=== PATIENT | female | born 1945 | race Caucasian/White ===

== ENCOUNTER 2018-06-29 14:57 | Inpatient (IN) ==
[2018-06-29] MEDS ORDERED: SODIUM CHLORIDE 0.9% 500 ML IV SCH (15:15)
[2018-06-29 15:29] LABS: Basophils # (auto) 0.02 K/uL (0-0.2); Basophils % (auto) 0.2 %; Eosinophils # (auto) 0.06 K/uL (0-0.5); Eosinophils % (auto) 0.6 %; Hematocrit (blood only) 43.1 % (37-47); Hemoglobin 14.6 g/dL (12.0-16.0); Immature Granulocytes # (auto) 0.01 K/uL (0.00-0.02); Immature Granulocytes % (auto) 0.1 %; Lymphocytes # (auto) 3.85 K/uL (1.2-3.4); Lymphocytes % (auto) 37.9 %; Mean Corpuscular Hgb Conc 33.9 g/dL (32-36); Mean Corpuscular Volume 90.2 fL (80-100); Mean Platelet Volume 10.5 fL (7.4-10.4); Monocytes # (auto) 0.87 K/uL (0.11-0.59); Monocytes % (auto) 8.6 %; Neutrophils # (auto) 5.36 K/uL (1.4-6.5); Neutrophils % (auto) 52.6 %; Platelet Count 209 K/uL (130-400); RDW Coefficient of Variation 13.5 % (11.5-14.5); RDW Standard Deviation 44.9 fL (36.4-46.3); Red Blood Count 4.78 M/uL (4.2-5.4); White Blood Count 10.17 K/uL (4.8-10.8)
[2018-06-29 15:42] LABS: Alanine Aminotransferase 18 U/L (12-78); Albumin Level 3.5 gm/dl (3.4-5.0); Aspartate Aminotransferase 9 U/L (15-37); BUN Creatinine Ratio 9.5 (10-20); Blood Urea Nitrogen 10 mg/dl (7-18); Calcium 9.3 mg/dl (8.5-10.1); Carbon Dioxide 27 mmol/L (21-32); Chloride 104 mmol/L (98-107); Est GFR (African American) 58.1; Est GFR (Non-African American) 50.1; Glucose 287 mg/dl (70-99); Magnesium 1.8 mg/dl (1.8-2.4); Potassium 3.6 mmol/L (3.5-5.1); Sodium 138 mmol/L (136-145)
[2018-06-29] MEDS ORDERED: ACETAMINOPHEN 325 MG TAB PO STA (15:49)
[2018-06-29 15:53] LABS: Albumin Globulin Ratio 0.9 (0.9-2); Alkaline Phosphatase 49 U/L (45-117); Bilirubin,Total 0.4 mg/dl (0.1-1); Globulin 3.8 gm/dl (2.5-4.0); Total Protein 7.3 gm/dl (6.4-8.2); Troponin I < 0.015 ng/ml (0-0.045)
--- NOTE | 2018-06-29 16:08 | CT Scan Report ---
HEAD CT NONCONTRAST CT DOSE: 537.48 mGy.cm HISTORY: weakness, lightheaded TECHNIQUE: Multiaxial CT images of the head were performed without the use of intravenous contrast. A utomated exposure control was utilized for this study. A dose lowering technique was utilized adheri ng to the principles of ALARA. Comparison: None. Findings: The paranasal sinuses and mastoid air cells are clear. The calvarium and skull base are int act. The ventricles and sulci are within normal limits. There is no mass, hematoma, midline shift, or acute infarct. Focal expansion of a right parietal sulcus at the high convexity which measures 2.8 c m. This is CSF density and therefore likely represents an arachnoid cyst. Impression: 1. No acute intracranial abnormality. 2. Incidental note is made of a 2.8 cm right parietal arachnoid cyst. Electronically signed by: Drake Galarza M.D. 06/29/2018 4:07 PM
[2018-06-29 16:20] LABS: Appearance Urine Cloudy (Clear); Bacteria Urine Automated 3+ (Negative); Bilirubin Urine Negative (Negative); Color Urine Yellow; Epithelial Cell Urine Auto >30 /lpf (0-5); Glucose Urine UA 3+ (Negative); Ketones Urine Trace (Negative); Leukocyte Esterase Urine Negative (Negative); Nitrite Urine Positive (Negative); Protein Urine 3+ (Negative); Specific Gravity Urine 1.034 (1.000-1.030); Urobilinogen Urine Negative (Negative)
--- NOTE | 2018-06-29 16:32 | XRay Report ---
XR chest 1V portable HISTORY: weakness COMPARISON: Chest 6 05/08/2006. FINDINGS: Left-sided dual-chamber pacemaker. The heart is normal in size. No pneumothorax. No pleural effusions. Hazy appearance to the left lung base remains unchanged. This may represent atelectasis o r scarring. The lungs are otherwise clear. IMPRESSION: No significant change compared to the prior study. No acute process. Hazy appearance to the left lung base persists and may represent atelectasis or scarring. Electronically signed by: Drake Galarza M.D. 06/29/2018 4:31 PM
[2018-06-29] MEDS ORDERED: cefTRIAXone SODIUM 1,000 MG/50 ML BAG IV STA (16:41)
--- NOTE | 2018-06-29 19:51 | History & Physical Report ---
Date of Service June 29, 2018 Assessment & Plan (1) Light-headed: 73-year-old female was admitted on 29 June 2018 for lightheadedness and bradycardia. Lightheaded and bradycardia: Some report of recent falls as well. Denies any outright chest pain or shortness of breath. EKG was normal sinus rhythm 73 with no evidence of pacing. Troponin was negative. CT head non-acute and CXR nothing immediate. Unclear moment exactly why she has a pacemaker in place, though she may have tachybradycardia syndrome. Cardiology was consulted by the emergency room (Dr. Olivas) who recommended the patient be admitted for likely pacemaker battery change out tomorrow. UTI: As seen on UA, though patient seems asymptomatic. Given ceftriaxone in ED. UCx pending. - Will keep on ceftriaxone daily due to pacemaker in place. Prior medical history - Hypothyroidism: History of the same. Here TSH 10.1. Patient may have run out of her home meds. Per medical records, is on levothyroxine 100 mcg daily. - DM: HbA1c in Mar 2018 16.3. Per medical records she was on metformin 1000 mg BID. --- Hold metformin in hospital. Insulin sliding scale. --- Will check updated A1c and lipid panel. - Hypertension: Per medical records is on losartan 25 mg daily and digoxin 250 mcg daily. --- Holding digoxin and losartan for now. --- Check digoxin level. Hyperlipidemia per medical records, is on rosuvastatin 10 mg daily. - Depression: Per medical records. Depending on her level of distress, may need psych care arranged as inpatient. - COPD: Per medical records is on Combivent 20-100 mcg one puff 4 times daily. - Hearing difficulty and intellectual disability. Right parietal arachnoid cyst: Incidental finding seen on CT of the head. Code status: Full code. Diet: DM2. DVT prophy: SCDs for tonight pending procedure. PT/OT: Deferred. Disbo: Admit to [facility] telemetry. Apparently lives with a friend named Nayla ( who may be hospitalized elsewhere herself). (2) Bradycardia: (3) Acute UTI: (4) Hypothyroidism: (5) Diabetes mellitus: (6) Hypertension: (7) Hyperlipidemia: (8) Depression: (9) COPD (chronic obstructive pulmonary disease): (10) Hearing difficulty: (11) Intellectual disability: History of Present Illness Primary Care Provider: SHIRLEY Walters 73-year-old female presents the emergency department complaining of lightheadedness prior to arrival. On my interview, the patient is very hard of hearing and does not volunteer any information. We ended up discussing the following: - Patient said that her chest feels uncomfortable but that she is not in any pain. She then said that "my battery is low" which I think is referring to her pacemaker. She says she still feels a little lightheaded but more so nervous about her pacemaker. - When asked if anything else bothered her, she said that she sprained her left ankle and that she should be wearing a brace but she does not know where it is. She says she has follow-up with someone for this in July. She also notes she has arthritis. Otherwise she denied any acute concerns. - Patient denied any dysuria or abdominal pain but did say that she "pees a lot ". She says she takes her diabetes medicine but she is not sure what it is. - Patient says she ran out of her thyroid medicine and she is unsure what it is or what dose she is on. - When asked if she lives at home, she says she used to but she does not care where she lives now. She then said that she feels very depressed and that she wants to talk to a psychiatrist to help her with anger issues. Allergies Allergy/AdvReac Type Severity Reaction Status Date / Time No Known Allergies Allergy Verified 06/29/18 19:52 Home Medications Home Medications Medication Instructions Recorded Confirmed Type cephalexin [Keflex] 500 mg PO BID 7 Days #14 cap 06/29/18 Rx diclofenac sodium 2 g TOPICAL QID 06/29/18 06/29/18 History digoxin [Digitek] 0.25 mg PO DAILY 06/29/18 06/29/18 History levothyroxine 100 mcg PO DAILY 06/29/18 06/29/18 History losartan 25 mg PO DAILY 06/29/18 06/29/18 History metformin 1,000 mg PO BID 06/29/18 06/29/18 History rosuvastatin 10 mg PO DAILY 06/29/18 06/29/18 History Past Med/Surg History Medical History Diabetes (Chronic) Family History Other No significant family history Social History Current Living Situation: Other Current Living Situation Comment: lives with a "friend" Smoking Status: Never smoker Hx Alcohol Use: No Hx Substance Use: No Beliefs That Will Affect Care: None Preferred Language: Urdu Communication Ability Comment: difficult r/t being hard of hearing and intellectual disability Immunizations: PMH: DM2, hypothyroidism, HTN, HLD, depression, COPD, hearing difficulty, intellectual disability. PSH: Pacemaker placement. Review of Systems Unable to obtain due to patient not volunteering much information. Though denies CP, SOB, CASTILLO, abd pain, urinary symptoms. Physical Exam 2 Vital Signs (Past 24 Hours): Last Vital Signs Temp 37.1 C 06/29/18 14:59 Pulse 47 L 06/29/18 19:01 Resp 18 06/29/18 19:01 BP 140/70 06/29/18 19: Pulse Ox 96 06/29/18 19:01 Physical Exam: GENERAL: Found patient resting comfortably. Awoke to light touch. Appears in no acute distress. Very hard of hearing. HENT: Normocephalic, atraumatic. Oropharynx unremarkable. EYES: Normal conjunctiva. Sclera non-icteric. NECK: Inspection normal. Non-tender. Supple and full ROM. No nuchal rigidity. CARDIAC: +S1S2 regular bradycardia, no murmurs. Pacemaker palpable in left upper chest. RESPIRATORY: Clear to auscultation. No wheezes or rales. Normal respiratory effort. GI: +BS, soft, non-distended. No tenderness to palpation. No rebound or guarding. No appreciable masses. EXTREMITIES: No pedal edema or calf tenderness. Moving all extremities naturally and easily. NEURO: No gross neuro deficits. Lines: PIV Results & Data Laboratory Results 06/29/18 06/29/18 06/29/18 Range/Units 16:05 15:05 15:05 WBC 10.17 (4.8-10.8) K/uL RBC 4.78 (4.2-5.4) M/uL Hgb 14.6 (12.0-16.0) g/dL Hct 43.1 (37-47) % MCV 90.2 (80-100) fL MCH 30.5 (25-34) pg MCHC 33.9 (32-36) g/dL RDW Std Deviation 44.9 (36.4-46.3) fL RDW Coeff of Sarah 13.5 (11.5-14.5) % Plt Count 209 (130-400) K/uL MPV 10.5 H (7.4-10.4) fL Immature Gran % (Auto) 0.1 % Neut % (Auto) 52.6 % Lymph % (Auto) 37.9 % [place] % (Auto) 8.6 % Eos % (Auto) 0.6 % Baso % (Auto) 0.2 % Immature Gran # (Auto) 0.01 (0.00-0.02) K/uL Neut # (Auto) 5.36 (1.4-6.5) K/uL Lymph # (Auto) 3.85 H (1.2-3.4) K/uL [place] # (Auto) 0.87 H (0.11-0.59) K/uL Eos # (Auto) 0.06 (0-0.5) K/uL Baso # (Auto) 0.02 (0-0.2) K/uL Sodium 138 (136-145) mmol/L Potassium 3.6 (3.5-5.1) mmol/L Chloride 104 (98-107) mmol/L Carbon Dioxide 27 (21-32) mmol/L Anion Gap 7.0 (3-11) BUN 10 (7-18) mg/dl Creatinine 1.10 (0.6-1.2) mg/dl Est Cr Clr Drug Dosing 37.0 ml/min Est GFR ( Amer) 58.1 Est GFR (Non-Af Amer) 50.1 BUN/Creatinine Ratio 9.5 L (10-20) Glucose 287 H (70-99) mg/dl POC Glucose (70-99) Calcium 9.3 (8.5-10.1) mg/dl Magnesium 1.8 (1.8-2.4) mg/dl Total Bilirubin 0.4 (0.1-1) mg/dl AST 9 L (15-37) U/L ALT 18 (12-78) U/L Alkaline Phosphatase 49 (45-117) U/L Troponin I < 0.015 (0-0.045) ng/ml Total Protein 7.3 (6.4-8.2) gm/dl Albumin 3.5 (3.4-5.0) gm/dl Globulin 3.8 (2.5-4.0) gm/dl Albumin/Globulin Ratio 0.9 (0.9-2) TSH 10.100 H (0.300-4.500) uIu/ml Urine Color Yellow Urine Appearance Cloudy H (Clear) Urine pH 5.0 (4.5-7.5) Ur Specific [place] 1.034 H (1.000-1.030) Urine Protein 3+ H (Negative) Urine Glucose (UA) 3+ H (Negative) Urine Ketones Trace H (Negative) Urine Blood Negative (Negative) Urine Nitrite Positive H (Negative) Urine Bilirubin Negative (Negative) Urine Urobilinogen Negative (Negative) Ur Leukocyte Esterase Negative (Negative) Urine WBC (Auto) 10-30 H (0-5) /hpf Urine RBC (Auto) 0-4 (0-4) /hpf U Hyaline Cast (Auto) 5-10 H (0-5) /lpf U Epithel Cells (Auto) >30 H (0-5) /lpf Urine Bacteria (Auto) 3+ H (Negative) 06/29/18 Range/Units 15:02 WBC (4.8-10.8) K/uL RBC (4.2-5.4) M/uL Hgb (12.0-16.0) g/dL Hct (37-47) % MCV (80-100) fL MCH (25-34) pg MCHC (32-36) g/dL RDW Std Deviation (36.4-46.3) fL RDW Coeff of Sarah (11.5-14.5) % Plt Count (130-400) K/uL MPV (7.4-10.4) fL Immature Gran % (Auto) % Neut % (Auto) % Lymph % (Auto) % [place] % (Auto) % Eos % (Auto) % Baso % (Auto) % Immature Gran # (Auto) (0.00-0.02) K/uL Neut # (Auto) (1.4-6.5) K/uL Lymph # (Auto) (1.2-3.4) K/uL [place] # (Auto) (0.11-0.59) K/uL Eos # (Auto) (0-0.5) K/uL Baso # (Auto) (0-0.2) K/uL Sodium (136-145) mmol/L Potassium (3.5-5.1) mmol/L Chloride (98-107) mmol/L Carbon Dioxide (21-32) mmol/L Anion Gap (3-11) BUN (7-18) mg/dl Creatinine (0.6-1.2) mg/dl Est Cr Clr Drug Dosing ml/min Est GFR ( Amer) Est GFR (Non-Af Amer) BUN/Creatinine Ratio (10-20) Glucose (70-99) mg/dl POC Glucose 279 H (70-99) Calcium (8.5-10.1) mg/dl Magnesium (1.8-2.4) mg/dl Total Bilirubin (0.1-1) mg/dl AST (15-37) U/L ALT (12-78) U/L Alkaline Phosphatase (45-117) U/L Troponin I (0-0.045) ng/ml Total Protein (6.4-8.2) gm/dl Albumin (3.4-5.0) gm/dl Globulin (2.5-4.0) gm/dl Albumin/Globulin Ratio (0.9-2) TSH (0.300-4.500) uIu/ml Urine Color Urine Appearance (Clear) Urine pH (4.5-7.5) Ur Specific [place] (1.000-1.030) Urine Protein (Negative) Urine Glucose (UA) (Negative) Urine Ketones (Negative) Urine Blood (Negative) Urine Nitrite (Negative) Urine Bilirubin (Negative) Urine Urobilinogen (Negative) Ur Leukocyte Esterase (Negative) Urine WBC (Auto) (0-5) /hpf Urine RBC (Auto) (0-4) /hpf U Hyaline Cast (Auto) (0-5) /lpf U Epithel Cells (Auto) (0-5) /lpf Urine Bacteria (Auto) (Negative) Code Status & VTE Plan Code Status Full code VTE Prophylaxis Plan VTE Prophylaxis will be ordered: Yes Supervising Physician Co-Signing Physician Notes Attending addendum: I have physically seen this patient, have supervised the medical residents activities, and agree with the H&P unless as otherwise noted. Assessment and Plan: Symptomatic bradycardia/lightheadedness/pacemaker dysfunction-- The patient will be admitted to telemetry for serial cardiac enzymes, serial EKG's, cardiac rhythm monitoring and a 2-D echocardiogram with Dopplers. Dr. Olivas from cardiology has been consulted from the ED, and will replace battery tomorrow. Hold the digoxin and check digoxin level. Hold losartan. Gentle IV fluids. Urinary tract infection-- Continue ceftriaxone 1 g IV daily begun in the ED. Follow urine culture and sensitivities. Hypothyroidism-- Continue levothyroxine 100 mcg p.o. daily. Patient reports she has not taken this in a few weeks since she ran out of her medication. Hyperglycemia and diabetes mellitus-- Suspect she has not been taking her metformin 1000 mg p.o. twice daily as directed. Hold metformin for potential procedure in the a.m. Placed on Accu-Cheks before meals and at bedtime with NovoLog coverage per scale. Would be concerning the patient is no longer in living situation which is optimal for her. Consult social welfare clerk for help in potential placement into assisted living. Remaining orders notations as noted. Resident Activity Tracking Resident Involvement: Resident Care Provided Care Provided: Adult Hospital Medicine
[2018-06-29] MEDS ORDERED: DEXTROSE 50% 50 ML SYRINGE IV PRN (19:58)
[2018-06-29] MEDS ORDERED: ONDANSETRON INJ 2 MG/ML 2 ML VIAL IV PRN ×2 (19:58→21:44)
[2018-06-29] MEDS ORDERED: GLUCAGON FOR INJ 1 MG VIAL SQ PRN (19:58)
[2018-06-29] MEDS ORDERED: ACETAMINOPHEN 325 MG TAB PO PRN (19:58)
[2018-06-29] MEDS ORDERED: GLUCOSE 40% GEL 15 GM TUBE PO PRN (19:58)
[2018-06-29] MEDS ORDERED: MAGNESIUM HYDROXIDE SUSP 30 ML UDC PO PRN ×2 (19:58→21:44)
[2018-06-29] MEDS ORDERED: GLUCOSE 10 TABS/TUBE PO PRN (19:58)
[2018-06-29] MEDS ORDERED: CARBOHYDRATES FOR HYPOGLYCEMIA PO PRN (19:58)
--- NOTE | 2018-06-29 21:04 | Emergency Department Note ---
Entered by Dee Ellington acting as a scribe for Tomas Ogden MD History of Present Illness General Chief complaint: Altered Mental Status Stated complaint: DIZZINESS, LIGHTHEADED Time Seen by Provider: 06/29/18 15:03 Source: patient History of Present Illness Onset (ago): hour(s) (just prior to arrival) Location: head Severity: similar to prior episodes Pain Consistency: + now resolved Quality: + other (lightheadedness) Associated symptoms: + other (negative abdominal pain); no chest pain and no cough Treatments prior to arrival: none The patient is a 73 white female w/ PMHx of diabetes who presents to the ED w/ CC of now resolved lightheadedness beginning just prior to arrival. The patient states that she has been falling a lot recently. She denies abdominal pain, cough, or chest pain. The patient states that she walked somewhere so that they would call the ambulance for her. The patient states that she does not know what caused her lightheadedness, and denies any treatments prior to arrival. Home Medications Home Medications Medication Instructions Recorded Confirmed Type cephalexin [Keflex] 500 mg PO BID 7 Days #14 cap 06/29/18 Rx diclofenac sodium 2 g TOPICAL QID 06/29/18 06/29/18 History digoxin [Digitek] 0.25 mg PO DAILY 06/29/18 06/29/18 History levothyroxine 100 mcg PO DAILY 06/29/18 06/29/18 History losartan 25 mg PO DAILY 06/29/18 06/29/18 History rosuvastatin 10 mg PO DAILY 06/29/18 06/29/18 History Allergies Allergy/AdvReac Type Severity Reaction Status Date / Time No Known Allergies Allergy Verified 06/29/18 19:52 Past Med/Surg History Medical History Diabetes (Chronic) Family History Other No significant family history Social History Smoking Status: Unknown if ever smoked Preferred Language: Thai Review of Systems See HPI for pertinent positives & negatives. and A total of 10 systems reviewed and were otherwise negative Physical Exam Vital Signs Vital Signs - 24 hr 06/29/18 14:59 06/29/18 15:04 06/29/18 15:11 Temperature 37.1 C Temperature Source Oral Sepsis Recent Fever Within 48 Hours No Sepsis New/Unexplained Change in Mental Status No Sepsis Action Taken by Nursing No Action Required Pulse Rate 74 74 Pulse Rate [Apical] Pulse Rhythm Regular Pulse Rhythm [Apical] Pulse Strength Normal Pulse Strength [Apical] Respiratory Rate 22 20 Respiratory Effort / Characteristics Non-Labored Spontaneous Respiratory Depth Normal Respiratory Pattern Regular Blood Pressure 110/72 Blood Pressure [Right Arm] Blood Pressure Mean 84 Blood Pressure Mean [Right Arm] Blood Pressure Position [Right Arm] Pulse Oximetry 98 98 96 Oxygen Delivery Method Room Air Room Air 06/29/18 15:30 06/29/18 15:37 06/29/18 16:45 Temperature Temperature Source Sepsis Recent Fever Within 48 Hours Sepsis New/Unexplained Change in Mental Status Sepsis Action Taken by Nursing Pulse Rate 64 65 75 Pulse Rate [Apical] Pulse Rhythm Pulse Rhythm [Apical] Pulse Strength Pulse Strength [Apical] Respiratory Rate 20 19 25 H Respiratory Effort / Characteristics Respiratory Depth Respiratory Pattern Blood Pressure 103/64 Blood Pressure [Right Arm] Blood Pressure Mean 77 Blood Pressure Mean [Right Arm] Blood Pressure Position [Right Arm] Pulse Oximetry 94 96 Oxygen Delivery Method 06/29/18 16:46 06/29/18 17:00 06/29/18 17:24 Temperature Temperature Source Sepsis Recent Fever Within 48 Hours Sepsis New/Unexplained Change in Mental Status Sepsis Action Taken by Nursing Pulse Rate 59 L 57 L Pulse Rate [Apical] Pulse Rhythm Pulse Rhythm [Apical] Pulse Strength Pulse Strength [Apical] Respiratory Rate 25 H 16 38 H Respiratory Effort / Characteristics Respiratory Depth Respiratory Pattern Blood Pressure 110/65 118/71 Blood Pressure [Right Arm] Blood Pressure Mean 80 86 Blood Pressure Mean [Right Arm] Blood Pressure Position [Right Arm] Pulse Oximetry 96 96 96 Oxygen Delivery Method 06/29/18 17:30 06/29/18 17:40 06/29/18 17:43 Temperature Temperature Source Sepsis Recent Fever Within 48 Hours Sepsis New/Unexplained Change in Mental Status Sepsis Action Taken by Nursing Pulse Rate 47 L 52 L Pulse Rate [Apical] 47 L Pulse Rhythm Pulse Rhythm [Apical] Regular Pulse Strength Pulse Strength [Apical] Normal Respiratory Rate 16 27 H 18 Respiratory Effort / Characteristics Respiratory Depth Normal Respiratory Pattern Blood Pressure Blood Pressure [Right Arm] 118/71 Blood Pressure Mean Blood Pressure Mean [Right Arm] 86 Blood Pressure Position [Right Arm] Pulse Oximetry 96 94 96 Oxygen Delivery Method Room Air 06/29/18 17:51 06/29/18 18:00 06/29/18 18:10 Temperature Temperature Source Sepsis Recent Fever Within 48 Hours Sepsis New/Unexplained Change in Mental Status Sepsis Action Taken by Nursing Pulse Rate 47 L 51 L 70 Pulse Rate [Apical] Pulse Rhythm Pulse Rhythm [Apical] Pulse Strength Pulse Strength [Apical] Respiratory Rate 17 19 21 Respiratory Effort / Characteristics Respiratory Depth Respiratory Pattern Blood Pressure Blood Pressure [Right Arm] Blood Pressure Mean Blood Pressure Mean [Right Arm] Blood Pressure Position [Right Arm] Pulse Oximetry 96 97 98 Oxygen Delivery Method 06/29/18 18:20 06/29/18 18:30 06/29/18 18:40 Temperature Temperature Source Sepsis Recent Fever Within 48 Hours Sepsis New/Unexplained Change in Mental Status Sepsis Action Taken by Nursing Pulse Rate 55 L 52 L 51 L Pulse Rate [Apical] Pulse Rhythm Pulse Rhythm [Apical] Pulse Strength Pulse Strength [Apical] Respiratory Rate 16 19 15 Respiratory Effort / Characteristics Respiratory Depth Respiratory Pattern Blood Pressure 117/61 Blood Pressure [Right Arm] Blood Pressure Mean 79 Blood Pressure Mean [Right Arm] Blood Pressure Position [Right Arm] Pulse Oximetry 95 98 96 Oxygen Delivery Method 06/29/18 18:44 06/29/18 19:01 06/29/18 20:43 Temperature Temperature Source Sepsis Recent Fever Within 48 Hours Sepsis New/Unexplained Change in Mental Status Sepsis Action Taken by Nursing Pulse Rate Pulse Rate [Apical] 53 L 47 L 47 L Pulse Rhythm Pulse Rhythm [Apical] Regular Pulse Strength Pulse Strength [Apical] Normal Respiratory Rate 18 18 Respiratory Effort / Characteristics Non-Labored Spontaneous Respiratory Depth Normal Respiratory Pattern Regular Blood Pressure Blood Pressure [Right Arm] 140/70 107/55 L Blood Pressure Mean Blood Pressure Mean [Right Arm] 93 72 Blood Pressure Position [Right Arm] Sitting Sitting Pulse Oximetry 96 93 Oxygen Delivery Method Room Air Room Air GENERAL: Well appearing, well nourished, NAD, non-toxic. Very hard of hearing. EYE EXAM: normal conjunctiva. PERRL, no anisocoria and EOM's grossly intact. Cataract in left eye. OROPHARYNX: no exudate, no erythema, lips, buccal mucosa, and tongue normal and mucous membranes are moist. Edentulous. NECK: supple, no nuchal rigidity, no adenopathy, non-tender CHEST: Device in left chest. LUNGS: Clear to auscultation. Normal chest wall mechanics HEART: no murmurs, S1 normal and S2 normal, no MRG ABDOMEN: abdomen soft, non-tender, normo-active bowel sounds, no masses, no rebound or guarding. BACK: Back is symmetrical on inspection and there is no deformity, no midline tenderness, no CVA tenderness to palpation. SKIN: no rashes and no bruising UPPER EXTREMITIES: upper extremities are grossly normal. LOWER EXTREMITIES: No pitting edema. No calf pain. NEURO EXAM: Cranial nerves II-XII grossly intact, normal speech, 5/5 b/l upper extremity and lower extremity strength, moves all 4s on ccommands. Course 1504: Past medical records reviewed. The patient was evaluated in room C4, and a complete history and physical examination were performed. 1828: I discussed the case with Dr. Donn Storm who states that the patient [facility]. He states that the patient's pacemaker battery can be replaced tomorrow. 1836: I discussed the case with Sandra Car PA-C who will further evaluate the patient. Consultations Consultation #1: I discussed the case with Dr. Donn Storm who states that the patient would benefit [facility]. He states that the patient's pacemaker battery can be replaced tomorrow. Time: 18:28 Consultation #2: I discussed the case with Sandra Car PA-C who will further evaluate the patient. Time: 18:36 Administered Medications Discontinued Medications Acetaminophen (Tylenol) 650 mg PO NOW STA Stop: 06/29/18 15:50 Last Admin: 06/29/18 16:05 Dose: 650 mg Sodium Chloride (Nss) 500 mls @ 999 mls/hr IV .Q31M YURIDIA Stop: 06/29/18 15:45 Last Infusion: 06/29/18 17:23 Dose: Infusion: 06/29/18 16:07 Dose: 0 mls/hr Admin: 06/29/18 15:36 Dose: 999 mls/hr Ceftriaxone Sodium (Rocephin) 1,000 mg in 50 mls @ 100 mls/hr IV NOW STA Stop: 06/29/18 17:10 Last Infusion: 06/29/18 17:24 Dose: Admin: 06/29/18 16:56 Dose: 100 mls/hr Medical Decision Making Medical Records Attestation: I reviewed the patient's medical records. Home Medications Current Medication List: was personally reviewed by me Laboratory Data Attestation: I reviewed the patient's lab results. Result diagrams: 06/29/18 15:05 06/29/18 15:05 Lab Results 06/29/18 06/29/18 06/29/18 Range/Units 15:02 15:05 15:05 WBC 10.17 (4.8-10.8) K/uL RBC 4.78 (4.2-5.4) M/uL Hgb 14.6 (12.0-16.0) g/dL Hct 43.1 (37-47) % MCV 90.2 (80-100) fL MCH 30.5 (25-34) pg MCHC 33.9 (32-36) g/dL RDW Std Deviation 44.9 (36.4-46.3) fL RDW Coeff of Sarah 13.5 (11.5-14.5) % Plt Count 209 (130-400) K/uL MPV 10.5 H (7.4-10.4) fL Immature Gran % (Auto) 0.1 % Neut % (Auto) 52.6 % Lymph % (Auto) 37.9 % [place] % (Auto) 8.6 % Eos % (Auto) 0.6 % Baso % (Auto) 0.2 % Immature Gran # (Auto) 0.01 (0.00-0.02) K/uL Neut # (Auto) 5.36 (1.4-6.5) K/uL Lymph # (Auto) 3.85 H (1.2-3.4) K/uL [place] # (Auto) 0.87 H (0.11-0.59) K/uL Eos # (Auto) 0.06 (0-0.5) K/uL Baso # (Auto) 0.02 (0-0.2) K/uL Sodium 138 (136-145) mmol/L Potassium 3.6 (3.5-5.1) mmol/L Chloride 104 (98-107) mmol/L Carbon Dioxide 27 (21-32) mmol/L Anion Gap 7.0 (3-11) BUN 10 (7-18) mg/dl Creatinine 1.10 (0.6-1.2) mg/dl Est Cr Clr Drug Dosing 37.0 ml/min Est GFR ( Amer) 58.1 Est GFR (Non-Af Amer) 50.1 BUN/Creatinine Ratio 9.5 L (10-20) Glucose 287 H (70-99) mg/dl POC Glucose 279 H (70-99) Calcium 9.3 (8.5-10.1) mg/dl Magnesium 1.8 (1.8-2.4) mg/dl Total Bilirubin 0.4 (0.1-1) mg/dl AST 9 L (15-37) U/L ALT 18 (12-78) U/L Alkaline Phosphatase 49 (45-117) U/L Troponin I < 0.015 (0-0.045) ng/ml Total Protein 7.3 (6.4-8.2) gm/dl Albumin 3.5 (3.4-5.0) gm/dl Globulin 3.8 (2.5-4.0) gm/dl Albumin/Globulin Ratio 0.9 (0.9-2) TSH 10.100 H (0.300-4.500) uIu/ml Urine Color Urine Appearance (Clear) Urine pH (4.5-7.5) Ur Specific [place] (1.000-1.030) Urine Protein (Negative) Urine Glucose (UA) (Negative) Urine Ketones (Negative) Urine Blood (Negative) Urine Nitrite (Negative) Urine Bilirubin (Negative) Urine Urobilinogen (Negative) Ur Leukocyte Esterase (Negative) Urine WBC (Auto) (0-5) /hpf Urine RBC (Auto) (0-4) /hpf U Hyaline Cast (Auto) (0-5) /lpf U Epithel Cells (Auto) (0-5) /lpf Urine Bacteria (Auto) (Negative) 06/29/18 Range/Units 16:05 WBC (4.8-10.8) K/uL RBC (4.2-5.4) M/uL Hgb (12.0-16.0) g/dL Hct (37-47) % MCV (80-100) fL MCH (25-34) pg MCHC (32-36) g/dL RDW Std Deviation (36.4-46.3) fL RDW Coeff of Sarah (11.5-14.5) % Plt Count (130-400) K/uL MPV (7.4-10.4) fL Immature Gran % (Auto) % Neut % (Auto) % Lymph % (Auto) % [place] % (Auto) % Eos % (Auto) % Baso % (Auto) % Immature Gran # (Auto) (0.00-0.02) K/uL Neut # (Auto) (1.4-6.5) K/uL Lymph # (Auto) (1.2-3.4) K/uL [place] # (Auto) (0.11-0.59) K/uL Eos # (Auto) (0-0.5) K/uL Baso # (Auto) (0-0.2) K/uL Sodium (136-145) mmol/L Potassium (3.5-5.1) mmol/L Chloride (98-107) mmol/L Carbon Dioxide (21-32) mmol/L Anion Gap (3-11) BUN (7-18) mg/dl Creatinine (0.6-1.2) mg/dl Est Cr Clr Drug Dosing ml/min Est GFR ( Amer) Est GFR (Non-Af Amer) BUN/Creatinine Ratio (10-20) Glucose (70-99) mg/dl POC Glucose (70-99) Calcium (8.5-10.1) mg/dl Magnesium (1.8-2.4) mg/dl Total Bilirubin (0.1-1) mg/dl AST (15-37) U/L ALT (12-78) U/L Alkaline Phosphatase (45-117) U/L Troponin I (0-0.045) ng/ml Total Protein (6.4-8.2) gm/dl Albumin (3.4-5.0) gm/dl Globulin (2.5-4.0) gm/dl Albumin/Globulin Ratio (0.9-2) TSH (0.300-4.500) uIu/ml Urine Color Yellow Urine Appearance Cloudy H (Clear) Urine pH 5.0 (4.5-7.5) Ur Specific [place] 1.034 H (1.000-1.030) Urine Protein 3+ H (Negative) Urine Glucose (UA) 3+ H (Negative) Urine Ketones Trace H (Negative) Urine Blood Negative (Negative) Urine Nitrite Positive H (Negative) Urine Bilirubin Negative (Negative) Urine Urobilinogen Negative (Negative) Ur Leukocyte Esterase Negative (Negative) Urine WBC (Auto) 10-30 H (0-5) /hpf Urine RBC (Auto) 0-4 (0-4) /hpf U Hyaline Cast (Auto) 5-10 H (0-5) /lpf U Epithel Cells (Auto) >30 H (0-5) /lpf Urine Bacteria (Auto) 3+ H (Negative) Imaging Data Radiologist's Impression: Radiology results as stated below per my review and the radiologist's interpretation: HEAD CT NONCONTRAST CT DOSE: 537.48 mGy.cm HISTORY: weakness, lightheaded TECHNIQUE: Multiaxial CT images of the head were performed without the use of intravenous contrast. Automated exposure control was utilized for this study. A dose lowering technique was utilized adhering to the principles of ALARA. Comparison: None. Findings: The paranasal sinuses and mastoid air cells are clear. The calvarium and skull base are intact. The ventricles and sulci are within normal limits. There is no mass, hematoma, midline shift, or acute infarct. Focal expansion of a right parietal sulcus at the high convexity which measures 2.8 cm. This is CSF density and therefore likely represents an arachnoid cyst. Impression: 1. No acute intracranial abnormality. 2. Incidental note is made of a 2.8 cm right parietal arachnoid cyst. Electronically signed by: Drake Galarza M.D. 06/29/2018 4:07 PM XR chest 1V portable HISTORY: weakness COMPARISON: Chest 6 05/08/2006. FINDINGS: Left-sided dual-chamber pacemaker. The heart is normal in size. No pneumothorax. No pleural effusions. Hazy appearance to the left lung base remains unchanged. This may represent atelectasis or scarring. The lungs are otherwise clear. IMPRESSION: No significant change compared to the prior study. No acute process. Hazy appearance to the left lung base persists and may represent atelectasis or scarring. Electronically signed by: rDake Galarza M.D. 06/29/2018 4:31 PM ECG Data Attestation: I personally reviewed and interpreted this ECG as follows: Indication: weakness Rate (beats per minute): 73 Rhythm: normal sinus Findings: + other (normal intervals), + T-wave inversion (aVL) and + left axis deviation Comparison ECG Date: from (08/31/2008) Change: the following changes noted (no longer atrial paced; T wave inversion in aVL new) Blood Pressure Blood Pressure Findings: Normal blood pressure MDM Narrative The patient is a 73 white female w/ PMHx of diabetes who presents to the ED w/ CC of now resolved lightheadedness beginning just prior to arrival. Differential includes acute coronary syndrome, myocardial infarction, CVA, TIA, anemia, infection, pneumonia, UTI, pyelonephritis, poor nutrition, dehydration, electrolyte disturbance,hypoglycemia. Patient was seen and evaluated the bedside. The patient is very hard of hearing but reportedly was feeling dizzy so walked to a snap is in order to call an ambulance. On exam the patient has a fairly unremarkable exam. Patient did have blood work completed along with EKG troponin chest x-ray. Patient also did have CT the brain was given fluids. Patient did have mildly elevated blood glucose but is with consistent with her prior history. Patient's urinalysis likely consistent with UTI. The patient was given a dose of Rocephin. I did try to have the patient's pacemaker interrogated. This was unsuccessful x2. After further discussion the patient did have a pacemaker placed almost 15 years ago and reportedly not had the battery change. There was a concern for pacemaker failure. The patient's heart rate was in the 40s. I did speak with the on-call palliative medicine physician who recommended admission to telemetry and would likely need to have the pacemaker battery changed. I did speak with on-call hospitalist who agreed to further evaluate and treat the patient. The patient was admitted to the medicine service. Impression & Plan Acute UTI, Light-headed Discharge Plan Visit Data Chief Complaint: Altered Mental Status Stated Complaint: DIZZINESS, LIGHTHEADED ED Provider: Tomas Ogden Discharge Problem: Acute UTI, Light-headed Patient Disposition: Home - Self-Care Condition: Good Discharge Instructions Adam/Other Patient Handouts: ED UTI Cystitis Female Activity Restrictions/Additional Instructions: Please return to the emergency department if you have worsening or recurrent symptoms not amenable to at-home treatment. Please call for a follow-up appointment with her primary care physician. Please take your medications as prescribed. If you have other concerns and/or complaints please feel free to also call your primary care physician's office or return the ED for further evaluation, management, and treatment. Take your medications as prescribed. If taking an antibiotic consider taking a probiotic and/or eating yogurt, but at the least, please take with food as it can cause upset stomach. If culture results are not available at discharge, if they are positive for concern of infection, you will be informed of the results as soon as they are available. Please utilize the outpatient resources as discussed with the medical case manager. You have been examined and treated today on an emergency basis only. This is not a substitute for, or an effort to provide, complete comprehensive medical care. It is impossible to recognize and treat all injuries or illnesses in a single emergency department visit. It is therefore important that you follow up closely with [facility], your PCP, and/or your specialist(s). Call as soon as possible for an appointment. Thank you for your time and consideration. I look forward to speaking with you again soon. Please don't hesitate to call us if you have any questions. Forms Stand Alone Forms: My [facility], Important Visit Information Prescriptions Prescriptions: New cephalexin [Keflex] 500 mg capsule 500 mg PO BID 7 Days Qty: 14 RF: 0 No Action digoxin [Digitek] 250 mcg Tablet 0.25 mg PO DAILY RF: 0 levothyroxine 100 mcg Tablet 100 mcg PO DAILY RF: 0 losartan 25 mg Tablet 25 mg PO DAILY RF: 0 rosuvastatin 10 mg Tablet 10 mg PO DAILY RF: 0 diclofenac sodium 1 % Gel 2 g TOPICAL QID RF: 0 Referrals Referrals: Candy Hartmann I, SHIRLEY [Primary Care Provider] - The scribe's documentation has been prepared under my direction and personally reviewed by me in its entirety. I confirm that the note above accurately reflects all work, treatment, procedures, and medical decision making performed by me.
[2018-06-29] MEDS: IPRATROPIUM BROMIDE/ALBUTEROL respimat INH INH SCH (22:26)
[2018-06-29] MEDS: INSULIN ASPART 100 UNITS/ML 3 ML PEN SC SCH (22:28)
[2018-06-29] MEDS: ACETAMINOPHEN 325 MG TAB PO PRN (23:37)
[2018-06-30 04:51] LABS: Hematocrit (blood only) 39.4 % (37-47); Hemoglobin 12.9 g/dL (12.0-16.0); Mean Corpuscular Hgb Conc 32.7 g/dL (32-36); Mean Corpuscular Volume 90.6 fL (80-100); Mean Platelet Volume 10.4 fL (7.4-10.4); Platelet Count 199 K/uL (130-400); RDW Coefficient of Variation 13.5 % (11.5-14.5); RDW Standard Deviation 45.1 fL (36.4-46.3); Red Blood Count 4.35 M/uL (4.2-5.4); White Blood Count 8.15 K/uL (4.8-10.8)
[2018-06-30 05:08] LABS: BUN Creatinine Ratio 13.2 (10-20); Calcium 8.4 mg/dl (8.5-10.1); Creatinine Clr Calc Pharmacy 48.9 ml/min; Est GFR (African American) 78.2; Est GFR (Non-African American) 67.5; Potassium 3.9 mmol/L (3.5-5.1)
[2018-06-30 05:13] LABS: ALC (manual) 3.23 K/uL (1.2-3.4); Basophils # (manual) 0.14 K/uL (0-0.2); Basophils % (manual) 1.7 %; Lymphocytes # (manual) 1.26 K/uL (1.2-3.4); Lymphocytes % (manual) 15.5 %; Monocytes % (manual) 8.6 %; Neutrophils % (manual) 50.1 %; RBC Morphology Unremarkable; Reactive Lymphocytes # (manual) 1.96 K/uL
[2018-06-30] MEDS: LEVOTHYROXINE SODIUM 100 MCG TABLET PO SCH (06:16)
[2018-06-30] MEDS: ROSUVASTATIN CALCIUM 10 MG TAB PO SCH (07:42)
[2018-06-30] MEDS: IPRATROPIUM BROMIDE/ALBUTEROL respimat INH INH SCH ×4 (07:42→20:33)
[2018-06-30] MEDS: INSULIN ASPART 100 UNITS/ML 3 ML PEN SC SCH ×4 (07:43→20:33)
[2018-06-30] MEDS ORDERED: ROSUVASTATIN CALCIUM 10 MG TAB PO SCH (09:00)
--- NOTE | 2018-06-30 09:11 | Psychiatric Consultation ---
Date of Consultation June 30, 2018 Impression / Recommendations Impression 73-year-old female requesting input regarding low mood. Has a history of outpatient mental health treatment, but information about her diagnoses and medication trials is very limited. Pt may benefit from a trial of an SSRI to target her depression and periods of hopelessness. Pt denies intent to harm herself, but is hopeful medications will assist with mood. Reviewed possibility of a trial of sertraline following completion of her pacemaker battery replacement. Pt is agreeable to starting medications after her surgery. Would recommend starting sertraline at 25mg qAM, with titration as needed/tolerated. Risks and benefits were explained and patient is willing for initiation of the medication. Despite occasions of thoughts to harm herself, patient denies intent to act on thoughts and belief that medications will help her mood. She does not appear to be at acute risk of harm to self at this time , but would recommend ongoing monitoring. At this time, does not meet criteria for inpatient mental health hospitalization. Dr. Deonna Camp was directly involved in review and discussion of the patient' s case and participated in medical decision making regarding treatment recommendations. (1) Depression: 06/30 - Would suggest holding off on medication initiation until after replacement of her pacemaker battery. - Reviewed option to begin sertraline at 25mg daily, which could occur after recovery from her procedure if no contraindications - Will attempt to acquire records and collateral information, as little is known about the history of the patient's previous mental health history. - Does not meet criteria for inpatient mental health treatment at this time, continue to monitor during her stay Risk Factors Assessment Male: No : Yes Do You Have Access To A Gun?: No Health Problems: Yes Mental Health Diagnoses: Yes (unknown diagnoses) Substance Use Disorders: No Previous Attempt: No Previous Psychiatric Hospitalization: Yes (unknown at what time and for what reason) Protective Factors Assessment : No Responsible for Young Children: No Employed: No Stable Relationships: Yes CPT Code 38042 Psych History Identifying Data 73-year-old female admitted medically for bradycardia and dizziness. Recommending replacement of her pacemaker battery. Psychiatric consultation requested to address reports of depression. Pt is extremely hard of hearing and information is acquired from patient alone via handwritten messages, history is limited for this reason. Chief Complaint "Eh, my mood's been so-so. Not very good". History of Present Illness Joanne Lewis is a 73-year-old female with PMH of pacemaker placement, COPD, HTN, HLD, DM, and hypothyroidism. Reports state patient has an intellectual disability, she is very hard of hearing and is only able to communicate by reading written word. Pt admitted due to bradycardia and dizziness, replacement of her pacemaker battery scheduled for tomorrow. Pt is seen on psychiatric consult service for reports of depression. Pt is pleasant and patient as well cooperate by her responding verbally to written questions. History is limited because of patient's difficulty hearing. When seen by our psychiatric nurse liaison, patient denied depression, desire for medications, and any need for our services. She reported her only concerns were anxiety about her upcoming surgery, and feeling upset as her close friend was diagnosed with lung CA and is hospitalized currently. Upon speaking with this provider, patient admits that her mood has been lower than usual "off and on." She reiterates her primary concerns are her pending procedure and concern for the health of her good friend. When asked about thoughts to harm herself, patient initially denies, then states she has had infrequent thoughts to "take a few more pills". Pt denies to this provider any intent to act on the thoughts. She denies previous history of these thoughts. Pt reports lower than usual mood, difficulty with sleep, decreased energy, anhedonia, occasional hopelessness, and passive SI without intent. Pt expresses interest in medications to assist with low mood. We reviewed upcoming surgery and recommendation that she not begin a new medication until after her procedure. Pt agrees, as she is not interested in starting something new before tomorrow. She admits to a history of outpatient psychiatric treatment, but cannot recall diagnoses or previous medication trials. Would suggest acquiring more information and possible trial of an SSRI to address mood concerns. PHQ-9 completed with patient scoring a 15, suggestive of moderate depression. Past Psychiatric History Previous Psych History: Admits to previous outpatient treatment with Dr. Duncan and Dr. Singh Current Psychiatric Diagnosis: history of diagnosis is unclear; likely MDD based on current reports Outpatient Services: None presently Previous Psych Admissions: Admits to a hospitalization at the [facility] - unknown cause for admission Do You Have Access To A Gun?: No History of Previous Suicide Attempt: No Past Medication Trials: Admits to previous medication trials, does not recall specific medications Allergies Allergy/AdvReac Type Severity Reaction Status Date / Time No Known Allergies Allergy Verified 06/29/18 19:52 Home Medications Home Medications Medication Instructions Recorded Confirmed Type cephalexin [Keflex] 500 mg PO BID 7 Days #14 cap 06/29/18 Rx diclofenac sodium 2 g TOPICAL QID 06/29/18 06/29/18 History digoxin [Digitek] 0.25 mg PO DAILY 06/29/18 06/29/18 History levothyroxine 100 mcg PO DAILY 06/29/18 06/29/18 History losartan 25 mg PO DAILY 06/29/18 06/29/18 History metformin 1,000 mg PO BID 06/29/18 06/29/18 History rosuvastatin 10 mg PO DAILY 06/29/18 06/29/18 History Personal History Living Arrangements: Lives with a friend and her two children, has county transportation Beliefs That Will Affect Care: None Patient History Medical History Diabetes (Chronic) Family History Other No significant family history Social History Current Living Situation: Other Current Living Situation Comment: lives with a "friend" Smoking Status: Never smoker Hx Alcohol Use: No Hx Substance Use: No Beliefs That Will Affect Care: None Preferred Language: Ukrainian Communication Ability Comment: difficult r/t being hard of hearing and intellectual disability Physical Exam Psychiatric Orientation: alert, oriented x 3 and cooperative Apperance: appropriately dressed (in hospital gown) and appropriately groomed Eye Contact: good eye contact Motor Behavior: no abnormal motor movements (observed while laying in bed) Speech: normal rate/rhythm/volume of speech (extremely hard of hearing, however able to verbally respond appropriately to written messages) Affect: + depressed affect (mildly so) Mood: + depressed mood ("so-so, not very good") and + anxious mood ("nervous about my surgery tomorrow" and "nervous about my girlfriend") Thought Process: goal directed thought process, clear/coherent thought process and + concrete thought process Thought Content: reality based without delusions Suicidal Thoughts: denies suicidal intent; + reports suicidal thoughts (admits to occasional infrequent thoughts) and + reports suicidal plan (vaguely reports thoughts to "take more medication") Homicidal Thoughts: denies homicidal thoughts Hallucinations: no auditory hallucinations and no visual hallucinations Cognition: + recent memory not intact and + remote memory not intact Difficulty recalling history of treatment. Difficult to assess cognition given communication barrier. Able to process written word and respond appropriately. Estimated Intelligence: + below average estimated intelligence (reported diagnosis of ID; likely mild) Insight: + fair insight Judgement: + fair judgement Vital Signs (Past 24 Hours) Last Vital Signs Temp 36.7 C 06/30/18 07:13 Pulse 53 L 06/30/18 07:13 Resp 16 06/30/18 07:13 BP 116/65 06/30/18 07:13 Pulse Ox 97 06/30/18 07:13 Review of Systems Constitutional: reports fatigue Cardiovascular: reports mild chest pain and discomfort Respiratory: denied Gastrointestinal: denied Neurological: denied Psychiatric: denies symptoms other than stated above Difficulty thoroughly assessing all systems given communication difficulty, pertinent positives as above and in HPI. Results & Data Medications Administered Acetaminophen (Tylenol) 650 mg PO Q4H PRN PRN Reason: Pain or Fever Stop: 07/29/18 21:43 Last Admin: 06/29/18 23:37 Dose: 650 mg Albuterol (Combivent Respimat) 1 puffs INH QID [facility] Stop: 07/29/18 20:59 Last Admin: 06/30/18 07:42 Dose: 1 puffs Admin: 06/29/18 22:26 Dose: 1 puffs Insulin Aspart (Novolog Flexpen) 0 units SC ACHS [facility] Stop: 07/29/18 20:59 Last Admin: 06/30/18 07:43 Dose: 3 units Admin: 06/29/18 22:28 Dose: 2 units Levothyroxine Sodium (Synthroid) 100 mcg PO DAILYBB [facility] Stop: 07/30/18 06:29 Last Admin: 06/30/18 06:16 Dose: 100 mcg Rosuvastatin Calcium (Crestor) 10 mg PO DAILY [facility] Stop: 07/30/18 08:59 Last Admin: 06/30/18 07:42 Dose: 10 mg
--- NOTE | 2018-06-30 10:07 | Hospitalist Progress Note ---
Date of Service June 30, 2018 Assessment & Plan (1) Light-headed: Lightheaded and bradycardia: - Some report of recent falls as well. - EKG was normal sinus rhythm 73 with no evidence of pacing. - Troponin was negative, no events on monitor. - CT head non-acute and CXR nothing immediate. - Cardiology was consulted - likely pacemaker battery change today (2) Bradycardia: as above (3) Acute UTI: UTI: As seen on UA, though patient seems asymptomatic. Given ceftriaxone in ED. UCx pending. - Will keep on ceftriaxone daily due to pacemaker in place. (4) Hypothyroidism: TSH 10.1. Patient may have run out of her home meds. Per medical records , is on levothyroxine 100 mcg daily. (5) Diabetes mellitus: HbA1c in Mar 2018 16.3. Per medical records she was on metformin 1000 mg BID. Hold metformin, ss, bsgs ac & hs A1c, lipids pending (6) Hypertension: -Holding home digoxin and losartan for now. - dig level 0.2 (7) Hyperlipidemia: continue home rosuvastatin 10 mg daily (8) Depression: Psych consulted (9) COPD (chronic obstructive pulmonary disease): Continue home Combivent 20-100 mcg (10) Hearing difficulty: (11) Intellectual disability: Right parietal arachnoid cyst: Incidental finding seen on CT of the head. (12) DVT prophylaxis: Full code. SCDs pending procedure. PT/OT Dispo: Apparently lives with a friend named Nayla (who may be hospitalized elsewhere herself). Subjective Ms. Sensor is very [place] but appears comfortable and denies any pain. Review of Systems All systems reviewed & are unremarkable except as noted in HPI & below Physical Exam 2 Vital Signs (Past 24 Hours): Last Vital Signs Temp 36.7 C 06/30/18 07:13 Pulse 53 L 06/30/18 07:13 Resp 16 06/30/18 07:13 BP 116/65 06/30/18 07:13 Pulse Ox 97 06/30/18 07:13 Physical Exam: General: no distress Eyes: normal inspection, PERLL Respiratory: chest non tender, clear to auscultation, normal breath sounds, no respiratory distress, no accessory muscle use Cardiac: regular rate and rhythm, no rub or gallop, no murmur, no edema, no jvd GI/: active bowel sounds, no abd pain or tenderness, soft, non distended Extremities: normal range of motion, normal strength, non tender Neuro: difficult to assess orientation due to hearing, moves all extremities Psych: alert, normal mood and affect Skin: normal color, dry Results & Data Laboratory Results Abnormal lab results 06/29/18 06/29/18 06/29/18 Range/Units 15:02 15:05 15:05 MPV 10.5 H (7.4-10.4) fL Lymph # (Auto) 3.85 H (1.2-3.4) K/uL [place] # (Auto) 0.87 H (0.11-0.59) K/uL Monocytes # (Manual) (0.11-0.59) K/uL Chloride (98-107) mmol/L BUN/Creatinine Ratio 9.5 L (10-20) Glucose 287 H (70-99) mg/dl POC Glucose 279 H (70-99) Calcium (8.5-10.1) mg/dl AST 9 L (15-37) U/L TSH 10.100 H (0.300-4.500) uIu/ml Free T4 (0.8-1.6) ng/dl Urine Appearance (Clear) Ur Specific [place] (1.000-1.030) Urine Protein (Negative) Urine Glucose (UA) (Negative) Urine Ketones (Negative) Urine Nitrite (Negative) Urine WBC (Auto) (0-5) /hpf U Hyaline Cast (Auto) (0-5) /lpf U Epithel Cells (Auto) (0-5) /lpf Urine Bacteria (Auto) (Negative) Digoxin (0.8-2.0) ng/ml 06/29/18 06/29/18 06/30/18 Range/Units 16:05 21:47 04:33 MPV (7.4-10.4) fL Lymph # (Auto) (1.2-3.4) K/uL [place] # (Auto) (0.11-0.59) K/uL Monocytes # (Manual) 0.70 H (0.11-0.59) K/uL Chloride (98-107) mmol/L BUN/Creatinine Ratio (10-20) Glucose (70-99) mg/dl POC Glucose 216 H (70-99) Calcium (8.5-10.1) mg/dl AST (15-37) U/L TSH (0.300-4.500) uIu/ml Free T4 (0.8-1.6) ng/dl Urine Appearance Cloudy H (Clear) Ur Specific [place] 1.034 H (1.000-1.030) Urine Protein 3+ H (Negative) Urine Glucose (UA) 3+ H (Negative) Urine Ketones Trace H (Negative) Urine Nitrite Positive H (Negative) Urine WBC (Auto) 10-30 H (0-5) /hpf U Hyaline Cast (Auto) 5-10 H (0-5) /lpf U Epithel Cells (Auto) >30 H (0-5) /lpf Urine Bacteria (Auto) 3+ H (Negative) Digoxin (0.8-2.0) ng/ml 06/30/18 06/30/18 06/30/18 Range/Units 04:33 04:33 04:33 MPV (7.4-10.4) fL Lymph # (Auto) (1.2-3.4) K/uL [place] # (Auto) (0.11-0.59) K/uL Monocytes # (Manual) (0.11-0.59) K/uL Chloride 108 H (98-107) mmol/L BUN/Creatinine Ratio (10-20) Glucose 247 H (70-99) mg/dl POC Glucose (70-99) Calcium 8.4 L (8.5-10.1) mg/dl AST (15-37) U/L TSH (0.300-4.500) uIu/ml Free T4 0.72 L (0.8-1.6) ng/dl Urine Appearance (Clear) Ur Specific [place] (1.000-1.030) Urine Protein (Negative) Urine Glucose (UA) (Negative) Urine Ketones (Negative) Urine Nitrite (Negative) Urine WBC (Auto) (0-5) /hpf U Hyaline Cast (Auto) (0-5) /lpf U Epithel Cells (Auto) (0-5) /lpf Urine Bacteria (Auto) (Negative) Digoxin 0.2 L (0.8-2.0) ng/ml 06/30/18 Range/Units 07:22 MPV (7.4-10.4) fL Lymph # (Auto) (1.2-3.4) K/uL [place] # (Auto) (0.11-0.59) K/uL Monocytes # (Manual) (0.11-0.59) K/uL Chloride (98-107) mmol/L BUN/Creatinine Ratio (10-20) Glucose (70-99) mg/dl POC Glucose 222 H (70-99) Calcium (8.5-10.1) mg/dl AST (15-37) U/L TSH (0.300-4.500) uIu/ml Free T4 (0.8-1.6) ng/dl Urine Appearance (Clear) Ur Specific [place] (1.000-1.030) Urine Protein (Negative) Urine Glucose (UA) (Negative) Urine Ketones (Negative) Urine Nitrite (Negative) Urine WBC (Auto) (0-5) /hpf U Hyaline Cast (Auto) (0-5) /lpf U Epithel Cells (Auto) (0-5) /lpf Urine Bacteria (Auto) (Negative) Digoxin (0.8-2.0) ng/ml
--- NOTE | 2018-06-30 10:10 | Cardiology Consultation ---
Date of Consultation June 30, 2018 Assessment & Plan (1) Bradycardia: She has a long history of sinus node dysfunction and had a pacemaker implanted here in 2004. She now has intermittent bradycardia, although not always. She also has symptoms of dizziness and presyncope which are consistent with lack of pacing. Based on her symptoms she should have the device replaced. (2) Pacemaker battery depletion: Her pacemaker is most likely lately depleted, there is no ability to communicate with it and the device needs to be replaced. I cannot evaluate the leads since we cannot communicate with the device. She could need a lead revision as well but I cannot confirm that. I discussed the indications, procedure, risks and alternatives of pacemaker replacement and possible lead revision with her and she seems to understand and agrees to proceed. Consent obtained. I also discussed sedation with her and she is agreeable. Consent obtained. We will plan on the procedure tomorrow morning. History of Present Illness Reason for Consultation: Dizziness, probable pacemaker malfunction Attending Physician: Carlos Orozco MD History of Present Illness This is a very pleasant but very hard of hearing, somewhat noncompliant and possibly intellectually challenged 73-year-old woman. She has a history of diabetes mellitus, hypothyroidism, hyperlipidemia, hypertension, COPD (former smoker) and sick sinus syndrome for which she has a pacemaker in place. She has had extremely infrequent follow-up, the device was put in here in 2004 by Gail and she was followed up for perhaps one year as an outpatient by Gail but has been noncompliant with follow-up. She has been having difficulty with dizziness and nearly falling as well as presyncope, he came into the emergency room yesterday and was noted to be in sinus bradycardia and interrogation of her pacemaker was attempted but there was no ability to communicate indicating that the device is most likely completely depleted. She is a little bit difficult to communicate with due to the difficulty with hearing but she is cooperative, she does seem to understand for the most part where telling her and she has felt that her pacemaker probably was not working properly based on how she feels. She has not been having chest discomfort, she does have some leg pain with exertion. She does not have orthopnea or PND. Allergies Allergy/AdvReac Type Severity Reaction Status Date / Time No Known Allergies Allergy Verified 06/29/18 19:52 Home Medications Home Medications Medication Instructions Recorded Confirmed Type cephalexin [Keflex] 500 mg PO BID 7 Days #14 cap 06/29/18 Rx diclofenac sodium 2 g TOPICAL QID 06/29/18 06/29/18 History digoxin [Digitek] 0.25 mg PO DAILY 06/29/18 06/29/18 History levothyroxine 100 mcg PO DAILY 06/29/18 06/29/18 History losartan 25 mg PO DAILY 06/29/18 06/29/18 History metformin 1,000 mg PO BID 06/29/18 06/29/18 History rosuvastatin 10 mg PO DAILY 06/29/18 06/29/18 History Patient History Medical History Diabetes (Chronic) Family History Other No significant family history Social History Current Living Situation: Other Current Living Situation Comment: lives with a "friend" Smoking Status: Never smoker Hx Alcohol Use: No Hx Substance Use: No Beliefs That Will Affect Care: None Preferred Language: Welsh Communication Ability Comment: difficult r/t being hard of hearing and intellectual disability Review of Systems Notable for lightheadedness and dizziness, negative for palpitations or syncope. No exertional symptoms, no dyspnea on exertion or exertional chest pain. No orthopnea or PND or peripheral edema. No GI complaints, no bleeding. No neurologic complaints such as TIA or stroke symptoms. Other systems negative. Physical Exam 2 Vital Signs (Past 24 Hours): Last Vital Signs Temp 36.7 C 06/30/18 07:13 Pulse 53 L 06/30/18 07:13 Resp 16 06/30/18 07:13 BP 116/65 06/30/18 07:13 Pulse Ox 97 06/30/18 07:13 Physical Exam: Constitutional: Alert, cooperative and in no distress. HEENT: Unremarkable Neck: No jugular venous distention, carotid pulses are normal and equal bilaterally without bruits. Pulmonary: Clear to auscultation bilaterally. Cardiac: Regular slow rhythm with no murmur, gallop or rub. Abdomen: Soft, nontender with normal bowel sounds. Extremities: No edema. Distal pulses intact. Neurologic: No focal findings. Gait is steady. Skin: No rash, ecchymoses or petechiae. Results & Data Diagnostic Findings Telemetry: Sinus rhythm, heart rate often in the 40s. An electrocardiogram done on arrival demonstrates sinus rhythm at 73 bpm, somewhat leftward axis, no other abnormality. An electrocardiogram in August 2008 showed atrial pacing.
[2018-06-30] MEDS: ACETAMINOPHEN 325 MG TAB PO PRN (10:15)
[2018-06-30] MEDS: cefTRIAXone SODIUM 1,000 MG in DEXTROSE 5% 50 ML IV SCH (16:57)
[2018-07-01] MEDS: LEVOTHYROXINE SODIUM 100 MCG TABLET PO SCH (05:52)
[2018-07-01] MEDS ORDERED: CEFAZOLIN 1000MG 1,000 MG/7.5 ML SYR IV SCH (06:00)
[2018-07-01] MEDS ORDERED: LACTATED RINGER'S 1,000 ML IV SCH (06:00)
[2018-07-01 06:46] LABS: Chol HDL Ratio 2; Cholesterol 114 mg/dl (0-200); HDL Cholesterol 47 mg/dl; LDL Cholesterol Calculated 44 mg/dl; Triglycerides 115 mg/dl (0-150); VLDL Cholesterol 23 mg/dl
[2018-07-01 06:58] LABS: Estimated Average Glucose 321 mg/dl
[2018-07-01] MEDS: ROSUVASTATIN CALCIUM 10 MG TAB PO SCH (07:22)
[2018-07-01] MEDS: IPRATROPIUM BROMIDE/ALBUTEROL respimat INH INH SCH ×4 (07:22→20:30)
[2018-07-01] MEDS: INSULIN ASPART 100 UNITS/ML 3 ML PEN SC SCH ×4 (07:24→20:28)
[2018-07-01] MEDS ORDERED: BACITRACIN OINT 0.9 GM PKT ONE (07:36)
[2018-07-01] MEDS ORDERED: BACITRACIN INJ 50,000 UNIT VIAL ONE (07:37)
[2018-07-01] MEDS ORDERED: LIDOCAINE HCL 1% 20 ML VIAL ONE (07:37)
--- NOTE | 2018-07-01 07:41 | Cardiology Progress Note ---
Date of Service July 01, 2018 Assessment & Plan (1) Bradycardia: She has a long history of sinus node dysfunction and had a pacemaker implanted here in 2004. She now has intermittent bradycardia with symptoms, although not always. She has intermittent symptoms of dizziness and presyncope which are consistent with lack of pacing. Based on her symptoms she should have the device replaced. (2) Pacemaker battery depletion: Her pacemaker battery is most likely lately depleted, there is no ability to communicate with it and the device needs to be replaced. I cannot evaluate the leads since we cannot communicate with the device. She could need a lead revision as well but I cannot confirm that, hopefully not. Yesterday I discussed the indications, procedure, risks and alternatives of pacemaker replacement and possible lead revision with her and she seemed to understand and agreed to proceed. Consent obtained. I also discussed sedation with her and she was agreeable. Consent obtained. She had no questions about the procedure or sedation this morning and agrees to proceed. Subjective Patient feels well today, she is prepared to go for surgery. No cardiovascular complaints. Physical Exam 2 Vital Signs (Past 24 Hours): Last Vital Signs Temp 36.7 C 07/01/18 04:01 Pulse 56 L 07/01/18 04:01 Resp 18 07/01/18 04:01 BP 116/59 L 07/01/18 04:01 Pulse Ox 95 07/01/18 04:01 Physical Exam: Constitutional: Alert, cooperative and in no distress. Pulmonary: Clear to auscultation bilaterally. Cardiac: Regular slow rhythm with no murmur, gallop or rub. Abdomen: Soft, nontender with normal bowel sounds. Extremities: No edema. Skin: No rash, ecchymoses or petechiae. Results & Data Diagnostic Findings Telemetry: Sinus rhythm, predominantly sinus bradycardia. No long pauses.
--- NOTE | 2018-07-01 07:42 | Pre Anesthesia Assessment ---
Date of Service July 01, 2018 Pre Sedation Assessment Vital Signs Temp Pulse Resp BP Pulse Ox 07/01/18 04:01 36.7 C 56 L 18 116/59 L 95 06/30/18 23:42 36.8 C 58 L 18 133/70 96 06/30/18 19:07 37.1 C 53 L 16 116/59 L 95 06/30/18 15:08 37.0 C 53 L 16 126/68 95 06/30/18 11:30 36.9 C 50 L 18 110/62 96 Cardiovascular + regular rate and + bradycardic Respiratory normal respiratory effort, lungs clear to auscultation Pre-Sedation Airway Assessment Smoking Status: Never smoker Hx Sleep Apnea: No Hx Difficult Intubation: No Short, Thick Neck: No Thyromental Distance: < 3.5 Finger Breadths Mallampati Class: III ASA II NPO Status Date of Last Intake of Fluids: 06/30/18 Date of Last Intake of Solid Food: 06/30/18 Procedure Planning Contraindications for Sedation: none Current Medications Reviewed: Yes Notes The planned sedation has been discussed with the patient. Informed Consent was obtained. I have identified the patient, determined the appropriateness of sedation and have assessed the patient immediately prior to the procedure. All medicine(s) and interventions are by my order.
[2018-07-01] MEDS ORDERED: MIDAZOLAM HCL 5 MG/ML 1 ML VIAL ONE (07:59)
[2018-07-01] MEDS ORDERED: fentaNYL citrate 100 MCG/2 ML VIAL ONE (08:00)
[2018-07-01] MEDS ORDERED: ACETAMINOPHEN 325 MG TAB PO PRN (08:58)
--- NOTE | 2018-07-01 08:58 | Operative Report ---
Post Operative Report Date of Surgery July 01, 2018 Pre & Post Diagnosis Operation Date: 07/01/18 08:00 Preoperative diagnosis: Pacemaker end of service Postoperative diagnosis: Same Procedure Operation Date: 07/01/18 08:00 Actual Procedures p Pacer Gen Change Dual - Mark Olivas MD Surgeon Mark Olivas MD Optical Engineering Manager None Estimated Blood Loss 10 Findings Consistent with Post-Op Diagnosis Excellent pacing and sensing characteristics in both atrial and ventricular leads Specimens Old pacemaker, return to [employer] Complications none Disposition Accompanied Patient To Recovery: No Disposition: PCU Description of Procedure After obtaining informed consent for the procedure, the patient was brought to the laboratory being NPO after midnight. After identification in the laboratory the patient was prepped and draped in the standard sterile manner for a left- sided device replacement. The left prepectoral region was anesthetized with 1% lidocaine local anesthetic and once adequate anesthesia was obtained a 5 cm incision was made through the old implant scar and carried down to the pacemaker generator. The generator was dissected free of tissue and explanted. A bacitracin-soaked sponge(50,000 units in 50 cc normal saline solution) was placed in the pocket. The pacemaker was removed from the leads and connected to an external pacing system. Pacing and sensing characteristics were evaluated in both the atrial and ventricular leads as noted on the implant data sheet. A new pacemaker was attached to the leads and found to be functioning normally. A non-MRI compatible pacemaker was used as her leads are not MRI compatible and there is very little likelihood they will ever be approved for MRI use. The bacitracin- soaked sponge was removed from the pocket, the pacemaker was placed in the pocket with the leads coiled beneath it. The incision was closed with a running double subcutaneous closure of 3-0 Vicryl absorbable suture followed by a running subcuticular skin closure of 4-0 Vicryl absorbable suture. I attest to the content of the Intraoperative Record and any orders documented therein. Any exceptions are noted below.
[2018-07-01] MEDS ORDERED: INSULIN GLARGINE 100 UNIT/ML VIAL SC SCH (09:00)
--- NOTE | 2018-07-01 09:02 | Post Anesthesia Assessment ---
Date of Service July 01, 2018 Post Sedation Assessment Vital Signs Temp Pulse Resp BP Pulse Ox 07/01/18 04:01 36.7 C 56 L 18 116/59 L 95 06/30/18 23:42 36.8 C 58 L 18 133/70 96 06/30/18 19:07 37.1 C 53 L 16 116/59 L 95 06/30/18 15:08 37.0 C 53 L 16 126/68 95 06/30/18 11:30 36.9 C 50 L 18 110/62 96 Recovery Score Activity: Moves 4 extremities Consciousness: Fully Awake Oxygen Saturation: > 92% On Room Air Discharge Sedation Level of Care: Fast Track Phase II Post Sedation Plan On clinical assessment, the patient appears to have tolerated the sedation without complications. Patient is recovering as anticipated. Patient will continue to be monitored by nursing and may be discharged when sedation discharge criteria are met per below protocol. Upon Completions of procedure and additional 15 minutes continue every 5 minute vital signs and the P.A.R. score; then discharge to a Phase I or Fast Track to Phase II per the following guidelines: * Discharge Patient to appropriate Phase II area if PAR is 8 or greater or return to pre- procedure baseline. The post - procedure orders will be as directed. * If PAR score is less than 8 or not return to pre-procedure baseline then patient will follow Phase I monitoring till PAR is reached for Phase II. The Phase I may be done in procedure room or may call to secure a Phase I area. * If naloxone or flumazenil are used for reversal, hold in Phase I for continued monitoring from when last reversal dose was given for a minimum of 60 minutes or longer pending the nurse and/or physician discretion of patient condition before discharge to Phase II. Please call the Sedation Physician to re-evaluate and complete post-note for discharge to Phase II area. Do NOT discharge from procedure sedation or Phase 1 until post- sedation evaluation note is complete by procedure /sedation MD Sedation Discharge Instructions to be given to the patient at discharge to home.
[2018-07-01] MEDS: KETOROLAC TROMETHAMINE 10 MG TABLET PO PRN ×2 (10:13→19:15)
--- NOTE | 2018-07-01 11:19 | Hospitalist Progress Note ---
Date of Service July 01, 2018 Assessment & Plan (1) Light-headed: Lightheaded and bradycardia: - Some report of recent falls as well. - EKG was normal sinus rhythm 73 with no evidence of pacing on admission - Troponin was negative, no events on monitor. - CT head non-acute and CXR nothing immediate. - Cardiology was consulted - pacer replaced 07/01 (2) Bradycardia: as above (3) Acute UTI: UTI: As seen on UA, UC grew pansensitive E.Coli, continue ceftriaxone (4) Hypothyroidism: TSH 10.1. Patient may have run out of her home meds. Per medical records , is on levothyroxine 100 mcg daily. (5) Diabetes mellitus: HbA1c in Mar 2018 16.3. Per medical records she was on metformin 1000 mg BID. Hold metformin, ss, bsgs ac & hs - added lantus as patient has been running 200s , glycemic consult A1c this admission 12.8, (6) Hypertension: -Holding home digoxin and losartan for now. - dig level 0.2 (7) Hyperlipidemia: continue home rosuvastatin 10 mg daily (8) Depression: Psych consulted - recommend start 25 mg sertraline (9) COPD (chronic obstructive pulmonary disease): Continue home Combivent 20-100 mcg (10) Hearing difficulty: (11) Intellectual disability: Right parietal arachnoid cyst: Incidental finding seen on CT of the head. (12) DVT prophylaxis: Full code. SCDs, no chemoprophylaxis for procedure PT/OT Dispo: CM consulted for discharge planning as patient's home situation is unclear . Subjective Post pacer placement, feels good, no complaints other than some soreness at the incision site Review of Systems All systems reviewed & are unremarkable except as noted in HPI & below Physical Exam 2 Vital Signs (Past 24 Hours): Last Vital Signs Temp 36.7 C 07/01/18 04:01 Pulse 56 L 07/01/18 04:01 Resp 18 07/01/18 04:01 BP 116/59 L 07/01/18 04:01 Pulse Ox 95 07/01/18 04:01 Physical Exam: General: no distress Eyes: normal inspection, PERLL Respiratory: chest non tender, clear to auscultation, normal breath sounds, no respiratory distress, no accessory muscle use Cardiac: regular rate and rhythm, no rub or gallop, no murmur, no edema, no jvd GI/: active bowel sounds, no abd pain or tenderness, soft, non distended Extremities: normal range of motion, normal strength, non tender Neuro/Psych: alert and oriented x 3, normal mood and affect Skin: normal color, dry Results & Data Laboratory Results Abnormal lab results 06/30/18 06/30/18 06/30/18 Range/Units 04:33 11:29 16:22 POC Glucose 241 H 195 H (70-99) Hemoglobin A1c 12.8 H (4.5-5.6) % 06/30/18 07/01/18 Range/Units 20:19 07:24 POC Glucose 180 H 200 H (70-99) Hemoglobin A1c (4.5-5.6) %
[2018-07-01] MEDS ORDERED: PHARMACY GLYCEMIC MGMT CONSULT PRN (11:44)
--- NOTE | 2018-07-01 12:39 | Pharmacy Report ---
Glycemic Control Consultation - Date of Service July 01, 2018 - Scope Scope: Glycemic Pharmacist consulted by SHIRLEY Marquis on 07/01 for glycemic control and to write orders per [facility] inpatient glycemic control protocol - Objective Weight: 51.3 kg Accuchecks BSG (last 24hrs): 06/30/18 06/30/18 07/01/18 16:22 20:19 07:24 POC Glucose 195 H 180 H 200 H 07/01/18 11:02 POC Glucose 322 H HbA1c: Hemoglobin A1c 12.8 % (4.5-5.6) H 06/30/18 04:33 - Recent Pertinent Medications Outpatient Anti-diabetic Regimen: * Metformin 1 gm BID * A1c = 12.8 % 06/30/18 (down from 16.3% in 03/2018) The patient is currently receiving: * Basal insulin: Lantus 5 units every 12 hours - just initiated late this AM * Correctional Insulin: Novolog Correction per scale ACHS Goal Range: Low 100 mg/dL - High 140 mg/dL Correction Factor: 40 mg/dL/unit * Prandial insulin: Per carb ratio of 1 unit per 20 grams CHO consumed * Oral Agents: None at this time Risk Factors for Insulin Resistance: * Infection: on Rocephin for UTI * Recent Surgery: POD 0 s/p pacemaker replacement * Diet: type 2 diabetes - Assessment & Plan Assessment & Plan: ASSESSMENT: * Ms. Lewis is a 73 y/o female admitted for bradycardia and lightheadedness. She has a history of type 2 diabetes, managed with the maximum dose of metformin. Her A1c has improved significantly in the past few months; however, it is still significantly elevated. Of note, H&P indicates hearing and intellectual disabilities. * Since admission, she has only been receiving Novolog coverage with a CF/CR between a stress of 1 and 2 using insulin calc estimates. Fasting BSG in the 200s so basal insulin was just initiated. Will plan to continue this but provide a scale in case BSGs remain elevated. Will also plan to tighten CR to weight-based/stress of 2 insulin calculator recommendations. PLAN FOR INPATIENT GLYCEMIC CONTROL: * Continue to hold outpatient oral diabetes medications * Basal insulin - increase dose if BSGs remain elevated * Lantus SQ BID as per the following scale: * 5 units for BSG 180 or less * 9 units for BSG > 180 * Bolus insulin - tighten CR * NovoLog per scale ACHS or Q6hrs while NPO * Goal Range: Low 100 mg/dL - High 140 mg/dL * Correction Factor: 40 mg/dL/unit * Nutritional / Prandial insulin per carb ratio of 1 unit per 15 grams CHO consumed Discharge Recommendations: * Ms. Lewis's current A1c would dictate initiating insulin therapy. If insulin to be initiated, would recommend a once daily basal insulin at 10 units qHS. If patient not agreeable to insulin or not able to initiate due to intellectual disability, would recommend a DPP-4 inhibitor such as Januvia or a sulfonylurea (but would have a higher risk of hypoglycemia with this). Thank you.
[2018-07-01] MEDS: cefTRIAXone SODIUM 1,000 MG in DEXTROSE 5% 50 ML IV SCH (16:32)
[2018-07-01] MEDS: ACETAMINOPHEN 325 MG TAB PO PRN (16:33)
[2018-07-01] MEDS: INSULIN GLARGINE 100 UNIT/ML VIAL SC SCH (20:31)
[2018-07-02] MEDS: ACETAMINOPHEN 325 MG TAB PO PRN ×3 (03:20→17:47)
[2018-07-02] MEDS: LEVOTHYROXINE SODIUM 100 MCG TABLET PO SCH (05:54)
[2018-07-02 08:07] LABS: Hematocrit (blood only) 40.6 % (37-47); Hemoglobin 13.4 g/dL (12.0-16.0); Mean Corpuscular Volume 90.4 fL (80-100); Mean Platelet Volume 10.1 fL (7.4-10.4); Platelet Count 192 K/uL (130-400); RDW Coefficient of Variation 13.7 % (11.5-14.5); RDW Standard Deviation 45.8 fL (36.4-46.3); Red Blood Count 4.49 M/uL (4.2-5.4); White Blood Count 8.64 K/uL (4.8-10.8)
[2018-07-02 08:58] LABS: Calcium 8.6 mg/dl (8.5-10.1); Creatinine Clr Calc Pharmacy 46.7 ml/min; Est GFR (Non-African American) 63.9; Magnesium 2.1 mg/dl (1.8-2.4)
[2018-07-02] MEDS: IPRATROPIUM BROMIDE/ALBUTEROL respimat INH INH SCH ×4 (09:03→20:16)
[2018-07-02] MEDS: SERTRALINE HCL 50 MG TABLET PO SCH (09:04)
[2018-07-02] MEDS: ROSUVASTATIN CALCIUM 10 MG TAB PO SCH (09:04)
[2018-07-02] MEDS: INSULIN ASPART 100 UNITS/ML 3 ML PEN SC SCH ×4 (09:13→20:20)
[2018-07-02] MEDS: INSULIN GLARGINE 100 UNIT/ML VIAL SC SCH ×2 (09:15→20:22)
--- NOTE | 2018-07-02 10:33 | Cardiology Progress Note ---
Date of Service July 02, 2018 Assessment & Plan (1) Bradycardia: S/P generator change. Wound healing well. She should keep the wound dry until f/u in our clinic next week. No arm restrictions. A short course of keflex 500mg BID for 5 days is advisable. It is not clear form her records why she is on digoxin. Presumably for an atrial arrhythmia. I think this can be stopped currently and we can follow her as an outpatient for development of any arrhythmia. Present on Admission?: Yes (2) Pacemaker battery depletion: S/P successful pacemaker generator change Present on Admission?: Yes Subjective She did not offer any complaints. Minimal pain at the implant site. Physical Exam 2 Vital Signs (Past 24 Hours): Last Vital Signs Temp 36.7 C 07/02/18 07:16 Pulse 61 07/02/18 07:16 Resp 15 07/02/18 07:16 BP 112/72 07/02/18 07:16 Pulse Ox 95 07/02/18 07:16 Physical Exam: Implant site is well-approximated. No active bleeding. No hematoma. No erythema. Results & Data ECG Additional Comments: Atrial pacing.
--- NOTE | 2018-07-02 11:32 | Hospitalist Progress Note ---
Date of Service July 02, 2018 Assessment & Plan (1) Light-headed: - Likely related to pacemaker battery depletion; status post pacemaker exchange on 07/01/18. - EKG showed normal sinus rhythm at admission. Troponin was negative. - CT head with no acute changes. - No recent TTE; last echo in 2004 showed no evidence of systolic function or valvular disease. - Cardiology consulted, appreciate input. (2) Bradycardia: - HR now stable following pacemaker exchange. - Will downgrade to med/surg. (3) Pacemaker battery depletion: - Cardiology consulted, s/p pacemaker exchange on 07/01/18. - Will need to follow up with cardiology next week in the clinic for wound evaluation. - Start Keflex 500 mg BID for prevention of infection (end date: 07/06/2018) (4) Acute UTI: - UC pos for E. coli. - Received Ceftriaxone IV x 2 days; will convert to PO Keflex. (5) Hypothyroidism: - TSH is 10.1; pt. may be non-compliant with medications at home. - Continue Synthroid 100 mcg daily. (6) Diabetes mellitus: - Hgb A1C was 16.3 in Mar 2018; has been taking Metformin 1 gm BID at home. - Repeat hgb A1C during this admission was 12.8. - Holding home Metformin; on SSI coverage, added Lantus due to severe uncontrolled levels. - Pharmacy consulted for glycemic managment. - Pt. is likely not a good candidate for insulin therapy at home; will restart Metformin and add Januvia. (7) Hypertension: - Dig level was 0.2; after discussion with cardiology, there is no indication for medication. - Holding home Losartan 25 mg daily; BP has been well controlled. (8) Hyperlipidemia: - Continue statin as prescribed. (9) Depression: - Psych consulted on 06/30 due to reports of depression; has history of mental health treatment but no records available. Pt. was initially requesting to be discharged to inpt psych unit at beginning of admission. - Started Zoloft 25 mg daily; will increase dose as tolerated. - Does not meet criteria for inpt mental health treatment. (10) COPD (chronic obstructive pulmonary disease): - No evidence of acute exacerbation. - Continue Combivent QID as prescribed. (11) Hearing difficulty: - Communicate with patient via notepad. (12) Intellectual disability: - Right parietal arachnoid cyst: Incidental finding seen on CT of the head. (13) DVT prophylaxis: - Heparin 5,000 units q8hr. Dispo: Discharge to home likely tomorrow pending arrangement of home health services. 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 She works with the [employer], will contact them on 07/03/18. Supervising Physician Co-Signing Physician Notes PA Supervision Note: I did not personally see or examine the patient today, but I verified all justin points of CHRISTA Cordero's assessment and plan with the following exceptions/ additions: None Subjective Ms. Sensor is very hard of hearing, therefore limited R.O.S. was obtained. She is feeling well overall today with the exception of soreness at site of pacemaker exchange. Dressing is in place, cardiology evaluated site this morning. She will need to follow up with cardiology next week. We discussed glucose control this morning as her hemoglobin A1C has been >10 for the last 5 months. She has not used insulin in the past and does not take blood glucose readings at home due to a glucometer battery. Pt. has been noncompliant with medications in the past and would likely not be a good candidate for insulin therapy. Review of Systems Other (Limited review of systems due to difficulty hearing. ) Cardiovascular: + chest pain (At site of pacemaker. ) Physical Exam 2 Vital Signs (Past 24 Hours): Last Vital Signs Temp 36.7 C 07/02/18 07:16 Pulse 61 07/02/18 07:16 Resp 15 07/02/18 07:16 BP 112/72 07/02/18 07:16 Pulse Ox 95 07/02/18 07:16 Physical Exam: General: Resting comfortably in no apparent distress HEENT: NC/AT; PERRLA with EOMI; [place] conjunctiva, MMM. Neck: Supple and nontender Cardiac: Dressing intact over pacemaker; RRR Lungs: CTA bilaterally; No rhonchi, wheezing, or rales Abdomen: Bowel normoactive X 4; Nontender to palpation Extremities: Warm. No edema present Neuro: No focal weakness Skin: No rash Results & Data Laboratory Results 07/02/18 07/02/18 07/01/18 Range/Units 07:57 07:57 20:27 WBC 8.64 (4.8-10.8) K/uL RBC 4.49 (4.2-5.4) M/uL Hgb 13.4 (12.0-16.0) g/dL Hct 40.6 (37-47) % MCV 90.4 (80-100) fL MCH 29.8 (25-34) pg MCHC 33.0 (32-36) g/dL RDW Std Deviation 45.8 (36.4-46.3) fL RDW Coeff of Sarah 13.7 (11.5-14.5) % Plt Count 192 (130-400) K/uL MPV 10.1 (7.4-10.4) fL Sodium 139 (136-145) mmol/L Potassium 4.0 (3.5-5.1) mmol/L Chloride 105 (98-107) mmol/L Carbon Dioxide 29 (21-32) mmol/L Anion Gap 5.0 (3-11) BUN 25 H (7-18) mg/dl Creatinine 0.90 (0.6-1.2) mg/dl Est Cr Clr Drug Dosing 46.7 ml/min Est GFR ( Amer) 74.0 Est GFR (Non-Af Amer) 63.9 BUN/Creatinine Ratio 28.0 H (10-20) Glucose 223 H (70-99) mg/dl POC Glucose 116 H (70-99) Calcium 8.6 (8.5-10.1) mg/dl Magnesium 2.1 (1.8-2.4) mg/dl 07/01/18 Range/Units 16:25 WBC (4.8-10.8) K/uL RBC (4.2-5.4) M/uL Hgb (12.0-16.0) g/dL Hct (37-47) % MCV (80-100) fL MCH (25-34) pg MCHC (32-36) g/dL RDW Std Deviation (36.4-46.3) fL RDW Coeff of Sarah (11.5-14.5) % Plt Count (130-400) K/uL MPV (7.4-10.4) fL Sodium (136-145) mmol/L Potassium (3.5-5.1) mmol/L Chloride (98-107) mmol/L Carbon Dioxide (21-32) mmol/L Anion Gap (3-11) BUN (7-18) mg/dl Creatinine (0.6-1.2) mg/dl Est Cr Clr Drug Dosing ml/min Est GFR ( Amer) Est GFR (Non-Af Amer) BUN/Creatinine Ratio (10-20) Glucose (70-99) mg/dl POC Glucose 267 H (70-99) Calcium (8.5-10.1) mg/dl Magnesium (1.8-2.4) mg/dl
[2018-07-02] MEDS: cephALEXin 500 MG CAP PO SCH ×2 (12:50→20:17)
[2018-07-02] MEDS: HEPARIN SOD 5,000 UNIT/0.5 ML VIAL SQ SCH ×2 (14:24→21:21)
[2018-07-02] MEDS: SITAGLIPTIN PHOSPHATE 100 MG TAB PO SCH (17:49)
[2018-07-02] MEDS: METFORMIN HCL ER 500 MG TABCR PO SCH (17:50)
[2018-07-03] MEDS: KETOROLAC TROMETHAMINE 10 MG TABLET PO PRN ×2 (00:25→08:38)
[2018-07-03] MEDS: HEPARIN SOD 5,000 UNIT/0.5 ML VIAL SQ SCH ×3 (06:18→21:48)
[2018-07-03] MEDS: LEVOTHYROXINE SODIUM 100 MCG TABLET PO SCH (06:20)
[2018-07-03 06:40] LABS: Hemoglobin 13.1 g/dL (12.0-16.0); Mean Corpuscular Hgb Conc 33.6 g/dL (32-36); Mean Corpuscular Volume 89.9 fL (80-100); Mean Platelet Volume 10.3 fL (7.4-10.4); Platelet Count 197 K/uL (130-400); RDW Coefficient of Variation 13.8 % (11.5-14.5); RDW Standard Deviation 45.9 fL (36.4-46.3); Red Blood Count 4.34 M/uL (4.2-5.4); White Blood Count 9.05 K/uL (4.8-10.8)
[2018-07-03 07:12] LABS: BUN Creatinine Ratio 26.9 (10-20); Calcium 8.9 mg/dl (8.5-10.1); Creatinine Clr Calc Pharmacy 53.9 ml/min; Potassium 4.1 mmol/L (3.5-5.1)
[2018-07-03] MEDS: cephALEXin 500 MG CAP PO SCH ×2 (08:30→21:44)
[2018-07-03] MEDS: ROSUVASTATIN CALCIUM 10 MG TAB PO SCH (08:30)
[2018-07-03] MEDS: SERTRALINE HCL 50 MG TABLET PO SCH (08:30)
[2018-07-03] MEDS: SITAGLIPTIN PHOSPHATE 100 MG TAB PO SCH (08:30)
[2018-07-03] MEDS: IPRATROPIUM BROMIDE/ALBUTEROL respimat INH INH SCH ×4 (08:31→21:44)
[2018-07-03] MEDS: METFORMIN HCL ER 500 MG TABCR PO SCH ×2 (08:31→17:35)
[2018-07-03] MEDS: INSULIN ASPART 100 UNITS/ML 3 ML PEN SC SCH ×4 (08:35→21:45)
[2018-07-03] MEDS: INSULIN GLARGINE 100 UNIT/ML VIAL SC SCH ×2 (08:38→21:46)
--- NOTE | 2018-07-03 09:41 | Psychiatric Progress Note ---
Date of Service July 03, 2018 Impression / Recommendations Impression Joanne is a 73 year old female that was seen upon hospitalization for low mood. Patient was seen by the psychiatry team on 06/30/18 and was started on 25mg of zoloft. Patient notes her mood is "good" today and she denies any thoughts of hurting herself. She understands that it can take a few weeks for an adequate trial of the zoloft. She will need to be followed closely by her PCP to monitor for efficacy and SE's. 1) Continue zoloft at 25mg daily, prescription to be written by primary team 2) Follow up with PCP upon discharge to monitor for SE's and efficacy with an increase in dose if needed Risk Factors Assessment Male: No : Yes Do You Have Access To A Gun?: No Health Problems: Yes Mental Health Diagnoses: Yes (unknown diagnoses) Substance Use Disorders: No Previous Attempt: No Previous Psychiatric Hospitalization: Yes (unknown at what time and for what reason) Protective Factors Assessment : No Responsible for Young Children: No Employed: No Stable Relationships: Yes Interval History Chief Complaint "[]". Review of Systems Sleep Information Sleep Comments: Patient notes she has not been sleeping well Subjective Subjective Patient was seen at the bedside this morning by myself to discuss the addition of zoloft to her medications and to discuss follow up management of her new medication. Joanne states that her pacemaker still hurts but otherwise she feels fine. She has had some trouble sleeping and is wondering if she can get sleeping medication. With regards to the zoloft she says she started the medication yesterday and she has not felt any different since starting it. She states that her mood is "good" today and she denies any thoughts of hurting herself. When asked if she would like to follow up with a psychiatrist she says she doesn't think she needs to and that her PCP should be ok for managing her depression medication. Joanne is planning on going to live with her friends greg Jeronimo. Joanne denies any racing thoughts, low mood, decreased appetite, hallucinations , anxiety or confusion. Procedures Performed Operation Date: 07/01/18 08:00 Actual Procedures p Pacer Gen Change Dual - Mark Olivas MD Physical Exam Psychiatric Orientation: alert, oriented x 3 and cooperative Apperance: appropriately dressed (in hospital gown) and appropriately groomed Eye Contact: good eye contact Speech: normal rate/rhythm/volume of speech (extremely hard of hearing, however able to verbally respond appropriately to written messages) Affect: euthymic affect Thought Process: goal directed thought process, clear/coherent thought process and + concrete thought process Thought Content: reality based without delusions Suicidal Thoughts: denies suicidal intent; + reports suicidal thoughts (admits to occasional infrequent thoughts) and + reports suicidal plan (vaguely reports thoughts to "take more medication") Homicidal Thoughts: denies homicidal thoughts Hallucinations: no auditory hallucinations and no visual hallucinations Cognition: + recent memory not intact and + remote memory not intact Estimated Intelligence: + below average estimated intelligence (reported diagnosis of ID; likely mild) Insight: + fair insight Judgement: + fair judgement Vital Signs (Past 24 Hours) Last Vital Signs Temp 36.6 C 07/03/18 07:07 Pulse 60 07/03/18 07:07 Resp 18 07/03/18 07:07 BP 115/69 07/03/18 07:07 Pulse Ox 96 07/03/18 07:07 ENMT Mallampati Class: IV Cardiovascular Rate/Rhythm: regular rate and + bradycardic Results & Data Laboratory Results Laboratory Results - last 24 hr 07/02/18 07/02/18 07/02/18 11:34 12:17 16:57 WBC RBC Hgb Hct MCV MCH MCHC RDW Std Deviation RDW Coeff of Sarah Plt Count MPV PT 10.0 INR 1.0 Sodium Potassium Chloride Carbon Dioxide Anion Gap BUN Creatinine Est Cr Clr Drug Dosing Est GFR ( Amer) Est GFR (Non-Af Amer) BUN/Creatinine Ratio Glucose POC Glucose 136 H 174 H Calcium Specimen Hemolysis 07/02/18 07/03/18 07/03/18 20:17 06:27 06:27 WBC 9.05 RBC 4.34 Hgb 13.1 Hct 39.0 MCV 89.9 MCH 30.2 MCHC 33.6 RDW Std Deviation 45.9 RDW Coeff of Sarah 13.8 Plt Count 197 MPV 10.3 PT INR Sodium 140 Potassium 4.1 Chloride 108 H Carbon Dioxide 27 Anion Gap 5.0 BUN 21 H Creatinine 0.78 Est Cr Clr Drug Dosing 53.9 Est GFR ( Amer) 88.0 Est GFR (Non-Af Amer) 76.0 BUN/Creatinine Ratio 26.9 H Glucose 144 H POC Glucose 219 H Calcium 8.9 Specimen Hemolysis 07/03/18 07:26 WBC RBC Hgb Hct MCV MCH MCHC RDW Std Deviation RDW Coeff of Sarah Plt Count MPV PT INR Sodium Potassium Chloride Carbon Dioxide Anion Gap BUN Creatinine Est Cr Clr Drug Dosing Est GFR ( Amer) Est GFR (Non-Af Amer) BUN/Creatinine Ratio Glucose POC Glucose 143 H Calcium Specimen Hemolysis Current Inpatient Medications Current Inpatient Medications: Current Inpatient Medications Acetaminophen (Tylenol) 650 mg PO Q4H PRN PRN Reason: Pain or Fever Stop: 07/29/18 21:43 Last Admin: 07/02/18 17:47 Dose: 650 mg Albuterol (Combivent Respimat) 1 puffs INH QID [facility] Stop: 07/29/18 20:59 Last Admin: 07/03/18 08:31 Dose: 1 puffs Cephalexin HCl (Keflex) 500 mg PO BID [facility] Stop: 07/07/18 11:59 Last Admin: 07/03/18 08:30 Dose: 500 mg Dextrose (Dextrose 50%) 25 - 50 ml IV UD PRN; Protocol PRN Reason: Hypoglycemia Protocol Stop: 07/29/18 19:57 Glucagon (Glucagen) 1 mg SQ UD PRN; Protocol PRN Reason: Hypoglycemia Protocol Stop: 07/29/18 19:57 Glucose (Dex4 Glucose) 4 - 8 tabs PO UD PRN; Protocol PRN Reason: Hypoglycemia Protocol Stop: 07/29/18 19:57 Glucose (Glucose 40%) 15 - 30 gm PO UD PRN; Protocol PRN Reason: Hypoglycemia Protocol Stop: 07/29/18 19:57 Heparin Sodium (Porcine) (Heparin Sodium (Porcine)) 5,000 units SQ Q8 [facility] Stop: 08/01/18 13:59 Last Admin: 07/03/18 06:18 Dose: 5,000 units Insulin Aspart (Novolog Flexpen) 0 units SC ACHS [facility] Stop: 07/29/18 20:59 Last Admin: 07/03/18 08:35 Dose: 5 units Insulin Glargine (Lantus) 0 units SC BID [facility]; Protocol Stop: 07/31/18 20:59 Last Admin: 07/03/18 08:38 Dose: 5 units Ketorolac Tromethamine (Toradol) 10 mg PO Q6H PRN PRN Reason: Pain (rating 4,5,6,7,8,9,10) Stop: 07/06/18 08:57 Last Admin: 07/03/18 08:38 Dose: 10 mg Levothyroxine Sodium (Synthroid) 100 mcg PO DAILYBB [facility] Stop: 07/30/18 06:29 Last Admin: 07/03/18 06:20 Dose: 100 mcg Magnesium Hydroxide (Milk Of Magnesia) 30 ml PO Q12H PRN PRN Reason: Constipation Stop: 07/29/18 21:43 Metformin HCl (Glucophage Er) 1,000 mg PO BIDM [facility] Stop: 08/01/18 16:59 Last Admin: 07/03/18 08:31 Dose: 1,000 mg Miscellaneous (Carbohydrates For Hypoglycemia) 15 - 30 gm PO UD PRN PRN Reason: Hypoglycemia Treatment Stop: 07/29/18 19:57 Miscellaneous Information (Consult Glycemic Management Pharmacy) 1 ea N/A UD PRN PRN Reason: Consult Stop: 07/31/18 11:43 Ondansetron HCl (Zofran) 4 mg IV Q6H PRN PRN Reason: Nausea Stop: 07/29/18 21:43 Last Admin: 07/03/18 06:22 Dose: 4 mg Rosuvastatin Calcium (Crestor) 10 mg PO DAILY [facility] Stop: 07/30/18 08:59 Last Admin: 07/03/18 08:30 Dose: 10 mg Sertraline HCl (Zoloft) 25 mg PO QAM [facility] Stop: 08/01/18 08:59 Last Admin: 07/03/18 08:30 Dose: 25 mg Sitagliptin Phosphate (Januvia) 100 mg PO DAILY [facility] Stop: 08/01/18 16:59 Last Admin: 07/03/18 08:30 Dose: 100 mg CPT Code CPT Code 01955 [id number]
[2018-07-03] MEDS: ACETAMINOPHEN 325 MG TAB PO PRN (12:01)
--- NOTE | 2018-07-03 13:20 | Pharmacy Report ---
Pharmacy Glycemic Short Note 2 - Date of Service July 03, 2018 - Glycemic Short BSG Results (Last 24 hours): 07/02/18 07/02/18 07/03/18 16:57 20:17 06:27 Glucose 144 H POC Glucose 174 H 219 H 07/03/18 07/03/18 07:26 11:19 Glucose POC Glucose 143 H 171 H ASSESSMENT: * Ms. Lewis's BSGs within the past 24hrs have mostly been within goal range, other than a spike at HS 07/02/18. [phone]/dL She required 34 units yesterday. 50/50 plsit bt basal and correctional insulin * Will continue with standing insulin orders PLAN FOR INPATIENT GLYCEMIC CONTROL: * Re-start metformin and start Januvia * Basal insulin * Lantus scale SQ BID * give 5 units OR * give 9 units * Bolus insulin * NovoLog per scale ACHS or Q6hrs while NPO * Goal Range: Low 140 mg/dL - High 180 mg/dL * Correction Factor: 40 mg/dL/unit * Nutritional / Prandial insulin per carb ratio of 1 unit per 15 grams CHO consumed PLAN FOR DISCHARGE: * See note from 07/01/18
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
[2018-07-04] MEDS: ACETAMINOPHEN 325 MG TAB PO PRN ×2 (04:15→08:13)
[2018-07-04] MEDS: HEPARIN SOD 5,000 UNIT/0.5 ML VIAL SQ SCH ×2 (05:42→12:42)
[2018-07-04] MEDS: LEVOTHYROXINE SODIUM 100 MCG TABLET PO SCH (05:43)
[2018-07-04] MEDS: SERTRALINE HCL 50 MG TABLET PO SCH (08:00)
[2018-07-04] MEDS: SITAGLIPTIN PHOSPHATE 100 MG TAB PO SCH (08:00)
[2018-07-04] MEDS: IPRATROPIUM BROMIDE/ALBUTEROL respimat INH INH SCH ×2 (08:00→12:41)
[2018-07-04] MEDS: METFORMIN HCL ER 500 MG TABCR PO SCH (08:00)
[2018-07-04] MEDS: ROSUVASTATIN CALCIUM 10 MG TAB PO SCH (08:00)
[2018-07-04] MEDS: cephALEXin 500 MG CAP PO SCH (08:00)
[2018-07-04] MEDS: INSULIN GLARGINE 100 UNIT/ML VIAL SC SCH (08:02)
[2018-07-04] MEDS: INSULIN ASPART 100 UNITS/ML 3 ML PEN SC SCH ×2 (08:07→12:41)
--- NOTE | 2018-07-04 10:40 | Discharge Summary ---
Date of Service July 04, 2018 Admission HPI Per Admitting Provider 73-year-old female presents the emergency department complaining of lightheadedness prior to arrival. On my interview, the patient is very hard of hearing and does not volunteer any information. We ended up discussing the following: - Patient said that her chest feels uncomfortable but that she is not in any pain. She then said that "my battery is low" which I think is referring to her pacemaker. She says she still feels a little lightheaded but more so nervous about her pacemaker. - When asked if anything else bothered her, she said that she sprained her left ankle and that she should be wearing a brace but she does not know where it is. She says she has follow-up with someone for this in July. She also notes she has arthritis. Otherwise she denied any acute concerns. - Patient denied any dysuria or abdominal pain but did say that she "pees a lot ". She says she takes her diabetes medicine but she is not sure what it is. - Patient says she ran out of her thyroid medicine and she is unsure what it is or what dose she is on. - When asked if she lives at home, she says she used to but she does not care where she lives now. She then said that she feels very depressed and that she wants to talk to a psychiatrist to help her with anger issues. Admission Exam Per Admitting Provider GENERAL: Found patient resting comfortably. Awoke to light touch. Appears in no acute distress. Very hard of hearing. HENT: Normocephalic, atraumatic. Oropharynx unremarkable. EYES: Normal conjunctiva. Sclera non-icteric. NECK: Inspection normal. Non-tender. Supple and full ROM. No nuchal rigidity. CARDIAC: +S1S2 regular bradycardia, no murmurs. Pacemaker palpable in left upper chest. RESPIRATORY: Clear to auscultation. No wheezes or rales. Normal respiratory effort. GI: +BS, soft, non-distended. No tenderness to palpation. No rebound or guarding. No appreciable masses. EXTREMITIES: No pedal edema or calf tenderness. Moving all extremities naturally and easily. NEURO: No gross neuro deficits. Lines: PIV Principal Diagnosis Lightheaded related to pacemaker battery depletion Discharge Exam General: Resting comfortably in no apparent distress HEENT: NC/AT; PERRLA with EOMI; [place] conjunctiva, MMM. Neck: Supple and nontender Cardiac: Dressing intact over pacemaker, no erythema or rash noted; regular rate and rhythm. Lungs: CTA bilaterally Abdomen: Bowel normoactive X 4; Nontender to palpation Extremities: Warm. No edema present Neuro: No focal weakness Skin: No rash Discharge Data Allergies Allergy/AdvReac Type Severity Reaction Status Date / Time No Known Allergies Allergy Verified 06/29/18 19:52 Consultations cardiology psychiatry PT, OT Procedures Performed Operation Date: 07/01/18 Pacer Generator Change - Mark Olivas MD Ordered Studies CT head - Impression: 1. No acute intracranial abnormality. 2. Incidental note is made of a 2.8 cm right parietal arachnoid cyst. Hospital Course (1) Light-headed: She presented to the ER with dizziness and pre-syncope likely related to pacemaker battery depletion. EKG showed NSR and troponin was negative. CT of head was negative. Cardiology was consulted and completed a pacemaker exchange on 07/01/2018. She tolerated procedure well without complications. Pt. remained on rn cardiac rehab 24 hours after procedure; pacemaker was functioning properly. She will need to follow up with cardiology next week for pacemaker site evaluation. Pt. will also complete a 5 day course of Keflex PO per cardiology recs. She was advised to keep area dry until outpatient follow up. (2) Bradycardia: She presented with bradycardia in the setting of a pacemaker battery depletion. HR improved following pacemaker exchange and she was downgraded to med/surg. (3) Pacemaker battery depletion: Cardiology consulted, s/p pacemaker exchange on 07/01/18 as noted above. (4) Acute UTI: Urine culture was positive for E. coli. She received 2 days of Ceftriaxone IV and was converted to Keflex PO. Pt. will complete a 5 day course of Keflex PO. (5) Hypothyroidism: TSH was 10.1; pt. is likely non-compliant with medication at home and reported that she was out of her Synthroid prescription. Synthroid 100 mcg daily was ordered as inpt. Prescription was sent to her home pharmacy. She will need lab work in 6 weeks to re-evaluate thyroid levels. (6) Diabetes mellitus: Previous hemoglobin A1C was 16.3 in Mar 2018. Pt. was on Metformin 1 gm BID at home. Repeat A1C during this admission was 12.8. Home metformin was held and she was placed on SSI with Lantus. Pharmacy consulted for glycemic management. Pt. reported that she did not record home blood glucose levels as her battery was . She also has a history of non-compliance with meds. She was determined to be a very poor candidate for insulin therapy. Metformin 1 gm BID was restarted as prescribed. Januvia 100 mg daily was also started for additional coverage. She was advised to follow up with her PCP closely and record blood glucose readings ac/hs. (7) Hypertension: Dig level was 0.2, likely related to med non-compliance. Home Digoxin was discontinued due to lack of indication for med. Home Losartan was also held; BP remained stable & she was slightly hypotensive at times during this admission. ARB was not restarted at discharge. She will need to discuss BP control with her PCP. (8) Hyperlipidemia: Home statin was continued as prescribed. (9) Depression: At presentation, the patient reported being depressed and requested to go to an inpatient mental health unit. Psych was consulted and recommended starting Zoloft 25 mg daily. Pt. did not meet criteria for an inpatient mental health unit. She will need to follow up with her PCP to discuss increasing dose of Zoloft. (10) COPD (chronic obstructive pulmonary disease): Combivent QID was continued as prescribed. (11) Hearing difficulty: We communicated with patient via notepad during this admission. (12) Intellectual disability: Right parietal arachnoid cyst: Incidental finding seen on CT of the head. (13) DVT prophylaxis: Heparin was ordered. Pt. was stable for discharge to home on 07/04/2018. Home health services were arranged along with PCP appt. Prescriptions for new meds were sent to her home pharmacy. Total Time Total Time Spent Total Time Spent (In Minutes): >30 minutes Total Time Includes: Examination of the Patient, Discharge Planning, Medication Reconciliation, Communication With Other Providers and Other Discharge Plan Discharge Items Patient Disposition: Home - Home Health Services Reason For Visit: LIGHTHEADED, BRADYCARDIA Discharge Diagnosis: Lightheaded in setting of pacemaker battery depletion Condition: Good Discharge Goals: Diagnostic testing, Improve function, Increase independence and Prevent disease Activity: Resume your previous activity Lifting: Gradually increase as tolerated Exercise/Sports: Gradually increase as tolerated Non-emergency contact: Primary Care Provider Call non-emergency contact if: you have any medication questions, your symptoms worsen, your pain is unusual for you and you have a fever Follow-up/Referrals: Candy Hartmann CRNP [Primary Care Provider] - 07/08/18 11:00 am (Please, follow up with Candy WATSON on SundayJuly 08 at 11:00 am. *If you need to change this appointment, call the office at [phone].) Diet: Carb Consistent or DM2 Addtl Provider Instructions: 1. Lightheaded/Dizziness * Your symptoms at admission were likely related to pacemaker battery depletion. Your pacemaker should function appropriately following exchange on . * Please continue Keflex 500 mg twice daily for prevention of infection following pacemaker exchange; you will complete a course of antibiotics on 2018. * An appointment will be scheduled with cardiology next week to evaluate pacemaker site. Please keep area dry at all times. 2. Acute urinary tract infection * Urine culture was positive for E. coli during this admission. * Please continue Keflex as noted above for treatment of infection. 3. Hypothyroidism * Please continue Levothyroxine 100 mcg daily for treatment of low thyroid levels. * You will need follow up for lab work in 6 weeks with your family doctor to determine if your dose is correct. * Prescription for Synthroid 100 mcg daily was sent to your pharmacy. 4. Diabetes Mellitus * Your blood sugars have been elevated over the last 3 months, indicating your current medications are not working. * Please continue to monitor blood glucose levels twice daily. It is very important that you record all readings and bring a copy of these records to your family doctor. * Continue Metformin 1,000 mg twice daily as prescribed. * A new medication, Januvia, has been started. Please take Januvia 100 mg daily at home. * Continue a carbohydrate consistent diet to maintain stable blood sugar levels. 5. Depression * Zoloft 25 mg daily has been started. * Please follow up with your family doctor to discuss increasing the dose of this medication. * Please go to the ER or call your family doctor if you develop thoughts of harming yourself or others. 6. Prescriptions for new medications (Januvia, Zoloft and Keflex) were sent to your pharmacy. 7. Please follow up with your primary care provider, Candy Hartmann, as scheduled on 07/08/2018. IT IS VERY IMPORTANT THAT YOU DO NOT MISS THIS APPOINTMENT. Prescriptions: New cephalexin 500 mg Capsule 500 mg PO BID Qty: 7 RF: 0 sertraline 25 mg tablet 25 mg PO QAM 30 Days Qty: 30 RF: 0 sitagliptin [Januvia] 100 mg Tablet 100 mg PO DAILY 30 Days Qty: 30 RF: 0 levothyroxine 100 mcg capsule 100 mcg PO DAILY Qty: 30 RF: 0 Continue rosuvastatin 10 mg Tablet 10 mg PO DAILY RF: 0 diclofenac sodium 1 % Gel 2 g TOPICAL QID RF: 0 metformin 1,000 mg Tablet 1,000 mg PO BID RF: 0 Discontinued digoxin [Digitek] 250 mcg Tablet 0.25 mg PO DAILY RF: 0 levothyroxine 100 mcg Tablet 100 mcg PO DAILY RF: 0 losartan 25 mg Tablet 25 mg PO DAILY RF: 0 Stand-Alone Forms: [facility] Discharge Orders: Discharge Order (Routine); Ordered 07/04/18 Ordered By: Marbella Richards Admission Data Admit Date/Time: 06/29/18 19:59 Attending Provider: Vicki Mar Admit Provider: Oswald Burkett Primary Care Provider: Candy Hartmann I Other Providers: Joe Briggs ; Josey Ramirez ; Mark Olivas ; Carlos Orozco Service: Telemetry Other Interventions: Discharge Summary Assessment (RN) Last Done: 07/04/18 13:08 Pending Studies at Discharge: No DC Date/Time DO NOT enter until pt leaves facility: 07/04/18 14:22 Supervising Physician Co-Signing Physician Notes Attending Discharge Note & Attestation - Pt seen/examined, chart reviewed, discharge care plan d/w CHRISTA Richards. I agree w/ the justin components of her documentation. 73yo female who presented with dizziness, weakness, and several other complaints. Found to have UTI and the battery on her pacemaker was depleted. She was treated for her UTI and underwent battery exchange by electrophysiology during this admission. Additionally, hemoglobin a1c was found to be quite high (12.8%) and her TSH was also high (10). We suspected noncompliance with her medications at home. The patient will have close follow-up with her PCP as well as cardiology after discharge. She was counseled on the importance of compliance with her medications & after- care. Home health will be set up for her following discharge. Discharge exam: gen - NAD HEENT - severe hearing impairment mouth - MMM neck - no JVD chest - left upper chest incision clean/dry/intact, no drainage, no hematoma heart - RRR, s1, s2 lungs - CTA b/l abd - soft, NT, ND, BS+ ext - no edema Richard Rosenbaum MD
[2018-07-04] MEDS: KETOROLAC TROMETHAMINE 10 MG TABLET PO PRN (10:53)
== END 2018-07-04 14:22 | disposition home health service (06) | DRG 259 ==
LOC: ED 14:57 → SUATTDRO 19:59 → 2E 19:59 → 4E 07-02 13:29

== ENCOUNTER 2020-04-23 16:54 | Inpatient (IN) ==
[~2020-04-23 16:54] MED LIST: ETOMIDATE 2 MG/ML 20 ML VIAL IV ONE; RAPID SEQUENCE INDUCTION BAG ONE; SUCCINYLCHOLINE CHLORIDE 20 MG/ML 10 ML VIAL IV ONE
[2020-04-23] MEDS ORDERED: ETOMIDATE 2 MG/ML 20 ML VIAL IV ONE (17:01)
[2020-04-23] MEDS ORDERED: SUCCINYLCHOLINE CHLORIDE 20 MG/ML 10 ML VIAL IV ONE (17:02)
[2020-04-23] MEDS ORDERED: MIDAZOLAM BOLUS FROM BAG IV PRN (17:05)
[2020-04-23] MEDS ORDERED: STAT IV Infusion **Titration per Protocol STA ×2 (17:05→23:07)
[2020-04-23] MEDS ORDERED: PIPERACILLIN/TAZOBACTAM 4.5 GM/120ML D5W ONE (17:09)
[2020-04-23] MEDS ORDERED: MIDAZOLAM HCL 125 MG/250 ML BAG IV SCH (17:15)
[2020-04-23] MEDS: NOREPINEPHRINE (Adult) 8 MG in DEXTROSE 5% 500 ML IV SCH (17:26)
[2020-04-23] MEDS ORDERED: NOREPINEPHRINE (Adult STAT Only) 4 MG in D5W 250 ML IV SCH (17:30)
[2020-04-23] MEDS ORDERED: ED DKA INSULIN DRIP ONE (17:32)
[2020-04-23] MEDS ORDERED: CARBOHYDRATES FOR HYPOGLYCEMIA PO PRN (17:32)
[2020-04-23] MEDS ORDERED: GLUCOSE 10 TABS/TUBE PO PRN (17:32)
[2020-04-23] MEDS ORDERED: GLUCAGON FOR INJ 1 MG VIAL SQ PRN (17:32)
[2020-04-23] MEDS ORDERED: GLUCOSE 40% GEL 15 GM TUBE PO PRN (17:32)
[2020-04-23] MEDS ORDERED: PIPERACILLIN/TAZOBACTAM 4.5 GM/120 ML BAG IV ONE (17:33)
[2020-04-23 17:39] LABS: Nucleated RBC # (auto) 0.03 K/uL (0-0); Nucleated RBC % (auto) 0.2 %
--- NOTE | 2020-04-23 17:42 | Emergency Department Note ---
History of Present Illness General Chief complaint: Cardiac Arrest/CPR Stated complaint: POST ARREST Source: EMS Mode of arrival: EMS Limitations: altered mental status and clinical acuity History of Present Illness Provider complaint: Unresponsiveness This is a 74-year-old female who presents to the ED via EMS. History was obtained from EMS as the patient was unresponsive. Per EMS, unknown last well time. The patient was found unresponsive by family. EMS arrived on scene and she had agonal respirations. Because of this, they did some CPR and respirations on the patient for a minute or 2. The patient was then hooked up to the monitor and found to be in a narrow complex rapid rhythm. Her initial blood pressure was 66/30. Blood sugar read high. Heart rate was 105. They were concerned about redness in her left hand when the were examining her. The patient received a right anterior tibial IO. She was given about 500 cc of normal saline through this prior to arrival. She also received 0.3 mg of epinephrine for her low blood pressure. No additional information available at this time. Home Medications Home Medications Medication Instructions Recorded Confirmed Type sertraline 25 mg tablet 25 mg PO DAILY #90 tab 01/14/19 01/19/20 History albuterol sulfate 90 mcg/actuation 2 puffs INH Q6H PRN gm 03/14/19 01/19/20 H istory aerosol inhaler aspirin 81 mg tablet,delayed 81 mg PO DAILY 03/14/19 01/19/20 History release acetaminophen 500 - 1,000 mg PO TID PRN 11/23/19 01/19/20 History atorvastatin 40 mg PO DAILY 11/23/19 01/19/20 History ergocalciferol (vitamin D2) 50,000 unit PO .Q2WK.MO 11/23/19 01/19/20 History insulin glargine [Lantus Solostar 10 unit SUBCUT DAILY 11/23/19 01/19/20 History U-100 Insulin] ipratropium-albuterol [Combivent 1 puff INHALATION QID 11/23/19 01/19/20 History Respimat] levothyroxine 200 mcg PO DAILY 11/23/19 01/19/20 History metformin 850 mg PO BIDM 11/23/19 01/19/20 History midodrine 5 mg PO BID 11/23/19 01/19/20 History ondansetron 4 mg PO Q8H PRN #30 tab 11/23/19 01/19/20 Rx insulin glargine [Basaglar KwikPen 15 unit SUBCUT QAM 01/19/20 01/19/20 History U-100 Insulin] Allergies Allergy/AdvReac Type Severity Reaction Status Date / Time No Known Allergies Allergy Verified 01/19/20 21:44 Past Med/Surg History Medical History Acute UTI Arthritis Asthma Bradycardia Bulimia nervosa Chronic kidney disease COPD (chronic obstructive pulmonary disease) Depression Diabetes Diabetes mellitus Diabetic peripheral neuropathy Hearing difficulty Hyperlipidemia Hypertension Hypothyroidism Intellectual disability Migraine headache Pacemaker Pacemaker battery depletion Tobacco use Uncontrolled type 2 diabetes mellitus Family History Other No significant family history Social History Smoking Status: Unknown if ever smoked Hx Alcohol Use: No Hx Substance Use: No Preferred Language: Tamaz[place] Communication Ability: Impaired Beliefs That Will Affect Care: None Current Living Situation: Other Current Living Situation Comment: lives with a "friend" Feels Safe at Home: Yes Assistive Devices: None Review of Systems Unobtainable due to cognitive status Physical Exam Vital Signs Vital Signs - 24 hr 04/23/20 17:00 04/23/20 17:08 04/23/20 17:10 Temperature 33.4 C L Temperature Source Rectal Pulse Rate 80 80 78 Pulse Rate from SpO2 Sensor 81 Respiratory Rate 20 Blood Pressure 58/37 L 64/40 L Blood Pressure Mean 39 47 Pulse Oximetry 100 100 100 Oxygen Delivery Method Ambu-Bag Ambu-Bag Mechanical Vent Oxygen Flow Rate 15 15 Fraction of Inspired Oxygen 60 Sepsis Recent Fever Within 48 Hours No Sepsis New/Unexplained Change in Mental Status N/A Sepsis Action Taken by Nursing No Action Required End-Tidal CO2 18 19 04/23/20 17:13 04/23/20 17:15 04/23/20 17:17 Temperature Temperature Source Pulse Rate 71 69 64 Pulse Rate from SpO2 Sensor 71 68 64 Respiratory Rate Blood Pressure 67/41 L 63/44 L 68/42 L Blood Pressure Mean 49 47 48 Pulse Oximetry 100 100 100 Oxygen Delivery Method Mechanical Vent Mechanical Vent Mechanical Vent Oxygen Flow Rate Fraction of Inspired Oxygen 40 40 40 Sepsis Recent Fever Within 48 Hours Sepsis New/Unexplained Change in Mental Status Sepsis Action Taken by Nursing End-Tidal CO2 19 18 18 04/23/20 17:20 04/23/20 17:22 04/23/20 17:25 Temperature Temperature Source Pulse Rate 61 60 60 Pulse Rate from SpO2 Sensor 61 61 60 Respiratory Rate Blood Pressure 69/42 L 69/45 L 70/41 L Blood Pressure Mean 48 49 48 Pulse Oximetry 99 99 99 Oxygen Delivery Method Mechanical Vent Mechanical Vent Mechanical Vent Oxygen Flow Rate Fraction of Inspired Oxygen 40 40 40 Sepsis Recent Fever Within 48 Hours Sepsis New/Unexplained Change in Mental Status Sepsis Action Taken by Nursing End-Tidal CO2 18 17 18 04/23/20 17:27 04/23/20 17:30 04/23/20 17:32 Temperature Temperature Source Pulse Rate 62 68 68 Pulse Rate from SpO2 Sensor 62 60 68 Respiratory Rate Blood Pressure 79/46 L 79/48 L 83/47 L Blood Pressure Mean 56 63 55 Pulse Oximetry 100 100 100 Oxygen Delivery Method Mechanical Vent Mechanical Vent Mechanical Vent Oxygen Flow Rate Fraction of Inspired Oxygen 40 40 40 Sepsis Recent Fever Within 48 Hours Sepsis New/Unexplained Change in Mental Status Sepsis Action Taken by Nursing End-Tidal CO2 17 17 17 04/23/20 17:35 04/23/20 17:37 04/23/20 17:40 Temperature Temperature Source Pulse Rate 63 64 66 Pulse Rate from SpO2 Sensor 63 64 64 Respiratory Rate Blood Pressure 84/49 L 84/45 L 97/49 L Blood Pressure Mean 58 54 59 Pulse Oximetry 100 100 100 Oxygen Delivery Method Mechanical Vent Mechanical Vent Mechanical Vent Oxygen Flow Rate Fraction of Inspired Oxygen 40 40 40 Sepsis Recent Fever Within 48 Hours Sepsis New/Unexplained Change in Mental Status Sepsis Action Taken by Nursing End-Tidal CO2 17 17 17 04/23/20 17:43 04/23/20 17:45 04/23/20 17:48 Temperature Temperature Source Pulse Rate 63 61 62 Pulse Rate from SpO2 Sensor 63 61 61 Respiratory Rate Blood Pressure 89/47 L 91/48 L 91/50 L Blood Pressure Mean 63 57 58 Pulse Oximetry 100 100 100 Oxygen Delivery Method Mechanical Vent Mechanical Vent Mechanical Vent Oxygen Flow Rate Fraction of Inspired Oxygen 40 40 40 Sepsis Recent Fever Within 48 Hours Sepsis New/Unexplained Change in Mental Status Sepsis Action Taken by Nursing End-Tidal CO2 15 14 14 04/23/20 17:50 04/23/20 18:00 04/23/20 18:10 Temperature Temperature Source Pulse Rate 63 60 74 Pulse Rate from SpO2 Sensor 63 60 65 Respiratory Rate Blood Pressure 84/46 L 95/52 L 93/42 L Blood Pressure Mean 58 65 66 Pulse Oximetry 100 100 99 Oxygen Delivery Method Mechanical Vent Mechanical Vent Mechanical Vent Oxygen Flow Rate Fraction of Inspired Oxygen 40 40 40 Sepsis Recent Fever Within 48 Hours Sepsis New/Unexplained Change in Mental Status Sepsis Action Taken by Nursing End-Tidal CO2 14 13 13 04/23/20 18:11 04/23/20 18:30 04/23/20 18:31 Temperature Temperature Source Pulse Rate 62 74 70 Pulse Rate from SpO2 Sensor 62 70 70 Respiratory Rate Blood Pressure 69/42 L 79/48 L Blood Pressure Mean 50 59 Pulse Oximetry 100 100 100 Oxygen Delivery Method Mechanical Vent Mechanical Vent Mechanical Vent Oxygen Flow Rate Fraction of Inspired Oxygen 40 40 40 Sepsis Recent Fever Within 48 Hours Sepsis New/Unexplained Change in Mental Status Sepsis Action Taken by Nursing End-Tidal CO2 14 13 14 04/23/20 18:39 04/23/20 18:40 04/23/20 18:41 Temperature Temperature Source Pulse Rate 61 62 62 Pulse Rate from SpO2 Sensor 62 62 62 Respiratory Rate Blood Pressure 83/46 L 76/44 L Blood Pressure Mean 51 54 Pulse Oximetry 100 100 100 Oxygen Delivery Method Mechanical Vent Mechanical Vent Oxygen Flow Rate Fraction of Inspired Oxygen 40 40 Sepsis Recent Fever Within 48 Hours Sepsis New/Unexplained Change in Mental Status Sepsis Action Taken by Nursing End-Tidal CO2 13 13 12 04/23/20 18:45 04/23/20 18:50 04/23/20 18:55 Temperature Temperature Source Pulse Rate 62 62 63 Pulse Rate from SpO2 Sensor 62 62 63 Respiratory Rate Blood Pressure 78/45 L 77/47 L 81/47 L Blood Pressure Mean 57 58 58 Pulse Oximetry 100 100 100 Oxygen Delivery Method Oxygen Flow Rate Fraction of Inspired Oxygen Sepsis Recent Fever Within 48 Hours Sepsis New/Unexplained Change in Mental Status Sepsis Action Taken by Nursing End-Tidal CO2 12 13 12 04/23/20 19:00 04/23/20 19:01 04/23/20 19:06 Temperature Temperature Source Pulse Rate 66 66 69 Pulse Rate from SpO2 Sensor 65 65 72 Respiratory Rate Blood Pressure 107/56 L 80/48 L Blood Pressure Mean 77 53 Pulse Oximetry 100 100 100 Oxygen Delivery Method Oxygen Flow Rate Fraction of Inspired Oxygen Sepsis Recent Fever Within 48 Hours Sepsis New/Unexplained Change in Mental Status Sepsis Action Taken by Nursing End-Tidal CO2 14 13 13 04/23/20 19:08 04/23/20 19:10 04/23/20 19:15 Temperature Temperature Source Pulse Rate 69 66 64 Pulse Rate from SpO2 Sensor 69 67 64 Respiratory Rate Blood Pressure 106/56 L 87/53 L 86/49 L Blood Pressure Mean 75 59 52 Pulse Oximetry 100 100 100 Oxygen Delivery Method Oxygen Flow Rate Fraction of Inspired Oxygen Sepsis Recent Fever Within 48 Hours Sepsis New/Unexplained Change in Mental Status Sepsis Action Taken by Nursing End-Tidal CO2 13 12 12 04/23/20 19:19 04/23/20 19:20 04/23/20 19:25 Temperature Temperature Source Pulse Rate 64 64 65 Pulse Rate from SpO2 Sensor 64 64 65 Respiratory Rate Blood Pressure 81/52 L 82/50 L 86/46 L Blood Pressure Mean 65 61 61 Pulse Oximetry 100 100 100 Oxygen Delivery Method Oxygen Flow Rate Fraction of Inspired Oxygen Sepsis Recent Fever Within 48 Hours Sepsis New/Unexplained Change in Mental Status Sepsis Action Taken by Nursing End-Tidal CO2 12 12 12 CONSTITUTIONAL/VITAL SIGNS: Reviewed / noted above. GENERAL: Patient appears very ill. INTEGUMENTARY: Warm, dry. HEAD: Normocephalic. BVM by EMS. Right nasal airway. EYES: without scleral icterus or trauma. ENT/OROPHARYNX: clear anddry. RESPIRATORY: Lungs clear and equal with agonal breaths. CARDIOVASCULAR: Regular rate and rhythm. GI/ABDOMEN: Soft and nontender. No organomegaly or pulsatile mass. No rebound or guarding. Normal bowel sounds. EXTREMITIES: Warm and well perfused. Right anterior tibial IO line. NEUROLOGICAL: Agonal breaths. Unresponsive. MUSCULOSKELETAL: Normally developed for age. TRIAGE NURSING DOCUMENTATION REVIEWED. Procedures ABG Interpretation ABG Interpretation 1: ABG Results: Interpretation: metabolic acidosis Central Line Placement Right IJ: Time Out Performed: Yes Patient Placed on Monitor/Pulse Ox: Yes MD Prep: mask, gown and gloves Central Line Prep: Povidone-Iodine 1% Ultrasound Used for Placement: Yes Central Line Lumen Inserted: triple Post Procedure: sutured in place, good blood return, all ports aspirated, flushed, capped and sterile dressing applied Patient Tolerated Procedure: well Complications: none Intubation Time out performed: Yes sedative: Etomidate Mg Given: 15 paralytic: Succinylcholine Mg Given: 80 Laryngoscope: fiber optic video scope ET Tube Size: 7 ET Tube Uncuffed: Yes Tube Secured Depth (cm): 20 Tube Secured Location: lips Tube Placement Confirmation: visualized tube passing through cords, equal breath sounds bilaterally, no breath sounds over epigastrium and confirmation by capnometry Patient Tolerated Procedure: well and no complications Intubation Complications: none Course Administered Medications Midazolam HCl (Versed) 125 mg in 250 mls @ 4 mls/hr IV .[id number] [facility]; Protocol Stop: 05/23/20 17:14 Last Titration: 04/23/20 17:55 Dose: 3 mg/hr, 6 mls/hr Documented by: [id number] Cosigned by: [id number] Titration: 04/23/20 17:33 Dose: 2 mg/hr, 4 mls/hr Documented by: [id number] Cosigned by: [id number] Admin: 04/23/20 17:22 Dose: 1 mg/hr, 2 mls/hr Documented by: [id number] Cosigned by: [id number] Norepinephrine Bitartrate 8 mg (/ Dextrose) 508 mls @ 46.436 mls/hr IV .[id number] [facility]; Protocol Stop: 05/23/20 19:14 Last Titration: 04/23/20 19:23 Dose: 0.22 mcg/kg/min, 46.4 mls/hr Documented by: [id number] Titration: 04/23/20 18:56 Dose: 0.2 mcg/kg/min, 42.2 mls/hr Documented by: [id number] Titration: 04/23/20 18:51 Dose: 0.16 mcg/kg/min, 33.8 mls/hr Documented by: [id number] Titration: 04/23/20 18:41 Dose: 0.14 mcg/kg/min, 29.6 mls/hr Documented by: [id number] Titration: 04/23/20 18:36 Dose: 0.12 mcg/kg/min, 25.3 mls/hr Documented by: [id number] Admin: 04/23/20 17:26 Dose: 0.1 mcg/kg/min, 21.1 mls/hr Documented by: [id number] Cosigned by: [id number] Insulin Human Regular 250 (units/ Sodium Chloride) 250 mls @ 5.5 mls/hr IV .Q24H [facility]; Protocol Stop: 05/23/20 17:44 Last Admin: 04/23/20 18:04 Dose: 5.5 units/hr, 5.5 mls/hr Documented by: [id number] Cosigned by: [id number] Sodium Chloride (Nss 1000ml) 1,000 mls @ 999 mls/hr IV .Q1H1M [facility] Stop: 04/23/20 20:36 Last Infusion: 04/23/20 18:05 Dose: 0 mls/hr Documented by: [id number] Admin: 04/23/20 17:00 Dose: 999 mls/hr Documented by: [id number] Sodium Chloride (Nss 1000ml) 1,000 mls @ 999 mls/hr IV .Q1H1M [facility] Stop: 04/23/20 19:36 Last Infusion: 04/23/20 18:05 Dose: 0 mls/hr Documented by: [id number] Admin: 04/23/20 17:00 Dose: 999 mls/hr Documented by: [id number] Discontinued Medications Etomidate (Etomidate 2 Mg/Ml 20 Ml Vial) 15 mg IV NOW ONE Stop: 04/23/20 17:02 Last Admin: 04/23/20 17:28 Dose: 15 mg Documented by: [id number] Norepinephrine Bitartrate 4 mg (/ Dextrose) 254 mls @ 21.107 mls/hr IV .Q12H3M [facility]; Protocol Stop: 04/23/20 19:15 Last Admin: 04/23/20 17:36 Dose: Not Given Documented by: [id number] Daptomycin 325 mg/ Syringe 6.5 mls @ 3.25 mls/min IV NOW ONE; Protocol Stop: 04/23/20 17:46 Last Admin: 04/23/20 17:59 Dose: 3.25 mls/min Documented by: [id number] Sodium Chloride (Nss 1000ml) 1,000 mls @ 999 mls/hr IV .Q1H1M [facility]URIDIA Stop: 04/23/20 18:45 Last Infusion: 04/23/20 18:05 Dose: 0 mls/hr Documented by: [id number] Admin: 04/23/20 17:00 Dose: 999 mls/hr Documented by: [id number] Piperacillin Sod/Tazobactam Sod (Zosyn) 4.5 gm in 120 mls @ 240 mls/hr IV NOW ONE Stop: 04/23/20 18:02 Last Admin: 04/23/20 18:53 Dose: Not Given Documented by: [id number] Insulin Human Regular (Novolin-R Bolus From Bag) 5 units IV ONE ONE Stop: 04/23/20 17:46 Last Admin: 04/23/20 18:03 Dose: 5 units Documented by: [id number] Cosigned by: [id number] Miscellaneous (Rapid Sequence Induction Bag) Confirm Administered Dose 1 ea .ROUTE .STK-MED ONE Stop: 04/23/20 16:55 Last Admin: 04/23/20 17:00 Dose: 1 ea Documented by: [id number] Piperacillin Sod/Tazobactam Sod (Piperacillin/Tazobactam 4.5 Gm/120ml D5w) Confirm Administered Dose 4.5 gm .ROUTE .STK-MED ONE Stop: 04/23/20 17:10 Last Admin: 04/23/20 17:33 Dose: 4.5 gm Documented by: [id number] Succinylcholine Chloride (Succinylcholine Chloride 20 Mg/Ml 10 Ml Vial) 80 mg IV NOW ONE Stop: 04/23/20 17:03 Last Admin: 04/23/20 17:02 Dose: 80 mg Documented by: [id number] Critical Care Time Critical Care Time: Yes Total Critical Care Time: 45 I have personally spent 45 minutes of critical care time in the direct management of this patient. This includes bedside care, interpretation of diagnostic studies, and testing, discussion with consultants, patient, and family members, and other required patient management activities. This 45 minutes is in excess of all separately billable procedures. Medical Decision Making Differential Diagnosis Differential includes acute cardiac dysrhythmia, microinfarction, CVA, TIA, dehydration, anemia, electrolyte disturbance, seizure, trauma, intracranial bleeding, acute vascular catastrophe, thoracic aortic dissection, PE, abdominal aortic aneurysm rupture, infection, hypoglycemia, overdose, trauma. Medical Records Attestation: I reviewed the patient's medical records. Home Medications Current Medication List: was personally reviewed by me Laboratory Data Attestation: I reviewed the patient's lab results. Result diagrams: 04/23/20 17:11 04/23/20 17:11 Lab Results 04/23/20 04/23/20 04/23/20 Range/Units 17:07 17:11 17:11 WBC 19.00 H (4.8-10.8) K/uL RBC 5.10 (4.2-5.4) M/uL Hgb 14.5 (12.0-16.0) g/dL Hct 46.5 (37-47) % MCV 91.2 (80-100) fL MCH 28.4 (25-34) pg MCHC 31.2 L (32-36) g/dL Plt Count 135 (130-400) K/uL Absolute Nucleated RBC 0.03 H (0-0) K/uL Nucleated RBC % (auto) 0.2 % Neutrophils % (Manual) 77.4 % Lymphocytes % (Manual) 17.4 % Monocytes % (Manual) 5.2 % Neutrophils # (Manual) 14.71 H (1.4-6.5) K/uL Total Absolute Neuts 14.71 H (1.4-6.5) K/uL Lymphocytes # (Manual) 3.31 (1.2-3.4) K/uL Total Abs Lymphocytes 3.31 (1.2-3.4) K/uL Monocytes # (Manual) 0.99 H (0.11-0.59) K/uL Echinocytes 2+ PT (9.0-12.0) Seconds INR (0.9-1.1) APTT (21.0-31.0) Seconds PTT Ratio Sodium 141 (136-145) mmol/L Potassium 5.5 H (3.5-5.1) mmol/L Chloride 98 (98-107) mmol/L Carbon Dioxide 12 L (21-32) mmol/L Anion Gap 31.0 H (3-11) BUN 87 H (7-18) mg/dl Creatinine 3.43 H (0.6-1.2) mg/dl Est Cr Clr Drug Dosing Not Reportable Est GFR ( Amer) 14.6 Est GFR (Non-Af Amer) 12.6 BUN/Creatinine Ratio 25.4 H (10-20) Glucose 991 H* (70-99) mg/dl POC Glucose (70-99) mg/dl Lactate (0.4-2.0) mmol/L Calcium 9.9 (8.5-10.1) mg/dl Phosphorus 8.9 H (2.5-4.9) mg/dl Magnesium 3.8 H (1.8-2.4) mg/dl Total Bilirubin 0.6 (0.2-1) mg/dl AST 27 (15-37) U/L ALT 17 (12-78) U/L Alkaline Phosphatase 93 (45-117) U/L Troponin I (0-0.045) ng/ml Total Protein 6.9 (6.4-8.2) gm/dl Albumin 2.3 L (3.4-5.0) gm/dl Globulin 4.6 H (2.5-4.0) gm/dl Albumin/Globulin Ratio 0.5 L (0.9-2) Beta-Hydroxybutyric Acd (0.2-2.81) mg/dl Urine Color Yellow Urine Appearance Clear (Clear) Urine pH 5.0 (4.5-7.5) Ur Specific [place] 1.029 (1.000-1.030) Urine Protein 2+ H (Negative) Urine Glucose (UA) 3+ H (Negative) Urine Ketones 2+ H (Negative) Urine Blood 2+ H (Negative) Urine Nitrite Negative (Negative) Urine Bilirubin Negative (Negative) Urine Urobilinogen Negative (Negative) Ur Leukocyte Esterase Negative (Negative) Urine WBC (Auto) 1-5 (0-5) /hpf Urine RBC (Auto) 0-4 (0-4) /hpf U Hyaline Cast (Auto) 1-5 (0-5) /lpf U Epithel Cells (Auto) 5-10 H (0-5) /lpf Urine Bacteria (Auto) Negative (Negative) Gastric Fluid pH Gastric Occult Blood Miscellaneous Test 04/23/20 04/23/20 04/23/20 Range/Units 17:31 17:45 17:45 WBC (4.8-10.8) K/uL RBC (4.2-5.4) M/uL Hgb (12.0-16.0) g/dL Hct (37-47) % MCV (80-100) fL MCH (25-34) pg MCHC (32-36) g/dL Plt Count (130-400) K/uL Absolute Nucleated RBC (0-0) K/uL Nucleated RBC % (auto) % Neutrophils % (Manual) % Lymphocytes % (Manual) % Monocytes % (Manual) % Neutrophils # (Manual) (1.4-6.5) K/uL Total Absolute Neuts (1.4-6.5) K/uL Lymphocytes # (Manual) (1.2-3.4) K/uL Total Abs Lymphocytes (1.2-3.4) K/uL Monocytes # (Manual) (0.11-0.59) K/uL Echinocytes PT (9.0-12.0) Seconds INR (0.9-1.1) APTT (21.0-31.0) Seconds PTT Ratio Sodium (136-145) mmol/L Potassium (3.5-5.1) mmol/L Chloride (98-107) mmol/L Carbon Dioxide (21-32) mmol/L Anion Gap (3-11) BUN (7-18) mg/dl Creatinine (0.6-1.2) mg/dl Est Cr Clr Drug Dosing Est GFR ( Amer) Est GFR (Non-Af Amer) BUN/Creatinine Ratio (10-20) Glucose (70-99) mg/dl POC Glucose > 600 H* (70-99) mg/dl Lactate (0.4-2.0) mmol/L Calcium (8.5-10.1) mg/dl Phosphorus (2.5-4.9) mg/dl Magnesium (1.8-2.4) mg/dl Total Bilirubin (0.2-1) mg/dl AST (15-37) U/L ALT (12-78) U/L Alkaline Phosphatase (45-117) U/L Troponin I (0-0.045) ng/ml Total Protein (6.4-8.2) gm/dl Albumin (3.4-5.0) gm/dl Globulin (2.5-4.0) gm/dl Albumin/Globulin Ratio (0.9-2) Beta-Hydroxybutyric Acd (0.2-2.81) mg/dl Urine Color Urine Appearance (Clear) Urine pH (4.5-7.5) Ur Specific [place] (1.000-1.030) Urine Protein (Negative) Urine Glucose (UA) (Negative) Urine Ketones (Negative) Urine Blood (Negative) Urine Nitrite (Negative) Urine Bilirubin (Negative) Urine Urobilinogen (Negative) Ur Leukocyte Esterase (Negative) Urine WBC (Auto) (0-5) /hpf Urine RBC (Auto) (0-4) /hpf U Hyaline Cast (Auto) (0-5) /lpf U Epithel Cells (Auto) (0-5) /lpf Urine Bacteria (Auto) (Negative) Gastric Fluid pH Cancelled Gastric Occult Blood Cancelled Miscellaneous Test Cancelled 04/23/20 04/23/20 04/23/20 Range/Units 18:28 18:28 18:28 WBC (4.8-10.8) K/uL RBC (4.2-5.4) M/uL Hgb (12.0-16.0) g/dL Hct (37-47) % MCV (80-100) fL MCH (25-34) pg MCHC (32-36) g/dL Plt Count (130-400) K/uL Absolute Nucleated RBC (0-0) K/uL Nucleated RBC % (auto) % Neutrophils % (Manual) % Lymphocytes % (Manual) % Monocytes % (Manual) % Neutrophils # (Manual) (1.4-6.5) K/uL Total Absolute Neuts (1.4-6.5) K/uL Lymphocytes # (Manual) (1.2-3.4) K/uL Total Abs Lymphocytes (1.2-3.4) K/uL Monocytes # (Manual) (0.11-0.59) K/uL Echinocytes PT 12.4 H (9.0-12.0) Seconds INR 1.2 H (0.9-1.1) APTT 39.2 H (21.0-31.0) Seconds PTT Ratio 1.4 Sodium (136-145) mmol/L Potassium (3.5-5.1) mmol/L Chloride (98-107) mmol/L Carbon Dioxide (21-32) mmol/L Anion Gap (3-11) BUN (7-18) mg/dl Creatinine (0.6-1.2) mg/dl Est Cr Clr Drug Dosing Est GFR ( Amer) Est GFR (Non-Af Amer) BUN/Creatinine Ratio (10-20) Glucose (70-99) mg/dl POC Glucose (70-99) mg/dl Lactate 2.0 (0.4-2.0) mmol/L Calcium (8.5-10.1) mg/dl Phosphorus (2.5-4.9) mg/dl Magnesium (1.8-2.4) mg/dl Total Bilirubin (0.2-1) mg/dl AST (15-37) U/L ALT (12-78) U/L Alkaline Phosphatase (45-117) U/L Troponin I < 0.015 (0-0.045) ng/ml Total Protein (6.4-8.2) gm/dl Albumin (3.4-5.0) gm/dl Globulin (2.5-4.0) gm/dl Albumin/Globulin Ratio (0.9-2) Beta-Hydroxybutyric Acd (0.2-2.81) mg/dl Urine Color Urine Appearance (Clear) Urine pH (4.5-7.5) Ur Specific [place] (1.000-1.030) Urine Protein (Negative) Urine Glucose (UA) (Negative) Urine Ketones (Negative) Urine Blood (Negative) Urine Nitrite (Negative) Urine Bilirubin (Negative) Urine Urobilinogen (Negative) Ur Leukocyte Esterase (Negative) Urine WBC (Auto) (0-5) /hpf Urine RBC (Auto) (0-4) /hpf U Hyaline Cast (Auto) (0-5) /lpf U Epithel Cells (Auto) (0-5) /lpf Urine Bacteria (Auto) (Negative) Gastric Fluid pH Gastric Occult Blood Miscellaneous Test Imaging Data Radiologist's Impression: XR chest 1V portable HISTORY: SEPSIS COMPARISON: Chest 11/23/2019. FINDINGS: The endotracheal tube terminates 6 cm from the kaila. This could be advanced by approximately 2 to 3 cm. No pneumothorax. Right jugular central venous catheter terminates at the expected location of the brachiocephalic/SVC junction. Nasogastric tube terminates below the diaphragm. The tip is not included on this study. Left basilar linear densities favor subsegmental atelectasis. Otherwise, lungs are clear. No pleural effusion is. No pneumothorax. Prior cholecystectomy. Left-sided dual-chamber pacemaker. IMPRESSION: 1. The endotracheal tube terminates 6 cm from the kaila. This could be advanced by approximately 2 to 3 cm. 2. The remaining lines/tubes appear good position. ECG Data Attestation: I personally reviewed and interpreted this ECG as follows: Indication: + other (Unresponsive) Rate (beats per minute): 62 Rhythm: + normal sinus ECG Intervals/blocks: + Normal QT-c ECG ST segments: no ST elevation ECG Findings: no PVCs MDM Narrative Patient presents unresponsive, hyperglycemic and hypotensive by EMS. She does have a history of diabetes type 2. She is unresponsive with agonal breaths on my initial exam. The patient was intubated using IV etomidate and succinylcholine. This is primarily because she had a gag reflex. The patient was not responsive. Because of her persistent hypotension, a right IJ central line was placed. She received 3 L of normal saline in the first hour she was here. She was placed on norepinephrine. She was administered IV antibiotics, V ersed drip and IV insulin. The patient's chest x-ray did not show any evidence of pneumonia. Endotracheal tube was a little high and this was advanced 2 cm by respiratory therapy. The patient CBC reveals a white blood cell count of 19. Potassium is 5.5. Bicarb is 12. Anion gap is 31. Sodium is 141 corrected to 162 per the hyperglycemia of 991. BUN is 87 and creatinine is 3.43. Troponin was negative. EKG showed normal sinus rhythm at a rate of 62. This is acute for the patient. Phosphorus is elevated 8.9. Magnesium is elevated at 3.8. Urine did not show obvious infection. Nursing staff placed an NG tube as well as a Jimenes catheter. The bladder was drained and the stomach was emptied. The patient was hypothermic and a bear hugger was placed on the patient as well. Impression & Plan Unresponsive state, Metabolic acidosis, Acute hyperglycemia, Respiratory failure, Septic shock, Acute renal failure, Hypermagnesemia, Hyperphosphatemia, Acute hypernatremia Discharge Plan Visit Data Chief Complaint: Cardiac Arrest/CPR Stated Complaint: POST ARREST ED Provider: Ernie Werner Discharge Problem: Unresponsive state, Metabolic acidosis, Acute hyperglycemia, Respiratory failure, Septic shock, Acute renal failure, Hypermagnesemia, Hyperphosphatemia, Acute hypernatremia Forms Stand Alone Forms: My [facility] [place] Prescriptions Prescriptions: No Action sertraline 25 mg tablet 25 mg PO DAILY Qty: 90 RF: 0 albuterol sulfate 90 mcg/actuation HFA aerosol inhaler 2 puffs INH Q6H PRN (Reason: wheezing) RF: 0 aspirin [Adult Low Dose Aspirin] 81 mg tablet,delayed release (DR/EC) 81 mg PO DAILY RF: 0 atorvastatin 40 mg tablet 40 mg PO DAILY RF: 0 midodrine 5 mg tablet 5 mg PO BID RF: 0 metformin 850 mg tablet 850 mg PO BIDM RF: 0 acetaminophen 500 mg tablet 500 - 1,000 mg PO TID PRN (Reason: Pain) RF: 0 levothyroxine 200 mcg tablet 200 mcg PO DAILY RF: 0 ergocalciferol (vitamin D2) 1,250 mcg (50,000 unit) capsule 50,000 unit PO .Q2WK.MO RF: 0 Lantus Solostar U-100 Insulin 100 unit/mL (3 mL) insulin pen 10 unit SUBCUT DAILY RF: 0 Combivent Respimat 20-100 mcg/actuation mist 1 puff INHALATION QID RF: 0 ondansetron 4 mg tablet,disintegrating 4 mg PO Q8H PRN (Reason: nausea and vomiting) Qty: 30 RF: 0 Basaglar KwikPen U-100 Insulin 100 unit/mL (3 mL) Insulin Pen 15 unit SUBCUT QAM RF: 0 Discharge Problem: Respiratory failure Qualifiers: Chronicity: acute Respiratory failure complication: hypoxia Qualified Code(s): J96.01 - Acute respiratory failure with hypoxia Acute renal failure Qualifiers: Acute renal failure type: unspecified Qualified Code(s): N17.9 - Acute kidney failure, unspecified
[2020-04-23] MEDS ORDERED: SODIUM CHLORIDE 0.9% 1000ML 1,000 ML IV SCH ×3 (17:45→19:37)
[2020-04-23] MEDS ORDERED: DAPTOmycin 325 MG in SYRINGE 0 ML IV ONE (17:45)
[2020-04-23] MEDS ORDERED: NovoLIN-R BOLUS FROM BAG IV ONE (17:45)
[2020-04-23] MEDS: INSULIN REGULAR 250 UNITS in SODIUM CHLORIDE 0.9% 247.5 ML IV SCH (18:04)
[2020-04-23 18:08] LABS: Alanine Aminotransferase 17 U/L (12-78); Albumin Globulin Ratio 0.5 (0.9-2); Albumin Level 2.3 gm/dl (3.4-5.0); Alkaline Phosphatase 93 U/L (45-117); Aspartate Aminotransferase 27 U/L (15-37); BUN Creatinine Ratio 25.4 (10-20); Bilirubin,Total 0.6 mg/dl (0.2-1); Blood Urea Nitrogen 87 mg/dl (7-18); Calcium 9.9 mg/dl (8.5-10.1); Carbon Dioxide 12 mmol/L (21-32); Chloride 98 mmol/L (98-107); Est GFR (African American) 14.6; Est GFR (Non-African American) 12.6; Globulin 4.6 gm/dl (2.5-4.0); Glucose 991 mg/dl (70-99); Magnesium 3.8 mg/dl (1.8-2.4); Potassium 5.5 mmol/L (3.5-5.1); Sodium 141 mmol/L (136-145); Total Protein 6.9 gm/dl (6.4-8.2)
[2020-04-23 18:17] LABS: Hematocrit (blood only) 46.5 % (37-47); Hemoglobin 14.5 g/dL (12.0-16.0); Mean Corpuscular Hemoglobin 28.4 pg (25-34); Mean Corpuscular Hgb Conc 31.2 g/dL (32-36); Mean Corpuscular Volume 91.2 fL (80-100); Platelet Count 135 K/uL (130-400)
[2020-04-23 18:18] LABS: ALC (manual) 3.31 K/uL (1.2-3.4); ANC (manual) 14.71 K/uL (1.4-6.5); Echinocytes 2+; Lymphocytes # (manual) 3.31 K/uL (1.2-3.4); Lymphocytes % (manual) 17.4 %; Monocytes # (manual) 0.99 K/uL (0.11-0.59); Monocytes % (manual) 5.2 %; Neutrophils # (manual) 14.71 K/uL (1.4-6.5); Neutrophils % (manual) 77.4 %
--- NOTE | 2020-04-23 18:20 | XRay Report ---
XR chest 1V portable HISTORY: SEPSIS COMPARISON: Chest 11/23/2019. FINDINGS: The endotracheal tube terminates 6 cm from the kaila. This could be advanced by approximat benita 2 to 3 cm. No pneumothorax. Right jugular central venous catheter terminates at the expected loca tion of the brachiocephalic/SVC junction. Nasogastric tube terminates below the diaphragm. The tip is not included on this study. Left basilar linear densities favor subsegmental atelectasis. Otherwise, lungs are clear. No pleural effusion is. No pneumothorax. Prior cholecystectomy. Left-sided dual-chris mber pacemaker. IMPRESSION: 1. The endotracheal tube terminates 6 cm from the kaila. This could be advanced by approximately 2 t o 3 cm. 2. The remaining lines/tubes appear good position. ACT 112: Negative or not required by law. Electronically signed by: Drake Galarza M.D. 04/23/2020 6:19 PM
[2020-04-23 18:26] LABS: Appearance Urine Clear (Clear); Bacteria Urine Automated Negative (Negative); Bilirubin Urine Negative (Negative); Blood Urine 2+ (Negative); Color Urine Yellow; Glucose Urine UA 3+ (Negative); Ketones Urine 2+ (Negative); Leukocyte Esterase Urine Negative (Negative); Nitrite Urine Negative (Negative); Protein Urine 2+ (Negative); RBC Urine Automated 0-4 /hpf (0-4); Specific Gravity Urine 1.029 (1.000-1.030); Urobilinogen Urine Negative (Negative)
[2020-04-23 18:34] LABS: Phosphorus 8.9 mg/dl (2.5-4.9)
[2020-04-23 18:49] LABS: INR 1.2 (0.9-1.1); Partial Thromboplastin Ratio 1.4; Partial Thromboplastin Time 39.2 Seconds (21.0-31.0); Prothrombin Time 12.4 Seconds (9.0-12.0)
[2020-04-23] MEDS: CLINDAMYCIN 600 MG in DEXTROSE 5% 50 ML IV SCH (19:58)
--- NOTE | 2020-04-23 20:04 | History & Physical Report ---
Date of Service April 23, 2020 Assessment & Plan (1) Metabolic acidosis: Pt is here with profound acidosis and associated hypotension and respiratory failure. LIkely is HHS or DKA. was given volume resuscitation. and started on insulin gtt. she was given bicarb and has a pending abg plus covid test, initial CXR is clear will continue ventilatory support, pressor support, treating glucose elevation and acidosis since she is with hypothermia on presentation, and has unknown down time with return of rosc, will elect to keep pt with normothermic temperatures 33-36 C next of kin listed as friend did call and no answer nor ability to leave message was found (2) Acute renal failure: Pt has acute kidney injury, is making urine at this point, continue to follow (3) Cellulitis of hand: Pt was emperically given doptomycin and zosyn adding clindamycin for necrotizing fascitis coverage (4) COPD (chronic obstructive pulmonary disease): has a history of copd, will offer albuterol and atrovent (5) Intellectual disability: this has been cited through her records, no defined cause or quantifing statements History of Present Illness Primary Care Provider: SHIRLEY Pierre 74 F who arrives after resuscitation in the field. reportedly was found with agonal respiration and low blood pressure, was bagged in field, cpr and given epi for pressor, was given ivf via interosseus fluid in the right tibia. Intubated in the ER, right IJ placed and og tube. Pt was found to be profoundly acidemic, metabolic, with marked elevated glucose (991). She did have an amp of bicarb, and was sedated with midazolam and given pressors with norepi. she remains on pressors, had 3 liters of Nss and is making urine at this time. She has heme positive black ngt drainage. She was found to have a markedly swollen right hand with bullae on it with some minor erythema to the wrist. She does not have pneumonia on CXR and was given daptomycin and zosyn, added clinda for nec fasc coverage and has a pending covid. Allergies Allergy/AdvReac Type Severity Reaction Status Date / Time No Known Allergies Allergy Verified 04/23/20 19:56 Home Medications Home Medications Medication Instructions Recorded Confirmed Type sertraline 25 mg tablet 25 mg PO DAILY #90 tab 01/14/19 01/19/20 History albuterol sulfate 90 mcg/actuation 2 puffs INH Q6H PRN gm 03/14/19 01/19/20 History aerosol inhaler aspirin 81 mg tablet,delayed 81 mg PO DAILY 03/14/19 01/19/20 History release acetaminophen 500 - 1,000 mg PO TID PRN 11/23/19 01/19/20 History atorvastatin 40 mg PO DAILY 11/23/19 01/19/20 History ergocalciferol (vitamin D2) 50,000 unit PO .Q2WK.MO 11/23/19 01/19/20 History insulin glargine [Lantus Solostar 10 unit SUBCUT DAILY 11/23/19 01/19/20 History U-100 Insulin] ipratropium-albuterol [Combivent 1 puff INHALATION QID 11/23/19 01/19/20 History Respimat] levothyroxine 200 mcg PO DAILY 11/23/19 01/19/20 History metformin 850 mg PO BIDM 11/23/19 01/19/20 History midodrine 5 mg PO BID 11/23/19 01/19/20 History ondansetron 4 mg PO Q8H PRN #30 tab 11/23/19 01/19/20 Rx insulin glargine [Basaglar KwikPen 15 unit SUBCUT QAM 01/19/20 01/19/20 History U-100 Insulin] Past Med/Surg History Medical History Acute UTI Arthritis Asthma Bradycardia Bulimia nervosa Chronic kidney disease COPD (chronic obstructive pulmonary disease) Depression Diabetes Diabetes mellitus Diabetic peripheral neuropathy Hearing difficulty Hyperlipidemia Hypertension Hypothyroidism Intellectual disability Migraine headache Pacemaker Pacemaker battery depletion Tobacco use Uncontrolled type 2 diabetes mellitus Family History Other No significant family history Social History Smoking Status: Unknown if ever smoked Hx Alcohol Use: No Hx Substance Use: No Preferred Language: Belarusian Communication Ability: Impaired Beliefs That Will Affect Care: None Current Living Situation: Other Current Living Situation Comment: lives with a "friend" Feels Safe at Home: Yes Assistive Devices: None Review of Systems Review of Systems: Unobtainable due to endotracheal tube Physical Exam Physical Exam: The patient appeared mortally ill Vital signs as documented, blood pressure is low Head exam is normocephalic atraumatic no scleral icterus pupils are small and reactive Neck is trachea midline. Lungs are with bilateral ventilation Cardiac exam, Rhythm is regular.. No murmurs, rubs or gallops. Abdominal exam reveals soft, hypoactive bowel soungs left hand is markedly swollen, erythmematous, small bullae is seen Neurologic exam sedated and ventilated, was given paralytics for intubation Skin is with cellulitis to left hand Results & Data Results & [facility] ([facility]) Vital Signs (Past 12 Hours) Vital Signs Temp Pulse Resp BP Pulse Ox 04/23/20 19:25 65 86/46 L 100 04/23/20 19:20 64 82/50 L 100 04/23/20 19:19 64 81/52 L 100 04/23/20 19:15 64 86/49 L 100 04/23/20 19:10 66 87/53 L 100 04/23/20 19:08 69 106/56 L 100 04/23/20 19:06 69 80/48 L 100 04/23/20 19:01 66 100 04/23/20 19:00 66 107/56 L 100 04/23/20 18:55 63 81/47 L 100 04/23/20 18:50 62 77/47 L 100 04/23/20 18:45 62 78/45 L 100 04/23/20 18:41 62 100 04/23/20 18:40 62 76/44 L 100 04/23/20 18:39 61 83/46 L 100 04/23/20 18:31 70 79/48 L 100 04/23/20 18:30 74 69/42 L 100 04/23/20 18:11 62 100 04/23/20 18:10 74 93/42 L 99 04/23/20 18:00 60 95/52 L 100 04/23/20 17:50 63 84/46 L 100 04/23/20 17:48 62 91/50 L 100 04/23/20 17:45 61 91/48 L 100 04/23/20 17:43 63 89/47 L 100 04/23/20 17:40 66 97/49 L 100 04/23/20 17:37 64 84/45 L 100 04/23/20 17:35 63 84/49 L 100 04/23/20 17:32 68 83/47 L 100 04/23/20 17:30 68 79/48 L 100 04/23/20 17:27 62 79/46 L 100 04/23/20 17:25 60 70/41 L 99 04/23/20 17:22 60 69/45 L 99 04/23/20 17:20 61 69/42 L 99 04/23/20 17:17 64 68/42 L 100 04/23/20 17:15 69 63/44 L 100 04/23/20 17:13 71 67/41 L 100 04/23/20 17:10 78 20 64/40 L 100 04/23/20 17:08 80 58/37 L 100 04/23/20 17:00 92.1 F L 80 100 Code Status & VTE Plan VTE Prophylaxis Plan VTE Prophylaxis will be ordered: Yes PG Care Time/CCT Total # of Minutes Spent Total Time Spent with Patient: Total time spent is greater than 50% in coordination of care (as documented) at patient's floor/unit and/or counseling patient: Coding Level of Care Code 66579 Initial Inpt Care Lvl 3 Diagnoses Metabolic acidosis E87.2 Acute renal failure N17.9 Acute renal failure type: unspecified Cellulitis of hand L03.119 COPD (chronic obstructive pulmonary disease) J44.9 Intellectual disability F79 (1) Acute renal failure Acute renal failure type: unspecified Qualified Code(s): N17.9 - Acute kidney failure, unspecified
[2020-04-23] MEDS ORDERED: INSULIN ASPART 100 UNITS/ML 3 ML PEN SC SCH (21:00)
[2020-04-23 21:07] LABS: Beta-Hydroxybutyrate 128.1 mg/dl (0.2-2.81)
--- NOTE | 2020-04-23 22:11 | CT Scan Report ---
HEAD CT NONCONTRAST CT DOSE: 537.48 mGy.cm HISTORY: unresponsive TECHNIQUE: Multiaxial CT images of the head were performed without the use of intravenous contrast. A utomated exposure control was utilized for this study. A dose lowering technique was utilized adheri ng to the principles of ALARA. Comparison: Head CT 11/23/2019. Findings: The paranasal sinuses and mastoid air cells are clear. The calvarium and skull base are int act. The ventricles and sulci are within normal limits. There is no mass, hematoma, midline shift, or acute infarct. Stable 3 cm CSF density focus within the right high convexity. This favors an arachno id cyst. Impression: No significant change compared to the prior study. No acute intracranial abnormality. ACT 112: Negative or not required by law. Electronically signed by: Drake Galarza M.D. 04/23/2020 10:10 PM
[2020-04-23] MEDS ORDERED: INSULIN PROTOCOL GOAL RANGE ONE (23:05)
[2020-04-23] MEDS ORDERED: ALBUT/IPRATROP 3MG/0.5MG NEB 3 ML VIAL INH PRN (23:05)
[2020-04-23] MEDS ORDERED: ICU PROTOCOL FOR HYPERGLYCEMIA PRN (23:05)
[2020-04-23] MEDS ORDERED: NORMOSOL-R 1,000 ML IV SCH (23:05)
[2020-04-23] MEDS ORDERED: INSULIN REGULAR 250 UNITS in SODIUM CHLORIDE 0.9% 247.5 ML IV SCH ×2 (23:05→23:45)
[2020-04-23] MEDS ORDERED: SEVERE STRESS LEVEL ONE (23:05)
[2020-04-23] MEDS ORDERED: MEPERIDINE HCL 25 MG/ML CARP/VIAL IV PRN (23:05)
[2020-04-23 23:22] LABS: Beta-Hydroxybutyrate 117.9 mg/dl (0.2-2.81)
[2020-04-23] MEDS: VASOPRESSIN 20 UNITS in 0.9 % SODIUM CHLORIDE 100 ML IV SCH (23:32)
[2020-04-23] MEDS ORDERED: SODIUM CHLORIDE 0.45 % 1,000 ML IV SCH (23:45)
--- NOTE | 2020-04-23 23:49 | Critical Care Consultation ---
Date of Consultation April 23, 2020 Assessment & Plan (1) Septic shock: Reason Critically Ill: 74-year-old female presents to the ICU following infield cardiac arrest with ROSC achieved with CPR and epinephrine. Now undergoing therapeutic hypothermia, mechanically ventilated, on multiple vasopressors, and being treated for septic shock and DKA. Neuro - Anoxic injury?Patient unresponsive following cardiac arrest -CT head negative -Therapeutic hypothermia protocol initiated and right IJ triple-lumen CVC exchanged for cooling cath to undergo intravascular hypothermic therapy -Cannot rule out potential contributing factors of metabolic encephalopathy secondary to sepsis and DKA -We will reevaluate neurological status once patient has been rewarmed and obtain EEG if unable to follow commands Cardiac - Cardiac arrest/shockpatient was found to be without pulse per EMS, unsure of exact downtime but ROSC achieved with 1 round of CPR and epinephrine -Patient now requiring multiple vasopressors, will continue to titrate for maps greater than 65 -Primary differential of septic shock as patient's pro Kobi significantly elevated and potential source of infection in left hand, being evaluated by surgery and ultrasound left hand pending -See management sepsis below -Unable to rule out cardiogenic source, however troponin and EKG unremarkable, echo pending -Consider dysrhythmia, however AED did advise no shock -We will need interrogation of pacer in the a.m. as cause of cardiac arrest is unclear at this time Respiratory - Mechanically ventilatedintubated following cardiac arrest -Sedation: Fentanyl and Versed drips -Chest x-ray clear, confirmed ET tube placement -History of COPD, continue nebs as needed -Continuous monitoring with pulse ox -Patient to remain intubated during therapeutic hypothermia, will assess for vent weaning once patient is rewarmed and more hemodynamically stable GI - Abdominal exam benign LFTs within normal limits N.p.o. RENAL/LYTES - Acute renal failurepatient with history of CKD, now presents with creatinine 3.9 on admission and severe electrolyte derangements -May be partially due to dehydration and electrolyte derangements from DKA, however patient significantly hypotensive and likely component of ATN -Creatinine did downtrend following fluid resuscitation, will continue IV fluids -Continue to monitor urine output with strict I's and O's -Avoid nephrotoxins and renally adjust medications -Every 4 hours BMPs to trend electrolytes and creatinine, will replete electrolytes as indicated - Foleystrict I's and O's ENDO - DKAcontinue insulin drip with DKA protocol -Anion gap, BHA, bicarb improving -Hemoglobin A1c pending TSH pending HEME - H&H stable, monitor routine CBCs ID - Sepsispatient with hypotension, and elevated procalcitonin -Chest x-ray appears clear of pulmonary infiltrates -no obvious evidence of UTI on UA -Blood cultures pending -Patient's left hand most obvious source of infection as there is significant erythema and swelling, and recent MRSA infection with previous culture from March 2020 -Surgery was consulted and did evaluate patient at the bedside, awaiting soft tissue ultrasound of the hand -Continue broad-spectrum antibiotics daptomycin, clindamycin, Zosyn for now LINES/IV ACCESS - CVC right IJ, A-line right radial, ETT, OGT, I/O right tibial, Jimenes DVT PROPHYLAXIS - SCDs I have personally spent 80 minutes of critical care time in the direct management of this patient. This is a life/limb threatening event. This includes time spent evaluating patient, direct bedside care, chart review, placing orders, interpretation of diagnostic studies, discussion with consultants, patient, and family members, as well as other required patient management activities. This time is exclusive of all separately billable procedures, and teaching time and separate from and in addition to any other critical care service time. Thank you for allowing us to participate in the care of this patient. Please refer to my attending physician's documentation for any further recommendations. (2) Anoxic brain injury: (3) Acute renal failure: (4) Respiratory failure: (5) DKA (diabetic ketoacidoses): (6) Metabolic acidosis: (7) Unresponsive state: (8) Cardiac arrest: History of Present Illness Attending Physician: Carlos Orozco MD History of Present Illness History obtained from primary service as patient is now sedated, and unable to contact friends/family. Patient is 74-year-old female with past medical history of DM type II (uncontrolled), SA node dysfunction (status post pacemaker), intellectual dysfunction, COPD. She was reportedly found down by her roommate this afternoon and was found to be agonal breathing. Per report, the patient's roommate did not feel a pulse and called 911 and started CPR. EMS arrived to the scene and continue to do CPR, no shock advised on the AED. She was found to have weak pulse and blood pressure with systolics in the 60s after 1 round CPR by EMS. Patient was intubated and IO was obtained for vascular access, and epinephrine and bicarb was administered. She arrived to the emergency department unresponsive. She was found to be hypothermic, hyperglycemic, and hypotensive. She was bolused 3 L crystalloid, and central line was inserted and she was started on Levophed drip. Insulin drip was initiated as patient was found to be in DKA. Covid [address] the head negative. Patient was transferred to the ICU to undergo therapeutic hypothermia, and management of DKA and severe septic shock. Patient was also noted to have swelling and erythema to the left hand and was evaluated by surgery. Ultrasound of the left hand pending. We will continue further management to telemetry unit at this time. Allergies Allergy/AdvReac Type Severity Reaction Status Date / Time No Known Allergies Allergy Verified 04/23/20 19:56 Home Medications Home Medications Medication Instructions Recorded Confirmed Type sertraline 25 mg tablet 25 mg PO DAILY #90 tab 01/14/19 04/23/20 History albuterol sulfate 90 mcg/actuation 2 puffs INH Q6H PRN gm 03/14/19 04/23/20 History aerosol inhaler aspirin 81 mg tablet,delayed 81 mg PO DAILY 03/14/19 04/23/20 History release acetaminophen 500 - 1,000 mg PO TID PRN 11/23/19 04/23/20 History atorvastatin 40 mg PO DAILY 11/23/19 04/23/20 History ergocalciferol (vitamin D2) 50,000 unit PO .Q2WK.MO 11/23/19 04/23/20 History insulin glargine [Lantus Solostar 10 unit SUBCUT DAILY 11/23/19 04/23/20 History U-100 Insulin] ipratropium-albuterol [Combivent 1 puff INHALATION QID 11/23/19 04/23/20 History Respimat] levothyroxine 200 mcg PO DAILY 11/23/19 04/23/20 History metformin 850 mg PO BIDM 11/23/19 04/23/20 History midodrine 5 mg PO BID 11/23/19 04/23/20 History ondansetron 4 mg PO Q8H PRN #30 tab 11/23/19 04/23/20 Rx insulin glargine [Michelle Enriquez 15 unit SUBCUT QAM 01/19/20 04/23/20 History U-100 Insulin] Patient History Medical History Acute UTI Arthritis Asthma Bradycardia Bulimia nervosa Chronic kidney disease COPD (chronic obstructive pulmonary disease) Depression Diabetes Diabetes mellitus Diabetic peripheral neuropathy Hearing difficulty Hyperlipidemia Hypertension Hypothyroidism Intellectual disability Migraine headache Pacemaker Pacemaker battery depletion Tobacco use Uncontrolled type 2 diabetes mellitus Family History Other No significant family history Social History Smoking Status: Current every day smoker Hx Alcohol Use: No Hx Substance Use: No Preferred Language: Czech Communication Ability: Intubated. 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 Beliefs That Will Affect Care: None Current Living Situation: Alone Current Living Situation Comment: lives with a "friend" Other Information That Helps Us Care for You: No Feels Safe at Home: Declines to Answer Assistive Devices: None Review of Systems Review of Systems: Unobtainable due to cognitive status and Unobtainable due to endotracheal tube Physical Exam Constitutional: + mechanically ventilated Eyes: PERRL, conjunctivae normal, anicteric sclerae ENMT: external ear and nose normal, oropharynx normal Neck: trachea midline, no thyromegaly Respiratory: normal respiratory effort, lungs clear to auscultation Auscultation: no crackles and no wheezes ` Mechanically ventilated, Cardiovascular: Paced rhythm on monitor, S1-S2, no murmur, no JVD, no peripheral edema, capillary refill sluggish Gastrointestinal (Abdomen): normal bowel sounds, soft, nontender, no hepatosplenomegaly Skin: There is bullae and erythema to the left hand with moderate swelling, Neurologic: Neurological exam limited due to sedation, cough gag corneal intact, PERRLA Psychiatric: Unable to assess due to sedation/reduced consciousness Genitourinary: Indwelling Jimenes catheter present Results & Data Results & Data ([facility]) Vital Signs (Past 12 Hours) Vital Signs Temp Pulse Resp BP Pulse Ox 04/23/20 21:35 68 93/56 L 100 04/23/20 21:30 34.1 C L 68 94/57 L 100 04/23/20 21:25 68 91/55 L 100 04/23/20 21:20 68 94/53 L 100 04/23/20 21:15 67 92/54 L 100 04/23/20 21:10 68 92/55 L 100 04/23/20 21:05 67 95/54 L 100 04/23/20 21:00 34.2 C L 67 93/54 L 100 04/23/20 20:55 67 91/56 L 100 04/23/20 20:50 67 92/55 L 100 04/23/20 20:45 33.9 C L 73 98/51 L 100 04/23/20 20:40 66 90/54 L 100 04/23/20 20:35 66 85/51 L 100 04/23/20 20:30 33.9 C L 66 86/52 L 100 04/23/20 20:25 66 86/50 L 100 04/23/20 20:20 65 87/48 L 100 04/23/20 20:15 66 84/49 L 100 04/23/20 20:10 33.6 C L 65 81/48 L 100 04/23/20 20:05 33.5 C L 66 80/49 L 100 04/23/20 20:00 66 87/50 L 100 04/23/20 19:55 66 83/51 L 100 04/23/20 19:50 65 88/49 L 100 04/23/20 19:45 66 82/51 L 100 04/23/20 19:40 66 88/52 L 100 04/23/20 19:38 65 20 100 04/23/20 19:35 70 84/54 L 100 04/23/20 19:30 33.5 C L 65 83/49 L 100 04/23/20 19:25 65 86/46 L 100 04/23/20 19:20 64 82/50 L 100 04/23/20 19:19 64 81/52 L 100 04/23/20 19:15 64 86/49 L 100 04/23/20 19:10 66 87/53 L 100 04/23/20 19:08 69 106/56 L 100 04/23/20 19:06 69 80/48 L 100 04/23/20 19:01 66 100 04/23/20 19:00 66 107/56 L 100 04/23/20 18:55 63 81/47 L 100 04/23/20 18:50 62 77/47 L 100 04/23/20 18:45 62 78/45 L 100 04/23/20 18:41 62 100 04/23/20 18:40 62 76/44 L 100 04/23/20 18:39 61 83/46 L 100 04/23/20 18:31 70 79/48 L 100 04/23/20 18:30 74 69/42 L 100 04/23/20 18:11 62 100 04/23/20 18:10 74 93/42 L 99 04/23/20 18:00 60 95/52 L 100 04/23/20 17:50 63 84/46 L 100 04/23/20 17:48 62 91/50 L 100 04/23/20 17:45 61 91/48 L 100 04/23/20 17:43 63 89/47 L 100 04/23/20 17:40 66 97/49 L 100 04/23/20 17:37 64 84/45 L 100 04/23/20 17:35 63 84/49 L 100 04/23/20 17:32 68 83/47 L 100 04/23/20 17:30 68 79/48 L 100 04/23/20 17:27 62 79/46 L 100 04/23/20 17:25 60 70/41 L 99 04/23/20 17:22 60 69/45 L 99 04/23/20 17:20 61 69/42 L 99 04/23/20 17:17 64 68/42 L 100 04/23/20 17:15 69 63/44 L 100 04/23/20 17:13 71 67/41 L 100 04/23/20 17:10 78 20 64/40 L 100 04/23/20 17:08 80 58/37 L 100 04/23/20 17:00 33.4 C L 80 100 Coding Level of Care Code Critical Care ea addt'l 30 min Diagnoses Septic shock A41.9; R65.21 Anoxic brain injury G93.1 Acute renal failure N17.9 Acute renal failure type: unspecified Respiratory failure J96.01 Chronicity: acute Respiratory failure complication: hypoxia DKA (diabetic ketoacidoses) E11.10 Metabolic acidosis E87.2 Unresponsive state R41.89 Cardiac arrest I46.9 (1) Acute renal failure Acute renal failure type: unspecified Qualified Code(s): N17.9 - Acute kidney failure, unspecified (2) Respiratory failure Chronicity: acute Respiratory failure complication: hypoxia Qualified Code(s): J96.01 - Acute respiratory failure with hypoxia
--- NOTE | 2020-04-23 23:50 | Procedure Note ---
Procedure Note Date of Service April 23, 2020 Note ARTERIAL LINE PROCEDURE NOTE: Procedure: Arterial Line Placement Attending: Dr. Albert Iqbal Provider: SHIRLEY Kuo Indication: Monitoring on Pressors Anesthesia: None Line placed emergently following cardiac arrest patient requiring multiple vasopressors A time-out was completed verifying correct patient, procedure, site, positioning, and implant(s) or special equipment if applicable. Allens test was performed to ensure adequate perfusion. Patients right wrist was prepped and draped in the usual sterile fashion. Ultrasound guidance was used to aid needle placement. A 20g Arrow arterial line was introduced into the right radial artery. Catheter was threaded, and the needle was removed with appropriate blood return. Good waveform was observed. The patient tolerated the procedure well. Confirmation of placement with ultrasound. Blood Loss: Minimal Complications: None Procedural Ultrasound Guidance: Procedure Date: 04/23/2020 Indication: Arterial line insertion Attending: Dr. Iqbal Provider: SHIRLEY Kuo Artery Identified: YES Line confirmed in Artery with ultrasound: Yes Complications: NONE Patient tolerated procedure: WELL Coding CPT Codes Tubes, Drains, and Vasc Access - Tubes, Drains, and Vasc Access: [id number] Insertion Catheter, Artery ([id number]) Tubes, Drains, and Vasc Access - Tubes, Drains, and Vasc Access: [id number] Ultras ound Guidance For Vascular ([id number]) [facility] [place] Procedure Codes (Charges) Tubes, Drains, and Vasc Access Procedure 1: Tubes, Drains, and Vasc Access: [id number] Insertion Catheter, Artery Procedure 2: Tubes, Drains, and Vasc Access: [id number] Ultrasound Guidance For Vascular
--- NOTE | 2020-04-23 23:50 | Procedure Note ---
Procedure Note Date of Service April 23, 2020 Note INTERNAL JUGULAR CENTRAL LINE PROCEDURE NOTE: Procedure: Internal Jugular Central Line exchanged for intravascular cooling catheter Attending: Dr. Iqbal Provider: SHIRLEY Kuo Indication: Therapeutic hypothermia, Central Drug Administration, Poor Venous Access Anesthesia: None Line placed emergently following cardiac arrest and with patient neurologically unresponsive, undergoing therapeutic hypothermia, requiring multiple vasopressors. A time-out was completed verifying correct patient, procedure, site, positioning, and implants(s) or special equipment if applicable. Patients right neck was cleansed and draped in the typical sterile fashion using Chloraprep. The Internal Jugular Vein and Carotid Artery were identified using ultrasound. A guidewire was inserted with ease into the distal port of the right IJ CVC and CVC was removed. Guidewire was visualized in the right IJ with ultrasound. Using Seldinger Technique, dilator was advanced to the vessel without resistance. The dilator was exchanged for the intravascular cooling catheter which was advanced into the vessel without resistance. The guide wire was removed intact from the catheter without issue. Claves were placed on each catheter tip with confirmation of good blood flow from each lumen. Each port was easily flushed with sterile saline. The catheter was placed at 16 cm and sutured in place. BioPatch was applied to the catheter and a sterile Tegaderm dressing was applied over the catheter with careful attention to sterility. Patient tolerated procedure well. No immediate complications were met. Post procedure x-ray was completed, placement was appropriate and no pneumothorax was noted. Coding CPT Codes Tubes, Drains, and Vasc Access - Tubes, Drains, and Vasc Access: [id number] Place catheter in vein superior or inferior vena cava ([id number]) [facility] [place] Procedure Codes (Charges) Tubes, Drains, and Vasc Access Procedure 1: Tubes, Drains, and Vasc Access: [id number] Place catheter in vein superior or inferior vena cava
[2020-04-24] MEDS ORDERED: PIPERACILL/TAZOBAC CONSULT ACTIVE PRN
[2020-04-24 00:27] LABS: Hematocrit (blood only) 43.9 % (37-47); Hemoglobin 14.6 g/dL (12.0-16.0); Mean Corpuscular Hemoglobin 29.6 pg (25-34); Mean Corpuscular Hgb Conc 33.3 g/dL (32-36); Mean Platelet Volume 10.3 fL (7.4-10.4); Nucleated RBC # (auto) 0.02 K/uL (0-0); Nucleated RBC % (auto) 0.2 %; Platelet Count 107 K/uL (130-400); RDW Coefficient of Variation 15.3 % (11.5-14.5); RDW Standard Deviation 50.2 fL (36.4-46.3); Red Blood Count 4.93 M/uL (4.2-5.4); White Blood Count 9.91 K/uL (4.8-10.8)
--- NOTE | 2020-04-24 00:30 | XRay Report ---
XR chest 1V portable HISTORY: 74 years-old Female cvc exchange RIJ right IJ central venous catheter COMPARISON: Chest radiograph 04/23/2020 TECHNIQUE: Portable AP view of the chest FINDINGS: Left subclavian pacer. Endotracheal tube terminates 3.2 cm superior to the kaila. There is an enteri c tube which courses below the diaphragm, distal tip outside the [id number]. There is a sheath in the right IJ with a central catheter which projects over the pacer leads in expected location of the proximal SVC. No pneumothorax, pleural effusion, airspace consolidation or overt pulmonary edema. Deg enerative changes of the shoulders and spine. IMPRESSION: 1. Sheath within the right IJ with catheter tip in the expected location of the proximal SVC. No pneu mothorax. 2. Endotracheal and enteric tubes as above. ACT 112: Negative or not required by law. The above report was generated using voice recognition software. It may contain grammatical, syntax o r spelling errors. Electronically signed by: Oswald Elaine M.D. 04/24/2020 12:29 AM
[2020-04-24 00:39] LABS: iSTAT Art Bld Gas pCO2 Correct 17 mmHg (35-46); iSTAT Art Bld Gas pH Corrected 7.381 (7.35-7.45); iSTAT Arterial Blood Gas HCO3 10 meg/L (19-24); iSTAT Arterial Blood Gas pCO2 18 mmHg (35-46); iSTAT Arterial Blood Gas pH 7.35 (7.35-7.45); iSTAT Arterial Blood Gas pO2 118 mmHg (80-95); iSTAT Arterial Blood Gas pO2 C 107; iSTAT Carbon Dioxide 11 mmol/L (24-31); iSTAT FiO2 30 %; iSTAT Hematocrit 41 % (37-47); iSTAT Hemoglobin 13.9 g/dl (12.0-16.0); iSTAT Site Art Line; iSTAT Sodium 142 mmol/L (135-144)
--- NOTE | 2020-04-24 00:44 | Ultrasound Report ---
US extremity non-vascular ltd HISTORY: 74 years-old Female right hand eval for abscess acute right hand pain. Clinical concern for possible abscess. COMPARISON: None TECHNIQUE: Multiple real-time sonographic images of the posterior left hand were obtained assessing g rayscale appearance and color flow FINDINGS/IMPRESSION: Within the dorsal hand first webspace distribution there is moderate subcutaneous edema and heterogen eity. Within this distribution is a complex lesion/collection with peripheral flow measuring 3.0 x 1. 6 x 2.7 cm. This contains central mobile echogenic debris. Findings are suggestive of a hematoma vers us phlegmon/developing abscess. Correlate with clinical exam findings. Follow-up recommended. ACT 112: Negative or not required by law. The above report was generated using voice recognition software. It may contain grammatical, syntax o r spelling errors. Electronically signed by: Oswald Elaine M.D. 04/24/2020 12:43 AM
[2020-04-24] MEDS ORDERED: STAT IV Infusion **Titration per Protocol STA ×2 (00:53→08:04)
[2020-04-24] MEDS: FAMOTIDINE 20 MG in SYRINGE 3 ML IV SCH ×3 (00:54→20:59)
[2020-04-24 00:58] LABS: BUN Creatinine Ratio 28.1 (10-20); Calcium 8.5 mg/dl (8.5-10.1); Creatinine Clr Calc Pharmacy 12.9 ml/min; Est GFR (African American) 17.6; Est GFR (Non-African American) 15.2; Magnesium 2.6 mg/dl (1.8-2.4); Potassium 3.2 mmol/L (3.5-5.1)
[2020-04-24] MEDS ORDERED: POTASSIUM CHLORIDE / WTR 20 MEQ/100 ML PLCT IV ONE (01:15)
[2020-04-24] MEDS: fentaNYL DRIP 1,250 MCG/250 ML BAG IV SCH (01:16)
[2020-04-24 01:30] LABS: Beta-Hydroxybutyrate 66.21 mg/dl (0.2-2.81)
[2020-04-24] MEDS: POTASSIUM CHLORIDE 40 MEQ in SODIUM CHLORIDE 0.45 % 1,000 ML IV SCH ×4 (01:45→11:26)
[2020-04-24] MEDS ORDERED: PIPERACILLIN/TAZOBACTAM 3.375 GM in DEXTROSE 5% 100 ML IV SCH (02:00)
[2020-04-24 03:15] LABS: Hematocrit (blood only) 41.5 % (37-47); Mean Corpuscular Hemoglobin 29.3 pg (25-34); Mean Corpuscular Hgb Conc 33.7 g/dL (32-36); Mean Corpuscular Volume 86.8 fL (80-100); Nucleated RBC # (auto) 0.02 K/uL (0-0); Nucleated RBC % (auto) 0.2 %; RDW Coefficient of Variation 14.9 % (11.5-14.5); RDW Standard Deviation 47.5 fL (36.4-46.3); Red Blood Count 4.78 M/uL (4.2-5.4); White Blood Count 10.26 K/uL (4.8-10.8)
[2020-04-24 03:31] LABS: INR 1.1 (0.9-1.1); Prothrombin Time 11.9 Seconds (9.0-12.0)
[2020-04-24 03:56] LABS: Mean Platelet Volume 10.1 fL (7.4-10.4); Platelet Count 86 K/uL (130-400); Platelet Estimate Decreased (Normal)
[2020-04-24 03:57] LABS: BUN Creatinine Ratio 27.8 (10-20); Calcium 7.9 mg/dl (8.5-10.1); Creatinine Clr Calc Pharmacy 13.3 ml/min; Est GFR (African American) 18.2; Est GFR (Non-African American) 15.7; Magnesium 2.4 mg/dl (1.8-2.4); Phosphorus 1.3 mg/dl (2.5-4.9); Potassium 4.5 mmol/L (3.5-5.1)
[2020-04-24 04:04] LABS: iSTAT Art Bld Gas pCO2 Correct 24 mmHg (35-46); iSTAT Art Bld Gas pH Corrected 7.352 (7.35-7.45); iSTAT Arterial Blood Gas HCO3 14 meg/L (19-24); iSTAT Arterial Blood Gas pCO2 29 mmHg (35-46); iSTAT Arterial Blood Gas pH 7.29 (7.35-7.45); iSTAT Arterial Blood Gas pO2 122 mmHg (80-95); iSTAT Arterial Blood Gas pO2 C 99; iSTAT Carbon Dioxide 15 mmol/L (24-31); iSTAT FiO2 30 %; iSTAT Hematocrit 40 % (37-47); iSTAT Hemoglobin 13.6 g/dl (12.0-16.0); iSTAT Potassium 4.5 mmol/L (3.3-5.0); iSTAT Site Art Line; iSTAT Sodium 143 mmol/L (135-144)
[2020-04-24] MEDS: NOREPINEPHRINE (Adult) 8 MG in DEXTROSE 5% 500 ML IV SCH ×2 (04:05→10:05)
[2020-04-24 04:11] LABS: Beta-Hydroxybutyrate 32.28 mg/dl (0.2-2.81)
[2020-04-24 04:34] LABS: Thyroid Stimulating Hormone 66.8 uIu/ml (0.300-4.500)
[2020-04-24] MEDS: CLINDAMYCIN 600 MG in DEXTROSE 5% 50 ML IV SCH ×3 (04:38→20:58)
[2020-04-24] MEDS ORDERED: NORMOSOL-R 1,000 ML IV ONE (05:11)
[2020-04-24] MEDS ORDERED: ICU ELECTROLYTE REPLACEMENT PROTOCOL SCH (06:00)
--- NOTE | 2020-04-24 07:02 | XRay Report ---
XR chest 1V portable CLINICAL HISTORY: intubation COMPARISON STUDY: Chest radiograph April 24, 2020 at 12:02 AM. FINDINGS: Tip of nasogastric tube is below lower aspect of image but at least within the proximal sto mach. Tip of endotracheal tube is 2.8 cm above the kaila. Tip of right internal jugular sheath proje cts over the SVC. A dual-lead left-sided pacemaker is in place. There is no pneumothorax. No pleural effusion is noted. Mild left basilar opacity favors atelectasis. Cardiac size is normal. Mediastinal contours are normal. IMPRESSION: 1. Satisfactory positioning of lines and tubes. 2. No pneumothorax. 3. Minimal left basilar opacity suggestive of atelectasis. ACT 112: Negative or not required by law. Electronically signed by: David Grimm M.D. 04/24/2020 7:01 AM
[2020-04-24] MEDS: INSULIN ASPART 100 UNITS/ML 3 ML PEN SC SCH ×4 (07:10→20:59)
[2020-04-24 07:43] LABS: Hemoglobin 12.4 g/dL (12.0-16.0); Mean Corpuscular Hemoglobin 29.2 pg (25-34); Mean Corpuscular Hgb Conc 34.4 g/dL (32-36); Mean Corpuscular Volume 84.9 fL (80-100); RDW Coefficient of Variation 14.7 % (11.5-14.5); RDW Standard Deviation 45.9 fL (36.4-46.3); Red Blood Count 4.24 M/uL (4.2-5.4); White Blood Count 9.22 K/uL (4.8-10.8)
[2020-04-24 07:56] LABS: INR 1.2 (0.9-1.1); Prothrombin Time 12.3 Seconds (9.0-12.0)
[2020-04-24] MEDS ORDERED: PNEUMOCOCCAL POLYSACCHARIDES 25 MCG/0.5 ML VIAL/SYR IM ONE (08:00)
[2020-04-24] MEDS ORDERED: PNEUMOCOCCAL ADMINISTRATION CHARGE ONE (08:00)
[2020-04-24] MEDS ORDERED: INFLUENZA VIRUS QUAD VACCINE 0.5 ML SYR IM ONE (08:00)
[2020-04-24] MEDS ORDERED: INFLUENZA ADMINISTRATION CHARGE ONE (08:00)
[2020-04-24] MEDS ORDERED: PROPOFOL BOLUS FROM BAG IV PRN (08:04)
[2020-04-24 08:10] LABS: BUN Creatinine Ratio 27.9 (10-20); Calcium 7.2 mg/dl (8.5-10.1); Creatinine Clr Calc Pharmacy 14.9 ml/min; Est GFR (African American) 21.1; Est GFR (Non-African American) 18.2; Magnesium 2.2 mg/dl (1.8-2.4); Phosphorus 0.7 mg/dl (2.5-4.9); Potassium 4.4 mmol/L (3.5-5.1)
--- NOTE | 2020-04-24 08:11 | Critical Care Progress Note ---
Date of Service April 24, 2020 Assessment & Plan (1) Septic shock: Reason Critically Ill: 74-year-old female presents to the ICU following infield cardiac arrest with ROSC achieved with CPR and epinephrine. Now undergoing therapeutic hypothermia, mechanically ventilated, on multiple vasop ressors, and being treated for septic shock and DKA. Neuro - Anoxic injury?Patient unresponsive following cardiac arrest -CT head negative -Therapeutic hypothermia protocol initiated and right IJ triple-lumen CVC exchanged for cooling cath to undergo intravascular hypothermic therapy -Cannot rule out potential contributing factors of metabolic encephalopathy secondary to sepsis and DKA -We will reevaluate neurological status once patient has been rewarmed and obtain EEG if unable to follow commands -She has evidence of posturing. Cardiac - Cardiac arrest/shockpatient was found to be without pulse per EMS, unsure of exact downtime but ROSC achieved with 1 round of CPR and epinephrine -Patient now requiring multiple vasopressors, will continue to titrate for maps greater than 65 -Primary differential of septic shock as patient's pro Kobi significantly elevated and potential source of infection in left hand, being evaluated by surgery and ultrasound left hand demonstrating likely abscess collection -See management sepsis below -Unable to rule out cardiogenic source, however troponin and EKG unremarkable, echo pending -Consider dysrhythmia, however AED did advise no shock -We will need interrogation of pacer in the a.m. as cause of cardiac arrest is unclear at this time. Cardiology consulted. Respiratory - Mechanically ventilatedintubated following cardiac arrest -Sedation: Fentanyl and Versed drips. We will switch her from a Versed drip to a propofol drip after orthopedic surgery does the I&D. -Chest x-ray clear, confirmed ET tube placement -History of COPD, continue nebs as needed -Continuous monitoring with pulse ox -Patient to remain intubated during therapeutic hypothermia, will assess for vent weaning once patient is rewarmed and more hemodynamically stable GI - Abdominal exam benign Repeat LFTs as her lactate is trending upwards. She may need abdominal imaging. N.p.o. RENAL/LYTES - Acute renal failurepatient with history of CKD, now presents with creatinine 3.9 on admission and severe electrolyte derangements -May be partially due to dehydration and electrolyte derangements from DKA, however patient significantly hypotensive and likely component of ATN -Creatinine did downtrend following fluid resuscitation, will continue IV fluids -Continue to monitor urine output with strict I's and O's -Avoid nephrotoxins and renally adjust medications -Every 4 hours BMPs to trend electrolytes and creatinine, will replete electrolytes as indicated -Lactate trending upwards. Evaluate LFTs. ? Ischemic bowel. CK pending. - Foleystrict I's and O's ENDO - DKAcontinue insulin drip with DKA protocol -Anion gap, BHA, bicarb improving -Hemoglobin A1c pending TSH is very elevated. Obtain T3, T4. She may need IV levothyroxine and hydrocortisone. I am hesitant to give hydrocortisone at this time given her DKA. HEME - H&H stable, monitor routine CBCs ID - Sepsispatient with hypotension, and elevated procalcitonin -Chest x-ray appears clear of pulmonary infiltrates -no obvious evidence of UTI on UA -Blood cultures pending -Patient's left hand most obvious source of infection as there is significant erythema and swelling, and recent MRSA infection with previous culture from March 2020 -Surgery was consulted and did evaluate patient at the bedside, imaging consistent with abscess. -Continue broad-spectrum antibiotics daptomycin, clindamycin, Zosyn for now LINES/IV ACCESS - CVC right IJ, A-line right radial, ETT, OGT, I/O right tibial, Jimenes DVT PROPHYLAXIS - SCDs I have personally spent 45 minutes of critical care time in the direct management of this patient. This is a life/limb threatening event. This includes time spent evaluating patient, direct bedside care, chart review, placing orders, interpretation of diagnostic studies, discussion with consultants, patient, and family members, as well as other required patient management activities. This time is exclusive of all separately billable procedures, and teaching time and separate from and in addition to any other critical care service time. Thank you for allowing us to participate in the care of this patient. Please refer to my attending physician's documentation for any further recommendations. (2) Anoxic brain injury: (3) Acute renal failure: (4) Respiratory failure: (5) DKA (diabetic ketoacidoses): (6) Metabolic acidosis: (7) Unresponsive state: (8) Cardiac arrest: Admission and Anticipated Discharge Date Admission Date: April 23, 2020 Subjective Patient is intubated and sedated. She is on the hypothermia protocol. She is at goal temperature. Orthopedic surgery is at bedside and will drain the left hand abscess. No significant events since the emergency department. Labs pending this morning. Review of Systems Review of Systems: Unobtainable due to endotracheal tube and Unobtainable due to reduced consciousness Physical Exam Constitutional: + mechanically ventilated Eyes: PERRL, conjunctivae normal, anicteric sclerae ENMT: Intubated and sedated Neck: trachea midline, no thyromegaly Respiratory: normal respiratory effort, lungs clear to auscultation Auscultation: no crackles and no wheezes ` Mechanically ventilated, Cardiovascular: Paced rhythm on monitor, S1-S2, no murmur, no JVD, no peripheral edema, capillary refill sluggish Gastrointestinal (Abdomen): normal bowel sounds, soft, nontender, no hepatosplenomegaly Skin: There is bullae and erythema to the left hand with moderate swelling, Neurologic: Limited exam, however, there appears to be some posturing. Psychiatric: Unable to assess due to sedation/reduced consciousness Genitourinary: Indwelling Jimenes catheter present Results & Data Results & Data ([facility]) Vital Signs (Past 12 Hours) Vital Signs Temp Temp Temp Pulse Pulse Resp BP 04/24/20 07:25 60 20 04/24/20 05:05 60 20 04/24/20 05:00 91.6 F L 91.6 F L 60 20 04/24/20 04:34 91.8 F L 60 04/24/20 04:19 91.6 F L 60 77/65 L 04/24/20 04:00 91.2 F L 91.8 F L 91.8 F L 60 20 04/24/20 03:00 91.9 F L 91.9 F L 60 13 04/24/20 02:48 94.5 F L 60 04/24/20 02:32 94.3 F L 60 110/60 04/24/20 02:18 93.9 F L 62 94/52 L 04/24/20 02:08 64 21 04/24/20 02:03 93.9 F L 64 101/65 04/24/20 02:00 93.4 F L 93.4 F L 66 29 H 04/24/20 01:48 93.4 F L 64 106/73 04/24/20 01:32 93.4 F L 66 97/66 L 04/24/20 01:18 93.0 F L 66 125/88 04/24/20 01:04 93.4 F L 63 131/104 H 04/24/20 00:52 93.9 F L 60 101/69 04/24/20 00:48 94.3 F L 62 111/78 04/24/20 00:37 94.8 F L 61 109/71 04/24/20 00:32 95.0 F L 63 122/70 04/24/20 00:30 93.0 F L 93.0 F L 63 23 04/24/20 00:26 95.4 F L 62 101/66 04/24/20 00:25 62 25 H 04/24/20 00:21 95.4 F L 68 98/67 L 04/24/20 00:16 95.4 F L 70 114/69 04/24/20 00:11 95.4 F L 70 101/64 04/24/20 00:06 95.5 F L 69 100/68 04/24/20 00:01 95.4 F L 68 110/68 04/23/20 23:56 95.5 F L 68 106/67 04/23/20 23:51 95.5 F L 67 88/66 L 04/23/20 23:46 95.7 F L 72 85/65 L 04/23/20 23:41 95.5 F L 69 89/60 L 04/23/20 23:36 95.5 F L 69 86/61 L 04/23/20 23:31 95.5 F L 70 68 20 85/57 L 04/23/20 23:26 95.5 F L 70 83/55 L 04/23/20 23:21 95.5 F L 70 88/53 L 04/23/20 23:16 95.5 F L 70 88/63 L 04/23/20 23:11 95.5 F L 71 100/57 L 04/23/20 23:06 95.5 F L 72 88/56 L 04/23/20 23:03 95.4 F L 74 72/52 L 04/23/20 22:25 79 27 H 04/23/20 21:35 68 93/56 L 04/23/20 21:30 93.4 F L 68 94/57 L 04/23/20 21:25 68 91/55 L 04/23/20 21:20 68 94/53 L 04/23/20 21:15 67 92/54 L 04/23/20 21:10 68 92/55 L 04/23/20 21:05 67 95/54 L 04/23/20 21:00 93.6 F L 67 93/54 L 04/23/20 20:55 67 91/56 L 04/23/20 20:50 67 92/55 L 04/23/20 20:45 93.0 F L 73 98/51 L 04/23/20 20:40 66 90/54 L 04/23/20 20:35 66 85/51 L 04/23/20 20:30 93.0 F L 66 86/52 L 04/23/20 20:25 66 86/50 L 04/23/20 20:20 65 87/48 L 04/23/20 20:15 66 84/49 L BP BP BP Pulse Ox 04/24/20 07:25 100 04/24/20 05:05 100 04/24/20 05:00 101/54 L 100 04/24/20 04:34 97 04/24/20 04:19 100 04/24/20 04:00 118/60 100 04/24/20 03:00 136/62 95 04/24/20 02:48 100 04/24/20 02:32 100 04/24/20 02:18 100 04/24/20 02:08 100 04/24/20 02:03 100 04/24/20 02:00 97/66 L 129/61 100 04/24/20 01:48 100 04/24/20 01:32 100 04/24/20 01:18 99 04/24/20 01:04 100 04/24/20 00:52 100 04/24/20 00:48 100 04/24/20 00:37 100 04/24/20 00:32 100 04/24/20 00:30 109/71 153/65 H 100 04/24/20 00:26 100 04/24/20 00:25 100 04/24/20 00:21 100 04/24/20 00:16 100 04/24/20 00:11 100 04/24/20 00:06 100 04/24/20 00:01 100 04/23/20 23:56 100 04/23/20 23:51 100 04/23/20 23:46 100 04/23/20 23:41 100 04/23/20 23:36 100 04/23/20 23:31 96/59 L 100 04/23/20 23:26 100 04/23/20 23:21 100 04/23/20 23:16 04/23/20 23:11 100 04/23/20 23:06 100 04/23/20 23:03 100 04/23/20 22:25 100 04/23/20 21:35 100 04/23/20 21:30 100 04/23/20 21:25 100 04/23/20 21:20 100 04/23/20 21:15 100 04/23/20 21:10 100 04/23/20 21:05 100 04/23/20 21:00 100 04/23/20 20:55 100 04/23/20 20:50 100 04/23/20 20:45 100 04/23/20 20:40 100 04/23/20 20:35 100 04/23/20 20:30 100 04/23/20 20:25 100 04/23/20 20:20 100 04/23/20 20:15 100 I reviewed the vital signs, labs and imaging Coding Level of Care Code Critical Care 1st 30-74 mins Diagnoses Septic shock A41.9; R65.21 Anoxic brain injury G93.1 Acute renal failure N17.9 Acute renal failure type: unspecified Respiratory failure J96.01 Chronicity: acute Respiratory failure complication: hypoxia DKA (diabetic ketoacidoses) E11.10 Metabolic acidosis E87.2 Unresponsive state R41.89 Cardiac arrest I46.9 Time Spent (min) 45 (1) Acute renal failure Acute renal failure type: unspecified Qualified Code(s): N17.9 - Acute kidney failure, unspecified (2) Respiratory failure Chronicity: acute Respiratory failure complication: hypoxia Qualified Code(s): J96.01 - Acute respiratory failure with hypoxia
[2020-04-24 08:17] LABS: iSTAT Art Bld Gas pCO2 Correct 24 mmHg (35-46); iSTAT Art Bld Gas pH Corrected 7.383 (7.35-7.45); iSTAT Arterial Blood Gas HCO3 15 meg/L (19-24); iSTAT Arterial Blood Gas pCO2 29 mmHg (35-46); iSTAT Arterial Blood Gas pH 7.33 (7.35-7.45); iSTAT Arterial Blood Gas pO2 119 mmHg (80-95); iSTAT Arterial Blood Gas pO2 C 97; iSTAT Carbon Dioxide 16 mmol/L (24-31); iSTAT FiO2 30 %; iSTAT Hematocrit 36 % (37-47); iSTAT Hemoglobin 12.2 g/dl (12.0-16.0); iSTAT Potassium 4.4 mmol/L (3.3-5.0); iSTAT Site Art Line; iSTAT Sodium 141 mmol/L (135-144)
[2020-04-24 08:23] LABS: Beta-Hydroxybutyrate 6.59 mg/dl (0.2-2.81); Mean Platelet Volume 9.6 fL (7.4-10.4); Platelet Count 56 K/uL (130-400); Platelet Estimate Decreased (Normal)
[2020-04-24] MEDS: VASOPRESSIN 20 UNITS in 0.9 % SODIUM CHLORIDE 100 ML IV SCH ×2 (08:28→15:46)
[2020-04-24] MEDS ORDERED: SODIUM PHOSPHATE 3 MMOL/1 ML INFUSION IV STA (08:29)
[2020-04-24] MEDS ORDERED: Nursing to Pharmacy Communication SCH (08:30)
[2020-04-24] MEDS ORDERED: SODIUM PHOSPHATE 30 MMOL in SODIUM CHLORIDE 0.9% 500 ML IV ONE (09:00)
[2020-04-24 09:26] LABS: Estimated Average Glucose > 438 mg/dl; Hemoglobin A1C > 16.9 % (4.5-5.6)
--- NOTE | 2020-04-24 09:32 | Orthopedic Consultation ---
Date of Consultation April 24, 2020 Assessment & Plan (1) Abscess of left hand: She is an extremely poorly controlled diabetic, and was found down yesterday at home. Exact cause is unknown, but presumably related to diabetic ketoacidosis. She is currently intubated in the ICU, and on a cooling protocol. She is showing signs of sepsis, and has a very swollen left hand. Ultrasound ultrasound shows a large abscess. She is too unstable to go to the OR for formal irrigation and debridement surgery. She has worsening signs of sepsis, and therefore emergent decompression and irrigation of this abscess is warranted. We will have to do this at bedside. No family is available for con sultation or consent. Left hand is prepped and draped in sterile fashion with chlorhexidine prep. I then made a small longitudinal incision over the dorsal aspect of the first webspace. Immediately upon incising skin, a copious amount of purulent fluid was expressed from the first webspace. A sample of this fluid was collected on culture swab for Gram stain and aerobic and anaerobic cultures. The abscess cavity appeared to be tracking along the volar aspect of the thumb, but not obviously within the flexor tendon sheath. This is a fairly large abscess cavity extending on the volar and dorsal aspects of the first webspace. The abscess fluid was expressed from the hand as much as possible. Hemostat was used to break up any loculations for full expression. After it was thoroughly decompressed, I then copiously irrigated the abscess cavity with sterile saline. The abscess cavity was then packed with iodoform packing strip, then dressed with sterile gauze and Coban. Plan to keep the left hand elevated. Dressing change as needed if it becomes saturated. We will check her wound tomorrow. History of Present Illness Reason for Consultation: Left hand infection Requesting Physician: Dr. Orozco Attending Physician: Jose Carreon MD History of Present Illness Ms. Lewis is a 74-year-old female who was reportedly found down at home yesterday. It is unknown how long she was unconscious. Reportedly she had agonal respirations and initial blood glucose was 991. She was brought to the hospital and intubated. She also showed signs of sepsis, and had a swollen left hand noted on exam. In reviewing her records, it looks like she has very poorly controlled diabetes. Multiple previous blood glucose levels were extremely high. She also appears to have had an infection on the right ring finger just last month. Allergies Allergy/AdvReac Type Severity Reaction Status Date / Time No Known Allergies Allergy Verified 04/23/20 19:56 Home Medications Home Medications Medication Instructions Recorded Confirmed Type sertraline 25 mg tablet 25 mg PO DAILY #90 tab 01/14/19 04/23/20 History albuterol sulfate 90 mcg/actuation 2 puffs INH Q6H PRN gm 03/14/19 04/23/20 History aerosol inhaler aspirin 81 mg tablet,delayed 81 mg PO DAILY 03/14/19 04/23/20 History release acetaminophen 500 - 1,000 mg PO TID PRN 11/23/19 04/23/20 History atorvastatin 40 mg PO DAILY 11/23/19 04/23/20 History ergocalciferol (vitamin D2) 50,000 unit PO .Q2WK.MO 11/23/19 04/23/20 History insulin glargine [Lantus Solostar 10 unit SUBCUT DAILY 11/23/19 04/23/20 History U-100 Insulin] ipratropium-albuterol [Combivent 1 puff INHALATION QID 11/23/19 04/23/20 History Respimat] levothyroxine 200 mcg PO DAILY 11/23/19 04/23/20 History metformin 850 mg PO BIDM 11/23/19 04/23/20 History midodrine 5 mg PO BID 11/23/19 04/23/20 History ondansetron 4 mg PO Q8H PRN #30 tab 11/23/19 04/23/20 Rx insulin glargine [Basaglar KwikPen 15 unit SUBCUT QAM 01/19/20 04/23/20 History U-100 Insulin] Patient History Medical History Acute UTI Arthritis Asthma Bradycardia Bulimia nervosa Chronic kidney disease COPD (chronic obstructive pulmonary disease) Depression Diabetes Diabetes mellitus Diabetic peripheral neuropathy Hearing difficulty Hyperlipidemia Hypertension Hypothyroidism Intellectual disability Migraine headache Pacemaker Pacemaker battery depletion Tobacco use Uncontrolled type 2 diabetes mellitus Family History Other No significant family history Social History Smoking Status: Current every day smoker Hx Alcohol Use: No Hx Substance Use: No Preferred Language: Somali Communication Ability: Intubated. Helicopter Officer Required: No Beliefs That Will Affect Care: None Current Living Situation: Alone Current Living Situation Comment: lives with a "friend" Other Information That Helps Us Care for You: No Feels Safe at Home: Declines to Answer Assistive Devices: None Physical Exam Physical Exam: Examination of the left hand shows significant swelling mostly on the radial aspect of the hand and into the thumb. It is fairly diffuse and extends across the dorsal hand. There is a small blister on the distaldorsal aspect of the first webspace. It is quite swollen, but no obvious focal fluctuance. The thumb is discolored, but overall the hand looks well perfused. Minimal erythema in the area. No significant swelling, erythema, or induration streaking up the forearm. No evidence of infection extending proximal to the wrist. I am unable to assess for tenderness to palpation, motor function, or sensation as she is intubated and unconscious. Results & Data ([facility]) Vital Signs (Past 12 Hours) Vital Signs Temp Temp Temp Pulse Pulse Resp BP 04/24/20 08:00 33 C L 33 C L 60 20 04/24/20 07:25 60 20 04/24/20 07:00 33 C L 33 C L 60 20 04/24/20 06:00 33.0 C L 33.0 C L 60 20 04/24/20 05:05 60 20 04/24/20 05:00 33.1 C L 33.1 C L 60 20 04/24/20 04:34 33.2 C L 60 04/24/20 04:19 33.1 C L 60 77/65 L 04/24/20 04:00 32.9 C L 33.2 C L 33.2 C L 60 20 04/24/20 03:00 33.3 C L 33.3 C L 60 13 04/24/20 02:48 34.7 C L 60 04/24/20 02:32 34.6 C L 60 110/60 04/24/20 02:18 34.4 C L 62 94/52 L 04/24/20 02:08 64 21 04/24/20 02:03 34.4 C L 64 101/65 04/24/20 02:00 34.1 C L 34.1 C L 66 29 H 04/24/20 01:48 34.1 C L 64 106/73 04/24/20 01:32 34.1 C L 66 97/66 L 04/24/20 01:18 33.9 C L 66 125/88 04/24/20 01:04 34.1 C L 63 131/104 H 04/24/20 00:52 34.4 C L 60 101/69 04/24/20 00:48 34.6 C L 62 111/78 04/24/20 00:37 34.9 C L 61 109/71 04/24/20 00:32 35.0 C L 63 122/70 04/24/20 00:30 33.9 C L 33.9 C L 63 23 04/24/20 00:26 35.2 C L 62 101/66 04/24/20 00:25 62 25 H 04/24/20 00:21 35.2 C L 68 98/67 L 04/24/20 00:16 35.2 C L 70 114/69 04/24/20 00:11 35.2 C L 70 101/64 04/24/20 00:06 35.3 C L 69 100/68 04/24/20 00:01 35.2 C L 68 110/68 04/23/20 23:56 35.3 C L 68 106/67 04/23/20 23:51 35.3 C L 67 88/66 L 04/23/20 23:46 35.4 C L 72 85/65 L 04/23/20 23:41 35.3 C L 69 89/60 L 04/23/20 23:36 35.3 C L 69 86/61 L 04/23/20 23:31 35.3 C L 70 68 20 85/57 L 04/23/20 23:26 35.3 C L 70 83/55 L 04/23/20 23:21 35.3 C L 70 88/53 L 04/23/20 23:16 35.3 C L 70 88/63 L 04/23/20 23:11 35.3 C L 71 100/57 L 04/23/20 23:06 35.3 C L 72 88/56 L 04/23/20 23:03 35.2 C L 74 72/52 L 04/23/20 22:25 79 27 H 04/23/20 21:35 68 93/56 L BP BP BP Pulse Ox 04/24/20 08:00 129/92 126/66 100 04/24/20 07:25 100 04/24/20 07:00 149/99 H 122/60 100 04/24/20 06:00 118/60 101/54 L 100 04/24/20 05:05 100 04/24/20 05:00 101/54 L 100 04/24/20 04:34 97 04/24/20 04:19 100 04/24/20 04:00 118/60 100 04/24/20 03:00 136/62 95 04/24/20 02:48 100 04/24/20 02:32 100 04/24/20 02:18 100 04/24/20 02:08 100 04/24/20 02:03 100 04/24/20 02:00 97/66 L 129/61 100 04/24/20 01:48 100 04/24/20 01:32 100 04/24/20 01:18 99 04/24/20 01:04 100 04/24/20 00:52 100 04/24/20 00:48 100 04/24/20 00:37 100 04/24/20 00:32 100 04/24/20 00:30 109/71 153/65 H 100 04/24/20 00:26 100 04/24/20 00:25 100 04/24/20 00:21 100 04/24/20 00:16 100 04/24/20 00:11 100 04/24/20 00:06 100 04/24/20 00:01 100 04/23/20 23:56 100 04/23/20 23:51 100 04/23/20 23:46 100 04/23/20 23:41 100 04/23/20 23:36 100 04/23/20 23:31 96/59 L 100 04/23/20 23:26 100 04/23/20 23:21 100 04/23/20 23:16 04/23/20 23:11 100 04/23/20 23:06 100 04/23/20 23:03 100 04/23/20 22:25 100 04/23/20 21:35 100 Laboratory Results WBC 19, glucose 761, Hgb A1c >16.9 Diagnostic Findings Ultrasound the left hand shows a fairly large multiloculated abscess in the radial hand and first webspace.
[2020-04-24] MEDS: propofoL 1,000 MG/100 ML VIAL IV SCH ×2 (09:35→22:49)
--- NOTE | 2020-04-24 10:30 | XCELERA ---
[id number]
[2020-04-24] MEDS: INSULIN REGULAR 250 UNITS in SODIUM CHLORIDE 0.9% 247.5 ML IV SCH ×2 (11:21→17:59)
[2020-04-24 11:33] LABS: Hematocrit (blood only) 36.3 % (37-47); Hemoglobin 12.5 g/dL (12.0-16.0); Mean Corpuscular Hgb Conc 34.4 g/dL (32-36); Mean Corpuscular Volume 84.2 fL (80-100); RDW Coefficient of Variation 14.6 % (11.5-14.5); RDW Standard Deviation 45.6 fL (36.4-46.3); Red Blood Count 4.31 M/uL (4.2-5.4); White Blood Count 9.99 K/uL (4.8-10.8)
[2020-04-24 12:00] LABS: Mean Platelet Volume 10.2 fL (7.4-10.4); Platelet Count 58 K/uL (130-400)
[2020-04-24 12:03] LABS: Albumin Level 1.6 gm/dl (3.4-5.0); Bilirubin Direct 0.2 mg/dl (0-0.2); Bilirubin,Total 0.4 mg/dl (0.2-1); T4 Free Thyroxine 0.3 ng/dl (0.8-1.6)
[2020-04-24 12:07] LABS: BUN Creatinine Ratio 29.6 (10-20); Calcium 7.1 mg/dl (8.5-10.1); Creatinine Clr Calc Pharmacy 16.7 ml/min; Est GFR (Non-African American) 20.7; Potassium 4.3 mmol/L (3.5-5.1)
[2020-04-24 12:12] LABS: Phosphorus 1.9 mg/dl (2.5-4.9)
[2020-04-24] MEDS: D5W AND 1/2NSS + 20MEQ KCL 20 MEQ/1,000 ML BAG IV SCH ×2 (13:26→20:10)
[2020-04-24] MEDS: PIPERACILLIN/TAZOBACTAM 4.5 GM in DEXTROSE 5% 100 ML IV SCH (13:28)
--- NOTE | 2020-04-24 14:55 | Hospitalist Progress Note ---
Date of Service April 24, 2020 Assessment & Plan (1) Metabolic acidosis: Pt is here with profound acidosis and associated hypotension and respiratory failure. Likely is HHS or DKA. - On IV fluids, insulin gtt per pulmonary/CC team (2) Cellulitis of hand: Pt was emperically given doptomycin and zosyn adding clindamycin for necrotizing fascitis coverage. - S/p I&D bedside with Dr. Singh. - Follow cultures -> Adjust abx at that point. (3) Acute renal failure: Pt has acute kidney injury, is making urine at this point, continue to follow. - Baseline Cr ~1.0; up to 3.4 on presentation. - IV fluids as per pulmonary/CC team - Improving (4) COPD (chronic obstructive pulmonary disease): Has a history of copd, will offer albuterol and atrovent. - Presently ventilated. (5) Intellectual disability: This has been cited through her records, no defined cause or quantifying statements. - Presently intubated, so no ability to ask patient at this time. (6) [facility] Admission and Anticipated Discharge Date Admission Date: April 23, 2020 Subjective Intubated and sedated with propofol. Review of Systems Review of Systems: Unobtainable due to endotracheal tube and Unobtainable due to reduced consciousness Physical Exam Constitutional: WD/WN, vitals as above + acute distress and + disheveled Eyes: EOM intact bilaterally; no conjunctival abnormality ENMT: external ear and nose normal, oropharynx normal Mouth / Teeth: 1. Intubated Neck: trachea midline, no thyromegaly normal visual inspection Respiratory: normal respiratory effort, lungs clear to auscultation no respiratory distress Cardiovascular: RRR, no murmur, no edema Gastrointestinal (Abdomen): Inspection/Auscultation: abdomen normal to inspection; abdomen not distended Musculoskeletal: no cyanosis or clubbing, extremities motor strength 5/5 Skin: no rashes, warm and dry Neurologic: + does not move all extremities and + not awake Psychiatric: Orientation: + not alert and + not oriented to person Results & Data Results & Data ([facility]) Vital Signs (Past 12 Hours) Vital Signs Temp Temp Temp Pulse Resp BP BP 04/24/20 13:41 61 20 04/24/20 11:00 32.9 C L 32.9 C L 60 20 150/89 H 04/24/20 10:55 60 20 04/24/20 10:00 33 C L 33 C L 60 20 124/69 04/24/20 09:00 33 C L 33 C L 60 20 129/92 04/24/20 08:00 33 C L 33 C L 60 20 129/92 04/24/20 07:25 60 20 04/24/20 07:00 33 C L 33 C L 60 20 149/99 H 04/24/20 06:00 33.0 C L 33.0 C L 60 20 118/60 04/24/20 05:05 60 20 04/24/20 05:00 33.1 C L 33.1 C L 60 20 04/24/20 04:34 33.2 C L 60 04/24/20 04:19 33.1 C L 60 77/65 L 04/24/20 04:00 32.9 C L 33.2 C L 33.2 C L 60 20 118/60 04/24/20 03:00 33.3 C L 33.3 C L 60 13 04/24/20 02:48 34.7 C L 60 BP Pulse Ox 04/24/20 13:41 100 04/24/20 11:00 148/81 H 100 04/24/20 10:55 100 04/24/20 10:00 126/70 100 04/24/20 09:00 126/66 100 04/24/20 08:00 126/66 100 04/24/20 07:25 100 04/24/20 07:00 122/60 100 04/24/20 06:00 101/54 L 100 04/24/20 05:05 100 04/24/20 05:00 101/54 L 100 04/24/20 04:34 97 04/24/20 04:19 100 04/24/20 04:00 100 04/24/20 03:00 136/62 95 04/24/20 02:48 100 PG Care Time/CCT Total # of Minutes Spent Total Time Spent with Patient: Total time spent is greater than 50% in coordination of care (as documented) at patient's floor/unit and/or counseling patient: Coding Level of Care Code 13248 Subseq Hosp Care Lvl 3 Diagnoses Metabolic acidosis E87.2 Cellulitis of hand L03.119 Acute renal failure N17.9 Acute renal failure type: unspecified COPD (chronic obstructive pulmonary disease) J44.9 Intellectual disability F79 DVT prophylaxis Z29.9 (1) Acute renal failure Acute renal failure type: unspecified Qualified Code(s): N17.9 - Acute kidney failure, unspecified
[2020-04-24 15:08] LABS: Hemoglobin 11.8 g/dL (12.0-16.0); Mean Corpuscular Hemoglobin 29.1 pg (25-34); Mean Corpuscular Hgb Conc 34.7 g/dL (32-36); Mean Corpuscular Volume 83.7 fL (80-100); RDW Coefficient of Variation 14.6 % (11.5-14.5); RDW Standard Deviation 45.4 fL (36.4-46.3); Red Blood Count 4.06 M/uL (4.2-5.4); White Blood Count 9.95 K/uL (4.8-10.8)
[2020-04-24 15:28] LABS: BUN Creatinine Ratio 31.6 (10-20); Calcium 6.7 mg/dl (8.5-10.1); Creatinine Clr Calc Pharmacy 18.8 ml/min; Est GFR (African American) 27.8; Magnesium 1.9 mg/dl (1.8-2.4); Potassium 3.9 mmol/L (3.5-5.1)
[2020-04-24 15:30] LABS: Phosphorus 3.5 mg/dl (2.5-4.9)
[2020-04-24 15:35] LABS: Mean Platelet Volume 9.6 fL (7.4-10.4); Platelet Count 45 K/uL (130-400)
[2020-04-24 15:36] LABS: Platelet Estimate Decreased (Normal)
[2020-04-24 19:23] LABS: Calcium 6.5 mg/dl (8.5-10.1); Creatinine Clr Calc Pharmacy 19.4 ml/min; Est GFR (African American) 28.9; Est GFR (Non-African American) 24.9; Magnesium 1.7 mg/dl (1.8-2.4); Phosphorus 1.7 mg/dl (2.5-4.9); Potassium 3.6 mmol/L (3.5-5.1)
[2020-04-24 20:13] LABS: Hematocrit (blood only) 32.9 % (37-47); Hemoglobin 11.5 g/dL (12.0-16.0); Mean Corpuscular Hemoglobin 29.4 pg (25-34); Mean Corpuscular Volume 84.1 fL (80-100); Nucleated RBC # (auto) 0.03 K/uL (0-0); Nucleated RBC % (auto) 0.3 %; RDW Coefficient of Variation 14.8 % (11.5-14.5); RDW Standard Deviation 45.6 fL (36.4-46.3); Red Blood Count 3.91 M/uL (4.2-5.4); White Blood Count 8.66 K/uL (4.8-10.8)
[2020-04-24 20:14] LABS: Platelet Count 44 K/uL (130-400)
[2020-04-24] MEDS: MAGNESIUM SULFATE / D5W 1 GM/100 ML BAG IV SCH ×2 (20:59→22:17)
[2020-04-24] MEDS ORDERED: INSULIN REGULAR IV SCH (23:00)
[2020-04-24] MEDS ORDERED: SODIUM CHLORIDE 0.9% IV SCH (23:00)
[2020-04-24 23:24] LABS: BUN Creatinine Ratio 32.4 (10-20); Calcium 6.3 mg/dl (8.5-10.1); Creatinine Clr Calc Pharmacy 21.1 ml/min; Est GFR (Non-African American) 27.6; Magnesium 2.9 mg/dl (1.8-2.4); Potassium 3.6 mmol/L (3.5-5.1)
[2020-04-24 23:34] LABS: Phosphorus 1.4 mg/dl (2.5-4.9)
[2020-04-25] MEDS: VASOPRESSIN 20 UNITS in 0.9 % SODIUM CHLORIDE 100 ML IV SCH ×3 (00:30→17:59)
[2020-04-25] MEDS: INSULIN REGULAR 250 UNITS in SODIUM CHLORIDE 0.9% 247.5 ML IV SCH (00:36)
[2020-04-25] MEDS: PIPERACILLIN/TAZOBACTAM 4.5 GM in DEXTROSE 5% 100 ML IV SCH ×3 (02:05→20:01)
[2020-04-25] MEDS: D5W AND 1/2NSS + 20MEQ KCL 20 MEQ/1,000 ML BAG IV SCH ×3 (03:00→16:23)
[2020-04-25] MEDS: CLINDAMYCIN 600 MG in DEXTROSE 5% 50 ML IV SCH ×3 (04:38→20:01)
[2020-04-25] MEDS: DEXTROSE 50% 50 ML SYRINGE IV PRN ×3 (04:39→08:17)
[2020-04-25 04:44] LABS: Hematocrit (blood only) 30.6 % (37-47); Hemoglobin 10.7 g/dL (12.0-16.0); Mean Corpuscular Hemoglobin 29.2 pg (25-34); Mean Corpuscular Volume 83.4 fL (80-100); Nucleated RBC # (auto) 0.04 K/uL (0-0); Nucleated RBC % (auto) 0.4 %; RDW Standard Deviation 45.8 fL (36.4-46.3); Red Blood Count 3.67 M/uL (4.2-5.4)
[2020-04-25 04:56] LABS: INR 1.1 (0.9-1.1); Prothrombin Time 11.8 Seconds (9.0-12.0)
[2020-04-25 05:01] LABS: BUN Creatinine Ratio 33.5 (10-20); Calcium 6.1 mg/dl (8.5-10.1); Creatinine Clr Calc Pharmacy 22.6 ml/min; Est GFR (African American) 34.8; Magnesium 2.2 mg/dl (1.8-2.4); Potassium 3.7 mmol/L (3.5-5.1)
[2020-04-25 05:02] LABS: Mean Platelet Volume 9.6 fL (7.4-10.4); Platelet Count 34 K/uL (130-400)
[2020-04-25 05:29] LABS: iSTAT Art Bld Gas pCO2 Correct 21 mmHg (35-46); iSTAT Arterial Blood Gas HCO3 13 meg/L (19-24); iSTAT Arterial Blood Gas pCO2 25 mmHg (35-46); iSTAT Arterial Blood Gas pH 7.32 (7.35-7.45); iSTAT Arterial Blood Gas pO2 96 mmHg (80-95); iSTAT Arterial Blood Gas pO2 C 75; iSTAT Carbon Dioxide 13 mmol/L (24-31); iSTAT FiO2 30 %; iSTAT Hematocrit 29 % (37-47); iSTAT Hemoglobin 9.9 g/dl (12.0-16.0); iSTAT Potassium 3.6 mmol/L (3.3-5.0); iSTAT Site Art Line; iSTAT Sodium 138 mmol/L (135-144)
[2020-04-25 05:39] LABS: Echinocytes 3+; Eosinophils # (auto) 0.03 K/uL (0-0.5); Eosinophils % (auto) 0.3 %; Immature Granulocytes # (auto) 0.76 K/uL (0.00-0.02); Immature Granulocytes % (auto) 7.6 %; Lymphocytes # (auto) 1.03 K/uL (1.2-3.4); Lymphocytes % (auto) 10.3 %; Monocytes # (auto) 0.54 K/uL (0.11-0.59); Monocytes % (auto) 5.4 %; Neutrophils # (auto) 7.64 K/uL (1.4-6.5); Neutrophils % (auto) 76.4 %; Toxic Vacuolation 1+
[2020-04-25] MEDS: NOREPINEPHRINE (Adult) 8 MG in DEXTROSE 5% 500 ML IV SCH ×2 (06:12→22:12)
--- NOTE | 2020-04-25 07:55 | XRay Report ---
XR chest 1V portable CLINICAL HISTORY: intubation COMPARISON STUDY: Chest radiograph April 24, 2020 at 6:40 AM. FINDINGS: Tip of nasogastric tube is below the lower aspect of this image but at least within the mid body of the stomach. Tip of endotracheal tube is 3.4 cm above the kaila. Right internal jugular int roducer remains in place. No pneumothorax is present. There is a suspected trace left pleural effusio n. Right infrahilar opacity has developed. There is mild left basilar opacity. No evidence for pulmon duran edema. Cardiomediastinal silhouette is stable. Dual lead left subclavian pacemaker is in place. IMPRESSION: 1. Satisfactory positioning of lines and tubes. 2. Interval development of bibasilar opacities and a suspected trace left pleural effusion. No pneumo thorax. ACT 112: Negative or not required by law. Electronically signed by: David Grimm M.D. 04/25/2020 7:53 AM
--- NOTE | 2020-04-25 08:22 | Orthopedic Progress Note ---
Date of Service April 25, 2020 Assessment & Plan (1) Abscess of left hand: Infection much better controlled. No further purulence in abscess cavity. Concern for necrosis of thumb--will have to observe. No further surgical intervention warranted at this point. Dressing changes daily. Admission and Anticipated Discharge Date Admission Date: April 23, 2020 Subjective Patient still intubated and unresponsive on minimal sedation. No withdrawal to pain, no voluntary movements. Per nursing, all protective reflexes diminished; no corneal reflex, no gag reflex. Now on rewarming protocol after previous cooling; currently at 34 degrees. Physical Exam Physical Exam: Left hand dressing and packing changed. No more purulent fluid in abscess cavity; minimal bloody fluid. Entire thumb and thenar eminence cool and mottled, but entire hand is cool. New small blood blister noted on pad of ring finger--no purulence noted there. Results & Data ([facility] Vital Signs (Past 12 Hours) Vital Signs Temp Temp Temp Pulse Resp BP BP 04/25/20 07:32 60 20 04/25/20 07:30 33.8 C L 60 04/25/20 07:13 33.7 C L 60 94/55 L 04/25/20 07:00 33.6 C L 60 04/25/20 06:43 33.6 C L 60 87/57 L 04/25/20 06:36 33.5 C L 60 86/57 L 04/25/20 06:30 33.5 C L 60 04/25/20 06:14 33.3 C L 60 04/25/20 06:00 33.1 C L 33.3 C L 33.3 C L 60 20 70/0 L 04/25/20 05:43 33.1 C L 60 84/61 L 04/25/20 05:30 33.0 C L 60 04/25/20 05:13 32.9 C L 60 89/60 L 04/25/20 05:10 60 20 04/25/20 05:00 33.0 C L 32.9 C L 32.9 C L 60 20 78/54 L 04/25/20 04:43 33.0 C L 60 78/54 L 04/25/20 04:13 33.0 C L 60 92/61 L 04/25/20 04:00 33 C L 33 C L 60 20 97/53 L 04/25/20 03:44 32.9 C L 60 131/78 04/25/20 03:13 33.0 C L 60 111/73 04/25/20 03:00 32.9 C L 32.9 C L 60 20 131/78 04/25/20 02:51 33.0 C L 62 98/67 L 04/25/20 02:13 33.0 C L 60 104/72 04/25/20 02:06 60 20 04/25/20 02:00 33 C L 33 C L 60 20 112/62 04/25/20 01:43 33.0 C L 60 114/74 04/25/20 01:13 33.0 C L 60 101/69 04/25/20 01:00 33 C L 33 C L 60 20 101/69 04/25/20 00:43 33.0 C L 60 90/60 L 04/25/20 00:13 33.0 C L 60 90/62 L 04/25/20 00:00 33.0 C L 33 C L 33 C L 60 20 108/65 90/62 L 04/24/20 23:43 33.0 C L 60 108/65 04/24/20 23:36 60 20 04/24/20 23:13 33.0 C L 60 109/74 04/24/20 23:00 33 C L 33 C L 60 20 106/67 04/24/20 22:43 33.0 C L 60 106/67 04/24/20 22:13 32.9 C L 60 110/68 04/24/20 22:00 33 C L 33 C L 60 20 110/68 04/24/20 21:43 33.0 C L 60 104/71 04/24/20 21:13 33.0 C L 60 108/71 04/24/20 21:11 33.0 C L 60 114/71 04/24/20 21:00 32.9 C L 32.9 C L 60 20 114/71 04/24/20 20:43 33.0 C L 60 95/67 L BP Pulse Ox 04/25/20 07:32 100 04/25/20 07:30 100 04/25/20 07:13 100 04/25/20 07:00 100 04/25/20 06:43 100 04/25/20 06:36 99 04/25/20 06:30 100 04/25/20 06:14 100 04/25/20 06:00 94/51 L 100 04/25/20 05:43 100 04/25/20 05:30 100 04/25/20 05:13 99 04/25/20 05:10 100 04/25/20 05:00 100/57 L 99 04/25/20 04:43 100 04/25/20 04:13 100 04/25/20 04:00 92/61 L 100 04/25/20 03:44 100 04/25/20 03:13 100 04/25/20 03:00 122/67 100 04/25/20 02:51 100 04/25/20 02:13 100 04/25/20 02:06 100 04/25/20 02:00 104/72 100 04/25/20 01:43 100 04/25/20 01:13 100 04/25/20 01:00 111/62 100 04/25/20 00:43 99 04/25/20 00:13 100 04/25/20 00:00 109/59 L 100 04/24/20 23:43 100 04/24/20 23:36 100 04/24/20 23:13 100 04/24/20 23:00 123/66 100 04/24/20 22:43 100 04/24/20 22:13 100 04/24/20 22:00 122/68 100 04/24/20 21:43 100 04/24/20 21:13 100 04/24/20 21:11 100 04/24/20 21:00 123/65 100 04/24/20 20:43 100 Laboratory Results Cultures growing Gm + cocci
[2020-04-25] MEDS: INSULIN ASPART 100 UNITS/ML 3 ML PEN SC SCH ×4 (08:57→20:31)
[2020-04-25] MEDS ORDERED: POTASSIUM PHOS 3 MMOL/1 ML INFUSION IV STA (09:12)
[2020-04-25] MEDS ORDERED: POTASSIUM PHOSPHATE 30 MMOL in SODIUM CHLORIDE 0.9% 500 ML IV ONE (09:30)
--- NOTE | 2020-04-25 09:30 | Critical Care Progress Note ---
Date of Service April 25, 2020 Assessment & Plan (1) Septic shock: Reason Critically Ill: 74-year-old female presents to the ICU following infield cardiac arrest with ROSC achieved with CPR and epinephrine. Now undergoing therapeutic hypothermia, mechanically ventilated, on multiple vasop ressors, and being treated for septic shock and DKA. Neuro - Anoxic injury?Patient unresponsive following cardiac arrest -CT head negative -Therapeutic hypothermia protocol initiated and right IJ triple-lumen -Cannot rule out potential contributing factors of metabolic encephalopathy secondary to sepsis and DKA -We will reevaluate neurological status once patient has been rewarmed and obtain EEG if unable to follow commands -No further posturing noted on propofol. Cardiac - Cardiac arrest/shockpatient was found to be without pulse per EMS, unsure of exact downtime but ROSC achieved with 1 round of CPR and epinephrine -Patient now requiring multiple vasopressors, will continue to titrate for maps greater than 65 -Primary differential of septic shock as patient's from patient's left hand abscess. -Echo no significant findings. -Pacemaker interrogation with no signs of significant ventricular arrhythmias. Cardiology consultation was canceled. Respiratory - Mechanically ventilatedintubated following cardiac arrest -Sedation: Fentanyl and propofol drips. -Chest x-ray clear, confirmed ET tube placement -History of COPD, continue nebs as needed -Continuous monitoring with pulse ox -Patient to remain intubated during therapeutic hypothermia, will assess for vent weaning once patient is rewarmed and more hemodynamically stable GI - Abdominal exam benign We will repeat LFTs today. Lipase was severely elevated to over 1800 yesterday. Repeat lipase tomorrow morning. Will check triglyceride level. N.p.o. RENAL/LYTES - Acute renal failurepatient with history of CKD, now presents with creatinine 3.9 on admission and severe electrolyte derangements -Creatinine improving substantially -CK was mildly elevated to 3000. Rechecking CK today. Continue fluids. -Continue to monitor urine output with strict I's and O's -Avoid nephrotoxins and renally adjust medications -Placing electrolytes. -Recheck lactate this morning - Foleystrict I's and O's ENDO - DKAcontinue insulin drip with DKA protocol -Anion gap, BHA, bicarb improving -Hemoglobin A1c was higher than 16.9 -Evidence of hypothyroidism. I am going to start her on p.o. levothyroxine. HEME - H&H stable, monitor routine CBCs ID - Sepsispatient with hypotension, and elevated procalcitonin -Chest x-ray appears clear of pulmonary infiltrates -no obvious evidence of UTI on UA -Blood cultures negative thus far -Patient's left hand most obvious source of infection as there is significant erythema and swelling, and recent MRSA infection with previous culture from March 2020 -Hand surgery drained abscess on the left hand. There is concern for possible new abscess. It appears that her thumb may be developing necrosis. -Continue broad-spectrum antibiotics daptomycin, clindamycin, Zosyn for now LINES/IV ACCESS - CVC right IJ, A-line right radial, ETT, OGT,, Jimenes DVT PROPHYLAXIS - SCDs, heparin TID I have personally spent 44 minutes of critical care time in the direct management of this patient. This is a life/limb threatening event. This includes time spent evaluating patient, direct bedside care, chart review, placing orders, interpretation of diagnostic studies, discussion with consultants, patient, and family members, as well as other required patient management activities. This time is exclusive of all separately billable procedures, and teaching time and separate from and in addition to any other critical care service time. Thank you for allowing us to participate in the care of this patient. Please refer to my attending physician's documentation for any further recommendations. (2) Anoxic brain injury: (3) Acute renal failure: (4) Respiratory failure: (5) DKA (diabetic ketoacidoses): (6) Metabolic acidosis: (7) Unresponsive state: (8) Cardiac arrest: Admission and Anticipated Discharge Date Admission Date: April 23, 2020 Subjective Patient continues to be intubated and mechanically ventilated. We have weaned down substantially on her insulin drip. She is still requiring 0.12 of Levophed and vasopressin. She has restarted the rewarming process early this morning. No significant events overnight. She did receive 2 half amps of D50 per the insulin protocol. Review of Systems Review of Systems: Unobtainable due to endotracheal tube and Unobtainable due to reduced consciousness Physical Exam Constitutional: + mechanically ventilated Eyes: PERRL, conjunctivae normal, anicteric sclerae ENMT: Intubated and sedated Neck: trachea midline, no thyromegaly Respiratory: normal respiratory effort, lungs clear to auscultation Auscultation: no crackles and no wheezes ` Mechanically ventilated, Cardiovascular: Paced rhythm on monitor, S1-S2, no murmur, no JVD, no peripheral edema, capillary refill sluggish Gastrointestinal (Abdomen): normal bowel sounds, soft, nontender, no hepatosplenomegaly Skin: There is bullae and erythema to the left hand with moderate swelling, Neurologic: Limited exam, however, there appears to be some posturing. Psychiatric: Unable to assess due to sedation/reduced consciousness Genitourinary: Indwelling Jimenes catheter present Results & Data Results & Data ([facility]) Vital Signs (Past 12 Hours) Vital Signs Temp Temp Temp Pulse Resp BP BP 04/25/20 07:32 60 20 04/25/20 07:30 92.8 F L 60 04/25/20 07:13 92.7 F L 60 94/55 L 04/25/20 07:00 92.5 F L 60 04/25/20 06:43 92.5 F L 60 87/57 L 04/25/20 06:36 92.3 F L 60 86/57 L 04/25/20 06:30 92.3 F L 60 04/25/20 06:14 91.9 F L 60 04/25/20 06:00 91.6 F L 91.9 F L 91.9 F L 60 20 70/0 L 04/25/20 05:43 91.6 F L 60 84/61 L 04/25/20 05:30 91.4 F L 60 04/25/20 05:13 91.2 F L 60 89/60 L 04/25/20 05:10 60 20 04/25/20 05:00 91.4 F L 91.2 F L 91.2 F L 60 20 78/54 L 04/25/20 04:43 91.4 F L 60 78/54 L 04/25/20 04:13 91.4 F L 60 92/61 L 04/25/20 04:00 91.4 F L 91.4 F L 60 20 97/53 L 04/25/20 03:44 91.2 F L 60 131/78 04/25/20 03:13 91.4 F L 60 111/73 04/25/20 03:00 91.2 F L 91.2 F L 60 20 131/78 04/25/20 02:51 91.4 F L 62 98/67 L 04/25/20 02:13 91.4 F L 60 104/72 04/25/20 02:06 60 20 04/25/20 02:00 91.4 F L 91.4 F L 60 20 112/62 04/25/20 01:43 91.4 F L 60 114/74 04/25/20 01:13 91.4 F L 60 101/69 04/25/20 01:00 91.4 F L 91.4 F L 60 20 101/69 04/25/20 00:43 91.4 F L 60 90/60 L 04/25/20 00:13 91.4 F L 60 90/62 L 04/25/20 00:00 91.4 F L 91.4 F L 91.4 F L 60 20 108/65 90/62 L 04/24/20 23:43 91.4 F L 60 108/65 04/24/20 23:36 60 20 04/24/20 23:13 91.4 F L 60 109/74 04/24/20 23:00 91.4 F L 91.4 F L 60 20 106/67 04/24/20 22:43 91.4 F L 60 106/67 04/24/20 22:13 91.2 F L 60 110/68 04/24/20 22:00 91.4 F L 91.4 F L 60 20 110/68 04/24/20 21:43 91.4 F L 60 104/71 BP Pulse Ox 04/25/20 07:32 100 04/25/20 07:30 100 04/25/20 07:13 100 04/25/20 07:00 100 04/25/20 06:43 100 04/25/20 06:36 99 04/25/20 06:30 100 04/25/20 06:14 100 04/25/20 06:00 94/51 L 100 04/25/20 05:43 100 04/25/20 05:30 100 04/25/20 05:13 99 04/25/20 05:10 100 04/25/20 05:00 100/57 L 99 04/25/20 04:43 100 04/25/20 04:13 100 04/25/20 04:00 92/61 L 100 04/25/20 03:44 100 04/25/20 03:13 100 04/25/20 03:00 122/67 100 04/25/20 02:51 100 04/25/20 02:13 100 04/25/20 02:06 100 04/25/20 02:00 104/72 100 04/25/20 01:43 100 04/25/20 01:13 100 04/25/20 01:00 111/62 100 04/25/20 00:43 99 04/25/20 00:13 100 04/25/20 00:00 109/59 L 100 04/24/20 23:43 100 04/24/20 23:36 100 04/24/20 23:13 100 04/24/20 23:00 123/66 100 04/24/20 22:43 100 04/24/20 22:13 100 04/24/20 22:00 122/68 100 04/24/20 21:43 100 Coding Level of Care Code Critical Care 1st 30-74 mins Diagnoses Septic shock A41.9; R65.21 Anoxic brain injury G93.1 Acute renal failure N17.9 Acute renal failure type: unspecified Respiratory failure J96.01 Chronicity: acute Respiratory failure complication: hypoxia DKA (diabetic ketoacidoses) E11.10 Metabolic acidosis E87.2 Unresponsive state R41.89 Cardiac arrest I46.9 Time Spent (min) 44 (1) Acute renal failure Acute renal failure type: unspecified Qualified Code(s): N17.9 - Acute kidney failure, unspecified (2) Respiratory failure Chronicity: acute Respiratory failure complication: hypoxia Qualified Code(s): J96.01 - Acute respiratory failure with hypoxia
[2020-04-25 10:22] LABS: Albumin Level 1.3 gm/dl (3.4-5.0); Bilirubin Direct 0.2 mg/dl (0-0.2); Bilirubin,Total 0.5 mg/dl (0.2-1); Total Protein 4.6 gm/dl (6.4-8.2)
[2020-04-25] MEDS: FAMOTIDINE 20 MG in SYRINGE 3 ML IV SCH ×2 (11:07→20:01)
[2020-04-25 11:36] LABS: Calcium 6.1 mg/dl (8.5-10.1); Creatinine Clr Calc Pharmacy 22.9 ml/min; Est GFR (African American) 35.3; Est GFR (Non-African American) 30.5; Potassium 4.7 mmol/L (3.5-5.1)
[2020-04-25] MEDS: propofoL 1,000 MG/100 ML VIAL IV SCH (13:07)
[2020-04-25] MEDS ORDERED: HEPARIN SOD 5,000 UNIT/0.5 ML VIAL SQ SCH (14:00)
--- NOTE | 2020-04-25 16:41 | Hospitalist Progress Note ---
Date of Service April 25, 2020 Assessment & Plan (1) Metabolic acidosis: Pt is here with profound acidosis and associated hypotension and respiratory failure. Likely is HHS or DKA. - On IV fluids, insulin gtt per pulmonary/CC team - Improving today. (2) Cellulitis of hand: Pt was emperically given doptomycin and zosyn adding clindamycin for necrotizing fascitis coverage. - S/p I&D bedside with Dr. Singh. - Follow cultures -> Growing Staph aureus. (3) Acute renal failure: Pt has acute kidney injury, is making urine at this point, continue to follow. - Baseline Cr ~1.0; up to 3.4 on presentation. - IV fluids as per pulmonary/CC team - Improving -> Now Cr down to 1.65. (4) COPD (chronic obstructive pulmonary disease): Has a history of copd, will offer albuterol and atrovent. - Presently ventilated. (5) Intellectual disability: This has been cited through her records, no defined cause or quantifying s tatements. - Presently intubated, so no ability to ask patient at this time. (6) DVT prophylaxis: SCDs Admission and Anticipated Discharge Date Admission Date: April 23, 2020 Subjective Intubated. Review of Systems Review of Systems: Unobtainable due to endotracheal tube Physical Exam Constitutional: WD/WN, vitals as above + acute distress and + disheveled Eyes: EOM intact bilaterally; no conjunctival abnormality ENMT: external ear and nose normal, oropharynx normal Neck: trachea midline, no thyromegaly normal visual inspection Respiratory: normal respiratory effort, lungs clear to auscultation no respiratory distress Cardiovascular: RRR, no murmur, no edema Gastrointestinal (Abdomen): Inspection/Auscultation: abdomen normal to inspection; abdomen not distended Musculoskeletal: no cyanosis or clubbing, extremities motor strength 5/5 Skin: no rashes, warm and dry Neurologic: + does not move all extremities and + not awake Psychiatric: Orientation: + not alert and + not oriented to person Results & Data Results & Data ([facility]) Vital Signs (Past 12 Hours) Vital Signs Temp Temp Temp Pulse Resp BP BP 04/25/20 16:15 36.2 C L 60 04/25/20 16:13 36.1 C L 60 95/58 L 04/25/20 16:00 36.1 C L 60 04/25/20 15:59 36.1 C L 60 96/60 L 04/25/20 15:45 36.0 C L 60 04/25/20 15:44 36.0 C L 60 04/25/20 15:30 36.0 C L 60 04/25/20 15:28 36.1 C L 60 77/48 L 04/25/20 15:15 36.1 C L 60 04/25/20 15:13 36.1 C L 60 82/53 L 04/25/20 15:00 35.9 C L 60 27 H 04/25/20 14:59 35.9 C L 60 87/51 L 04/25/20 14:45 35.9 C L 60 04/25/20 14:43 35.9 C L 60 89/56 L 04/25/20 14:30 35.8 C L 60 04/25/20 14:28 35.8 C L 60 95/58 L 04/25/20 14:15 35.8 C L 60 04/25/20 14:13 35.8 C L 60 89/61 L 04/25/20 14:00 35.8 C L 60 04/25/20 13:58 35.8 C L 60 93/59 L 04/25/20 13:45 35.8 C L 60 04/25/20 13:44 60 20 04/25/20 13:43 35.8 C L 60 91/49 L 04/25/20 13:30 35.7 C L 60 04/25/20 13:28 35.7 C L 60 86/55 L 04/25/20 13:15 35.7 C L 60 04/25/20 13:13 35.7 C L 60 81/52 L 04/25/20 13:00 35.5 C L 60 04/25/20 12:59 35.5 C L 60 80/56 L 04/25/20 12:45 35.5 C L 67 04/25/20 12:43 35.5 C L 72 94/60 L 04/25/20 12:30 35.5 C L 60 04/25/20 12:15 35.3 C L 60 04/25/20 12:14 35.3 C L 60 85/56 L 04/25/20 12:00 35.3 C L 60 04/25/20 11:45 35.3 C L 60 04/25/20 11:43 35.2 C L 60 111/67 04/25/20 11:30 35.1 C L 60 04/25/20 11:15 35.1 C L 60 04/25/20 11:14 35.1 C L 60 83/55 L 04/25/20 11:13 60 20 04/25/20 11:10 35.0 C L 60 04/25/20 11:00 35.0 C L 60 04/25/20 10:50 34.9 C L 60 04/25/20 10:44 34.9 C L 60 101/55 L 04/25/20 10:40 34.9 C L 60 04/25/20 10:30 34.9 C L 60 04/25/20 10:20 34.9 C L 60 04/25/20 10:14 34.9 C L 60 88/55 L 04/25/20 10:10 34.7 C L 60 04/25/20 10:00 34.7 C L 60 04/25/20 09:50 34.7 C L 60 04/25/20 09:43 34.7 C L 60 105/68 04/25/20 09:40 34.6 C L 60 04/25/20 09:30 34.6 C L 60 04/25/20 09:20 34.4 C L 60 04/25/20 09:14 34.4 C L 60 93/61 L 04/25/20 09:10 34.4 C L 61 04/25/20 09:00 34.4 C L 60 04/25/20 08:50 34.4 C L 60 04/25/20 08:43 34.4 C L 60 111/70 04/25/20 08:40 34.4 C L 60 04/25/20 08:30 34.3 C L 60 04/25/20 08:20 34.1 C L 60 04/25/20 08:13 34.1 C L 60 90/58 L 04/25/20 08:10 34.1 C L 60 04/25/20 08:00 34.1 C L 60 04/25/20 07:50 34.0 C L 60 04/25/20 07:44 33.9 C L 60 94/57 L 04/25/20 07:40 33.9 C L 60 04/25/20 07:32 60 20 04/25/20 07:30 33.8 C L 60 04/25/20 07:13 33.7 C L 60 94/55 L 04/25/20 07:00 33.6 C L 60 04/25/20 06:43 33.6 C L 60 87/57 L 04/25/20 06:36 33.5 C L 60 86/57 L 04/25/20 06:30 33.5 C L 60 04/25/20 06:14 33.3 C L 60 04/25/20 06:00 33.1 C L 33.3 C L 33.3 C L 60 20 70/0 L 04/25/20 05:43 33.1 C L 60 84/61 L 04/25/20 05:30 33.0 C L 60 04/25/20 05:13 32.9 C L 60 89/60 L 04/25/20 05:10 60 20 04/25/20 05:00 33.0 C L 32.9 C L 32.9 C L 60 20 78/54 L 04/25/20 04:43 33.0 C L 60 78/54 L BP Pulse Ox 04/25/20 16:15 99 04/25/20 16:13 99 04/25/20 16:00 100 04/25/20 15:59 100 04/25/20 15:45 99 04/25/20 15:44 100 04/25/20 15:30 99 04/25/20 15:28 98 04/25/20 15:15 99 04/25/20 15:13 99 04/25/20 15:00 99 04/25/20 14:59 99 04/25/20 14:45 99 04/25/20 14:43 99 04/25/20 14:30 99 04/25/20 14:28 99 04/25/20 14:15 99 04/25/20 14:13 99 04/25/20 14:00 99 04/25/20 13:58 99 04/25/20 13:45 98 04/25/20 13:44 99 04/25/20 13:43 98 04/25/20 13:30 99 04/25/20 13:28 99 04/25/20 13:15 99 04/25/20 13:13 99 04/25/20 13:00 98 04/25/20 12:59 98 04/25/20 12:45 99 04/25/20 12:43 99 04/25/20 12:30 99 04/25/20 12:15 100 04/25/20 12:14 99 04/25/20 12:00 100 04/25/20 11:45 99 04/25/20 11:43 99 04/25/20 11:30 99 04/25/20 11:15 100 04/25/20 11:14 100 04/25/20 11:13 99 04/25/20 11:10 99 04/25/20 11:00 99 04/25/20 10:50 100 04/25/20 10:44 99 04/25/20 10:40 99 04/25/20 10:30 99 04/25/20 10:20 99 04/25/20 10:14 99 04/25/20 10:10 99 04/25/20 10:00 99 04/25/20 09:50 100 04/25/20 09:43 100 04/25/20 09:40 100 04/25/20 09:30 100 04/25/20 09:20 99 04/25/20 09:14 99 04/25/20 09:10 100 04/25/20 09:00 99 04/25/20 08:50 100 04/25/20 08:43 100 04/25/20 08:40 100 04/25/20 08:30 100 04/25/20 08:20 99 04/25/20 08:13 100 04/25/20 08:10 100 04/25/20 08:00 100 04/25/20 07:50 100 04/25/20 07:44 100 04/25/20 07:40 100 04/25/20 07:32 100 04/25/20 07:30 100 04/25/20 07:13 100 04/25/20 07:00 100 04/25/20 06:43 100 04/25/20 06:36 99 04/25/20 06:30 100 04/25/20 06:14 100 04/25/20 06:00 94/51 L 100 04/25/20 05:43 100 04/25/20 05:30 100 04/25/20 05:13 99 04/25/20 05:10 100 04/25/20 05:00 100/57 L 99 04/25/20 04:43 100 PG Care Time/CCT Total # of Minutes Spent Total Time Spent with Patient: Total time spent is greater than 50% in coordination of care (as documented) at patient's floor/unit and/or counseling patient: Coding Level of Care Code 84313 Subseq Hosp Care Lvl 3 Diagnoses Metabolic acidosis E87.2 Cellulitis of hand L03.119 Acute renal failure N17.9 Acute renal failure type: unspecified COPD (chronic obstructive pulmonary disease) J44.9 Intellectual disability F79 DVT prophylaxis Z29.9 (1) Acute renal failure Acute renal failure type: unspecified Qualified Code(s): N17.9 - Acute kidney failure, unspecified
[2020-04-25 17:35] LABS: BUN Creatinine Ratio 28.5 (10-20); Calcium 5.9 mg/dl (8.5-10.1); Creatinine Clr Calc Pharmacy 22.5 ml/min; Est GFR (African American) 34.6; Est GFR (Non-African American) 29.8; Potassium 5.5 mmol/L (3.5-5.1)
[2020-04-25] MEDS ORDERED: DAPTOmycin 325 MG in SYRINGE 0 ML IV SCH (18:00)
[2020-04-25] MEDS ORDERED: Nursing to Pharmacy Communication STA (18:16)
[2020-04-25] MEDS ORDERED: CALCIUM GLUCONATE 10% 1,000 MG in SODIUM CHLORIDE 0.9% 50 ML IV ONE (18:30)
[2020-04-25] MEDS: D5W AND 1/2NSS 1,000 ML IV SCH (18:48)
[2020-04-25] MEDS: PANTOprazole 40 MG in SYRINGE 0 ML IV SCH (20:04)
--- NOTE | 2020-04-25 21:25 | Electrocardiogram Report ---
Test Reason : Blood Pressure : / mmHG Vent. Rate : 062 BPM Atrial Rate : 062 BPM P-R Int : 170 ms QRS Dur : 092 ms QT Int : 496 ms P-R-T Axes : 070 040 093 degrees QTc Int : 503 ms Normal sinus rhythm Prolonged QT Abnormal ECG When compared with ECG of 19-JAN-2020 21:43, Nonspecific T wave abnormality no longer evident in Anterior leads Confirmed by Alfa Llamas ([id number]) on 04/25/2020 9:25:17 PM Referred By: REFERRED SELF Confirmed By:Alfa Llamas
--- NOTE | 2020-04-25 21:40 | Electrocardiogram Report ---
Test Reason : Blood Pressure : / mmHG Vent. Rate : 063 BPM Atrial Rate : 063 BPM P-R Int : 158 ms QRS Dur : 084 ms QT Int : 502 ms P-R-T Axes : 077 013 060 degrees QTc Int : 513 ms Normal sinus rhythm Possible Left atrial enlargement Prolonged QT Abnormal ECG When compared with ECG of 23-APR-2020 17:54, No significant change was found Confirmed by Alfa Llamas ([id number]) on 04/25/2020 9:39:52 PM Referred By: REFERRED SELF Confirmed By:Alfa Llamas
--- NOTE | 2020-04-25 21:43 | Electrocardiogram Report ---
Test Reason : Blood Pressure : / mmHG Vent. Rate : 060 BPM Atrial Rate : 060 BPM P-R Int : 192 ms QRS Dur : 078 ms QT Int : 476 ms P-R-T Axes : 000 029 088 degrees QTc Int : 476 ms Atrial-paced rhythm T wave abnormality, consider anterior ischemia Abnormal ECG When compared with ECG of 24-APR-2020 00:43, Electronic atrial pacemaker has replaced Sinus rhythm Nonspecific T wave abnormality now evident in Inferior leads T wave inversion now evident in Anterior leads Confirmed by Alfa Llamas ([id number]) on 04/25/2020 9:43:27 PM Referred By: REFERRED SELF Confirmed By:Alfa Llamas
--- NOTE | 2020-04-25 21:45 | Electrocardiogram Report ---
Test Reason : Blood Pressure : / mmHG Vent. Rate : 060 BPM Atrial Rate : 241 BPM P-R Int : 202 ms QRS Dur : 080 ms QT Int : 496 ms P-R-T Axes : -41 025 079 degrees QTc Int : 496 ms Atrial-paced rhythm T wave abnormality, consider anterior ischemia Prolonged QT Abnormal ECG When compared with ECG of 24-APR-2020 04:51, No significant change was found Confirmed by Alfa Llamas ([id number]) on 04/25/2020 9:45:17 PM Referred By: REFERRED SELF Confirmed By:Alfa Llamas
[2020-04-25] MEDS ORDERED: NORMOSOL-R 1,000 ML IV ONE (22:53)
[2020-04-26] MEDS: VASOPRESSIN 20 UNITS in 0.9 % SODIUM CHLORIDE 100 ML IV SCH ×3 (03:11→22:38)
[2020-04-26] MEDS: INSULIN REGULAR 250 UNITS in SODIUM CHLORIDE 0.9% 247.5 ML IV SCH ×4 (03:41→11:32)
[2020-04-26] MEDS: fentaNYL DRIP 1,250 MCG/250 ML BAG IV SCH (03:48)
[2020-04-26] MEDS: PIPERACILLIN/TAZOBACTAM 4.5 GM in DEXTROSE 5% 100 ML IV SCH ×3 (04:15→19:26)
[2020-04-26] MEDS: CLINDAMYCIN 600 MG in DEXTROSE 5% 50 ML IV SCH ×3 (04:16→19:26)
[2020-04-26 05:25] LABS: Albumin Globulin Ratio 0.4 (0.9-2); Albumin Level 1.3 gm/dl (3.4-5.0); BUN Creatinine Ratio 26.8 (10-20); Bilirubin,Total 0.3 mg/dl (0.2-1); Creatinine Clr Calc Pharmacy 25.9 ml/min; Est GFR (Non-African American) 35.3; Globulin 3.3 gm/dl (2.5-4.0); Magnesium 1.8 mg/dl (1.8-2.4); Phosphorus 1.6 mg/dl (2.5-4.9); Potassium 4.3 mmol/L (3.5-5.1); Total Protein 4.6 gm/dl (6.4-8.2)
[2020-04-26] MEDS: propofoL 1,000 MG/100 ML VIAL IV SCH (05:27)
[2020-04-26 05:44] LABS: Platelet Count 26 K/uL (130-400)
--- NOTE | 2020-04-26 05:45 | Electrocardiogram Report ---
Test Reason : Blood Pressure : / mmHG Vent. Rate : 060 BPM Atrial Rate : 060 BPM P-R Int : 208 ms QRS Dur : 084 ms QT Int : 504 ms P-R-T Axes : -25 -03 071 degrees QTc Int : 504 ms Atrial-paced rhythm T wave abnormality, consider anterior ischemia Prolonged QT Abnormal ECG When compared with ECG of 24-APR-2020 07:08, No significant change was found Confirmed by Alfa Llamas ([id number]) on 04/26/2020 5:45:45 AM Referred By: REFERRED SELF Confirmed By:Alfa Llamas
[2020-04-26 05:49] LABS: Mean Corpuscular Hgb Conc 34.8 g/dL (32-36); Mean Platelet Volume 9.5 fL (7.4-10.4); Nucleated RBC # (auto) 0.29 K/uL (0-0); Nucleated RBC % (auto) 1.4 %
[2020-04-26 05:50] LABS: Hematocrit (blood only) 31.6 % (37-47); Mean Corpuscular Hemoglobin 29.3 pg (25-34); RDW Coefficient of Variation 15.6 % (11.5-14.5); Red Blood Count 3.76 M/uL (4.2-5.4); White Blood Count 20.72 K/uL (4.8-10.8)
--- NOTE | 2020-04-26 05:50 | Electrocardiogram Report ---
Test Reason : Blood Pressure : / mmHG Vent. Rate : 060 BPM Atrial Rate : 060 BPM P-R Int : 216 ms QRS Dur : 084 ms QT Int : 518 ms P-R-T Axes : 000 -07 050 degrees QTc Int : 518 ms Atrial-paced rhythm with prolonged AV conduction T wave abnormality, consider anterior ischemia Prolonged QT Abnormal ECG When compared with ECG of 24-APR-2020 12:10, No significant change was found Confirmed by Alfa Llamas ([id number]) on 04/26/2020 5:50:00 AM Referred By: REFERRED SELF Confirmed By:Alfa Llamas
[2020-04-26 05:51] LABS: Basophils # (auto) 0.01 K/uL (0-0.2); Eosinophils # (auto) 0.06 K/uL (0-0.5); Eosinophils % (auto) 0.3 %; Immature Granulocytes # (auto) 0.69 K/uL (0.00-0.02); Immature Granulocytes % (auto) 3.3 %; Lymphocytes # (auto) 2.22 K/uL (1.2-3.4); Lymphocytes % (auto) 10.7 %; Monocytes # (auto) 0.56 K/uL (0.11-0.59); Monocytes % (auto) 2.7 %; Neutrophils # (auto) 17.18 K/uL (1.4-6.5); Platelet Estimate SIGNIFIC DECREASED (Normal)
--- NOTE | 2020-04-26 06:10 | Electrocardiogram Report ---
Test Reason : Blood Pressure : / mmHG Vent. Rate : 060 BPM Atrial Rate : 060 BPM P-R Int : 222 ms QRS Dur : 084 ms QT Int : 536 ms P-R-T Axes : -01 -22 037 degrees QTc Int : 536 ms Atrial-paced rhythm with prolonged AV conduction T wave abnormality, consider anterior ischemia Prolonged QT Abnormal ECG When compared with ECG of 24-APR-2020 16:18, No significant change was found Confirmed by Alfa Llamas ([id number]) on 04/26/2020 6:09:49 AM Referred By: REFERRED SELF Confirmed By:Alaf Llamas
[2020-04-26 06:20] LABS: iSTAT Art Bld Gas pCO2 Correct 16 mmHg (35-46); iSTAT Art Bld Gas pH Corrected 7.423 (7.35-7.45); iSTAT Arterial Blood Gas HCO3 11 meg/L (19-24); iSTAT Arterial Blood Gas pCO2 17 mmHg (35-46); iSTAT Arterial Blood Gas pH 7.41 (7.35-7.45); iSTAT Arterial Blood Gas pO2 64 mmHg (80-95); iSTAT Arterial Blood Gas pO2 C 60; iSTAT Carbon Dioxide 11 mmol/L (24-31); iSTAT FiO2 30 %; iSTAT Hematocrit 29 % (37-47); iSTAT Hemoglobin 9.9 g/dl (12.0-16.0); iSTAT Potassium 4.2 mmol/L (3.3-5.0); iSTAT Site Art Line; iSTAT Sodium 132 mmol/L (135-144)
--- NOTE | 2020-04-26 06:21 | Critical Care Progress Note ---
Date of Service April 26, 2020 Assessment & Plan (1) Septic shock: Reason Critically Ill: 74-year-old female presents to the ICU following infield cardiac arrest with ROSC achieved with 1 round of CPR and epinephrine. Patient underwent therapeutic hypothermia protocol and has subsequently been re- warmed. She presented in septic shock, requiring multiple vasopressors for hemodynamic support. She also presented in diabetic ketoacidosis and was placed on an insulin drip on admission; drip has since been turned off as anion gap has closed. Currently intubated and mechanically ventilated, sedation has been totally weaned. There is much concern regarding neurologic function at this time, as patient is unable to thermoregulate herself and brainstem reflexes are absent. Overall prognosis appears to be poor, consider moving to palliative approach. 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), metabolic encephalopathy secondary to sepsis and DKA - CT head negative - Obtain EEG - would like to obtain MRI of head, however contraindicated due to pacemaker - neurology consult placed - palliative care consult placed Cardiac - * Cardiac arrest patient was found to be without pulse per EMS, unsure of exact downtime but ROSC achieved with 1 round of CPR and epinephrine - etiology of arrest unknown: dysrhythmia a possibility, although per EMS report, no shock was advised - pacer interrogation today - Cardiology consulted, appreciate recs - troponin undetectable, EKG without signs of ischemia - ECHO 04/24 showing LV EF 55-60%; no wall motion abnormalities * Edema - diffusely present on exam; patient up 13 kg since admission - likely secondary to aggressive IV hydration on admission and low oncotic pressure (low albumin) - IVF discontinued - will order 1 dose of IV lasix 40mg Respiratory - * Intubated and placed on mechanically ventilated following cardiac arrest * History of COPD, - continue nebs as needed - Continuous monitoring with pulse ox GI - * Elevated AST - level at 81 - likely secondary to hypoperfusion in setting of sepsis - continue to trend - lipase level normalized - continue PPI - NPO while on vent RENAL/LYTES - * Acute renal failure - history of underlying CKD - Cr 3.9 on admission, down to 1.49 today - BUN trending down - patient was hypotensive with septic shock on admission, likely secondary to ATN - Avoid nephrotoxins and renally adjust medications - oliguric, 90mls thus far today * Hypophosphatemia - phos at 1.6 - replace with sodium phosphate - electrolyte derangements likely secondary to DKA * Hypocalcemia - calcium corrects to 8.2 with low albumin - replacement ordered - Foleystrict I's and O's ENDO - * DKA - A1c > 16.9 on admission, hx of poorly controlled disease - patient has been volume resuscitated - metabolic acidosis improving with correction of blood sugar - Anion gap now closed - insulin drip on hold; will restart dextrose containing fluids - continue to monitor BG - CK trending down * Hypothyroidism - TSH elevated to 66 on admission - T4 and T3 low - continue levothyroxine 88 mcg daily - will hold off on hydrocortisone in the setting of vasopressors HEME - * Thrombocytopenia - platelets at 26, down from 34 - HIT panel pending - concern for consumptive process in the setting of sepsis - trend CBC * Normocytic Anemia - Hgb 11.0 - MCV at 84 ID - * Septic Shock - requiring vasopressor support - wound culture growing MRSA, sensitive to daptomycin, vancomycin and clindamycin - WBC elevated to 20 with neutrophil predominance - lactate trending down since admission, currently at 2.5; continue to trend - infectious source thought to be L hand abscess - status post I & D by orthopedics - Chest x-ray appears clear of pulmonary infiltrates - UA benign - Blood cultures showing no growth through 48 hours - Continue broad-spectrum antibiotics daptomycin, clindamycin, Zosyn LINES/IV ACCESS -CVC right IJ, A-line right radial, ETT, OGT, I/O right tibial, Jimenes DVT PROPHYLAXIS -SCDs Code: Full; considering two physician DNR order Admission and Anticipated Discharge Date Admission Date: April 23, 2020 Supervising Physician Co-Signing Physician Notes Dr. Nevarez was the resident-physician during care of patient. I separately evaluated patient for justin portions of the history and the exam. I was present during the critical portion of medical decision making, and I discussed the case with the resident. I generally agree with the findings and plan except for any additions/exceptions noted. We have stopped all sedation and the patient is demonstrating occasional myoclonic jerking activity. An EEG is ordered. Her pacemaker is unfortunately not MRI compatible. Neurology consultation is ordered as well. She has an ongoing acidemia. She is still requiring low doses of Levophed. She is fully rewarmed at this time. We are continuing broad-spectrum antibiotics for the left hand infection and abscess. Osteomyelitis is difficult to rule out with any imaging. Orthopedic surgery is following. She is off the insulin drip at this period of time. Her DKA has improved substantially and was likely triggered by her left hand abscess. Her prognosis remains extremely poor. Notably, her hemoglobin A1c was greater than 16.9. I did have a discussion with palliative care. Unfortunately we did not have a POA at this time. We have elected to do a two-physician DO NOT RESUSCITATE at this point given her declining overall condition and the unlikelihood of her surviving and ACLS p rotocol if in the event she had a cardiac arrest. I do not think that it would be appropriate to resuscitate the patient given the severity of her illness and what likely appears to be a severe chronic illness as well. I have personally spent 41 minutes of critical care time in the direct management of this patient. This is a life/limb threatening event. This includes time spent evaluating patient, direct bedside care, chart review, placing orders, interpretation of diagnostic studies, discussion with consultants, patient, and/or family members regarding treatment decisions, as well as other required patient management activities. This time is exclusive of all separately billable procedures, and teaching time and separate from and in addition to any other critical care service time. Subjective Patient without obvious family contact -known thought to be living with niece? Has an adult daughter who she has been estranged from for several years Review of Systems Review of Systems: Unobtainable due to endotracheal tube Physical Exam Constitutional: + mechanically ventilated and + edematous Neck: normal visual inspection and trachea midline Respiratory: normal respiratory effort Auscultation: no crackles and no vesicular breath sounds (coarse) Cardiovascular: Rate/Rhythm: regular rhythm and + bradycardic Heart Sounds: normal S1 and normal S2; no murmur Extremities: + pedal edema (+1 bilaterally) +anasarca of face Chest (Breasts): Chest: + pacemaker Gastrointestinal (Abdomen): Inspection/Auscultation: normal bowel sounds Percussion/Palpation: abdomen soft; no hepatosplenomegaly Skin: bandage over left upper extremity; tips of fingers pale on L hand, thumb appears to be necrotic Neurologic: Comatose Patient: + corneal reflex absent No posturing present; Gag relfex absent Genitourinary: Jimenes catheter in place, draining yellow urine without visible blood clots Results & Data [facility] ([facility]) Vital Signs (Past 12 Hours) Vital Signs Temp Pulse Resp BP Pulse Ox 04/26/20 05:59 36.0 C L 60 83/52 L 96 04/26/20 05:44 36.1 C L 60 83/57 L 95 04/26/20 05:29 36.1 C L 60 76/51 L 95 04/26/20 05:20 60 25 H 92 04/26/20 05:14 36.2 C L 60 81/53 L 91 04/26/20 05:00 36.2 C L 64 85/57 L 94 04/26/20 04:14 60 105/58 L 96 04/26/20 03:59 36.2 C L 60 97/61 L 97 04/26/20 03:44 36.3 C L 60 104/62 97 04/26/20 03:29 36.3 C L 60 100/58 L 97 04/26/20 03:14 36.3 C L 58 L 99/62 L 96 04/26/20 02:59 36.3 C L 60 110/62 98 04/26/20 02:44 36.3 C L 60 109/65 98 04/26/20 02:29 36.3 C L 62 106/67 99 04/26/20 02:14 36.3 C L 60 107/59 L 98 04/26/20 02:00 60 21 98 04/26/20 01:59 36.3 C L 60 106/62 97 04/26/20 01:44 36.3 C L 60 103/67 98 04/26/20 01:29 36.3 C L 60 103/65 98 04/26/20 01:14 36.3 C L 64 100/57 L 98 04/26/20 00:59 36.3 C L 60 103/59 L 99 04/26/20 00:44 36.3 C L 60 88/54 L 99 04/26/20 00:29 36.3 C L 60 107/60 100 04/26/20 00:14 36.4 C L 60 104/64 100 04/26/20 00:00 60 04/25/20 23:59 36.5 C 60 116/58 L 100 04/25/20 23:44 36.6 C 63 127/72 100 04/25/20 23:29 36.7 C 60 115/68 99 04/25/20 23:14 36.7 C 60 102/61 99 04/25/20 23:08 60 21 99 04/25/20 22:59 36.7 C 60 101/62 100 04/25/20 22:44 36.8 C 60 107/65 99 04/25/20 22:29 36.8 C 60 105/66 99 04/25/20 22:14 36.8 C 60 119/70 99 04/25/20 21:59 36.9 C 60 116/71 100 04/25/20 21:44 37.0 C 60 106/63 99 04/25/20 21:29 37.0 C 60 106/72 99 04/25/20 21:14 37.0 C 60 99/62 L 99 04/25/20 20:59 37.0 C 60 104/64 99 04/25/20 20:44 37.0 C 60 99/59 L 99 04/25/20 20:29 37.0 C 60 104/56 L 99 04/25/20 20:25 60 24 98 04/25/20 20:14 37.0 C 60 114/62 99 04/25/20 20:00 60 04/25/20 19:59 37.0 C 60 103/64 98 04/25/20 19:44 36.9 C 60 106/63 99 04/25/20 19:29 36.9 C 60 113/68 99 04/25/20 19:14 36.8 C 60 127/72 99 04/25/20 19:00 36.8 C 60 100 04/25/20 18:59 36.8 C 60 112/59 L 99 04/25/20 18:44 36.8 C 60 96/63 L 98 04/25/20 18:30 36.7 C 60 98 04/25/20 18:29 36.7 C 60 99/54 L 98 Resident Activity Tracking Resident Involvement: Resident Care Provided Care Provided: Adult [facility] Medicine
--- NOTE | 2020-04-26 07:02 | Hospitalist Progress Note ---
Date of Service April 26, 2020 Assessment & Plan (1) Metabolic acidosis: Pt presented with profound acidosis and associated hypotension and respiratory failure. Likely is HHS or DKA. - On IV fluids, insulin gtt per pulmonary/CC team - At this point, abg indicates metabolic acidosis with respiratory alkalosis. (2) Cellulitis of hand: Pt was emperically given doptomycin and zosyn adding clindamycin for necrotizing fascitis coverage. - S/p I&D bedside with Dr. Singh. - Follow cultures -> Growing Staph aureus. (3) Acute renal failure: Pt has acute kidney injury, is making urine at this point, continue to follow. - Baseline Cr ~1.0; up to 3.4 on presentation. - IV fluids as per pulmonary/CC team - Improving -> Now Cr down to 1.45. (4) COPD (chronic obstructive pulmonary disease): Has a history of COPD, will offer albuterol and Atrovent. - Presently ventilated. (5) Intellectual disability: This has been cited through her records, no defined cause or quantifying statements. - Presently intubated, so no ability to ask patient at this time. (6) DVT prophylaxis: SCDs Admission and Anticipated Discharge Date Admission Date: April 23, 2020 Subjective Intubated. Review of Systems Review of Systems: Unobtainable due to cognitive status and Unobtainable due to endotracheal tube Physical Exam Constitutional: WD/WN, vitals as above + acute distress and + disheveled Eyes: EOM intact bilaterally; no conjunctival abnormality ENMT: external ear and nose normal, oropharynx normal Neck: trachea midline, no thyromegaly normal visual inspection Respiratory: normal respiratory effort, lungs clear to auscultation no respiratory distress Cardiovascular: RRR, no murmur, no edema Gastrointestinal (Abdomen): Inspection/Auscultation: abdomen normal to inspection; abdomen not distended Musculoskeletal: no cyanosis or clubbing, extremities motor strength 5/5 Skin: no rashes, warm and dry Neurologic: + does not move all extremities and + not awake Psychiatric: Orientation: + not alert and + not oriented to person Results & Data Results & Data ([facility]) Vital Signs (Past 12 Hours) Vital Signs Temp Pulse Resp BP Pulse Ox 04/26/20 06:29 35.9 C L 60 103/63 96 04/26/20 06:14 36.0 C L 60 91/64 L 94 04/26/20 05:59 36.0 C L 60 83/52 L 96 04/26/20 05:44 36.1 C L 60 83/57 L 95 04/26/20 05:29 36.1 C L 60 76/51 L 95 04/26/20 05:20 60 25 H 92 04/26/20 05:14 36.2 C L 60 81/53 L 91 04/26/20 05:00 36.2 C L 64 85/57 L 94 04/26/20 04:14 60 105/58 L 96 04/26/20 03:59 36.2 C L 60 97/61 L 97 04/26/20 03:44 36.3 C L 60 104/62 97 04/26/20 03:29 36.3 C L 60 100/58 L 97 04/26/20 03:14 36.3 C L 58 L 99/62 L 96 04/26/20 02:59 36.3 C L 60 110/62 98 04/26/20 02:44 36.3 C L 60 109/65 98 04/26/20 02:29 36.3 C L 62 106/67 99 04/26/20 02:14 36.3 C L 60 107/59 L 98 04/26/20 02:00 60 21 98 04/26/20 01:59 36.3 C L 60 106/62 97 04/26/20 01:44 36.3 C L 60 103/67 98 04/26/20 01:29 36.3 C L 60 103/65 98 04/26/20 01:14 36.3 C L 64 100/57 L 98 04/26/20 00:59 36.3 C L 60 103/59 L 99 04/26/20 00:44 36.3 C L 60 88/54 L 99 04/26/20 00:29 36.3 C L 60 107/60 100 04/26/20 00:14 36.4 C L 60 104/64 100 04/26/20 00:00 60 04/25/20 23:59 36.5 C 60 116/58 L 100 04/25/20 23:44 36.6 C 63 127/72 100 04/25/20 23:29 36.7 C 60 115/68 99 04/25/20 23:14 36.7 C 60 102/61 99 04/25/20 23:08 60 21 99 04/25/20 22:59 36.7 C 60 101/62 100 04/25/20 22:44 36.8 C 60 107/65 99 04/25/20 22:29 36.8 C 60 105/66 99 04/25/20 22:14 36.8 C 60 119/70 99 04/25/20 21:59 36.9 C 60 116/71 100 04/25/20 21:44 37.0 C 60 106/63 99 04/25/20 21:29 37.0 C 60 106/72 99 04/25/20 21:14 37.0 C 60 99/62 L 99 04/25/20 20:59 37.0 C 60 104/64 99 04/25/20 20:44 37.0 C 60 99/59 L 99 04/25/20 20:29 37.0 C 60 104/56 L 99 04/25/20 20:25 60 24 98 04/25/20 20:14 37.0 C 60 114/62 99 04/25/20 20:00 60 04/25/20 19:59 37.0 C 60 103/64 98 04/25/20 19:44 36.9 C 60 106/63 99 04/25/20 19:29 36.9 C 60 113/68 99 04/25/20 19:14 36.8 C 60 127/72 99 PG Care Time/CCT Total # of Minutes Spent Total Time Spent with Patient: Total time spent is greater than 50% in coordination of care (as documented) at patient's floor/unit and/or counseling patient: Coding Level of Care Code 44178 Subseq Hosp Care Lvl 3 Diagnoses Metabolic acidosis E87.2 Cellulitis of hand L03.119 Acute renal failure N17.9 Acute renal failure type: unspecified COPD (chronic obstructive pulmonary disease) J44.9 Intellectual disability F79 DVT prophylaxis Z29.9 (1) Acute renal failure Acute renal failure type: unspecified Qualified Code(s): N17.9 - Acute kidney failure, unspecified
[2020-04-26] MEDS: NOREPINEPHRINE (Adult) 8 MG in DEXTROSE 5% 500 ML IV SCH ×2 (07:23→21:42)
[2020-04-26] MEDS: INSULIN ASPART 100 UNITS/ML 3 ML PEN SC SCH ×4 (07:56→20:45)
[2020-04-26] MEDS: LEVOTHYROXINE SODIUM 88 MCG TABLET PO SCH (07:56)
[2020-04-26] MEDS: D5W AND 1/2NSS 1,000 ML IV SCH (07:56)
--- NOTE | 2020-04-26 09:38 | Cardiology Consultation ---
Date of Consultation April 26, 2020 Assessment & Plan (1) Unresponsive state: The cause of her unresponsiveness is not likely to be cardiac. Device interrogation does not show any significant arrhythmia and it has been working well. (2) Pacemaker: The pacemaker is functioning well with excellent battery life, it is pacing most of the time in the atrium appropriately with intact AV conduction. Rare brief atrial and ventricular arrhythmias not related to this event. The device was reprogrammed to lower detection rates but missing an arrhythmia does not seem to be likely as a cause of this event. (3) Sinoatrial node dysfunction: She has sinus node dysfunction and paces most of the time in the atrium appropriately. History of Present Illness Reason for Consultation: Unresponsiveness, pacemaker in place Attending Physician: Jose Carreon MD History of Present Illness This is a 74-year-old woman with a history of sinus node dysfunction who had a pacemaker implanted on July 25, 2004. She has been noncompliant and is intellectually challenged, she additionally has a history of diabetes, hypothyroidism, hyperlipidemia, hypertension and COPD. She presented here June 30, 2018 with her pacemaker not working and not being able to be interrogated, presumably due to battery depletion due to poor follow-up. At the time she was having intermittent dizziness and presyncope felt to be due to pacemaker failure. We therefore replaced the pacemaker on July 01, 2018. A non-MRI compatible pacemaker was used as she had non-MRI compatible leads. I do not know that she has had outpatient follow-up since. She now presents some type of out of hospital event resulting in unresponsiveness and she was brought in by EMS. She is reported to have agonal respirations, she was reported to have a narrow complex rhythm shortly thereafter with a blood pressure of 66/30 and a heart rate reported as 105. She was treated with code Arctic, she is now rewarmed, she has done poorly mentally although her blood pressure has recovered somewhat although does remain low at times. Oxygenation has been normal, her rhythm has been atrially paced with intact AV conduction and a narrow QRS complex. No history can be obtained from the patient. Allergies Allergy/AdvReac Type Severity Reaction Status Date / Time No Known Allergies Allergy Verified 04/23/20 19:56 Home Medications Home Medications Medication Instructions Recorded Confirmed Type sertraline 25 mg tablet 25 mg PO DAILY #90 tab 01/14/19 04/23/20 History albuterol sulfate 90 mcg/actuation 2 puffs INH Q6H PRN gm 03/14/19 04/23/20 History aerosol inhaler aspirin 81 mg tablet,delayed 81 mg PO DAILY 03/14/19 04/23/20 History release acetaminophen 500 - 1,000 mg PO TID PRN 11/23/19 04/23/20 History atorvastatin 40 mg PO DAILY 11/23/19 04/23/20 History ergocalciferol (vitamin D2) 50,000 unit PO .Q2WK.MO 11/23/19 04/23/20 History insulin glargine [Lantus Solostar 10 unit SUBCUT DAILY 11/23/19 04/23/20 History U-100 Insulin] ipratropium-albuterol [Combivent 1 puff INHALATION QID 11/23/19 04/23/20 History Respimat] levothyroxine 200 mcg PO DAILY 11/23/19 04/23/20 History metformin 850 mg PO BIDM 11/23/19 04/23/20 History midodrine 5 mg PO BID 11/23/19 04/23/20 History ondansetron 4 mg PO Q8H PRN #30 tab 11/23/19 04/23/20 Rx insulin glargine [Basaglar KwikPen 15 unit SUBCUT QAM 01/19/20 04/23/20 History U-100 Insulin] Patient History Medical History Acute UTI Arthritis Asthma Bradycardia Bulimia nervosa Chronic kidney disease COPD (chronic obstructive pulmonary disease) Depression Diabetes Diabetes mellitus Diabetic peripheral neuropathy Hearing difficulty Hyperlipidemia Hypertension Hypothyroidism Intellectual disability Migraine headache Pacemaker Pacemaker battery depletion Tobacco use Uncontrolled type 2 diabetes mellitus Family History Other No significant family history Social History Smoking Status: Current every day smoker Hx Alcohol Use: No Hx Substance Use: No Preferred Language: Indonesian Communication Ability: Unable [employer] Required: No Beliefs That Will Affect Care: None Current Living Situation: Alone Current Living Situation Comment: lives with a "friend" Other Information That Helps Us Care for You: No Feels Safe at Home: Declines to Answer Assistive Devices: Oxygen - Continuous Review of Systems Review of Systems: Unobtainable due to cognitive status Physical Exam Physical Exam: Constitutional: She is intubated and unresponsive. HEENT: Unremarkable Neck: No jugular venous distention, carotid pulses are normal and equal bilaterally without bruits. Pulmonary: Clear to auscultation bilaterally. Cardiac: Regular rhythm with no murmur, gallop or rub. Abdomen: Soft, nontender with normal bowel sounds. Extremities: No edema. Distal pulses intact. Neurologic: Unresponsive, cannot be evaluated. Skin: Arm bandaged. Results & Data ([facility]) Vital Signs (Past 12 Hours) Vital Signs Temp Pulse Resp BP Pulse Ox 04/26/20 09:00 35.8 C L 63 116/66 98 04/26/20 08:45 35.8 C L 60 120/74 98 04/26/20 08:29 35.8 C L 61 109/71 98 04/26/20 08:15 35.8 C L 61 108/64 98 04/26/20 08:00 35.8 C L 60 113/73 97 04/26/20 07:45 35.8 C L 60 123/68 97 04/26/20 07:43 60 25 H 98 04/26/20 07:30 35.8 C L 60 125/72 97 04/26/20 07:15 35.8 C L 61 110/71 97 04/26/20 07:00 35.8 C L 60 110/71 97 04/26/20 06:44 35.9 C L 60 100/64 94 04/26/20 06:29 35.9 C L 60 103/63 96 04/26/20 06:14 36.0 C L 60 91/64 L 94 04/26/20 05:59 36.0 C L 60 83/52 L 96 04/26/20 05:44 36.1 C L 60 83/57 L 95 04/26/20 05:29 36.1 C L 60 76/51 L 95 04/26/20 05:20 60 25 H 92 04/26/20 05:14 36.2 C L 60 81/53 L 91 04/26/20 05:00 36.2 C L 64 85/57 L 94 04/26/20 04:14 60 105/58 L 96 04/26/20 03:59 36.2 C L 60 97/61 L 97 04/26/20 03:44 36.3 C L 60 104/62 97 04/26/20 03:29 36.3 C L 60 100/58 L 97 04/26/20 03:14 36.3 C L 58 L 99/62 L 96 04/26/20 02:59 36.3 C L 60 110/62 98 04/26/20 02:44 36.3 C L 60 109/65 98 04/26/20 02:29 36.3 C L 62 106/67 99 04/26/20 02:14 36.3 C L 60 107/59 L 98 04/26/20 02:00 60 21 98 04/26/20 01:59 36.3 C L 60 106/62 97 04/26/20 01:44 36.3 C L 60 103/67 98 04/26/20 01:29 36.3 C L 60 103/65 98 04/26/20 01:14 36.3 C L 64 100/57 L 98 04/26/20 00:59 36.3 C L 60 103/59 L 99 04/26/20 00:44 36.3 C L 60 88/54 L 99 04/26/20 00:29 36.3 C L 60 107/60 100 04/26/20 00:14 36.4 C L 60 104/64 100 04/26/20 00:00 60 04/25/20 23:59 36.5 C 60 116/58 L 100 04/25/20 23:44 36.6 C 63 127/72 100 04/25/20 23:29 36.7 C 60 115/68 99 04/25/20 23:14 36.7 C 60 102/61 99 04/25/20 23:08 60 21 99 04/25/20 22:59 36.7 C 60 101/62 100 04/25/20 22:44 36.8 C 60 107/65 99 04/25/20 22:29 36.8 C 60 105/66 99 04/25/20 22:14 36.8 C 60 119/70 99 04/25/20 21:59 36.9 C 60 116/71 100 04/25/20 21:44 37.0 C 60 106/63 99 Laboratory Results Cardiac Enzymes 04/25/20 04/26/20 Range/Units 09:31 04:03 AST 101 H 81 H (15-37) U/L Coagulation 04/25/20 Range/Units 04:24 PT 11.8 (9.0-12.0) Seconds Lipids 04/25/20 Range/Units 09:31 Triglycerides 147 (0-150) mg/dl CBC 04/25/20 04/26/20 Range/Units 04:24 04:03 WBC 10.00 20.72 H D (4.8-10.8) K/uL RBC 3.67 L 3.76 L (4.2-5.4) M/uL Hgb 10.7 L 11.0 L (12.0-16.0) g/dL Hct 30.6 L 31.6 L (37-47) % Plt Count 34 L 26 L* (130-400) K/uL Neut # (Auto) 7.64 H 17.18 H (1.4-6.5) K/uL Lymph # (Auto) 1.03 L 2.22 (1.2-3.4) K/uL [place] # (Auto) 0.54 0.56 (0.11-0.59) K/uL Eos # (Auto) 0.03 0.06 (0-0.5) K/uL Baso # (Auto) 0.00 0.01 (0-0.2) K/uL Comprehensive Metabolic Panel 04/25/20 04/25/20 04/25/20 Range/Units 09:31 10:51 17:01 Sodium 137 135 L (136-145) mmol/L Potassium 4.7 D 5.5 H D (3.5-5.1) mmol/L Chloride 113 H 110 H (98-107) mmol/L Carbon Dioxide 14 L 12 L (21-32) mmol/L BUN 51 H 48 H (7-18) mg/dl Creatinine 1.65 H 1.68 H (0.6-1.2) mg/dl Glucose 120 H 200 H (70-99) mg/dl Calcium 6.1 L 5.9 L* (8.5-10.1) mg/dl Direct Bilirubin 0.2 (0-0.2) mg/dl AST 101 H (15-37) U/L ALT 37 (12-78) U/L Alkaline Phosphatase 60 (45-117) U/L Total Protein 4.6 L (6.4-8.2) gm/dl Albumin 1.3 L (3.4-5.0) gm/dl 04/26/20 Range/Units 04:03 Sodium 133 L (136-145) mmol/L Potassium 4.3 D (3.5-5.1) mmol/L Chloride 109 H (98-107) mmol/L Carbon Dioxide 14 L (21-32) mmol/L BUN 39 H (7-18) mg/dl Creatinine 1.46 H (0.6-1.2) mg/dl Glucose 159 H (70-99) mg/dl Calcium 6.0 L (8.5-10.1) mg/dl Direct Bilirubin (0-0.2) mg/dl AST 81 H (15-37) U/L ALT 37 (12-78) U/L Alkaline Phosphatase 63 (45-117) U/L Total Protein 4.6 L (6.4-8.2) gm/dl Albumin 1.3 L (3.4-5.0) gm/dl Intake and Output 04/25/20 04/26/20 04/26/20 22:59 06:59 14:59 Intake Total 2624.609 / 5550.764 1631.796 / 5550.764 1230.862 / 1230.862 Output Total 55 / 570 90 / 570 0 / 0 Balance 2569.609 / 4980.764 1541.796 / 4980.764 1230.862 / 1230.862 Intake: IV 2624.609 / 5550.764 1631.796 / 5550.764 1230.862 / 1230.862 Calcium Gluconate 10% 1,000 mg 60 / 60 In Nss 50 ml @ 240 mls/hr IV 1830 [facility] Rx#:[id number] Cleocin 600 mg In D5w 50 ml @ 54 / 162 54 / 162 100 mls/hr IV Q8H [facility] Rx#: [id number] D5W AND 1/2NSS + 20MEQ KCL 20 1344.5 / 2344.5 meq In 1,000 ml @ 150 mls/hr IV .Q6H40M [facility] Rx#:[id number] D5w and 1/2Nss 1,000 ml @ 80 24 / 24 1046.667 / 1046.667 mls/hr IV .[id number] [facility] Rx#: [id number] NovoLIN R 250 UNITS In Nss 247. 22.658 / 78.372 37.73 / 78.372 5 ml @ 3.5 UNITS/HR 3.5 mls/hr IV .Q24H [facility] Rx#:[id number] Levophed Inj 8 mg In D5w 500 ml 341.262 / 715.015 215.968 / 715.015 32.002 / 32.002 @ 0.1 MCG/KG/MIN 21.107 mls/hr IV .Q24H [facility] Rx#:[id number] Normosol-R 1,000 ml @ 999 mls/ 1000 / 1000 hr IV .Q1H1M [facility] Rx#:[id number] Zosyn 4.5 gm In D5 100 ml @ 30 120 / 240 120 / 240 120 / 120 mls/hr IV Q8H [facility] Rx#:[id number] Potassium Phosphate 30 Mmol In 510 / 510 Nss 500 ml @ 102 mls/hr IV TODAY@0930 [facility] Rx#:[id number] Pitressin Synthetic 20 Units In 108.699 / 265.727 133.468 / 265.727 22.183 / 22.183 Sodium Chloride 100 ml @ 0.04 UNIT/MIN 12.12 mls/hr IV . Q8H20M [facility] Rx#:[id number] DIPRIVAN 1,000 mg In 100 ml @ 39.49 / 151.15 70.63 / 151.15 10.01 / 10.01 20 MCG/KG/MIN 6.612 mls/hr IV . Q15H8M [facility] Rx#:[id number] Output: Urine Amount (Catheter) 55 / 570 90 / 570 0 / 0 Jimenes/Indwelling 55 / 570 90 / 570 0 / 0 Other: Weight 67.9 kg Weight Measurement Method Built in [facility] Diagnostic Findings Telemetry: Atrial paced, intact AV conduction Electrocardiograms: Atrial paced, intact AV conduction, diffuse ST-T abnormalities Echocardiogram:Low normal left ventricular size with normal systolic function and no regional wall motion abnormalities. Pacemaker: Her pacemaker was interrogated, it is working well, battery voltage is good, she is pacing almost all of the time in the atrium. She had a few brief atrial and ventricular arrhythmias but these did not correlate with this presentation in timing and also or not significant enough to explain this or to require further treatment. PG Care Time/CCT Total # of Minutes Spent Total Time Spent with Patient: Total time spent is greater than 50% in coordination of care (as documented) at patient's floor/unit and/or counseling patient: Coding Level of Care Code 44103 Initial Inpt Care Lvl 2 Diagnoses Unresponsive state R41.89 Pacemaker Z95.0 Sinoatrial node dysfunction I49.5
[2020-04-26] MEDS ORDERED: FUROSEMIDE 40 MG in SYRINGE 0 ML IV STA (10:03)
[2020-04-26] MEDS: PANTOprazole 40 MG in SYRINGE 0 ML IV SCH ×2 (10:26→19:26)
--- NOTE | 2020-04-26 10:38 | Palliative Care Consultation ---
Date of Consultation April 26, 2020 Assessment & Plan (1) Palliative care encounter: This is a 74-year-old female who presented to the [facility] after being found down at home by her niece and a possibility of up to 5 hours downtime and unresponsiveness. On admission, she was treated as a code arctic; now fully rewarmed but having difficulty with thermoregulation. Her current temps are around 35.8. She is intellectually challenged and has a PMH that includes diabetes, hypothyroidism, hyperlipidemia, hypertension, CAD and COPD. She has a pacemaker that was replaced on 07/01/2018. The patient is unfortunately, gravely ill. Unfortunately, this patient has a complicated next of kin to consider for decision making. She apparently has an estranged daughter who has not been involved in her life for many years. She does live with her niece as her caregiver, but nothing is officially documented regarding POA. Palliative Care was consulted to discuss goals of care, including code status. This patient was discussed in depth at ICU rounds. Unfortunately, despite being rewarmed there is anticipated anoxic brain injury and overall grave prognosis. The patient is intubated and current ventilator settings are: CMV, FiO2 0.30, tV 420, PEEP 5, RR 20, breathing above vent at 27. Currently, she does not meet brain criteria, as she is breathing above the ventilator. She does not have a cough reflex, corneal and gag reflex are absent, her peripheral pulses are more faint and now requiring a doppler. She is requiring vasoactive intervention and is on a Levophed gtt. Yesterday, nursing noted coffee-ground emesis. Her Hgb has remained relatively stable. Today, an EEG is planned. As stated above, we currently have a contact # for Rama, who reportedly is the patients niece. I reached out to her at [phone]. The phone rang and rang, with a busy signal and no option for VM. At this time, ethically, we have a gravely ill patient who, even at baseline, unlikely can make decisions for herself. At some time, care for this individual would become more futile than beneficial. For now, we can continue current treatment plan until we have discussion with family, but find it appropriate to establish a two-physician DNR for this patient. Update: At 3505, Rama has called in on her husbands cell phone which is the best number to reach her. ([phone]) I called her directly and updated her about her condition and the medical scenario. She mentioned that she has lived with Joanne since she was 12 years old, now she is 30 years old. She knows she has a daughter, but in her entire time of knowing Joanne she has never heard of her or met her. She was understandably upset to hear of her grave prognosis. She technically is considered her niece. She said that her mother last year from metastatic br east cancer and she was best friends with her sister, Joanne. She was very emotional on the phone and stated she was going to try and ride the bus over from [place] after she found a properties supervisor for her three children. Notified nursing to page me when she arrives. At 1600, she was not at the bedside yet. In having discussion with nursing, patient was becoming more hypotensive with SPB in the 80's. Levophed increased per protocol. Continue current care for now, ideally would like to discuss overall care with Rama in person with an anticipated comfort transition based on what she feels her wishes would be, along with close collaboration with the IDT in regards to futile vs beneficial treatment in a patient with extensive comorbidities and a poor baseline, at best. We will continue to follow closely. (2) Cardiac arrest: (3) Anoxic brain injury: (4) COPD (chronic obstructive pulmonary disease): (5) Septic shock: (6) Acute renal failure: Acute renal failure type: unspecified Qualified Code(s): N17.9 - Acute kidney failure, unspecified History of Present Illness Reason for Consultation: Goals of Care Requesting Physician: Dr. Carreon Attending Physician: Jose Carreon MD History of Present Illness This is a 74-year-old female who presented to the [facility] after being found down at home by her niece and a possibility of up to 5 hours downtime and unresponsiveness. On admission, she was treated as a code arctic; now fully rewarmed but having difficulty with thermoregulation. Her current temps are around 35.8. She is intellectually challenged and has a PMH that includes diabetes, hypothyroidism, hyperlipidemia, hypertension, CAD and COPD. She has a pacemaker that was replaced on 07/01/2018. The patient is unfortunately, gravely ill. She does not have a cough reflex, corneal and gag reflex are absent, her peripheral pulses are more faint and now requiring a doppler. She is requiring vasoactive intervention and is on a Levophed gtt. Yesterday, nursing noted coffee-ground emesis. Her Hgb has remained relatively stable. Today, an EEG is planned. Unfortunately, this patient has a complicated next of kin to consider for decision making. She apparently has an estranged daughter who has not been involved in her life for many years. She does live with her niece as her caregiver, but nothing is officially documented regarding POA. Palliative Care was consulted to discuss goals of care, including code status. Please see A/P for further details. Thank you for involving the Palliative Care consultation service to assist with this patient. Allergies Allergy/AdvReac Type Severity Reaction Status Date / Time No Known Allergies Allergy Verified 04/23/20 19:56 Home Medications Home Medications Medication Instructions Recorded Confirmed Type sertraline 25 mg tablet 25 mg PO DAILY #90 tab 01/14/19 04/23/20 History albuterol sulfate 90 mcg/actuation 2 puffs INH Q6H PRN gm 03/14/19 04/23/20 History aerosol inhaler aspirin 81 mg tablet,delayed 81 mg PO DAILY 03/14/19 04/23/20 History release acetaminophen 500 - 1,000 mg PO TID PRN 11/23/19 04/23/20 History atorvastatin 40 mg PO DAILY 11/23/19 04/23/20 History ergocalciferol (vitamin D2) 50,000 unit PO .Q2WK.MO 11/23/19 04/23/20 History insulin glargine [Lantus Solostar 10 unit SUBCUT DAILY 11/23/19 04/23/20 History U-100 Insulin] ipratropium-albuterol [Combivent 1 puff INHALATION QID 11/23/19 04/23/20 History Respimat] levothyroxine 200 mcg PO DAILY 11/23/19 04/23/20 History metformin 850 mg PO BIDM 11/23/19 04/23/20 History midodrine 5 mg PO BID 11/23/19 04/23/20 History ondansetron 4 mg PO Q8H PRN #30 tab 05/24/20 10/23/20 Rx insulin glargine [Basaglar KwikPen 15 unit SUBCUT QAM 01/19/20 04/23/20 History U-100 Insulin] Patient History Medical History Acute UTI Arthritis Asthma Bradycardia Bulimia nervosa Chronic kidney disease COPD (chronic obstructive pulmonary disease) Depression Diabetes Diabetes mellitus Diabetic peripheral neuropathy Hearing difficulty Hyperlipidemia Hypertension Hypothyroidism Intellectual disability Migraine headache Pacemaker Pacemaker battery depletion Palliative care encounter Tobacco use Uncontrolled type 2 diabetes mellitus Family History Other No significant family history Social History Smoking Status: Current every day smoker Hx Alcohol Use: No Hx Substance Use: No Preferred Language: Central African Communication Ability: Unable Extracorporeal Technician Required: No Beliefs That Will Affect Care: None Current Living Situation: Alone Current Living Situation Comment: lives with a "friend" Other Information That Helps Us Care for You: No Feels Safe at Home: Declines to Answer Assistive Devices: Oxygen - Continuous Review of Systems Review of Systems: Unobtainable due to endotracheal tube Physical Exam Constitutional: + ill appearing, + frail appearing and + lethargic Respiratory: Auscultation: + diminished lung sounds and + rhonchi Cardiovascular: Heart Sounds: normal S1 and normal S2 Vessels: dorsalis pedis pulses present (by doppler only) and radial pulses present (faint +1); + abnormal peripheral pulses Extremities: + abnormal capillary refill Gastrointestinal (Abdomen): Inspection/Auscultation: abdomen normal to inspection Percussion/Palpation: abdomen soft Skin: no rashes, warm and dry + pallor Genitourinary: indwelling platt catheter Results & Data ([facility]) Vital Signs (Past 12 Hours) Vital Signs Temp Pulse Resp BP Pulse Ox 04/26/20 10:03 35.8 C L 68 103/59 L 98 04/26/20 09:00 35.8 C L 63 116/66 98 04/26/20 08:45 35.8 C L 60 120/74 98 04/26/20 08:29 35.8 C L 61 109/71 98 04/26/20 08:15 35.8 C L 61 108/64 98 04/26/20 08:00 35.8 C L 60 113/73 97 04/26/20 07:45 35.8 C L 60 123/68 97 04/26/20 07:43 60 25 H 98 04/26/20 07:30 35.8 C L 60 125/72 97 04/26/20 07:15 35.8 C L 61 110/71 97 04/26/20 07:00 35.8 C L 60 110/71 97 04/26/20 06:44 35.9 C L 60 100/64 94 04/26/20 06:29 35.9 C L 60 103/63 96 04/26/20 06:14 36.0 C L 60 91/64 L 94 04/26/20 05:59 36.0 C L 60 83/52 L 96 04/26/20 05:44 36.1 C L 60 83/57 L 95 04/26/20 05:29 36.1 C L 60 76/51 L 95 04/26/20 05:20 60 25 H 92 04/26/20 05:14 36.2 C L 60 81/53 L 91 04/26/20 05:00 36.2 C L 64 85/57 L 94 04/26/20 04:14 60 105/58 L 96 04/26/20 03:59 36.2 C L 60 97/61 L 97 04/26/20 03:44 36.3 C L 60 104/62 97 04/26/20 03:29 36.3 C L 60 100/58 L 97 04/26/20 03:14 36.3 C L 58 L 99/62 L 96 04/26/20 02:59 36.3 C L 60 110/62 98 04/26/20 02:44 36.3 C L 60 109/65 98 04/26/20 02:29 36.3 C L 62 106/67 99 04/26/20 02:14 36.3 C L 60 107/59 L 98 04/26/20 02:00 60 21 98 04/26/20 01:59 36.3 C L 60 106/62 97 04/26/20 01:44 36.3 C L 60 103/67 98 04/26/20 01:29 36.3 C L 60 103/65 98 04/26/20 01:14 36.3 C L 64 100/57 L 98 04/26/20 00:59 36.3 C L 60 103/59 L 99 04/26/20 00:44 36.3 C L 60 88/54 L 99 04/26/20 00:29 36.3 C L 60 107/60 100 04/26/20 00:14 36.4 C L 60 104/64 100 04/26/20 00:00 60 04/25/20 23:59 36.5 C 60 116/58 L 100 04/25/20 23:44 36.6 C 63 127/72 100 04/25/20 23:29 36.7 C 60 115/68 99 04/25/20 23:14 36.7 C 60 102/61 99 04/25/20 23:08 60 21 99 04/25/20 22:59 36.7 C 60 101/62 100 04/25/20 22:44 36.8 C 60 107/65 99 PG Care Time/CCT Total # of Minutes Spent Total Time Spent with Patient: Total time spent is greater than 50% in coordination of care (as documented) at patient's floor/unit and/or counseling patient: 125 Coding Level of Care Code 34414 Inpt Consult Level 5 Diagnoses Palliative care encounter Z51.5 Cardiac arrest I46.9 Anoxic brain injury G93.1 COPD (chronic obstructive pulmonary disease) J44.9 Septic shock A41.9; R65.21 Acute renal failure N17.9 Acute renal failure type: unspecified Time Spent (min) 125 Time Spent Midlevel Total time spent 125 minutes with > 50% of that time spent assessing the patient, discussing goals of care with the patients niece and collaborating closely with the IDT.
[2020-04-26 11:05] LABS: iSTAT Potassium 4.8 mmol/L (3.3-5.0); iSTAT Sodium 140 mmol/L (135-144)
[2020-04-26 11:06] LABS: iSTAT Arterial Blood Gas pCO2 26 mmHg (35-46); iSTAT Arterial Blood Gas pH 7.08 (7.35-7.45); iSTAT Arterial Blood Gas pO2 318 mmHg (80-95); iSTAT Hematocrit 38 % (37-47); iSTAT Hemoglobin 12.9 g/dl (12.0-16.0)
[2020-04-26 11:07] LABS: iSTAT Arterial Blood Gas HCO3 7 meg/L (19-24); iSTAT Carbon Dioxide 9 mmol/L (24-31); iSTAT Sample Type Arterial
[2020-04-26] MEDS ORDERED: SODIUM PHOSPHATE 30 MMOL in SODIUM CHLORIDE 0.9% 500 ML IV ONE (11:30)
--- NOTE | 2020-04-26 12:58 | Billing Data ---
Date of Service April 26, 2020 Coding Level of Care Code Critical Care 1st 30-74 mins Time Spent (min) 41
--- NOTE | 2020-04-26 13:17 | Orthopedic Progress Note ---
Date of Service April 26, 2020 Assessment & Plan (1) Abscess of left hand: Continues with no further purulence in abscess cavity. Concern for necrosis of thumb--will have to observe. No further surgical intervention warranted at this point. Dressing changes daily. Admission and Anticipated Discharge Date Admission Date: April 23, 2020 [facility]. Unresponsive. Nursing states all sedation stopped this AM. Continues to be unresponsive and no cough reflex, corneal and gag reflex are absent. Bedside I/D done to the left hand by Dr. Singh several days ago. Physical Exam Physical Exam: Dressing removed. Mild drainage noted on dressing. No purulence noted at the wound site. Iodiform packng removed. Attempted to express drainage from wound but only a scant amount of serous drainage noted. Replaced iodiform gauze and seemed to use less. Area of ecchymosis over the dorsum of the hand at the [facility] area vs blistering. I could not appreciate any fluctuance. L thumb is dusky in appearance. Small blister on the pad of the 4th finger has been opened. No purulence noted. Nursing states this was opened by staff the other night and noted a small amount purulence. Not a lot of erythema surrounding the wounds. Small amount of skin excised over the thumb. Wound redressed with 4x4's and kerlix wrap. Results & Data ([facility]) Vital Signs (Past 12 Hours) Vital Signs Temp Pulse Resp BP Pulse Ox 04/26/20 12:32 65 23 95 04/26/20 12:03 35.8 C L 65 154/82 H 95 04/26/20 12:00 35.8 C L 71 94 04/26/20 11:03 35.8 C L 70 104/58 L 96 04/26/20 11:00 35.8 C L 68 97 04/26/20 10:36 60 23 97 04/26/20 10:04 35.8 C L 68 98 04/26/20 10:03 35.8 C L 68 103/59 L 98 04/26/20 09:00 35.8 C L 63 116/66 98 04/26/20 08:45 35.8 C L 60 120/74 98 04/26/20 08:29 35.8 C L 61 109/71 98 04/26/20 08:15 35.8 C L 61 108/64 98 04/26/20 08:00 35.8 C L 60 113/73 97 04/26/20 07:45 35.8 C L 60 123/68 97 04/26/20 07:43 60 25 H 98 04/26/20 07:30 35.8 C L 60 125/72 97 04/26/20 07:15 35.8 C L 61 110/71 97 04/26/20 07:00 35.8 C L 60 110/71 97 04/26/20 06:44 35.9 C L 60 100/64 94 04/26/20 06:29 35.9 C L 60 103/63 96 04/26/20 06:14 36.0 C L 60 91/64 L 94 04/26/20 05:59 36.0 C L 60 83/52 L 96 04/26/20 05:44 36.1 C L 60 83/57 L 95 04/26/20 05:29 36.1 C L 60 76/51 L 95 04/26/20 05:20 60 25 H 92 04/26/20 05:14 36.2 C L 60 81/53 L 91 04/26/20 05:00 36.2 C L 64 85/57 L 94 04/26/20 04:14 60 105/58 L 96 04/26/20 03:59 36.2 C L 60 97/61 L 97 04/26/20 03:44 36.3 C L 60 104/62 97 04/26/20 03:29 36.3 C L 60 100/58 L 97 04/26/20 03:14 36.3 C L 58 L 99/62 L 96 04/26/20 02:59 36.3 C L 60 110/62 98 04/26/20 02:44 36.3 C L 60 109/65 98 04/26/20 02:29 36.3 C L 62 106/67 99 04/26/20 02:14 36.3 C L 60 107/59 L 98 04/26/20 02:00 60 21 98 04/26/20 01:59 36.3 C L 60 106/62 97 04/26/20 01:44 36.3 C L 60 103/67 98 04/26/20 01:29 36.3 C L 60 103/65 98 Laboratory Results Laboratory Results WBC 20.72 K/uL (4.8-10.8) H D 04/26/20 04:03 RBC 3.76 M/uL (4.2-5.4) L 04/26/20 04:03 Hgb 11.0 g/dL (12.0-16.0) L 04/26/20 04:03 POC Hgb 9.9 g/dl (12.0-16.0) L 04/26/20 06:07 Hct 31.6 % (37-47) L 04/26/20 04:03 POC Hct 29 % (37-47) L 04/26/20 06:07 MCV 84.0 fL (80-100) 04/26/20 04:03 MCH 29.3 pg (25-34) 04/26/20 04:03 MCHC 34.8 g/dL (32-36) 04/26/20 04:03 RDW Std Deviation 48.0 fL (36.4-46.3) H 04/26/20 04:03 RDW Coeff of Sarah 15.6 % (11.5-14.5) H 04/26/20 04:03 Plt Count 26 K/uL (130-400) L* 04/26/20 04:03 MPV 9.5 fL (7.4-10.4) 04/26/20 04:03 Immature Gran % (Auto) 3.3 % 04/26/20 04:03 Neut % (Auto) 83.0 % 04/26/20 04:03 Lymph % (Auto) 10.7 % 04/26/20 04:03 [place] % (Auto) 2.7 % 04/26/20 04:03 Eos % (Auto) 0.3 % 04/26/20 04:03 Baso % (Auto) 0.0 % 04/26/20 04:03 Neut # (Auto) 17.18 K/uL (1.4-6.5) H 04/26/20 04:03 Lymph # (Auto) 2.22 K/uL (1.2-3.4) 04/26/20 04:03 [place] # (Auto) 0.56 K/uL (0.11-0.59) 04/26/20 04:03 Eos # (Auto) 0.06 K/uL (0-0.5) 04/26/20 04:03 Baso # (Auto) 0.01 K/uL (0-0.2) 04/26/20 04:03 Immature Gran # (Auto) 0.69 K/uL (0.00-0.02) H 04/26/20 04:03 Absolute Nucleated RBC 0.29 K/uL (0-0) H 04/26/20 04:03 Nucleated RBC % (auto) 1.4 % 04/26/20 04:03 Neutrophils % (Manual) 77.4 % 04/23/20 17:11 Lymphocytes % (Manual) 17.4 % 04/23/20 17:11 Monocytes % (Manual) 5.2 % 04/23/20 17:11 Neutrophils # (Manual) 14.71 K/uL (1.4-6.5) H 04/23/20 17:11 Total Absolute Neuts 14.71 K/uL (1.4-6.5) H 04/23/20 17:11 Lymphocytes # (Manual) 3.31 K/uL (1.2-3.4) 04/23/20 17:11 Total Abs Lymphocytes 3.31 K/uL (1.2-3.4) 04/23/20 17:11 Monocytes # (Manual) 0.99 K/uL (0.11-0.59) H 04/23/20 17:11 Toxic Vacuolation 1+ 04/25/20 04:24 Platelet Estimate SIGNIFIC DECREASED (Normal) 04/26/20 04:03 Echinocytes 3+ 04/25/20 04:24 Peripher Smr Path Cons 04/25/20 04:24 PT 11.8 Seconds (9.0-12.0) 04/25/20 04:24 INR 1.1 (0.9-1.1) 04/25/20 04:24 APTT 39.2 Seconds (21.0-31.0) H 04/23/20 18:28 PTT Ratio 1.4 04/23/20 18:28 Specimen Type Arterial 04/23/20 17:24 Sample Site Art Line 04/26/20 06:07 POC pH 7.41 (7.35-7.45) 04/26/20 06:07 POC pCO2 17 mmHg (35-46) L 04/26/20 06:07 POC pO2 64 mmHg (80-95) L 04/26/20 06:07 POC HCO3 11 lester/L (19-24) L 04/26/20 06:07 POC Total CO2 11 mmol/L (24-31) L 04/26/20 06:07 POC Base Excess -14.0 lester/L (-9-1.8) L 04/26/20 06:07 ABG pH (Temp Correct) 7.423 (7.35-7.45) 04/26/20 06:07 ABG pCO2 (Temp Corrct 16 mmHg (35-46) L 04/26/20 06:07 POC ABG pO2 at Pt Temp 60 04/26/20 06:07 POC ABG O2 Sat 93.0 % (90-95) 04/26/20 06:07 Lorenzo Test NA 04/26/20 06:07 O2 Delivery Device Ventilator 04/26/20 06:07 POC O2 Rate 20 04/26/20 06:07 Minute Ventilation 9.5 04/24/20 03:51 POC FiO2 30 % 04/26/20 06:07 Tidal Volume 420 04/26/20 06:07 PEEP 5 04/26/20 06:07 POC Sodium 132 mmol/L (135-144) L 04/26/20 06:07 Sodium 133 mmol/L (136-145) L 04/26/20 04:03 POC Potassium 4.2 mmol/L (3.3-5.0) 04/26/20 06:07 Potassium 4.3 mmol/L (3.5-5.1) D 04/26/20 04:03 Chloride 109 mmol/L (98-107) H 04/26/20 04:03 Carbon Dioxide 14 mmol/L (21-32) L 04/26/20 04:03 Anion Gap 10.0 (3-11) 04/26/20 04:03 BUN 39 mg/dl (7-18) H 04/26/20 04:03 Creatinine 1.46 mg/dl (0.6-1.2) H 04/26/20 04:03 Est Cr Clr Drug Dosing 25.9 ml/min 04/26/20 04:03 Est GFR ( Amer) 41.0 04/26/20 04:03 Est GFR (Non-Af Amer) 35.3 04/26/20 04:03 BUN/Creatinine Ratio 26.8 (10-20) H 04/26/20 04:03 Glucose 159 mg/dl (70-99) H 04/26/20 04:03 POC Glucose > 600 mg/dl (70-99) H* 04/23/20 17:31 POC Glucose (other) 148 mg/dl (70-99) H 04/26/20 12:00 Estimat Average Glucose > 438 mg/dl 04/24/20 02:56 Hemoglobin A1c > 16.9 % (4.5-5.6) H 04/24/20 02:56 Lactate 2.5 mmol/L (0.4-2.0) H* 04/26/20 10:39 Calcium 6.0 mg/dl (8.5-10.1) L 04/26/20 04:03 Phosphorus 1.6 mg/dl (2.5-4.9) L 04/26/20 04:03 Magnesium 1.8 mg/dl (1.8-2.4) 04/26/20 04:03 Total Bilirubin 0.3 mg/dl (0.2-1) 04/26/20 04:03 Direct Bilirubin 0.2 mg/dl (0-0.2) 04/25/20 09:31 AST 81 U/L (15-37) H 04/26/20 04:03 ALT 37 U/L (12-78) 04/26/20 04:03 Alkaline Phosphatase 63 U/L (45-117) 04/26/20 04:03 Total Creatine Kinase 2970 U/L (26-192) H 04/25/20 09:31 Troponin I < 0.015 ng/ml (0-0.045) 04/23/20 18:28 Total Protein 4.6 gm/dl (6.4-8.2) L 04/26/20 04:03 Albumin 1.3 gm/dl (3.4-5.0) L 04/26/20 04:03 Globulin 3.3 gm/dl (2.5-4.0) 04/26/20 04:03 Albumin/Globulin Ratio 0.4 (0.9-2) L 04/26/20 04:03 Triglycerides 147 mg/dl (0-150) 04/25/20 09:31 Lipase 162 U/L (73-393) 04/26/20 04:03 Beta-Hydroxybutyric Acd 6.59 mg/dl (0.2-2.81) H 04/24/20 07:32 Procalcitonin 5.29 ng/ml (0-0.5) H 04/24/20 02:56 TSH 66.800 uIu/ml (0.300-4.500) H 04/24/20 02:56 Free T4 0.30 ng/dl (0.8-1.6) L 04/24/20 11:19 Free T3 0.47 pg/ml (2.3-4.2) L 04/24/20 11:19 Random Cortisol 89.31 mcg/dl 04/24/20 02:56 Urine Color Yellow 04/23/20 17:07 Urine Appearance Clear (Clear) 04/23/20 17:07 Urine pH 5.0 (4.5-7.5) 04/23/20 17:07 Ur Specific [place] 1.029 (1.000-1.030) 04/23/20 17:07 Urine Protein 2+ (Negative) H 04/23/20 17:07 Urine Glucose (UA) 3+ (Negative) H 04/23/20 17:07 Urine Ketones 2+ (Negative) H 04/23/20 17:07 Urine Blood 2+ (Negative) H 04/23/20 17:07 Urine Nitrite Negative (Negative) 04/23/20 17:07 Urine Bilirubin Negative (Negative) 04/23/20 17:07 Urine Urobilinogen Negative (Negative) 04/23/20 17:07 Ur Leukocyte Esterase Negative (Negative) 04/23/20 17:07 Urine WBC (Auto) 1-5 /hpf (0-5) 04/23/20 17:07 Urine RBC (Auto) 0-4 /hpf (0-4) 04/23/20 17:07 U Hyaline Cast (Auto) 1-5 /lpf (0-5) 04/23/20 17:07 U Epithel Cells (Auto) 5-10 /lpf (0-5) H 04/23/20 17:07 Urine Bacteria (Auto) Negative (Negative) 04/23/20 17:07 Nasal Screen MRSA (PCR) Positive (Negative) A 04/23/20 00:46 Gastric Fluid pH Cancelled 04/23/20 17:45 Gastric Occult Blood Cancelled 04/23/20 17:45 COVID-19 Eval Order Covid19 Done at [facility] 04/23/20 19:33 COVID-19 PCR NEGATIVE (Negative) 04/23/20 19:33 Miscellaneous Test Cancelled 04/23/20 17:45
--- NOTE | 2020-04-26 13:55 | Neurology Consultation ---
Date of Consultation April 26, 2020 Assessment & Plan (1) Toxic metabolic encephalopathy: Joanne Lewis is a 74 yo woman w/ PMH of asthma, bradycardia s/p pacemaker, CKD, bulimia nervosa, COPD, depression, DM c/b neuropathy, HTN, HLD, hypothyroidism, migraine, tobacco abuse and h/o migraines who p/t [facility] on 04/23/20 after being found down. # AMS: presentation is most likely secondary to severe toxic metabolic encephalopathy given recent sepsis/infection, DKA, acute renal failure with BUN greater than 100 at initial presentation, uncontrolled hypothyroidism and medications, in combination with baseline intellectual disability and severe hearing loss. From available history and her initial presentation, do not think that she actually had a true cardiac arrest. It does look like she is on midodrine at home likely for some level of diabetic dysautonomia or baseline hypotension. She also appears to have several episodes of similar DKA/hyperglycemia associated with encephalopathy both here and at [facility]. EEG shows predominantly severe generalized slowing with intermittent triphasic waves consistent with a toxic metabolic encephalopathy, as well as periods of brief attenuation which could be due to medication effect from residual propofol. -Recommend repeating CT head without contrast to see if any change in kapoor-white differentiation -Would repeat TSH in 2 weeks to ensure that it is normalizing -Continue to treat with supportive care and monitor her mental status over the next few days as it would be expected that she continues to improve -If she is still altered midweek, recommend repeating the EEG when she has been off of sedation for a longer period of time -Would strongly recommend placement in a nursing facility upon discharge to prevent recurring similar episodes in the future as she does not appear capable of taking care of herself in the setting of baseline intellectual disability -Does have new TCP, defer to primary team for further workup but would r/o TTP Thank you for this interesting consult. Plan of care discussed with primary team. Please call or text with questions. (2) DKA (diabetic ketoacidoses): (3) Cellulitis of hand: (4) Acute renal failure: History of Present Illness Attending Physician: Jose Carreon MD History of Present Illness Joanne Lewis is a 74 yo woman w/ PMH of asthma, bradycardia s/p pacemaker, CKD, bulimia nervosa, COPD, depression, DM c/b neuropathy, HTN, HLD, hypothyroidism, migraine, tobacco abuse and h/o migraines who p/t [facility] on 04/23/20 after being found down. 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 Received epi for hypotension. In the ED, she was noted to be hypothermic at 33.4C, HR 80, BP 58/37, pulse ox 100% on 15L NRB. Initial labs showed WBC 19, Hb 14.5, Plts 135, K 5.5, BUN 87, Cr 3.43, glucose 991, Phos high at 8.9, Mg high at 3.8, LFTs WNL, UA 2+ k etones/2+ protein/3+ glucose/2+ blood, no infection, INR 1.2, lactate 2.0, troponin negative. CXR no infection. CTH independently reviewed and showed no hemorrhage or hypodensity, bilateral mild basal ganglia calcifications, and stable right parieto-occipital arachnoid cyst. She remains ventilated with ability to breath over the vent, no gag/cough noted, intermittently requiring pressor support though is on propofol and rare fentanyl for sedation. She has otherwise been unresponsive. She is on clindamycin/daptomycin/zosyn for antibiotics coverage for right hand infection. Neurology consulted given her ongoing poor mental status. Most recent labs show WBC 20.72, Hb 11.0, Plts 26, ABG 7.41/71/64//11, Na 132, BUN 39, Cr 1.46, glucose 100-200s, lactate mildly high at 2.5, calcium low at 6.0, Phos low at 1.6, Mg WNL, AST mildly elevated to 81, albumin 1.3, TSH 66.8 with free T4 low, procalcitonin 5.29, COVID negative. EEG shows severe generalized slowing with 1-2 Hz triphasic waves intermixed with brief periods of attenuation. On examination today, she did not respond to voice and minimally responded to noxious stimuli with grinding on the ETT. She had no observed spontaneous movements. She did have a corneal reflex and pupillary light response. Eyes were midline but did not track examiner. Allergies Allergy/AdvReac Type Severity Reaction Status Date / Time No Known Allergies Allergy Verified 04/23/20 19:56 Home Medications Home Medications Medication Instructions Recorded Confirmed Type sertraline 25 mg tablet 25 mg PO DAILY #90 tab 01/14/19 04/23/20 History albuterol sulfate 90 mcg/actuation 2 puffs INH Q6H PRN gm 03/14/19 04/23/20 His tory aerosol inhaler aspirin 81 mg tablet,delayed 81 mg PO DAILY 03/14/19 04/23/20 History release acetaminophen 500 - 1,000 mg PO TID PRN 11/23/19 04/23/20 History atorvastatin 40 mg PO DAILY 11/23/19 04/23/20 History ergocalciferol (vitamin D2) 50,000 unit PO .[id number].[id number] 11/23/19 04/23/20 History insulin glargine [Lantus Solostar 10 unit SUBCUT DAILY 11/23/19 04/23/20 History U-100 Insulin] ipratropium-albuterol [Combivent 1 puff INHALATION QID 11/23/19 04/23/20 History Respimat] levothyroxine 200 mcg PO DAILY 11/23/19 04/23/20 History metformin 850 mg PO BIDM 11/23/19 04/23/20 History midodrine 5 mg PO BID 11/23/19 04/23/20 History ondansetron 4 mg PO Q8H PRN #30 tab 11/23/19 04/23/20 Rx insulin glargine [Basaglar KwikPen 15 unit SUBCUT QAM 01/19/20 04/23/20 History U-100 Insulin] Patient History Medical History Acute UTI Arthritis Asthma Bradycardia Bulimia nervosa Chronic kidney disease COPD (chronic obstructive pulmonary disease) Depression Diabetes Diabetes mellitus Diabetic peripheral neuropathy Hearing difficulty Hyperlipidemia Hypertension Hypothyroidism Intellectual disability Migraine headache Pacemaker Pacemaker battery depletion Palliative care encounter Tobacco use Uncontrolled type 2 diabetes mellitus Family History Other No significant family history Social History Smoking Status: Current every day smoker Hx Alcohol Use: No Hx Substance Use: No Preferred Language: Lao Communication Ability: Unable 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 CV: RRR, trace to 1+ peripheral edema PULM: intubated, off sedation Neuro Exam: MS: Obtunded, grinds ETT in response to noxious stimuli in her face. Unable to answer orientation questions, test speech/language, or cognition given ETT and mental status. CN: + corneal reflex. +pupillary light response. + dolls eyes. No cough/gag noted. Face symmetric around ETT. MOTOR: Normal bulk and tone. No spontaneous movements observed. REFLEXES: 1+ at biceps, triceps, brachioradialis, absent patella and absent Achilles bilaterally. Toes mute bilaterally. SENSORY: No withdrawal or grimace to noxious stimuli in any extremity. COORDINATION: unable to assess 2/2 mental status GAIT: unable to assess 2/2 mental status Results & Data ([facility]) Vital Signs (Past 12 Hours) Vital Signs Temp Pulse Resp BP Pulse Ox 04/26/20 12:32 65 23 95 04/26/20 12:03 35.8 C L 65 154/82 H 95 04/26/20 12:00 35.8 C L 71 94 04/26/20 11:03 35.8 C L 70 104/58 L 96 04/26/20 11:00 35.8 C L 68 97 04/26/20 10:36 60 23 97 04/26/20 10:04 35.8 C L 68 98 04/26/20 10:03 35.8 C L 68 103/59 L 98 04/26/20 09:00 35.8 C L 63 116/66 98 04/26/20 08:45 35.8 C L 60 120/74 98 04/26/20 08:29 35.8 C L 61 109/71 98 04/26/20 08:15 35.8 C L 61 108/64 98 04/26/20 08:00 35.8 C L 60 113/73 97 04/26/20 07:45 35.8 C L 60 123/68 97 04/26/20 07:43 60 25 H 98 04/26/20 07:30 35.8 C L 60 125/72 97 04/26/20 07:15 35.8 C L 61 110/71 97 04/26/20 07:00 35.8 C L 60 110/71 97 04/26/20 06:44 35.9 C L 60 100/64 94 04/26/20 06:29 35.9 C L 60 103/63 96 04/26/20 06:14 36.0 C L 60 91/64 L 94 04/26/20 05:59 36.0 C L 60 83/52 L 96 04/26/20 05:44 36.1 C L 60 83/57 L 95 04/26/20 05:29 36.1 C L 60 76/51 L 95 04/26/20 05:20 60 25 H 92 04/26/20 05:14 36.2 C L 60 81/53 L 91 04/26/20 05:00 36.2 C L 64 85/57 L 94 04/26/20 04:14 60 105/58 L 96 04/26/20 03:59 36.2 C L 60 97/61 L 97 04/26/20 03:44 36.3 C L 60 104/62 97 04/26/20 03:29 36.3 C L 60 100/58 L 97 04/26/20 03:14 36.3 C L 58 L 99/62 L 96 04/26/20 02:59 36.3 C L 60 110/62 98 04/26/20 02:44 36.3 C L 60 109/65 98 04/26/20 02:29 36.3 C L 62 106/67 99 04/26/20 02:14 36.3 C L 60 107/59 L 98 04/26/20 02:00 60 21 98 04/26/20 01:59 36.3 C L 60 106/62 97 04/26/20 01:44 36.3 C L 60 103/67 98 PG Care Time/CCT Total # of Minutes Spent Total Time Spent with Patient: Total time spent is greater than 50% in coordination of care (as documented) at patient's floor/unit and/or counseling patient: Coding Level of Care Code 66367 Initial Inpt Care Lvl 3 Diagnoses Toxic metabolic encephalopathy G92 DKA (diabetic ketoacidoses) E11.10 Cellulitis of hand L03.119 Acute renal failure N17.9 Acute renal failure type: unspecified (1) Acute renal failure Acute renal failure type: unspecified Qualified Code(s): N17.9 - Acute kidney failure, unspecified
[2020-04-26] MEDS ORDERED: Nursing to Pharmacy Communication SCH (14:30)
--- NOTE | 2020-04-26 15:10 | Electroencephalogram ---
EEG Procedure Note Date of Service April 26, 2020 Start / End Times Start Time: 1:06pm End Time: 1:26pm Referring Physician Jose Carreon History AMS, unresponsive Home Medication List Home Medications Medication Instructions Recorded Confirmed Type sertraline 25 mg tablet 25 mg PO DAILY #90 tab 01/14/19 04/23/20 History albuterol sulfate 90 mcg/actuation 2 puffs INH Q6H PRN gm 03/14/19 04/23/20 History aerosol inhaler aspirin 81 mg tablet,delayed 81 mg PO DAILY 03/14/19 04/23/20 History release acetaminophen 500 - 1,000 mg PO TID PRN 11/23/19 04/23/20 History atorvastatin 40 mg PO DAILY 11/23/19 04/23/20 History ergocalciferol (vitamin D2) 50,000 unit PO .Q2WK.MO 11/23/19 04/23/20 History insulin glargine [Lantus Solostar 10 unit SUBCUT DAILY 11/23/19 04/23/20 History U-100 Insulin] ipratropium-albuterol [Combivent 1 puff INHALATION QID 11/23/19 04/23/20 History Respimat] levothyroxine 200 mcg PO DAILY 11/23/19 04/23/20 History metformin 850 mg PO BIDM 11/23/19 04/23/20 History midodrine 5 mg PO BID 11/23/19 04/23/20 History ondansetron 4 mg PO Q8H PRN #30 tab 11/23/19 04/23/20 Rx insulin glargine [Basaglar KwikPen 15 unit SUBCUT QAM 01/19/20 04/23/20 History U-100 Insulin] Inpatient Medication List Dextrose (Dextrose 50% 50 Ml Syringe) 25 - 50 ml IV UD PRN; Protocol PRN Reason: Hypoglycemia Protocol Stop: 05/23/20 17:31 Last Admin: 04/25/20 08:17 Dose: 25 ml Documented by: [id number] Admin: 04/25/20 07:10 Dose: 25 ml Documented by: [id number] Admin: 04/25/20 04:39 Dose: 50 ml Documented by: [id number] Norepinephrine Bitartrate 8 mg (/ Dextrose) 508 mls @ 25.329 mls/hr IV .Q20H4M [facility]; Protocol Stop: 05/23/20 19:14 Last Titration: 04/26/20 14:46 Dose: 0.12 mcg/kg/min, 25.3 mls/hr Documented by: [id number] Titration: 04/26/20 14:24 Dose: 0.1 mcg/kg/min, 21.1 mls/hr Documented by: [id number] Titration: 04/26/20 14:15 Dose: 0.08 mcg/kg/min, 16.9 mls/hr Documented by: [id number] Titration: 04/26/20 14:10 Dose: 0.06 mcg/kg/min, 12.7 mls/hr Documented by: [id number] Titration: 04/26/20 12:06 Dose: 0.04 mcg/kg/min, 8.4 mls/hr Documented by: [id number] Titration: 04/26/20 09:00 Dose: 0.06 mcg/kg/min, 12.7 mls/hr Documented by: [id number] Titration: 04/26/20 08:30 Dose: 0.08 mcg/kg/min, 16.9 mls/hr Documented by: [id number] Admin: 04/26/20 07:23 Dose: Not Given Documented by: [id number] Admin: 04/26/20 07:23 Dose: Not Given Documented by: [id number] Titration: 04/26/20 06:59 Dose: 0.1 mcg/kg/min, 21.1 mls/hr Documented by: [id number] Cosigned by: [id number] Titration: 04/26/20 05:32 Dose: 0.1 mcg/kg/min, 21.1 mls/hr Documented by: [id number] Titration: 04/26/20 03:42 Dose: 0.08 mcg/kg/min, 16.9 mls/hr Documented by: [id number] Titration: 04/26/20 03:16 Dose: 0.1 mcg/kg/min, 21.1 mls/hr Documented by: [id number] Titration: 04/25/20 23:49 Dose: 0.12 mcg/kg/min, 25.3 mls/hr Documented by: [id number] Titration: 04/25/20 23:28 Dose: 0.15 mcg/kg/min, 31.7 mls/hr Documented by: [id number] Titration: 04/25/20 22:14 Dose: 0.18 mcg/kg/min, 38 mls/hr Documented by: [id number] Admin: 04/25/20 22:12 Dose: 0.2 mcg/kg/min, 42.2 mls/hr Documented by: [id number] Cosigned by: [id number] Titration: 04/25/20 22:01 Dose: 0.2 mcg/kg/min, 42.2 mls/hr Documented by: [id number] Cosigned by: [id number] Titration: 04/25/20 19:55 Dose: 0.2 mcg/kg/min, 42.2 mls/hr Documented by: [id number] Titration: 04/25/20 19:06 Dose: 0.22 mcg/kg/min, 46.4 mls/hr Documented by: [id number] Cosigned by: [id number] Titration: 04/25/20 17:59 Dose: 0.2 mcg/kg/min, 42.2 mls/hr Documented by: [id number] Cosigned by: [id number] Titration: 04/25/20 13:21 Dose: 0.17 mcg/kg/min, 35.9 mls/hr Documented by: [id number] Titration: 04/25/20 13:07 Dose: 0.15 mcg/kg/min, 31.7 mls/hr Documented by: [id number] Titration: 04/25/20 12:03 Dose: 0.14 mcg/kg/min, 29.6 mls/hr Documented by: [id number] Titration: 04/25/20 08:25 Dose: 0.12 mcg/kg/min, 25.3 mls/hr Documented by: [id number] Titration: 04/25/20 07:47 Dose: 0.1 mcg/kg/min, 21.1 mls/hr Documented by: [id number] Titration: 04/25/20 07:34 Dose: 0.08 mcg/kg/min, 16.9 mls/hr Documented by: [id number] Titration: 04/25/20 06:54 Dose: 0.07 mcg/kg/min, 14.8 mls/hr Documented by: [id number] Cosigned by: [id number] Admin: 04/25/20 06:12 Dose: 0.07 mcg/kg/min, 14.8 mls/hr Documented by: [id number] Cosigned by: [id number] Titration: 04/25/20 05:05 Dose: 0.07 mcg/kg/min, 14.8 mls/hr Documented by: [id number] Cosigned by: [id number] Titration: 04/25/20 04:56 Dose: 0.07 mcg/kg/min, 14.8 mls/hr Documented by: [id number] Titration: 04/25/20 03:46 Dose: 0.05 mcg/kg/min, 10.6 mls/hr Documented by: [id number] Titration: 04/24/20 23:47 Dose: 0.08 mcg/kg/min, 16.9 mls/hr Documented by: [id number] Titration: 04/24/20 19:40 Dose: 0.1 mcg/kg/min, 21.1 mls/hr Documented by: [id number] Titration: 04/24/20 18:51 Dose: 0.12 mcg/kg/min, 25.3 mls/hr Documented by: [id number] Cosigned by: [id number] Titration: 04/24/20 18:39 Dose: 0.12 mcg/kg/min, 25.3 mls/hr Documented by: [id number] Titration: 04/24/20 17:32 Dose: 0.1 mcg/kg/min, 21.1 mls/hr Documented by: [id number] Titration: 04/24/20 16:13 Dose: 0.12 mcg/kg/min, 25.3 mls/hr Documented by: [id number] Titration: 04/24/20 15:30 Dose: 0.14 mcg/kg/min, 29.6 mls/hr Documented by: [id number] Titration: 04/24/20 15:19 Dose: 0.16 mcg/kg/min, 33.8 mls/hr Documented by: [id number] Titration: 04/24/20 14:19 Dose: 0.18 mcg/kg/min, 38 mls/hr Documented by: [id number] Titration: 04/24/20 11:52 Dose: 0.2 mcg/kg/min, 42.2 mls/hr Documented by: [id number] Titration: 04/24/20 11:12 Dose: 0.22 mcg/kg/min, 46.4 mls/hr Documented by: [id number] Titration: 04/24/20 10:15 Dose: 0.24 mcg/kg/min, 50.7 mls/hr Documented by: [id number] Admin: 04/24/20 10:05 Dose: 0.25 mcg/kg/min, 52.8 mls/hr Documented by: [id number] Cosigned by: [id number] Titration: 04/24/20 10:05 Dose: 0.25 mcg/kg/min, 52.8 mls/hr Documented by: [id number] Cosigned by: [id number] Titration: 04/24/20 04:30 Dose: 0.25 mcg/kg/min, 52.8 mls/hr Documented by: [id number] Admin: 04/24/20 04:05 Dose: 0.27 mcg/kg/min, 57 mls/hr Documented by: [id number] Cosigned by: [id number] Titration: 04/24/20 04:05 Dose: 0.27 mcg/kg/min, 57 mls/hr Documented by: [id number] Cosigned by: [id number] Titration: 04/24/20 03:45 Dose: 0.3 mcg/kg/min, 63.3 mls/hr Documented by: [id number] Cosigned by: [id number] Titration: 04/24/20 03:30 Dose: 0.35 mcg/kg/min, 73.9 mls/hr Documented by: [id number] Cosigned by: [id number] Titration: 04/24/20 00:16 Dose: 0.4 mcg/kg/min, 84.4 mls/hr Documented by: [id number] Cosigned by: [id number] Titration: 04/23/20 23:33 Dose: 0.45 mcg/kg/min, 95 mls/hr Documented by: [id number] Titration: 04/23/20 20:21 Dose: 0.32 mcg/kg/min, 67.5 mls/hr Documented by: [id number] Titration: 04/23/20 20:05 Dose: 0.3 mcg/kg/min, 63.3 mls/hr Documented by: [id number] Titration: 04/23/20 19:55 Dose: 0.26 mcg/kg/min, 54.9 mls/hr Documented by: [id number] Titration: 04/23/20 19:23 Dose: 0.22 mcg/kg/min, 46.4 mls/hr Documented by: [id number] Titration: 04/23/20 18:56 Dose: 0.2 mcg/kg/min, 42.2 mls/hr Documented by: [id number] Titration: 04/23/20 18:51 Dose: 0.16 mcg/kg/min, 33.8 mls/hr Documented by: [id number] Titration: 04/23/20 18:41 Dose: 0.14 mcg/kg/min, 29.6 mls/hr Documented by: [id number] Titration: 04/23/20 18:36 Dose: 0.12 mcg/kg/min, 25.3 mls/hr Documented by: [id number] Admin: 04/23/20 17:26 Dose: 0.1 mcg/kg/min, 21.1 mls/hr Documented by: [id number] Cosigned by: [id number] Insulin Human Regular 250 (units/ Sodium Chloride) 250 mls @ 1 mls/hr IV .Q24H [facility]; Protocol Stop: 05/23/20 17:44 Last Titration: 04/26/20 14:45 Dose: 1 units/hr, 1 mls/hr Documented by: [id number] Cosigned by: [id number] Admin: 04/26/20 11:32 Dose: Not Given Documented by: [id number] Cosigned by: [id number] Titration: 04/26/20 10:15 Dose: 0 units/hr, 0 mls/hr Documented by: [id number] Cosigned by: [id number] Titration: 04/26/20 08:00 Dose: 4.2 units/hr, 4.2 mls/hr Documented by: [id number] Cosigned by: [id number] Admin: 04/26/20 07:57 Dose: Not Given Documented by: [id number] Cosigned by: [id number] Admin: 04/26/20 07:24 Dose: Not Given Documented by: [id number] Cosigned by: [id number] Titration: 04/26/20 06:59 Dose: 4.2 units/hr, 4.2 mls/hr Documented by: [id number] Cosigned by: [id number] Titration: 04/26/20 03:41 Dose: 4.2 units/hr, 4.2 mls/hr Documented by: [id number] Cosigned by: [id number] Admin: 04/26/20 03:41 Dose: 4.2 units/hr, 4.2 mls/hr Documented by: [id number] Cosigned by: [id number] Titration: 04/26/20 03:00 Dose: 4.2 units/hr, 4.2 mls/hr Documented by: [id number] Cosigned by: [id number] Titration: 04/26/20 02:00 Dose: 4.2 units/hr, 4.2 mls/hr Documented by: [id number] Cosigned by: [id number] Titration: 04/26/20 01:00 Dose: 4.2 units/hr, 4.2 mls/hr Documented by: [id number] Cosigned by: [id number] Titration: 04/26/20 00:00 Dose: 4.2 units/hr, 4.2 mls/hr Documented by: [id number] Cosigned by: [id number] Titration: 04/25/20 23:00 Dose: 4.2 units/hr, 4.2 mls/hr Documented by: [id number] Cosigned by: [id number] Titration: 04/25/20 22:00 Dose: 4.2 units/hr, 4.2 mls/hr Documented by: [id number] Cosigned by: [id number] Titration: 04/25/20 21:00 Dose: 4.2 units/hr, 4.2 mls/hr Documented by: [id number] Cosigned by: [id number] Titration: 04/25/20 20:00 Dose: 4.2 units/hr, 4.2 mls/hr Documented by: [id number] Cosigned by: [id number] Titration: 04/25/20 19:06 Dose: 3.5 units/hr, 3.5 mls/hr Documented by: [id number] Cosigned by: [id number] Titration: 04/25/20 18:00 Dose: 3.5 units/hr, 3.5 mls/hr Documented by: [id number] Cosigned by: [id number] Titration: 04/25/20 17:09 Dose: 2.9 units/hr, 2.9 mls/hr Documented by: [id number] Cosigned by: [id number] Titration: 04/25/20 16:00 Dose: 2.4 units/hr, 2.4 mls/hr Documented by: [id number] Cosigned by: [id number] Titration: 04/25/20 14:59 Dose: 2 units/hr, 2 mls/hr Documented by: [id number] Cosigned by: [id number] Titration: 04/25/20 13:59 Dose: 2 units/hr, 2 mls/hr Documented by: [id number] Cosigned by: [id number] Titration: 04/25/20 12:57 Dose: 2 units/hr, 2 mls/hr Documented by: [id number] Cosigned by: [id number] Titration: 04/25/20 10:06 Dose: 0 units/hr, 0 mls/hr Documented by: [id number] Cosigned by: [id number] Titration: 04/25/20 09:31 Dose: 3.3 units/hr, 3.3 mls/hr Documented by: [id number] Cosigned by: [id number] Titration: 04/25/20 09:05 Dose: 0 units/hr, 0 mls/hr Documented by: [id number] Cosigned by: [id number] Titration: 04/25/20 08:36 Dose: 5.5 units/hr, 5.5 mls/hr Documented by: [id number] Cosigned by: [id number] Titration: 04/25/20 08:17 Dose: 0 units/hr, 0 mls/hr Documented by: [id number] Cosigned by: [id number] Titration: 04/25/20 08:02 Dose: 0 units/hr, 0 mls/hr Documented by: [id number] Cosigned by: [id number] Titration: 04/25/20 07:30 Dose: 9.8 units/hr, 9.8 mls/hr Documented by: [id number] Cosigned by: [id number] Titration: 04/25/20 07:10 Dose: 0 units/hr, 0 mls/hr Documented by: [id number] Cosigned by: [id number] Titration: 04/25/20 06:54 Dose: 15.4 units/hr, 15.4 mls/hr Documented by: [id number] Cosigned by: [id number] Titration: 04/25/20 04:13 Dose: 15.4 units/hr, 15.4 mls/hr Documented by: [id number] Cosigned by: [id number] Titration: 04/25/20 03:30 Dose: 0 units/hr, 0 mls/hr Documented by: [id number] Cosigned by: [id number] Titration: 04/25/20 03:10 Dose: 0 units/hr, 0 mls/hr Documented by: [id number] Cosigned by: [id number] Titration: 04/25/20 02:00 Dose: 25.6 units/hr, 25.6 mls/hr Documented by: [id number] Cosigned by: [id number] Titration: 04/25/20 01:09 Dose: 32 units/hr, 32 mls/hr Documented by: [id number] Cosigned by: [id number] Admin: 04/25/20 00:36 Dose: 40 units/hr, 40 mls/hr Documented by: [id number] Cosigned by: [id number] Titration: 04/24/20 23:04 Dose: 50 units/hr, 50 mls/hr Documented by: [id number] Cosigned by: [id number] Titration: 04/24/20 23:00 Dose: 50 units/hr, 50 mls/hr Documented by: [id number] Cosigned by: [id number] Titration: 04/24/20 22:00 Dose: 50 units/hr, 50 mls/hr Documented by: [id number] Cosigned by: [id number] Titration: 04/24/20 21:00 Dose: 49 units/hr, 49 mls/hr Documented by: [id number] Cosigned by: [id number] Titration: 04/24/20 20:00 Dose: 49 units/hr, 49 mls/hr Documented by: [id number] Cosigned by: [id number] Titration: 04/24/20 19:00 Dose: 49 units/hr, 49 mls/hr Documented by: [id number] Cosigned by: [id number] Titration: 04/24/20 18:51 Dose: 49 units/hr, 49 mls/hr Documented by: [id number] Cosigned by: [id number] Titration: 04/24/20 18:06 Dose: 49 units/hr, 49 mls/hr Documented by: [id number] Cosigned by: [id number] Admin: 04/24/20 17:59 Dose: 49 units/hr, 49 mls/hr Documented by: [id number] Cosigned by: [id number] Titration: 04/24/20 17:37 Dose: 49 units/hr, 49 mls/hr Documented by: [id number] Cosigned by: [id number] Titration: 04/24/20 17:32 Dose: 49 units/hr, 49 mls/hr Documented by: [id number] Cosigned by: [id number] Titration: 04/24/20 15:14 Dose: 49 units/hr, 49 mls/hr Documented by: [id number] Cosigned by: [id number] Titration: 04/24/20 14:12 Dose: 40.8 units/hr, 40.8 mls/hr Documented by: [id number] Cosigned by: [id number] Titration: 04/24/20 13:10 Dose: 34 units/hr, 34 mls/hr Documented by: [id number] Cosigned by: [id number] Titration: 04/24/20 12:18 Dose: 34 units/hr, 34 mls/hr Documented by: [id number] Cosigned by: [id number] Admin: 04/24/20 11:21 Dose: 28.3 units/hr, 28.3 mls/hr Documented by: [id number] Cosigned by: [id number] Titration: 04/24/20 11:21 Dose: 28.3 units/hr, 28.3 mls/hr Documented by: [id number] Cosigned by: [id number] Titration: 04/24/20 11:11 Dose: 28.3 units/hr, 28.3 mls/hr Documented by: [id number] Cosigned by: [id number] Titration: 04/24/20 10:13 Dose: 23.6 units/hr, 23.6 mls/hr Documented by: [id number] Cosigned by: [id number] Titration: 04/24/20 09:10 Dose: 19.7 units/hr, 19.7 mls/hr Documented by: [id number] Cosigned by: [id number] Titration: 04/24/20 08:05 Dose: 16.4 units/hr, 16.4 mls/hr Documented by: [id number] Cosigned by: [id number] Titration: 04/24/20 07:07 Dose: 16.4 units/hr, 16.4 mls/hr Documented by: [id number] Cosigned by: [id number] Titration: 04/24/20 06:17 Dose: 16.4 units/hr, 16.4 mls/hr Documented by: [id number] Cosigned by: [id number] Titration: 04/24/20 05:00 Dose: 16.4 units/hr, 16.4 mls/hr Documented by: [id number] Cosigned by: [id number] Titration: 04/24/20 04:00 Dose: 13.7 units/hr, 13.7 mls/hr Documented by: [id number] Cosigned by: [id number] Titration: 04/24/20 03:00 Dose: 11.4 units/hr, 11.4 mls/hr Documented by: [id number] Cosigned by: [id number] Titration: 04/24/20 02:00 Dose: 9.5 units/hr, 9.5 mls/hr Documented by: [id number] Cosigned by: [id number] Titration: 04/24/20 01:00 Dose: 7.9 units/hr, 7.9 mls/hr Documented by: [id number] Cosigned by: [id number] Titration: 04/23/20 21:30 Dose: 6.6 units/hr, 6.6 mls/hr Documented by: [id number] Cosigned by: [id number] Admin: 04/23/20 18:04 Dose: 5.5 units/hr, 5.5 mls/hr Documented by: [id number] Cosigned by: [id number] Clindamycin Phosphate 600 mg/ (Dextrose) 54 mls @ 100 mls/hr IV Q8H [facility] Stop: 04/30/20 19:44 Last Infusion: 04/26/20 12:33 Dose: 0 mls/hr Documented by: [id number] Admin: 04/26/20 11:53 Dose: 100 mls/hr Documented by: [id number] Infusion: 04/26/20 05:23 Dose: 0 mls/hr Documented by: [id number] Admin: 04/26/20 04:16 Dose: 100 mls/hr Documented by: [id number] Infusion: 04/25/20 21:17 Dose: 0 mls/hr Documented by: [id number] Admin: 04/25/20 20:01 Dose: 100 mls/hr Documented by: [id number] Infusion: 04/25/20 13:18 Dose: 0 mls/hr Documented by: [id number] Admin: 04/25/20 12:05 Dose: 100 mls/hr Documented by: [id number] Infusion: 04/25/20 06:54 Dose: 0 mls/hr Documented by: [id number] Admin: 04/25/20 04:38 Dose: 100 mls/hr Documented by: [id number] Infusion: 04/24/20 21:40 Dose: 0 mls/hr Documented by: [id number] Admin: 04/24/20 20:58 Dose: 100 mls/hr Documented by: [id number] Infusion: 04/24/20 14:28 Dose: 0 mls/hr Documented by: [id number] Admin: 04/24/20 13:26 Dose: 100 mls/hr Documented by: [id number] Infusion: 04/24/20 05:33 Dose: 0 mls/hr Documented by: [id number] Admin: 04/24/20 04:38 Dose: 100 mls/hr Documented by: [id number] Infusion: 04/23/20 20:31 Dose: 0 mls/hr Documented by: [id number] Admin: 04/23/20 19:58 Dose: 100 mls/hr Documented by: [id number] Daptomycin 325 mg/ Syringe 6.5 mls @ 3.25 mls/min IV Q48H [facility]; Protocol Stop: 05/02/20 17:59 Last Admin: 04/25/20 17:58 Dose: 3.25 mls/min Documented by: [id number] Propofol (Diprivan) 1,000 mg in 100 mls @ 0 mls/hr IV .Q0M [facility]; Protocol Stop: 04/27/20 08:14 Last Titration: 04/26/20 08:30 Dose: 0 mcg/kg/min, 0 mls/hr Documented by: [id number] Titration: 04/26/20 06:59 Dose: 20 mcg/kg/min, 6.6 mls/hr Documented by: [id number] Cosigned by: [id number] Admin: 04/26/20 05:27 Dose: 20 mcg/kg/min, 6.6 mls/hr Documented by: [id number] Cosigned by: [id number] Titration: 04/26/20 04:17 Dose: 20 mcg/kg/min, 6.6 mls/hr Documented by: [id number] Cosigned by: [id number] Titration: 04/25/20 19:06 Dose: 20 mcg/kg/min, 6.6 mls/hr Documented by: [id number] Cosigned by: [id number] Admin: 04/25/20 13:07 Dose: 20 mcg/kg/min, 6.6 mls/hr Documented by: [id number] Cosigned by: [id number] Titration: 04/25/20 13:07 Dose: 20 mcg/kg/min, 6.6 mls/hr Documented by: [id number] Cosigned by: [id number] Titration: 04/25/20 06:54 Dose: 20 mcg/kg/min, 6.6 mls/hr Documented by: [id number] Cosigned by: [id number] Admin: 04/24/20 22:49 Dose: 20 mcg/kg/min, 6.6 mls/hr Documented by: [id number] Cosigned by: [id number] Titration: 04/24/20 22:49 Dose: 20 mcg/kg/min, 6.6 mls/hr Documented by: [id number] Cosigned by: [id number] Titration: 04/24/20 18:51 Dose: 20 mcg/kg/min, 6.6 mls/hr Documented by: [id number] Cosigned by: [id number] Admin: 04/24/20 09:35 Dose: 20 mcg/kg/min, 6.6 mls/hr Documented by: [id number] Cosigned by: [id number] Pantoprazole Sodium 40 mg/ (Syringe) 10 mls @ 5 mls/min IV BID [facility] Stop: 05/25/20 20:59 Last Admin: 04/26/20 10:26 Dose: 5 mls/min Documented by: [id number] Admin: 04/25/20 20:04 Dose: 5 mls/min Documented by: [id number] Piperacillin Sod/Tazobactam (Sod 4.5 gm/ Dextrose) 120 mls @ 30 mls/hr IV Q8H [facility]; Protocol Stop: 05/01/20 11:59 Last Admin: 04/26/20 11:53 Dose: 30 mls/hr Documented by: [id number] Infusion: 04/26/20 08:20 Dose: 0 mls/hr Documented by: [id number] Admin: 04/26/20 04:15 Dose: 30 mls/hr Documented by: [id number] Infusion: 04/26/20 00:20 Dose: 0 mls/hr Documented by: [id number] Admin: 04/25/20 20:01 Dose: 30 mls/hr Documented by: [id number] Infusion: 04/25/20 16:18 Dose: 0 mls/hr Documented by: [id number] Admin: 04/25/20 12:03 Dose: 30 mls/hr Documented by: [id number] Sodium Phosphate 30 mmol/ (Sodium Chloride) 510 mls @ 88 mls/hr IV ONE ONE Stop: 04/26/20 17:17 Last Admin: 04/26/20 11:53 Dose: 88 mls/hr Documented by: [id number] Insulin Aspart (Insulin Aspart 100 Units/Ml 3 Ml Pen) 0 units SC ACHS [facility] Stop: 05/24/20 07:29 Last Admin: 04/26/20 11:33 Dose: Not Given Documented by: [id number] Cosigned by: [id number] Admin: 04/26/20 07:56 Dose: Not Given Documented by: [id number] Cosigned by: [id number] Admin: 04/25/20 20:31 Dose: Not Given Documented by: [id number] Cosigned by: [id number] Admin: 04/25/20 16:17 Dose: Not Given Documented by: [id number] Cosigned by: [id number] Admin: 04/25/20 11:08 Dose: Not Given Documented by: [id number] Cosigned by: [id number] Admin: 04/25/20 08:57 Dose: Not Given Documented by: [id number] Cosigned by: [id number] Admin: 04/24/20 20:59 Dose: Not Given Documented by: [id number] Cosigned by: [id number] Admin: 04/24/20 17:33 Dose: Not Given Documented by: [id number] Cosigned by: [id number] Admin: 04/24/20 11:53 Dose: Not Given Documented by: [id number] Cosigned by: [id number] Admin: 04/24/20 07:10 Dose: Not Given Documented by: [id number] Cosigned by: [id number] Levothyroxine Sodium (Levothyroxine Sodium 88 Mcg Tablet) [facility] Stop: 05/26/20 06:29 Last Admin: 04/26/20 07:56 Dose: 88 mcg Documented by: [id number] Discontinued Medications Etomidate (Etomidate 2 Mg/Ml 20 Ml Vial) 15 mg IV NOW ONE Stop: 04/23/20 17:02 Last Admin: 04/23/20 17:28 Dose: 15 mg Documented by: [id number] Midazolam HCl (Versed) 125 mg in 250 mls @ 4 mls/hr IV .[id number] [facility]; Protocol Stop: 05/23/20 17:14 Last Titration: 04/24/20 10:15 Dose: 0 mg/hr, 0 mls/hr Documented by: [id number] Cosigned by: [id number] Titration: 04/23/20 20:06 Dose: 2 mg/hr, 4 mls/hr Documented by: [id number] Cosigned by: [id number] Titration: 04/23/20 17:55 Dose: 3 mg/hr, 6 mls/hr Documented by: [id number] Cosigned by: [id number] Titration: 04/23/20 17:33 Dose: 2 mg/hr, 4 mls/hr Documented by: [id number] Cosigned by: [id number] Admin: 04/23/20 17:22 Dose: 1 mg/hr, 2 mls/hr Documented by: [id number] Cosigned by: [id number] Norepinephrine Bitartrate 4 mg (/ Dextrose) 254 mls @ 21.107 mls/hr IV .Q12H3M [facility]; Protocol Stop: 04/23/20 19:15 Last Admin: 04/23/20 17:36 Dose: Not Given Documented by: [id number] Daptomycin 325 mg/ Syringe 6.5 mls @ 3.25 mls/min IV NOW ONE; Protocol Stop: 04/23/20 17:46 Last Admin: 04/23/20 17:59 Dose: 3.25 mls/min Documented by: [id number] Sodium Chloride (Nss 1000ml) 1,000 mls @ 999 mls/hr IV .Q1H1M [facility] Stop: 04/23/20 18:45 Last Infusion: 04/23/20 18:05 Dose: 0 mls/hr Documented by: [id number] Admin: 04/23/20 17:00 Dose: 999 mls/hr Documented by: [id number] Sodium Chloride (Nss 1000ml) 1,000 mls @ 999 mls/hr IV .Q1H1M YURIDIA Stop: 04/23/20 20:36 Last Infusion: 04/23/20 18:05 Dose: 0 mls/hr Documented by: [id number] Admin: 04/23/20 17:00 Dose: 999 mls/hr Documented by: [id number] Sodium Chloride (Nss 1000ml) 1,000 mls @ 999 mls/hr IV .Q1H1M YURIDIA Stop: 04/23/20 19:36 Last Infusion: 04/23/20 18:05 Dose: 0 mls/hr Documented by: [id number] Admin: 04/23/20 17:00 Dose: 999 mls/hr Documented by: [id number] Piperacillin Sod/Tazobactam Sod (Zosyn) 4.5 gm in 120 mls @ 240 mls/hr IV NOW ONE Stop: 04/23/20 18:02 Last Admin: 04/23/20 18:53 Dose: Not Given Documented by: [id number] Parenteral Electrolytes (Normosol-R) 1,000 mls @ 125 mls/hr IV .Q8H YURIDIA Stop: 05/23/20 23:04 Last Infusion: 04/24/20 00:57 Dose: 0 mls/hr Documented by: [id number] Admin: 04/23/20 23:34 Dose: 125 mls/hr Documented by: [id number] Famotidine 20 mg/ Syringe 5 mls @ 2.5 mls/min IV BID YURIDIA Stop: 05/23/20 23:29 Last Admin: 04/25/20 20:01 Dose: 2.5 mls/min Documented by: [id number] Admin: 04/25/20 11:07 Dose: 2.5 mls/min Documented by: [id number] Admin: 04/24/20 20:59 Dose: 2.5 mls/min Documented by: [id number] Admin: 04/24/20 09:34 Dose: 2.5 mls/min Documented by: [id number] Admin: 04/24/20 00:54 Dose: 2.5 mls/min Documented by: [id number] Vasopressin 20 units/ Sodium (Chloride) 101 mls @ 0 mls/hr IV .Q0M YURIDIA Stop: 05/23/20 23:14 Last Infusion: 04/26/20 10:19 Dose: 0 unit/min, 0 mls/hr Documented by: [id number] Infusion: 04/26/20 08:49 Dose: 0 unit/min, 0 mls/hr Documented by: [id number] Infusion: 04/26/20 06:59 Dose: 0.04 unit/min, 12.1 mls/hr Documented by: [id number] Cosigned by: [id number] Admin: 04/26/20 03:11 Dose: 0.04 unit/min, 12.1 mls/hr Documented by: [id number] Cosigned by: [id number] Infusion: 04/26/20 02:20 Dose: 0.04 unit/min, 12.1 mls/hr Documented by: [id number] Cosigned by: [id number] Infusion: 04/25/20 19:06 Dose: 0.04 unit/min, 12.1 mls/hr Documented by: [id number] Cosigned by: [id number] Admin: 04/25/20 17:59 Dose: 0.04 unit/min, 12.1 mls/hr Documented by: [id number] Cosigned by: [id number] Infusion: 04/25/20 17:59 Dose: 0.04 unit/min, 12.1 mls/hr Documented by: [id number] Cosigned by: [id number] Admin: 04/25/20 10:07 Dose: 0.04 unit/min, 12.1 mls/hr Documented by: [id number] Cosigned by: [id number] Infusion: 04/25/20 08:51 Dose: 0.04 unit/min, 12.1 mls/hr Documented by: [id number] Cosigned by: [id number] Infusion: 04/25/20 06:54 Dose: 0.04 unit/min, 12.1 mls/hr Documented by: [id number] Cosigned by: [id number] Admin: 04/25/20 00:30 Dose: 0.04 unit/min, 12.1 mls/hr Documented by: [id number] Cosigned by: [id number] Infusion: 04/25/20 00:07 Dose: 0.04 unit/min, 12.1 mls/hr Documented by: [id number] Cosigned by: [id number] Infusion: 04/24/20 18:51 Dose: 0.04 unit/min, 12.1 mls/hr Documented by: [id number] Cosigned by: [id number] Admin: 04/24/20 15:46 Dose: 0.04 unit/min, 12.1 mls/hr Documented by: [id number] Cosigned by: [id number] Infusion: 04/24/20 15:46 Dose: 0.04 unit/min, 12.1 mls/hr Documented by: [id number] Cosigned by: [id number] Admin: 04/24/20 08:28 Dose: 0.04 unit/min, 12.1 mls/hr Documented by: [id number] Cosigned by: [id number] Infusion: 04/24/20 07:53 Dose: 0.04 unit/min, 12.1 mls/hr Documented by: [id number] Cosigned by: [id number] Admin: 04/23/20 23:32 Dose: 0.04 unit/min, 12.1 mls/hr Documented by: [id number] Cosigned by: [id number] Sodium Chloride (1/2 Nss) 1,000 mls @ 200 mls/hr IV .Q5H YURIDIA Stop: 05/23/20 23:44 Last Admin: 04/24/20 01:44 Dose: Not Given Documented by: [id number] Piperacillin Sod/Tazobactam (Sod 3.375 gm/ Dextrose) 115 mls @ 28.75 mls/hr IV Q12H YURIDIA; Protocol Stop: 05/01/20 01:59 Last Infusion: 04/24/20 05:34 Dose: 0 mls/hr Documented by: [id number] Admin: 04/24/20 01:46 Dose: 28.8 mls/hr Documented by: [id number] Fentanyl Citrate (Fentanyl Drip) 1,250 mcg in 250 mls @ 5 mls/hr IV .Q50H YURIDIA; Protocol Stop: 05/08/20 00:59 Last Admin: 04/26/20 03:48 Dose: Not Given Documented by: [id number] Titration: 04/24/20 10:15 Dose: 0 mcg/hr, 0 mls/hr Documented by: [id number] Cosigned by: [id number] Admin: 04/24/20 01:16 Dose: 25 mcg/hr, 5 mls/hr Documented by: [id number] Cosigned by: [id number] Potassium Chloride 40 meq/ (Sodium Chloride) 1,020 mls @ 200 mls/hr IV .Q5H6M YURIDIA Stop: 05/24/20 01:29 Last Infusion: 04/24/20 13:26 Dose: 0 mls/hr Documented by: [id number] Admin: 04/24/20 11:26 Dose: 200 mls/hr Documented by: [id number] Infusion: 04/24/20 11:26 Dose: 200 mls/hr Documented by: [id number] Admin: 04/24/20 06:35 Dose: 200 mls/hr Documented by: [id number] Infusion: 04/24/20 06:35 Dose: 0 mls/hr Documented by: [id number] Admin: 04/24/20 06:16 Dose: 200 mls/hr Documented by: [id number] Infusion: 04/24/20 06:16 Dose: 200 mls/hr Documented by: [id number] Admin: 04/24/20 01:45 Dose: 200 mls/hr Documented by: [id number] Potassium Chloride (K Romaine / Wtr) 20 meq in 100 mls @ 50 mls/hr IV ONE ONE Stop: 04/24/20 03:14 Last Infusion: 04/24/20 04:14 Dose: 0 mls/hr Documented by: [id number] Admin: 04/24/20 01:46 Dose: 50 mls/hr Documented by: [id number] Parenteral Electrolytes (Normosol-R) 1,000 mls @ 999 mls/hr IV .Q1H1M ONE Stop: 04/24/20 06:11 Last Infusion: 04/24/20 08:05 Dose: 0 mls/hr Documented by: [id number] Admin: 04/24/20 05:45 Dose: 999 mls/hr Documented by: [id number] Sodium Phosphate 30 mmol/ (Sodium Chloride) 510 mls @ 100 mls/hr IV 0900 ONE Stop: 04/24/20 14:05 Last Infusion: 04/24/20 14:28 Dose: 0 mls/hr Documented by: [id number] Admin: 04/24/20 09:33 Dose: 100 mls/hr Documented by: [id number] Piperacillin Sod/Tazobactam (Sod 4.5 gm/ Dextrose) 120 mls @ 30 mls/hr IV Q12H [facility]; Protocol Stop: 05/01/20 13:59 Last Infusion: 04/25/20 06:54 Dose: 0 mls/hr Documented by: [id number] Admin: 04/25/20 02:05 Dose: 28.8 mls/hr Documented by: [id number] Infusion: 04/24/20 17:58 Dose: 0 mls/hr Documented by: [id number] Admin: 04/24/20 13:28 Dose: 30 mls/hr Documented by: [id number] Potassium Chloride/Dextrose/Sod Cl (D5w And 1/2nss + 20meq Kcl) 20 meq in 1,000 mls @ 150 mls/hr IV .Q6H40M YURIDIA Stop: 05/24/20 12:59 Last Infusion: 04/25/20 19:06 Dose: 0 mls/hr Documented by: [id number] Admin: 04/25/20 16:23 Dose: 150 mls/hr Documented by: [id number] Infusion: 04/25/20 16:23 Dose: 150 mls/hr Documented by: [id number] Admin: 04/25/20 10:08 Dose: 150 mls/hr Documented by: [id number] Infusion: 04/25/20 09:41 Dose: 150 mls/hr Documented by: [id number] Admin: 04/25/20 03:00 Dose: 150 mls/hr Documented by: [id number] Infusion: 04/25/20 02:51 Dose: 150 mls/hr Documented by: [id number] Admin: 04/24/20 20:10 Dose: 150 mls/hr Documented by: [id number] Infusion: 04/24/20 20:07 Dose: 150 mls/hr Documented by: [id number] Admin: 04/24/20 13:26 Dose: 150 mls/hr Documented by: [id number] Magnesium Sulfate/Dextrose (Magnesium Sulfate / D5w) 1 gm in 100 mls @ 50 mls/hr IV Q2H YURIDIA Stop: 04/25/20 00:14 Last Infusion: 04/25/20 00:30 Dose: 0 mls/hr Documented by: [id number] Admin: 04/24/20 22:17 Dose: 50 mls/hr Documented by: [id number] Infusion: 04/24/20 22:17 Dose: 50 mls/hr Documented by: [id number] Admin: 04/24/20 20:59 Dose: 50 mls/hr Documented by: [id number] Potassium Phosphate 30 mmol/ (Sodium Chloride) 510 mls @ 102 mls/hr IV TODAY@0930 ONE Stop: 04/25/20 14:29 Last Infusion: 04/25/20 16:25 Dose: 0 mls/hr Documented by: [id number] Admin: 04/25/20 10:41 Dose: 102 mls/hr Documented by: [id number] Calcium Gluconate 1,000 mg/ (Sodium Chloride) 60 mls @ 240 mls/hr IV 1830 ONE Stop: 04/25/20 18:44 Last Infusion: 04/25/20 19:06 Dose: 0 mls/hr Documented by: [id number] Admin: 04/25/20 18:48 Dose: 240 mls/hr Documented by: [id number] Dextrose/Sodium Chloride (D5w And 1/2nss) 1,000 mls @ 80 mls/hr IV .[id number] YURIDIA Stop: 05/25/20 18:29 Last Infusion: 04/26/20 10:19 Dose: 0 mls/hr Documented by: [id number] Infusion: 04/26/20 08:49 Dose: 0 mls/hr Documented by: [id number] Admin: 04/26/20 07:56 Dose: 80 mls/hr Documented by: [id number] Infusion: 04/26/20 07:18 Dose: 80 mls/hr Documented by: [id number] Infusion: 04/25/20 19:06 Dose: 80 mls/hr Documented by: [id number] Admin: 04/25/20 18:48 Dose: 80 mls/hr Documented by: [id number] Parenteral Electrolytes (Normosol-R) 1,000 mls @ 999 mls/hr IV .Q1H1M ONE Stop: 04/25/20 23:53 Last Infusion: 04/26/20 00:45 Dose: 0 mls/hr Documented by: [id number] Admin: 04/25/20 23:43 Dose: 999 mls/hr Documented by: [id number] Furosemide 40 mg/ Syringe 4 mls @ 4 mls/min IV NOW STA Stop: 04/26/20 10:04 Last Admin: 04/26/20 10:26 Dose: 4 mls/min Documented by: [id number] Influenza Virus Vaccine Quadrival (Influenza Virus Quad Vaccine 0.5 Ml Syr) 0.5 ml IM .ONCE ONE Stop: 04/24/20 08:01 Last Admin: 04/24/20 08:29 Dose: Not Given Documented by: [id number] Insulin Aspart (Insulin Aspart 100 Units/Ml 3 Ml Pen) 0 units SC ACHS YURIDIA Stop: 05/23/20 20:59 Last Admin: 04/23/20 23:47 Dose: Not Given Documented by: [id number] Cosigned by: [id number] Insulin Human Regular (Novolin-R Bolus From Bag) 5 units IV ONE ONE Stop: 04/23/20 17:46 Last Admin: 04/23/20 18:03 Dose: 5 units Documented by: [id number] Cosigned by: [id number] Miscellaneous (Rapid Sequence Induction Bag) Confirm Administered Dose 1 ea .ROUTE .STK-MED ONE Stop: 04/23/20 16:55 Last Admin: 04/23/20 17:00 Dose: 1 ea Documented by: [id number] Piperacillin Sod/Tazobactam Sod (Piperacillin/Tazobactam 4.5 Gm/120ml D5w) Confirm Administered Dose 4.5 gm .ROUTE .STK-MED ONE Stop: 04/23/20 17:10 Last Admin: 04/23/20 17:33 Dose: 4.5 gm Documented by: [id number] Pneumococcal Polyvalent Vaccine (Pneumococcal Polysaccharides 25 Mcg/0.5 Ml Vial/Syr) 25 mcg IM .ONCE ONE Stop: 04/24/20 08:01 Last Admin: 04/24/20 08:30 Dose: Not Given Documented by: [id number] Succinylcholine Chloride (Succinylcholine Chloride 20 Mg/Ml 10 Ml Vial) 80 mg IV NOW ONE Stop: 04/23/20 17:03 Last Admin: 04/23/20 17:02 Dose: 80 mg Documented by: [id number] Description This is a 21 electrode EEG with a single channel dedicated to limited EKG. The electrodes were placed in accordance with the International 10-20 system. History: septic shock, unresponsive Rx: propofol/fentanyl within last day Start/Stop: 1:06pm/1:26pm Attending reading: Dana Brice EEG Description: EEG background: Background was low voltage with predominantly 1-2 Hz delta slowing with brief (1-2 second) periods of attenuation intermittently. No well formed posterior dominant rhythm was observed. The EEG has periods of discontinuity. There is variability present, no clear reactivity noted. Activation and reactivity: Photic stimulation performed without any abnormalities noted. No photic driving observed. Hyperventilation was not performed. Sleep: No sleep architecture was observed. Epileptiform discharges: No epileptiform discharges were observed. Rhythmic and periodic patterns: 1-2 Hz frontally predominant triphasic waves were noted. No other rhythmic or periodic patterns noted. Seizures: None Impression: This was an abnormal EEG consistent with severe generalized encephalopathy which could be from a toxic-metabolic cause, medications or global cerebral dysfunction. No seizures or epileptiform discharges were seen. Periods of discontinuity could be from medication effect (propofol). [facility] [place] Codes Indication for Procedure (1) Toxic metabolic encephalopathy: Neurology Neurology: 54055 EEG include record awake & drowsy
[2020-04-26] MEDS ORDERED: STAT IV Infusion **Titration per Protocol STA (15:13)
[2020-04-26 15:54] LABS: iSTAT Art Bld Gas pCO2 Correct 14 mmHg (35-46); iSTAT Art Bld Gas pH Corrected 7.426 (7.35-7.45); iSTAT Arterial Blood Gas HCO3 9 meg/L (19-24); iSTAT Arterial Blood Gas pCO2 14 mmHg (35-46); iSTAT Arterial Blood Gas pH 7.42 (7.35-7.45); iSTAT Arterial Blood Gas pO2 91 mmHg (80-95); iSTAT Arterial Blood Gas pO2 C 88; iSTAT Carbon Dioxide 10 mmol/L (24-31); iSTAT FiO2 30 %; iSTAT Hematocrit 33 % (37-47); iSTAT Hemoglobin 11.2 g/dl (12.0-16.0); iSTAT Potassium 4.7 mmol/L (3.3-5.0); iSTAT Site Art Line; iSTAT Sodium 132 mmol/L (135-144)
[2020-04-26] MEDS ORDERED: SODIUM BICARB 8.4% INJ 50 MEQ/50 ML SYR IV ONE (16:30)
--- NOTE | 2020-04-26 16:49 | XRay Report ---
XR chest 1V portable HISTORY: hypotension COMPARISON: Chest 04/25/2020. FINDINGS: The endotracheal tube terminates approximately 5.8 cm of the kaila. Right jugular central venous catheter terminates at the brachiocephalic/SVC junction. This is also unchanged. Nasogastric t ube terminates below the diaphragm. The tip is not included on this study. There is a left-sided dual -chamber pacemaker. No pneumothorax. Trace bilateral pleural effusions and hazy bibasilar opacities p ersist. No evidence for pulmonary edema. IMPRESSION: 1. Endotracheal tube terminates 5.8 cm from the kaila. This could be advanced by approximately 2 to 3 cm. 2. Otherwise, satisfactory support line placement. 3. Trace bilateral pleural effusions and hazy bibasilar densities persist. ACT 112: Negative or not required by law. Electronically signed by: Drake Galarza M.D. 04/26/2020 4:48 PM
[2020-04-26] MEDS: MIDODRINE HCL 2.5 MG TAB PO SCH (17:07)
[2020-04-26] MEDS: SODIUM BICARBONATE 8.4% 150 MEQ in WATER, STERILE 1,000 ML IV SCH (17:07)
[2020-04-27] MEDS: PIPERACILLIN/TAZOBACTAM 4.5 GM in DEXTROSE 5% 100 ML IV SCH (03:36)
[2020-04-27] MEDS: CLINDAMYCIN 600 MG in DEXTROSE 5% 50 ML IV SCH (03:36)
[2020-04-27] MEDS: INSULIN REGULAR 250 UNITS in SODIUM CHLORIDE 0.9% 247.5 ML IV SCH (04:43)
[2020-04-27 04:47] LABS: Albumin Globulin Ratio 0.4 (0.9-2); Albumin Level 1.2 gm/dl (3.4-5.0); BUN Creatinine Ratio 21.8 (10-20); Bilirubin,Total 0.4 mg/dl (0.2-1); Calcium 5.4 mg/dl (8.5-10.1); Est GFR (African American) 45.4; Est GFR (Non-African American) 39.2; Globulin 3.3 gm/dl (2.5-4.0); Magnesium 1.5 mg/dl (1.8-2.4); Phosphorus 3.4 mg/dl (2.5-4.9); Potassium 3.3 mmol/L (3.5-5.1); Total Protein 4.5 gm/dl (6.4-8.2)
[2020-04-27 05:17] LABS: Mean Corpuscular Hgb Conc 35.2 g/dL (32-36); Nucleated RBC # (auto) 0.24 K/uL (0-0); Nucleated RBC % (auto) 1.5 %; Platelet Count 24 K/uL (130-400)
[2020-04-27 05:21] LABS: Basophils # (auto) 0.02 K/uL (0-0.2); Basophils % (auto) 0.1 %; Echinocytes 1+; Eosinophils # (auto) 0.08 K/uL (0-0.5); Eosinophils % (auto) 0.5 %; Hemoglobin 10.2 g/dL (12.0-16.0); Immature Granulocytes # (auto) 0.06 K/uL (0.00-0.02); Immature Granulocytes % (auto) 0.4 %; Lymphocytes # (auto) 2.63 K/uL (1.2-3.4); Mean Corpuscular Volume 82.4 fL (80-100); Monocytes # (auto) 0.42 K/uL (0.11-0.59); Monocytes % (auto) 2.7 %; Neutrophils % (auto) 79.3 %; Platelet Estimate SIGNIFIC DECREASED (Normal); RDW Coefficient of Variation 15.4 % (11.5-14.5); RDW Standard Deviation 46.2 fL (36.4-46.3); Red Blood Count 3.52 M/uL (4.2-5.4); Toxic Vacuolation 1+; White Blood Count 15.51 K/uL (4.8-10.8)
[2020-04-27] MEDS: LEVOTHYROXINE SODIUM 88 MCG TABLET PO SCH (05:27)
[2020-04-27] MEDS: VASOPRESSIN 20 UNITS in 0.9 % SODIUM CHLORIDE 100 ML IV SCH (07:17)
[2020-04-27] MEDS ORDERED: CALCIUM GLUCONATE 10% 1,000 MG in SODIUM CHLORIDE 0.9% 50 ML IV ONE (07:24)
[2020-04-27] MEDS ORDERED: CALCIUM GLUCONATE 10% 10 ML VIAL IV STA (07:27)
[2020-04-27] MEDS: MAGNESIUM SULFATE / D5W 1 GM/100 ML BAG IV SCH ×2 (07:44→10:00)
[2020-04-27] MEDS: SODIUM BICARBONATE 8.4% 150 MEQ in WATER, STERILE 1,000 ML IV SCH (07:45)
[2020-04-27] MEDS: INSULIN ASPART 100 UNITS/ML 3 ML PEN SC SCH ×3 (07:45→18:40)
[2020-04-27] MEDS: MIDODRINE HCL 2.5 MG TAB PO SCH ×3 (07:46→16:06)
--- NOTE | 2020-04-27 07:46 | Critical Care Progress Note ---
Date of Service April 27, 2020 Assessment & Plan (1) Septic shock: Reason Critically Ill: 74-year-old female presents to the ICU following infield cardiac arrest with ROSC achieved with 1 round of CPR and epinephrine. Patient underwent therapeutic hypothermia protocol and has subsequently been re- warmed. She presented in septic shock, requiring multiple vasopressors for hemodynamic support. She also presented in diabetic ketoacidosis and was placed on an insulin drip on admission; anion gap has closed. Currently intubated and mechanically ventilated, sedation has been totally weaned for > 24 hours. Currently on midodrine in an effort to facilitate sedation wean. Patient has been successfully extubated today, breathing well on oxymask. There is much concern regarding neurologic function at this time. Overall prognosis appears to be poor, consider moving to palliative approach. 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 ICU delirium vs. sensory deficit + baseline abilities - CT head negative - EEG showing generalized slowing of brain waves - would like to obtain MRI of head, however contraindicated due to pacemaker - neurology following, appreciate recs - palliative care consult placed; POA issues ongoing Cardiac - * Cardiac arrest patient was found to be without pulse per EMS, unsure of exact downtime but ROSC achieved with 1 round of CPR and epinephrine - etiology of arrest unknown: dysrhythmia a possibility, although per EMS report, no shock was advised - pacer interrogation showing no evidence of arrhythmia - Cardiology consulted, appreciate recs - troponin undetectable, EKG without signs of ischemia - ECHO 04/24 showing LV EF 55-60%; no wall motion abnormalities * Edema - less edematous on exam today - likely secondary to aggressive IV hydration on admission and low oncotic pressure (low albumin) - IVF discontinued; patient with increased urine output overnight with diuretic administrate yesterday Respiratory - * Intubated and placed on mechanically ventilated following cardiac arrest - extubated today; breathing well on oxymask * History of COPD, - continue nebs as needed - Continuous monitoring with pulse ox GI - * Elevated AST - level at 71, down from 82 - likely secondary to hypoperfusion in setting of sepsis - continue to trend - lipase level normalized - continue PPI RENAL/LYTES - * Acute renal failure - history of underlying CKD - Cr 3.9 on admission, down to 1.32 today - BUN trending down - patient was hypotensive with septic shock on admission, likely secondary to ATN - Avoid nephrotoxins and renally adjust medications - non-oliguric * Hypophosphatemia - phos at 1.6 - replace with sodium phosphate - electrolyte derangements likely secondary to DKA * Hypocalcemia - calcium corrects to 8.2 with low albumin - replacement ordered * Hypokalemia - K at 3.3 - replacement ordered - Foleystrict I's and O's ENDO - * DKA - A1c > 16.9 on admission, hx of poorly controlled disease - patient has been volume resuscitated - metabolic acidosis improving with correction of blood sugar - Anion gap now closed - continue to monitor BG - cont. insulin drip * Hypothyroidism - TSH elevated to 66 on admission - T4 and T3 low - continue levothyroxine 88 mcg daily - AM cortisol pending - will hold off on hydrocortisone in the setting of vasopressors HEME - * Thrombocytopenia - platelets at 24, down from 26 - HIT panel pending - coags wnl; no schistocytes on smear, DIC unlikely - concern for consumptive process in the setting of sepsis - may be related to uremia, although BUN has trended down - zoysn could be etiology, although administrate duration not likely long e nough - trend CBC * Normocytic Anemia - Hgb 11.0 - MCV at 84 ID - * Septic Shock - requiring vasopressor support - infectious source thought to be L hand abscess - Chest x-ray appears clear of pulmonary infiltrates - UA benign - Blood cultures showing no growth through 72 hours - Continue daptomycin; discontinue clindamycin, Zosyn today * L hand abscess - status post I & D - wound culture growing MRSA, sensitive to daptomycin - difficult rule out osteomyelitis without imaging - WBC elevated to 20 with neutrophil predominance; down to 15 today - lactate trending down since admission, currently at 2.2 - ortho following appreciate recs LINES/IV ACCESS -CVC right IJ, A-line right radial, ETT, OGT, I/O right tibial, Jimenes DVT PROPHYLAXIS -SCDs Code: DNR/do not intubate in future Admission and Anticipated Discharge Date Admission Date: April 23, 2020 Supervising Physician Co-Signing Physician Notes Dr. Nevarez Was the resident-physician during care of patient. I separately evaluated patient for justin portions of the history and the exam. I was present during the critical portion of medical decision making, and I discussed the case with the resident. I generally agree with the findings and plan except for any additions/exceptions noted. Patient was doing well with a spontaneous breathing trial and she was extubated to oxygen mask. She is opening her eyes spontaneously and moving her hands. She appears alert. She is not following commands. She apparently has significant developmental delay and learning disabilities. She has severe hearing loss as per her caregiver. She is still requiring a low-dose vasopressor support. Unable to give midodrine at this time given the fact that the OG tube was removed. Unable to give levothyroxine at this time as well. She had hypothyroidism on presentation. Will need a repeat TSH in 1 to 2 weeks. May need NG tube placement for medicine if unable to swallow. This may prove difficult with her thrombocytopenia. Continue daptomycin. I discontinued the clindamycin and Zosyn. She is growing MRSA from her hand wound. We will need to address nutritional status if she is unable to swallow. N.p.o. for the time being. Speech therapy and occupational therapy will be consulted. She has not had any significant bowel movements as hospital admission. Received lactulose prior to extubation. I will order for a soapsuds enema. She continues to be profoundly thrombocytopenic. Unclear etiology. Possible consumptive process from sepsis. HIT testing is pending, but unlikely. Peripheral smear not suggestive of schistocytes. We will continue to trend hemoglobin. No signs of significant bleeding. She has significant electrolyte abnormalities and we are replacing electrolytes aggressively. DKA is resolving. ICU pharmacist is assisting in insulin titration. Remain in the ICU as she is requiring continuous pressors. I have personally spent 44 minutes of critical care time in the direct management of this patient. This is a life/limb threatening event. This includes time spent evaluating patient, direct bedside care, chart review, placing orders, interpretation of diagnostic studies, discussion with consultants, patient, and/or family members regarding treatment decisions, as well as other required patient management activities. This time is exclusive of all separately billable procedures, and teaching time and separate from and in addition to any other critical care service time. 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 Per niece, she has a notable hearing deficit; used to wearing aids, but did not like they way they fit, so she threw them out. At baseline, she communicates mostly through hand signals Review of Systems Review of Systems: Unobtainable due to endotracheal tube Physical Exam Constitutional: + mechanically ventilated and + edematous Eyes: + anicteric sclerae ENMT: external ear and nose normal, oropharynx normal Neck: normal visual inspection and trachea midline Respiratory: normal respiratory effort and + cough Auscultation: no crackles and no vesicular breath sounds (coarse) Cardiovascular: Rate/Rhythm: regular rhythm and + bradycardic Heart Sounds: normal S1 and normal S2; no murmur Extremities: + pedal edema (bilaterally; non-pitting) Chest (Breasts): Chest: + pacemaker Gastrointestinal (Abdomen): Inspection/Auscultation: normal bowel sounds Percussion/Palpation: abdomen soft; no hepatosplenomegaly Skin: bandage over left upper extremity; tips of fingers pale on L hand, thumb appears to be necrotic Neurologic: + obtunded Comatose Patient: corneal reflex present Patient is chewing on Endotrachel tube throughout exam Genitourinary: Jimenes catheter in place, draining yellow urine without visible blood clots Results & Data Results & [facility] ([facility]) Vital Signs (Past 12 Hours) Vital Signs Temp Pulse Resp BP Pulse Ox 04/27/20 07:32 73 27 H 99 04/27/20 06:00 36.7 C 67 20 126/78 99 04/27/20 05:30 36.8 C 66 20 146/77 H 98 04/27/20 05:00 36.8 C 65 20 117/72 99 04/27/20 04:30 36.8 C 65 20 126/63 98 04/27/20 04:00 36.8 C 69 22 155/72 H 96 04/27/20 03:30 36.9 C 60 20 130/72 98 04/27/20 03:00 36.9 C 60 20 162/81 H 99 04/27/20 02:35 60 20 99 04/27/20 02:30 36.9 C 60 20 130/80 99 04/27/20 02:00 36.9 C 60 20 131/73 99 04/27/20 01:30 36.9 C 62 20 100 04/27/20 01:00 37.0 C 60 20 124/68 99 04/27/20 00:34 60 20 99 04/27/20 00:30 37.0 C 60 20 125/73 99 04/27/20 00:00 37.0 C 62 22 166/81 H 100 04/26/20 23:30 37.0 C 62 20 144/70 H 100 04/26/20 23:00 37.0 C 65 20 133/70 100 04/26/20 22:30 37.0 C 63 20 127/77 100 04/26/20 22:00 37.0 C 63 22 125/75 100 04/26/20 21:30 37.0 C 62 100 04/26/20 21:00 37.1 C 61 20 104/66 100 04/26/20 20:40 66 25 H 100 04/26/20 20:30 37.3 C 66 22 100 04/26/20 20:00 37.2 C 88 22 100/64 99 Resident Activity Tracking Resident Involvement: Resident Care Provided Care Provided: Adult Hospital Medicine
[2020-04-27] MEDS: POTASSIUM CHLORIDE / WTR 20 MEQ/100 ML PLCT IV SCH ×4 (07:47→14:17)
[2020-04-27] MEDS ORDERED: Nursing to Pharmacy Communication SCH ×2 (08:00→08:30)
[2020-04-27] MEDS ORDERED: POTASSIUM CHLORIDE / WTR 10 MEQ/100 ML PLCT IV SCH (08:00)
--- NOTE | 2020-04-27 08:06 | XRay Report ---
XR chest 1V portable HISTORY: Respiratory failure. COMPARISON: Chest 04/26/2020. FINDINGS: Endotracheal tube terminates approximately 3 cm from the kaila. Nasogastric tube terminus below the diaphragm. Right jugular catheter terminates at the brachiocephalic/SVC junction. There is a left-sided pacemaker. Trace bilateral pleural effusions and hazy bibasilar densities persist. No pn eumothorax. No evidence for pulmonary edema. IMPRESSION: 1. Satisfactory support line placement. 2. No change in the trace bilateral pleural effusions and hazy bibasilar densities. ACT 112: Negative or not required by law. Electronically signed by: Drake Galarza M.D. 04/27/2020 8:05 AM
[2020-04-27] MEDS: PANTOprazole 40 MG in SYRINGE 0 ML IV SCH ×2 (09:03→20:56)
[2020-04-27] MEDS: LACTULOSE SYRUP 20 GM/30 ML UDC OG SCH ×3 (09:03→20:55)
[2020-04-27] MEDS: CALCIUM GLUCONATE 10% 1,000 MG in SODIUM CHLORIDE 0.9% 50 ML IV SCH ×2 (09:04→09:35)
[2020-04-27] MEDS: DAPTOmycin 325 MG in SYRINGE 0 ML IV SCH (09:35)
[2020-04-27] MEDS ORDERED: MAGNESIUM SULFATE / D5W 1 GM/100 ML BAG IV ONE ×2 (10:30→12:00)
[2020-04-27] MEDS ORDERED: POTASSIUM CHLORIDE PWD 20 MEQ PACK PO STA (10:42)
--- NOTE | 2020-04-27 12:25 | Billing Data ---
Date of Service April 27, 2020 Coding Level of Care Code Critical Care 1st 30-74 mins Time Spent (min) 44
[2020-04-27 12:39] LABS: iSTAT Arterial Blood Gas HCO3 17 meg/L (19-24); iSTAT Arterial Blood Gas pCO2 23 mmHg (35-46); iSTAT Arterial Blood Gas pH 7.49 (7.35-7.45); iSTAT Arterial Blood Gas pO2 93 mmHg (80-95); iSTAT Carbon Dioxide 18 mmol/L (24-31)
[2020-04-27 12:40] LABS: Patient Temperature 97.9; iSTAT Art Bld Gas pCO2 Correct 22 mmHg (35-46); iSTAT Art Bld Gas pH Corrected 7.493 (7.35-7.45); iSTAT Arterial Blood Gas pO2 C 91; iSTAT FiO2 30 %
[2020-04-27 12:41] LABS: iSTAT Allen Test Not Performed; iSTAT Sample Type Arterial; iSTAT Site Art Line
[2020-04-27 12:42] LABS: iSTAT SpO2 98
--- NOTE | 2020-04-27 15:09 | Hospitalist Progress Note ---
Date of Service April 27, 2020 Assessment & Plan (1) Metabolic acidosis: Pt presented with profound acidosis and associated hypotension and respiratory failure. Likely is HHS or DKA. - On IV fluids, insulin gtt per pulmonary/CC team (2) Cellulitis of hand: Pt was emperically given doptomycin and zosyn adding clindamycin for necrotizing fascitis coverage. - S/p I&D bedside with Dr. Singh. - Follow cultures -> Growing MRSA. - Continue dapto (3) Hypothyroidism: TSH was 66 this admission. - Presently on levothyroxine 88 mcg PO daily (4) Acute renal failure: Pt has acute kidney injury, is making urine at this point, continue to follow. - Baseline Cr ~1.0; up to 3.4 on presentation. - IV fluids as per pulmonary/CC team - Improving -> Now Cr down to 1.35. (5) COPD (chronic obstructive pulmonary disease): Has a history of COPD, will offer albuterol and Atrovent. - Presently ventilated. (6) Intellectual disability: This has been cited through her records, no defined cause or quantifying statements. - Presently intubated, so no ability to ask patient at this time. (7) DVT prophylaxis: SCDs Admission and Anticipated Discharge Date Admission Date: April 23, 2020 Subjective Intubated; more responsive today. Review of Systems Review of Systems: Unobtainable due to endotracheal tube Physical Exam Constitutional: WD/WN, vitals as above + acute distress and + disheveled Eyes: EOM intact bilaterally; no conjunctival abnormality ENMT: external ear and nose normal, oropharynx normal Neck: trachea midline, no thyromegaly normal visual inspection Respiratory: normal respiratory effort, lungs clear to auscultation no respiratory distress Cardiovascular: RRR, no murmur, no edema Gastrointestinal (Abdomen): Inspection/Auscultation: abdomen normal to inspection; abdomen not distended Musculoskeletal: no cyanosis or clubbing, extremities motor strength 5/5 Skin: no rashes, warm and dry Neurologic: + does not move all extremities and + not awake Psychiatric: Orientation: + not alert and + not oriented to person Results & Data Results & [facility] ([facility]) Vital Signs (Past 12 Hours) Vital Signs Temp Pulse Resp BP Pulse Ox 04/27/20 12:39 35.8 C L 61 112/61 98 04/27/20 12:30 61 97 04/27/20 12:09 36.3 C L 61 112/55 L 99 04/27/20 12:00 60 98 04/27/20 11:08 60 122/61 100 04/27/20 10:38 60 111/53 L 100 04/27/20 10:09 60 113/56 L 95 04/27/20 09:39 60 133/64 98 04/27/20 09:09 36.5 C 61 150/66 H 98 04/27/20 08:09 36.6 C 64 131/85 98 04/27/20 08:00 61 04/27/20 07:32 73 27 H 99 04/27/20 07:10 36.7 C 69 156/76 H 99 04/27/20 06:00 36.7 C 67 20 126/78 99 04/27/20 05:30 36.8 C 66 20 146/77 H 98 04/27/20 05:00 36.8 C 65 20 117/72 99 04/27/20 04:30 36.8 C 65 20 126/63 98 04/27/20 04:00 36.8 C 69 22 155/72 H 96 04/27/20 03:30 36.9 C 60 20 130/72 98 PG Care Time/CCT Total # of Minutes Spent Total Time Spent with Patient: Total time spent is greater than 50% in coordination of care (as documented) at patient's floor/unit and/or counseling patient: Coding Level of Care Code 00309 Subseq Hosp Care Lvl 3 Diagnoses Metabolic acidosis E87.2 Cellulitis of hand L03.119 Hypothyroidism E03.9 Acute renal failure N17.9 Acute renal failure type: unspecified COPD (chronic obstructive pulmonary disease) J44.9 Intellectual disability F79 DVT prophylaxis Z29.9 (1) Acute renal failure Acute renal failure type: unspecified Qualified Code(s): N17.9 - Acute kidney failure, unspecified
[2020-04-27] MEDS ORDERED: GLUCAGON FOR INJ 1 MG VIAL SQ PRN (21:10)
[2020-04-27] MEDS ORDERED: DEXTROSE 50% 50 ML SYRINGE IV PRN (21:10)
[2020-04-27] MEDS ORDERED: CARBOHYDRATES FOR HYPOGLYCEMIA PO PRN (21:10)
[2020-04-27] MEDS ORDERED: GLUCOSE 40% GEL 15 GM TUBE PO PRN (21:10)
[2020-04-27] MEDS ORDERED: GLUCOSE 10 TABS/TUBE PO PRN (21:10)
[2020-04-27] MEDS ORDERED: INSULIN GLARGINE SOLOSTAR 100 UNITS/ML 3 ML PEN SC ONE (21:11)
[2020-04-28] MEDS: INSULIN ASPART 100 UNITS/ML 3 ML PEN SC SCH ×5 (00:33→21:09)
[2020-04-28] MEDS ORDERED: GLUCOSE 10 TABS/TUBE PO PRN (00:45)
[2020-04-28] MEDS ORDERED: DEXTROSE 50% 50 ML SYRINGE IV PRN (00:45)
[2020-04-28] MEDS ORDERED: CARBOHYDRATES FOR HYPOGLYCEMIA PO PRN (00:45)
[2020-04-28] MEDS ORDERED: GLUCAGON FOR INJ 1 MG VIAL SQ PRN (00:45)
[2020-04-28] MEDS ORDERED: GLUCOSE 40% GEL 15 GM TUBE PO PRN (00:45)
[2020-04-28] MEDS: LEVOTHYROXINE SODIUM 88 MCG TABLET PO SCH (05:19)
[2020-04-28 05:43] LABS: Albumin Globulin Ratio 0.4 (0.9-2); Albumin Level 1.4 gm/dl (3.4-5.0); BUN Creatinine Ratio 18.4 (10-20); Bilirubin,Total 0.5 mg/dl (0.2-1); Calcium 7.2 mg/dl (8.5-10.1); Creatinine Clr Calc Pharmacy 37.9 ml/min; Est GFR (African American) 53.5; Est GFR (Non-African American) 46.2; Globulin 3.9 gm/dl (2.5-4.0); Magnesium 2.6 mg/dl (1.8-2.4); Phosphorus 3.3 mg/dl (2.5-4.9); Potassium 3.7 mmol/L (3.5-5.1); Total Protein 5.3 gm/dl (6.4-8.2)
[2020-04-28 05:58] LABS: Hematocrit (blood only) 33.1 % (37-47); Hemoglobin 11.3 g/dL (12.0-16.0); Mean Corpuscular Hemoglobin 28.8 pg (25-34); Mean Corpuscular Hgb Conc 34.1 g/dL (32-36); Mean Corpuscular Volume 84.2 fL (80-100); Nucleated RBC # (auto) 0.07 K/uL (0-0); Nucleated RBC % (auto) 0.6 %; Platelet Count 29 K/uL (130-400); RDW Coefficient of Variation 15.3 % (11.5-14.5); RDW Standard Deviation 47.7 fL (36.4-46.3); Red Blood Count 3.93 M/uL (4.2-5.4); White Blood Count 12.71 K/uL (4.8-10.8)
[2020-04-28 06:00] LABS: Echinocytes 1+; Eosinophils # (auto) 0.04 K/uL (0-0.5); Eosinophils % (auto) 0.3 %; Immature Granulocytes # (auto) 0.07 K/uL (0.00-0.02); Immature Granulocytes % (auto) 0.6 %; Lymphocytes # (auto) 1.91 K/uL (1.2-3.4); Monocytes # (auto) 0.93 K/uL (0.11-0.59); Monocytes % (auto) 7.3 %; Neutrophils # (auto) 9.76 K/uL (1.4-6.5); Neutrophils % (auto) 76.8 %; Platelet Estimate SIGNIFIC DECREASED (Normal)
[2020-04-28] MEDS: POTASSIUM CHLORIDE / WTR 10 MEQ/100 ML PLCT IV SCH ×2 (06:22→07:14)
--- NOTE | 2020-04-28 07:04 | Critical Care Progress Note ---
Date of Service April 28, 2020 Assessment & Plan (1) Septic shock: Reason Critically Ill: 74-year-old female presents to the ICU following infield cardiac arrest with ROSC achieved with 1 round of CPR and epinephrine. Patient underwent therapeutic hypothermia protocol and has subsequently been re- warmed. She presented in septic shock, requiring multiple vasopressors for hemodynamic support; at this point she has been weaned to Levophed at 0.02mcg/kg/hr. She continues to be hypotensive, although suspect this is patient's baseline hemodynamic status; MAP goal adjusted to 55 and above. The source of her sepsis appears to be a left hand abscess that has been drained by orthopedics; currently on daptomycin for MRSA coverage. She also presented in diabetic ketoacidosis and was placed on an insulin drip on admission; anion gap has closed; drip has been discontinued and patient trans itioned to subcutaneous insulin. Yesterday she was successfully extubated, and is maintaining good oxygen saturation on minimal supplementation. There is much concern regarding her ability to swallow and thus maintain nutrition. Speech therapy has been consulted for evaluation. Overall prognosis appears to be poor, consider moving to palliative approach. Will likely require SNF placement. 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 ICU delirium vs. sensory deficit + diminished baseline abilities - CT head negative - EEG showing generalized slowing of brain waves - would like to obtain MRI of head, however contraindicated due to pacemaker - neurology following, appreciate recs - palliative care consult placed; POA issues ongoing Cardiac - * Cardiac arrest patient was found to be without pulse per EMS, unsure of exact downtime but ROSC achieved with 1 round of CPR and epinephrine - Likely PEA - etiology of arrest unknown: pacer interrogation showing no evidence of dysrhythmia - Cardiology consulted, appreciate recs - troponin undetectable, EKG without signs of ischemia - ECHO 04/24 showing LV EF 55-60%; no wall motion abnormalities * Edema - improved - likely secondary to aggressive IV hydration on admission and low oncotic pressure (low albumin) - IVF discontinued - good urine output Respiratory - * Intubated and placed on mechanically ventilated following cardiac arrest - extubated 04/27; now breathing well on room air * History of COPD, - continue nebs as needed - Continuous monitoring with pulse ox GI - * Elevated AST - level at 103, up from 71 - likely secondary to hypoperfusion in setting of sepsis * Nutritional Status - OG tube removed - unclear if patient can swallow independently - speech and OT consulted for evaluation - may consider NG tube placement for nutrition - currently NPO - lipase level normalized - continue PPI RENAL/LYTES - * Acute renal failure - resolved - history of underlying CKD - Cr 3.9 on admission, down to 1.17 today - patient was hypotensive with septic shock on admission, likely secondary to ATN - non-oliguric - patient with various electrolyte abnormalities, likely secondary to DKA. ICU electrolyte replacement protocol - [employer] I's and O's ENDO - * DKA - A1c > 16.9 on admission, hx of poorly controlled disease - patient has been volume resuscitated - Anion gap now closed - transitioned from insulin drip to subcutaneous. Lantus 10units BID + Novolog sliding scale - blood glucoses currently at goal * Hypothyroidism - TSH elevated to 66 on admission - T4 and T3 low - continue levothyroxine 88 mcg daily - AM cortisol 28.7 - hydrocortisone was deferred in the setting of vasopressors HEME - * Thrombocytopenia - platelets at 29, up from 24 - HIT panel pending - coags wnl; no schistocytes on smear, DIC unlikely - concern for consumptive process in the setting of sepsis - may be related to uremia, although BUN has trended down - Zosyn could be etiology, although administrate duration not likely long enough - trend CBC * Normocytic Anemia - Hgb 11.0 - MCV at 84 ID - * Septic Shock - resolved - present on admission, requiring vasopressor support - infectious source thought to be L hand abscess - Chest x-ray appears clear of pulmonary infiltrates - UA benign - Blood cultures showing no growth - Continue daptomycin * L hand abscess - status post I & D - wound culture growing MRSA, sensitive to daptomycin - continue daptomycin - difficult rule out osteomyelitis without imaging; pacer precludes MRI, although could consider CT with contrast - Infectious disease consult placed - WBC elevated to 20 with neutrophil predominance; down to 12 today - lactate trending down since admission - ortho following appreciate recs LINES/IV ACCESS -CVC right IJ, A-line right radial, ETT, OGT, I/O right tibial, Jimenes DVT PROPHYLAXIS -SCDs Code: DNR/do not intubate in future Admission and Anticipated Discharge Date Admission Date: April 23, 2020 Supervising Physician Co-Signing Physician Notes Dr. Nevarez Was the resident-physician during care of patient. I separately evaluated patient for justin portions of the history and the exam. I was present during the critical portion of medical decision making, and I discussed the case with the resident. I generally agree with the findings and plan except for any additions/exceptions noted. Patient is weaned off Levophed today. She is cleared for diet. She can start back on the oral midodrine 5 mg 3 times daily. I have decreased her mean arterial pressure goal to greater than 55. Continue 10 mg Lantus twice daily. Pharmacy is following the patient and assisting us in management of her diabetes. Hemoglobin A1c above 16.9. Continue daptomycin for MRSA hand infect ion. Consulting infectious disease. She had evidence of significant hypothyroidism on presentation. Continue levothyroxine. Will need a follow-up TSH in 1 week. Morning cortisol was within normal limits. Her thrombocytopenia is improving slightly. Possibly secondary to a consumptive process from sepsis. HIT panel pending. Unlikely to be HIT. She has a history of intellectual disability and cognitive delay. She will need long-term care placement. Social work is following. Palliative care is also on board. We did make her DO NOT RESUSCITATE and DO NOT INTUBATE based on a 2 physician decision. She still has the cooling catheter in place in her right IJ for her targeted temperature management. She did have evidence of cardiac arrest and required CPR and 1 dose of epinephrine on presentation. There is no evidence of dysrhythmia on pacemaker interrogation. She may be stable to transfer to the floor later this afternoon if she is able to remain off the pressors. Subjective Patient is awake and speaking in full sentences today on exam. She does not follow commands or answer questions appropriately, although suspect this may be secondary to a profound hearing deficit. Patient used to have hearing aids but through them away because they hurt her ears, per caregiver. Patient has had several loose BMs over the past day. Review of Systems Constitutional: reports a generalized feeling of stiffness Physical Exam Constitutional: + edematous Eyes: + anicteric sclerae ENMT: external ear and nose normal, oropharynx normal Neck: normal visual inspection and trachea midline Respiratory: normal respiratory effort Auscultation: no crackles and no vesicular breath sounds (coarse) Cardiovascular: Rate/Rhythm: regular rate and regular rhythm Heart Sounds: normal S1 and normal S2; no murmur Extremities: + pedal edema (bilaterally; non-pitting) Chest (Breasts): Chest: + pacemaker Gastrointestinal (Abdomen): Inspection/Auscultation: normal bowel sounds Percussion/Palpation: abdomen soft; no hepatosplenomegaly Skin: no rashes, warm and dry bandage over left upper extremity; tips of fingers pale on L hand, thumb appears to be necrotic Neurologic: awake Cranial Nerves: + hearing impairment (signficant deficit) Psychiatric: Orientation: alert and oriented to place Eye Contact: good eye contact Speech: normal rate/rhythm/volume of speech Affect: euthymic affect Genitourinary: Jimenes catheter in place, draining yellow urine without visible blood clots Results & Data Results & Data ([facility]) Vital Signs (Past 12 Hours) Vital Signs Temp Pulse Resp BP Pulse Ox 04/28/20 05:30 36.4 C L 67 16 86/58 L 98 04/28/20 05:00 36.4 C L 63 24 114/47 L 98 04/28/20 04:30 36.4 C L 70 22 88/51 L 96 04/28/20 04:00 36.3 C L 68 22 118/53 L 98 04/28/20 03:30 36.3 C L 66 20 105/51 L 97 04/28/20 03:00 36.3 C L 64 20 88/52 L 99 04/28/20 02:30 36.2 C L 67 14 100/50 L 97 04/28/20 02:00 36.2 C L 63 19 101/49 L 98 04/28/20 01:30 36.2 C L 67 15 97 04/28/20 01:00 36.2 C L 65 24 104/53 L 98 04/28/20 00:30 36.2 C L 64 22 99/54 L 97 04/28/20 00:00 36.2 C L 70 21 94/52 L 96 04/27/20 23:30 36.1 C L 63 23 101/55 L 99 04/27/20 23:00 36.2 C L 62 23 111/56 L 98 04/27/20 22:30 36.2 C L 62 18 96/53 L 98 04/27/20 22:00 36.4 C L 64 24 107/56 L 98 04/27/20 21:30 36.5 C 74 24 97/52 L 95 04/27/20 21:00 36.4 C L 64 22 105/63 100 04/27/20 20:30 36.4 C L 63 24 116/49 L 98 04/27/20 20:00 36.3 C L 64 20 110/50 L 96 04/27/20 19:30 36.3 C L 67 22 121/54 L 97 04/27/20 19:00 36.2 C L 65 20 128/60 96 Resident Activity Tracking Resident Involvement: Resident Care Provided Care Provided: [facility]
[2020-04-28] MEDS: PANTOprazole 40 MG in SYRINGE 0 ML IV SCH ×2 (08:14→21:02)
[2020-04-28 10:06] LABS: iSTAT Arterial Blood Gas HCO3 17 meg/L (19-24); iSTAT Arterial Blood Gas pCO2 23 mmHg (35-46); iSTAT Arterial Blood Gas pH 7.49 (7.35-7.45); iSTAT Arterial Blood Gas pO2 93 mmHg (80-95); iSTAT Carbon Dioxide 18 mmol/L (24-31); iSTAT FiO2 30 %; iSTAT Site Art Line
[2020-04-28] MEDS: INSULIN GLARGINE SOLOSTAR 100 UNITS/ML 3 ML PEN SC SCH ×2 (10:48→21:07)
[2020-04-28] MEDS: DAPTOmycin 325 MG in SYRINGE 0 ML IV SCH (10:48)
[2020-04-28] MEDS: MIDODRINE HCL 2.5 MG TAB PO SCH ×3 (10:55→17:20)
[2020-04-28] MEDS: LACTULOSE SYRUP 20 GM/30 ML UDC OG SCH (10:56)
--- NOTE | 2020-04-28 12:43 | Billing Data ---
Date of Service April 28, 2020 Coding Level of Care Code 22108 Initial Inpt Care Lvl 3
[2020-04-28] MEDS: NOREPINEPHRINE (Adult) 8 MG in DEXTROSE 5% 500 ML IV SCH (15:47)
--- NOTE | 2020-04-28 20:30 | Hospitalist Progress Note ---
Date of Service April 28, 2020 Assessment & Plan (1) Cellulitis of hand: Pt was emperically given doptomycin and zosyn adding clindamycin for necrotizing fascitis coverage. - S/p I&D bedside with Dr. Singh. - Follow cultures -> Growing MRSA. - Presently just on daptomycin (2) DKA (diabetic ketoacidoses): In DKA on presentation. A1c is unreadable, meaning average blood sugar is >450. - Continue basal-bolus insulin - Sugars 110-180 over the last 24 hours. (3) Thrombocytopenia: Profound thrombocytopenia to 29. No schistocytes, making DIC/TTP unlikely. No anemia to indicate MAHA. HIT-Ab negative. - Likely from septic shock. - Monitor for bleeding (4) Hypothyroidism: TSH was 66 this admission. May have had some level of myxedema crisis on presentation. - Presently on levothyroxine 88 mcg PO daily (5) Metabolic acidosis: Pt presented with profound acidosis and associated hypotension and respiratory failure. Likely is HHS or DKA. - Presently back to baseline. (6) Acute renal failure: Pt has acute kidney injury, is making urine at this point, continue to fol low. - Baseline Cr ~1.0; up to 3.4 on presentation. - IV fluids as per pulmonary/CC team - Improving -> Now Cr down to 1.35. (7) COPD (chronic obstructive pulmonary disease): Has a history of COPD, will offer albuterol and Atrovent. - Presently ventilated. (8) Intellectual disability: This has been cited through her records, no defined cause or quantifying statements. - Presently intubated, so no ability to ask patient at this time. (9) DVT prophylaxis: SCDs Admission and Anticipated Discharge Date Admission Date: April 23, 2020 Subjective Extubated today. Not able to hear or understand to follow commands. Review of Systems Review of Systems: Unobtainable due to mental health condition and Unobtainable due to cognitive status Physical Exam Constitutional: WD/WN, vitals as above + acute distress and + disheveled Eyes: EOM intact bilaterally; no conjunctival abnormality ENMT: external ear and nose normal, oropharynx normal Neck: trachea midline, no thyromegaly normal visual inspection Respiratory: normal respiratory effort, lungs clear to auscultation no respiratory distress Cardiovascular: RRR, no murmur, no edema Gastrointestinal (Abdomen): Inspection/Auscultation: abdomen normal to inspection; abdomen not distended Musculoskeletal: no cyanosis or clubbing, extremities motor strength 5/5 Skin: no rashes, warm and dry Neurologic: moves all extremities and awake Psychiatric: Orientation: alert; + not oriented to person Results & Data Results & Data ([facility]) Vital Signs (Past 12 Hours) Vital Signs Temp Pulse Resp BP Pulse Ox 04/28/20 17:30 36.3 C L 66 16 94 04/28/20 17:20 36.3 C L 69 22 113/70 95 04/28/20 17:00 36.3 C L 70 20 99 04/28/20 16:50 36.3 C L 63 16 96/57 L 94 04/28/20 16:30 36.3 C L 65 0 L 94 04/28/20 16:20 36.3 C L 68 22 94/57 L 93 04/28/20 16:07 36.3 C L 60 22 97/54 L 96 04/28/20 16:00 36.3 C L 62 17 95 04/28/20 15:50 36.3 C L 60 12 86/54 L 95 04/28/20 15:30 36.3 C L 61 20 95 04/28/20 15:20 36.3 C L 60 16 99/58 L 96 04/28/20 15:00 36.3 C L 62 24 95 04/28/20 14:50 36.3 C L 62 21 102/55 L 96 04/28/20 14:30 36.3 C L 60 24 95 04/28/20 14:20 36.3 C L 62 18 96/57 L 95 04/28/20 14:00 36.3 C L 60 24 94 04/28/20 13:50 36.3 C L 72 24 111/65 95 04/28/20 13:30 36.3 C L 65 16 96 04/28/20 13:20 36.3 C L 60 12 90/55 L 97 04/28/20 13:00 36.3 C L 60 16 93 04/28/20 12:51 36.3 C L 66 15 95 04/28/20 12:50 36.3 C L 67 10 L 96/61 L 95 04/28/20 12:30 36.3 C L 71 21 96 04/28/20 12:20 36.3 C L 68 7 L 94/57 L 95 04/28/20 12:00 36.3 C L 73 16 95 04/28/20 11:50 36.3 C L 67 21 85/53 L 95 04/28/20 11:30 36.3 C L 68 13 94 04/28/20 11:20 36.3 C L 71 12 80/53 L 95 04/28/20 11:00 36.3 C L 66 19 97 04/28/20 10:52 36.3 C L 63 23 88/63 L 97 04/28/20 10:50 36.3 C L 64 23 78/55 L 97 04/28/20 10:30 36.3 C L 61 12 97 04/28/20 10:19 36.3 C L 61 21 89/62 L 99 04/28/20 10:00 36.3 C L 60 21 98 04/28/20 09:40 36.3 C L 62 22 88/55 L 97 04/28/20 09:30 36.3 C L 60 21 97 04/28/20 09:25 36.3 C L 60 15 97/60 L 96 04/28/20 09:10 36.4 C L 61 19 81/50 L 97 04/28/20 09:00 36.4 C L 60 20 98 04/28/20 08:55 36.3 C L 60 14 84/60 L 97 04/28/20 08:40 36.3 C L 66 14 97/63 L 96 04/28/20 08:39 36.3 C L 61 23 70/50 L 96 04/28/20 08:30 36.3 C L 69 24 95 PG Care Time/CCT Total # of Minutes Spent Total Time Spent with Patient: Total time spent is greater than 50% in coordination of care (as documented) at patient's floor/unit and/or counseling patient: Coding Level of Care Code 57889 Subseq Hosp Care Lvl 3 Diagnoses Cellulitis of hand L03.119 DKA (diabetic ketoacidoses) E11.10 Thrombocytopenia D69.6 Hypothyroidism E03.9 Metabolic acidosis E87.2 Acute renal failure N17.9 Acute renal failure type: unspecified COPD (chronic obstructive pulmonary disease) J44.9 Intellectual disability F79 DVT prophylaxis Z29.9 (1) Acute renal failure Acute renal failure type: unspecified Qualified Code(s): N17.9 - Acute kidney failure, unspecified
[2020-04-29 05:04] LABS: Hematocrit (blood only) 31.4 % (37-47); Hemoglobin 10.7 g/dL (12.0-16.0); Mean Corpuscular Hemoglobin 29.6 pg (25-34); Mean Corpuscular Hgb Conc 34.1 g/dL (32-36); Mean Corpuscular Volume 86.7 fL (80-100); Nucleated RBC # (auto) 0.04 K/uL (0-0); Nucleated RBC % (auto) 0.5 %; RDW Coefficient of Variation 15.8 % (11.5-14.5); RDW Standard Deviation 50.2 fL (36.4-46.3); Red Blood Count 3.62 M/uL (4.2-5.4); White Blood Count 9.07 K/uL (4.8-10.8)
[2020-04-29] MEDS: LEVOTHYROXINE SODIUM 88 MCG TABLET PO SCH (05:16)
[2020-04-29 05:17] LABS: BUN Creatinine Ratio 16.9 (10-20); Calcium 7.6 mg/dl (8.5-10.1); Creatinine Clr Calc Pharmacy 46.1 ml/min; Est GFR (African American) 69.8; Est GFR (Non-African American) 60.2; Magnesium 2.6 mg/dl (1.8-2.4); Phosphorus 2.8 mg/dl (2.5-4.9); Potassium 3.5 mmol/L (3.5-5.1)
[2020-04-29 05:37] LABS: Mean Platelet Volume 10.3 fL (7.4-10.4); Platelet Count 38 K/uL (130-400)
[2020-04-29 05:38] LABS: Basophils # (auto) 0.01 K/uL (0-0.2); Basophils % (auto) 0.1 %; Eosinophils # (auto) 0.08 K/uL (0-0.5); Eosinophils % (auto) 0.9 %; Immature Granulocytes % (auto) 1.1 %; Lymphocytes # (auto) 2.65 K/uL (1.2-3.4); Lymphocytes % (auto) 29.2 %; Monocytes # (auto) 1.08 K/uL (0.11-0.59); Monocytes % (auto) 11.9 %; Neutrophils # (auto) 5.15 K/uL (1.4-6.5); Neutrophils % (auto) 56.8 %
--- NOTE | 2020-04-29 06:09 | Critical Care Progress Note ---
Date of Service April 29, 2020 Assessment & Plan (1) Septic shock: Reason Critically Ill: 74-year-old female presents to the ICU following infield cardiac arrest with ROSC achieved with 1 round of CPR and epinephrine. Patient underwent therapeutic hypothermia protocol and has subsequently been re- warmed. She presented in septic shock, requiring multiple vasopressors for hemodynamic support; at this point pressors have been discontinued and she has been restarted on midodrine. She continues to be hypotensive, although suspect this is patient's baseline hemodynamic status; MAP goal adjusted to 55 and above. The source of her sepsis appears to be a left hand abscess that has been drained by orthopedics; she has received 5 days of IV daptomycin, plan to transition to oral doxycycline today for total of 14 day course. She also presented in diabetic ketoacidosis and was placed on an insulin drip on admission; anion gap has closed; drip has been discontinued and patient transitioned to subcutaneous insulin. Pharmacy is managing her insulin. She continues to breath well with good saturation on room air. She has not tolerating her minced and moist diet, although she does not have her dentures available. Will likely require SNF placement upon hospital discharge; PT/OT ordered. At this point, she is stable for ICU downgrade. 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 ICU delirium vs. sensory deficit + diminished baseline abilities - CT head negative - EEG showing generalized slowing of brain waves - would like to obtain MRI of head, however contraindicated due to pacemaker - neurology following, appreciate recs - palliative care consult placed; POA issues ongoing Cardiac - * Cardiac arrest patient was found to be without pulse per EMS, unsure of exact downtime but ROSC achieved with 1 round of CPR and epinephrine - Likely PEA - etiology of arrest unknown: pacer interrogation showing no evidence of dysrhythmia - Cardiology consulted, appreciate recs - troponin undetectable, EKG without signs of ischemia - ECHO 04/24 showing LV EF 55-60%; no wall motion abnormalities * Edema - improved - likely secondary to aggressive IV hydration on admission and low oncotic pressure (low albumin) - IVF discontinued - continues to have good urine output Respiratory - * Intubated and placed on mechanically ventilated following cardiac arrest - extubated 04/27; now breathing well on room air * History of COPD, - continue nebs as needed - Continuous monitoring with pulse ox GI - * Elevated AST - level at 103, up from 71 - likely secondary to hypoperfusion in setting of sepsis * Nutritional Status - speech eval recommended minced and moist diet - low albumin on admission suggests this issue has been longstanding - requested caregiver bring dentures in - lipase level normalized - continue PPI RENAL/LYTES - * Acute renal failure - resolved - history of underlying CKD - Cr 3.9 on admission, has since normalized - patient was hypotensive with septic shock on admission, likely secondary to ATN - non-oliguric - patient with various electrolyte abnormalities, likely secondary to DKA. ICU electrolyte replacement protocol SANDRO [place]ne[place] has been removed ENDO - * DKA - A1c > 16.9 on admission, hx of poorly controlled disease - patient has been volume resuscitated - Anion gap now closed - transitioned from insulin drip to subcutaneous - pharmacy managing insulin - continue to monitor blood sugars * Hypothyroidism - TSH elevated to 66 on admission - T4 and T3 low - increase levothyroxine from 88mcg to 200mcg, which was her home dose - AM cortisol normal at 28.7 HEME - * Thrombocytopenia - improving - platelets at 38, up from 29 - HIT panel discarded on send out - coags wnl; no schistocytes on smear, DIC unlikely - concern for consumptive process in the setting of sepsis - may be related to uremia, although BUN has trended down - Zosyn could be etiology, although administrate duration not likely long enough - trend CBC * Normocytic Anemia - Hgb 11.0 - MCV at 84 ID - * Septic Shock - resolved - present on admission, requiring vasopressor support - infectious source thought to be L hand abscess - Chest x-ray appears clear of pulmonary infiltrates - UA benign - Blood cultures showing no growth - Continue daptomycin * L hand abscess - status post I & D - wound culture growing MRSA, sensitive to daptomycin - currently on day 5 of daptomycin; transitioning to oral doxycycline today for total of 14 day course (last day will be 05/07/20) - difficult rule out osteomyelitis without imaging; pacer precludes MRI, although could consider CT with contrast - Infectious disease consult, recommending a total of 7-14 days of MRSA coverage - WBC elevated to 20 on admission with neutrophil predominance; now normalized - lactate trending down since admission - ortho following, appreciate recs LINES/IV ACCESS - PIVs DVT PROPHYLAXIS -SCDs Code: DNR/do not intubate in future Admission and Anticipated Discharge Date Admission Date: April 23, 2020 Supervising Physician Co-Signing Physician Notes Dr. Nevarez Was the resident-physician during care of patient. I separately evaluated patient for justin portions of the history and the exam. I was present during the critical portion of medical decision making, and I discussed the case with the resident. I generally agree with the findings and plan except for any additions/exceptions noted. Patient was discussed on multidisciplinary rounds. We have discontinued her right IJ cooling catheter. She had an uneventful evening and remains stable for downgrade out of the ICU. She may be stable to transfer to the floor later this afternoon if she is able to remain off the pressors. Subjective Continues to stool each time she is moved. Jimenes removed, patient able to spontaneously void. When asked how she is feeling she says "bad." Review of Systems Integumentary: + wounds Physical Exam Constitutional: comfortable Eyes: + anicteric sclerae ENMT: external ear and nose normal, oropharynx normal Neck: normal visual inspection and trachea midline Respiratory: normal respiratory effort, lungs clear to auscultation Auscultation: no crackles Cardiovascular: Rate/Rhythm: regular rate and regular rhythm Heart Sounds: normal S1 and normal S2; no murmur Extremities: + pedal edema (+1 b/l) Chest (Breasts): Chest: + pacemaker Gastrointestinal (Abdomen): Inspection/Auscultation: normal bowel sounds Percussion/Palpation: abdomen soft; no hepatosplenomegaly Skin: no rashes, warm and dry bandage over left upper extremity; tips of fingers pale on L hand, thumb appears to be necrotic Neurologic: awake Cranial Nerves: + hearing impairment (signficant deficit) Psychiatric: Orientation: alert, oriented to person and oriented to place Eye Contact: good eye contact Speech: normal rate/rhythm/volume of speech Affect: euthymic affect Results & Data Results & Data ([facility]) Vital Signs (Past 12 Hours) Vital Signs Temp Pulse Resp BP Pulse Ox 04/29/20 06:00 62 16 95 04/29/20 05:00 60 13 100/59 L 95 04/29/20 04:00 35.9 C L 60 22 101/54 L 93 04/29/20 03:00 36.0 C L 60 12 109/60 93 04/29/20 02:00 36.0 C L 60 19 109/57 L 95 04/29/20 01:00 36.1 C L 60 20 105/56 L 95 04/29/20 00:00 36.0 C L 62 12 127/65 94 04/28/20 23:00 36.0 C L 60 18 97/55 L 95 04/28/20 22:00 36.1 C L 60 18 98/60 L 94 04/28/20 21:00 36.2 C L 60 18 95/52 L 96 04/28/20 20:00 36.3 C L 70 18 115/63 96 04/28/20 19:00 36.3 C L 62 23 107/64 95 Resident Activity Tracking Resident Involvement: Resident Care Provided Care Provided: Adult Hospital Medicine
[2020-04-29] MEDS ORDERED: POTASSIUM CHLORIDE 20 MEQ/15 ML UDC PO STA (06:52)
[2020-04-29] MEDS: MIDODRINE HCL 2.5 MG TAB PO SCH ×3 (08:12→16:39)
[2020-04-29] MEDS: INSULIN ASPART 100 UNITS/ML 3 ML PEN SC SCH ×4 (08:12→21:08)
[2020-04-29] MEDS: PANTOprazole 40 MG in SYRINGE 0 ML IV SCH (08:12)
[2020-04-29] MEDS: INSULIN GLARGINE SOLOSTAR 100 UNITS/ML 3 ML PEN SC SCH (08:13)
[2020-04-29] MEDS: DAPTOmycin 325 MG in SYRINGE 0 ML IV SCH (11:08)
--- NOTE | 2020-04-29 11:11 | Palliative Care Progress Note ---
Date of Service April 29, 2020 Assessment & Plan (1) Palliative care encounter: The patient was discussed during ICU rounds this morning. The patient has shown some improvement and was able to be extubated successfully. She was able to receive a visit from her friend, Rama, who has been a caregiver for her intermittently and has known her for years. We have confirmed that she is not a relative. The patient is confused and not reliable to follow commands. While the patient does have baseline intellect disability, detention we would request assistance from O or a nursing facility to assign either guardianship or legal documentation assigning Rama as a decision maker with the best interest of the individual. For now, during this hospitalization, she is showing some improvement. 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 Occupational Therapy did see the patient this morning and was able to assist her to the bedside chair for lunch. She was a two-assist for this and it was challenging for her. I did reach out to Rama through her husbands phone but was not successful. Case management will continue to follow as well and offer support. Palliative will follow peripherally for now. Please contact us with any additional involvement we can provide. PPS: 30% (2) Cardiac arrest: (3) Anoxic brain injury: (4) COPD (chronic obstructive pulmonary disease): (5) Septic shock: (6) Acute renal failure: Admission and Anticipated Discharge Date Admission Date: April 23, 2020 Subjective Patient opens eyes and does communicate with some words, but not reliably. Unable to follow reliable commands. Pt did tolerate PO intake. Review of Systems Review of Systems: Unobtainable due to cognitive status Physical Exam Constitutional: + ill appearing, + frail appearing and + lethargic Respiratory: Auscultation: + diminished lung sounds and + rhonchi Cardiovascular: Heart Sounds: normal S1 and normal S2 Vessels: dorsalis pedis pulses present (by doppler only) and radial pulses present (faint +1); + abnormal peripheral pulses Extremities: + abnormal capillary refill Gastrointestinal (Abdomen): Inspection/Auscultation: abdomen normal to inspection Percussion/Palpation: abdomen soft Skin: no rashes, warm and dry + pallor Results & Data ([facility]) Vital Signs (Past 12 Hours) Vital Signs Temp Pulse Pulse Resp BP BP Pulse Ox 04/29/20 08:00 36.7 C 62 64 20 128/67 98 04/29/20 06:00 62 16 105/54 L 95 04/29/20 05:00 60 13 100/59 L 95 04/29/20 04:00 35.9 C L 60 22 101/54 L 93 04/29/20 03:00 36.0 C L 60 12 109/60 93 04/29/20 02:00 36.0 C L 60 19 109/57 L 95 04/29/20 01:00 36.1 C L 60 20 105/56 L 95 04/29/20 00:00 36.0 C L 62 12 127/65 94 PG Care Time/CCT Total # of Minutes Spent Total Time Spent with Patient: Total time spent is greater than 50% in coordination of care (as documented) at patient's floor/unit and/or counseling patient: 35 Coding Level of Care Code 84423 Subseq Hosp Care Lvl 3 Diagnoses Palliative care encounter Z51.5 Cardiac arrest I46.9 Anoxic brain injury G93.1 COPD (chronic obstructive pulmonary disease) J44.9 Septic shock A41.9; R65.21 Acute renal failure N17.9 Acute renal failure type: unspecified Time Spent (min) 35 Time Spent Midlevel Total time spent 35 minutes with > 50% of that time spent assessing the patient, discussing goals of care with IDT at disciplinary rounds. (1) Acute renal failure Acute renal failure type: unspecified Qualified Code(s): N17.9 - Acute kidney failure, unspecified
--- NOTE | 2020-04-29 14:18 | Billing Data ---
Date of Service April 29, 2020 Coding Level of Care Code 09437 Initial Inpt Care Lvl 3
--- NOTE | 2020-04-29 14:32 | Orthopedic Progress Note ---
Date of Service April 29, 2020 Assessment & Plan (1) Abscess of left hand: Continues with no further purulence in abscess cavity. Demarcation and necrosis of thumb. Will discuss with Dr. Singh about further surgical needs. Dressing changes daily. Admission and Anticipated Discharge Date Admission Date: April 23, 2020 Subjective Pt now off ventilator. Sleeping upon entering room. Easily arousable. She does not verbally answer questions but does shake her head yes or no at times. Does not answer all questions. Discussed changing her dressing on the left hand with her. Physical Exam Physical Exam: Dressing removed without difficulty. Pt does not seem to be p ainful when manipulating hand/thumb. No purulence noted. Packing remains in wound. No foul odor. Thumb demarcating. Cool to the touch. Demarcation lateral and medial aspect of thumb moving proximally. Wound redressed. Pt tolerated well. Results & Data ([facility]) Vital Signs (Past 12 Hours) Vital Signs Temp Pulse Pulse Resp BP BP Pulse Ox 04/29/20 13:30 60 18 04/29/20 13:09 60 20 99/54 L 04/29/20 13:00 36.9 C 61 20 04/29/20 12:30 61 8 L 04/29/20 12:00 79 19 04/29/20 11:30 65 23 04/29/20 11:09 60 24 118/65 04/29/20 11:00 37.0 C 68 24 04/29/20 10:50 72 25 H 109/68 04/29/20 10:30 60 1 L 96 04/29/20 10:09 61 17 124/64 97 04/29/20 10:00 37.1 C 60 20 97 04/29/20 09:30 62 17 97 04/29/20 09:09 61 22 124/69 95 04/29/20 09:00 61 22 95 04/29/20 08:30 63 18 96 04/29/20 08:09 74 22 115/86 83 L 04/29/20 08:00 36.7 C 73 64 19 128/67 96 04/29/20 07:47 74 15 128/67 94 04/29/20 07:30 71 14 95 04/29/20 07:19 63 24 128/67 96 04/29/20 07:09 60 18 86/52 L 95 04/29/20 07:00 60 13 94 10/29/20 06:30 60 18 92 04/29/20 06:09 65 15 107/57 L 94 04/29/20 06:00 62 16 105/54 L 95 04/29/20 05:00 60 13 100/59 L 95 04/29/20 04:00 35.9 C L 60 22 101/54 L 93 04/29/20 03:00 36.0 C L 60 12 109/60 93
--- NOTE | 2020-04-29 21:52 | Hospitalist Progress Note ---
Date of Service April 29, 2020 Assessment & Plan (1) Cellulitis of hand: Pt was emperically given doptomycin and zosyn adding clindamycin for necrotizing fascitis coverage. - S/p I&D bedside with Dr. Singh. - Follow cultures -> Growing MRSA. - Presently just on daptomycin -Appears to be improving. Off presure will transfer off unit. (2) DKA (diabetic ketoacidoses): In DKA on presentation. A1c is unreadable, meaning average blood sugar is >450. - Continue basal-bolus insulin - Sugars 110-180 over the last 24 hours. -Anion gap is currently closed (3) Thrombocytopenia: Profound thrombocytopenia to 29. No schistocytes, making DIC/TTP unlikely. No anemia to indicate MAHA. HIT-Ab negative. - Likely from septic shock. - Monitor for bleeding (4) Hypothyroidism: TSH was 66 this admission. May have had some level of myxedema crisis on presentation. - Presently on levothyroxine 88 mcg PO daily (5) Metabolic acidosis: Pt presented with profound acidosis and associated hypotension and respiratory failure. Likely is HHS or DKA. - Presently back to baseline. (6) Acute renal failure: Pt has acute kidney injury, is making urine at this point, continue to follow. - Baseline Cr ~1.0; up to 3.4 on presentation. - IV fluids as per pulmonary/CC team - Improving ->resolved. (7) COPD (chronic obstructive pulmonary disease): Has a history of COPD, will offer albuterol and Atrovent. -Now extubated. (8) Intellectual disability: Now extubated. However, she does not provide significant history. (9) DVT prophylaxis: SCDs Admission and Anticipated Discharge Date Admission Date: April 23, 2020 Subjective Patient does not provide significant past medical history. Review of Systems Review of Systems: Unobtainable due to cognitive status Physical Exam Physical Exam: Constitutional: WD/WN, vitals as above + acute distress and + disheveled Eyes: EOM intact bilaterally; no conjunctival abnormality ENMT: external ear and nose normal, oropharynx normal Neck: trachea midline, no thyromegaly normal visual inspection Respiratory: normal respiratory effort, lungs clear to auscultation no respiratory distress Cardiovascular: RRR, no murmur, no edema Gastrointestinal (Abdomen): Inspection/Auscultation: abdomen normal to inspection; abdomen not distended Musculoskeletal: no cyanosis or clubbing, extremities motor strength 5/5 Skin: no rashes, warm and dry Neurologic: moves all extremities and awake Psychiatric: Orientation: alert; + not oriented to person Results & Data Results & Data ([facility]) Vital Signs (Past 12 Hours) Vital Signs Temp Pulse Pulse Resp BP BP BP 04/29/20 17:40 36.5 C 68 16 110/68 110/68 04/29/20 16:00 60 04/29/20 13:30 60 18 04/29/20 13:09 60 20 99/54 L 04/29/20 13:00 36.9 C 61 20 04/29/20 12:30 61 8 L 04/29/20 12:00 79 19 04/29/20 11:30 65 23 04/29/20 11:09 60 24 118/65 04/29/20 11:00 37.0 C 68 24 04/29/20 10:50 72 25 H 109/68 04/29/20 10:30 60 1 L 04/29/20 10:09 61 17 124/64 04/29/20 10:00 37.1 C 60 20 Pulse Ox 04/29/20 17:40 98 04/29/20 16:00 04/29/20 13:30 04/29/20 13:09 04/29/20 13:00 04/29/20 12:30 04/29/20 12:00 04/29/20 11:30 04/29/20 11:09 04/29/20 11:00 04/29/20 10:50 04/29/20 10:30 96 04/29/20 10:09 97 04/29/20 10:00 97 PG Care Time/CCT Total # of Minutes Spent Total Time Spent with Patient: Total time spent is greater than 50% in coordination of care (as documented) at patient's floor/unit and/or counseling patient: Coding Level of Care Code 22248 Subseq Hosp Care Lvl 3 Diagnoses Cellulitis of hand L03.119 DKA (diabetic ketoacidoses) E11.10 Thrombocytopenia D69.6 Hypothyroidism E03.9 Metabolic acidosis E87.2 Acute renal failure N17.9 Acute renal failure type: unspecified COPD (chronic obstructive pulmonary disease) J44.9 Intellectual disability F79 DVT prophylaxis Z29.9 Time Spent (min) 35 (1) Acute renal failure Acute renal failure type: unspecified Qualified Code(s): N17.9 - Acute kidney failure, unspecified
[2020-04-30] MEDS ORDERED: FLUCONAZOLE 50 MG TAB PO ONE (05:29)
[2020-04-30] MEDS ORDERED: NYSTATIN POWDER 15GM BTL EXT PRN (05:30)
--- NOTE | 2020-04-30 05:33 | Communication Note ---
Date of Service: April 30, 2020 Notified by nursing that during straight cath, pt had thick white discharge with surrounding erythema. Given Hx of DKA, will treat empirically with 1 PO dose of diflucan 150mg as well as topical powdered Nystatin Resident Activity Tracking Resident Involvement: Placement Officer Coverage Note Care Provided: Adult Hospital Medicine
[2020-04-30] MEDS: LEVOTHYROXINE SODIUM 200 MCG TABLET PO SCH (06:13)
[2020-04-30 07:04] LABS: Hematocrit (blood only) 34.4 % (37-47); Hemoglobin 11.3 g/dL (12.0-16.0); Mean Corpuscular Hemoglobin 28.9 pg (25-34); Mean Corpuscular Hgb Conc 32.8 g/dL (32-36); Mean Platelet Volume 12.9 fL (7.4-10.4); Nucleated RBC # (auto) 0.02 K/uL (0-0); Nucleated RBC % (auto) 0.2 %; Platelet Count 61 K/uL (130-400); RDW Coefficient of Variation 16.1 % (11.5-14.5); RDW Standard Deviation 51.3 fL (36.4-46.3); Red Blood Count 3.91 M/uL (4.2-5.4)
[2020-04-30 07:10] LABS: BUN Creatinine Ratio 13.6 (10-20); Calcium 8.2 mg/dl (8.5-10.1); Creatinine Clr Calc Pharmacy 47.3 ml/min; Est GFR (African American) 71.6; Est GFR (Non-African American) 61.8; Magnesium 2.6 mg/dl (1.8-2.4)
[2020-04-30 07:23] LABS: Eosinophils # (auto) 0.12 K/uL (0-0.5); Eosinophils % (auto) 1.2 %; Immature Granulocytes # (auto) 0.17 K/uL (0.00-0.02); Immature Granulocytes % (auto) 1.7 %; Lymphocytes # (auto) 3.12 K/uL (1.2-3.4); Lymphocytes % (auto) 31.5 %; Monocytes # (auto) 1.11 K/uL (0.11-0.59); Monocytes % (auto) 11.2 %; Neutrophils # (auto) 5.38 K/uL (1.4-6.5); Neutrophils % (auto) 54.4 %
[2020-04-30] MEDS: INSULIN ASPART 100 UNITS/ML 3 ML PEN SC SCH ×4 (10:29→22:30)
[2020-04-30] MEDS: INSULIN GLARGINE SOLOSTAR 100 UNITS/ML 3 ML PEN SC SCH (10:30)
[2020-04-30] MEDS: MIDODRINE HCL 2.5 MG TAB PO SCH ×3 (10:32→18:00)
[2020-04-30] MEDS: DOXYCYCLINE HYCLATE 100 MG CAP PO SCH ×2 (10:32→22:29)
[2020-04-30] MEDS ORDERED: PHARMACY GLYCEMIC MGMT CONSULT PRN (18:14)
[2020-04-30] MEDS ORDERED: INSULIN HUMAN REGULAR PER UNIT 4 UNITS in SYRINGE 3.96 ML IV ONE (22:00)
--- NOTE | 2020-04-30 22:42 | Hospitalist Progress Note ---
Date of Service April 30, 2020 Assessment & Plan (1) Cellulitis of hand: Pt was emperically given doptomycin and zosyn adding clindamycin for necrotizing fascitis coverage. - S/p I&D bedside with Dr. Singh. - Follow cultures -> Growing MRSA. - Presently just on daptomycin -However, thumb appears to be getting darker. Informed ortho -Concerned thumb is becoming necrotic. (2) DKA (diabetic ketoacidoses): In DKA on presentation. A1c is unreadable, meaning average blood sugar is >450. - Continue basal-bolus insulin - Sugars 110-180 over the last 24 hours. -Anion gap is currently closed (3) Thrombocytopenia: Profound thrombocytopenia to 29. No schistocytes, making DIC/TTP unlikely. No anemia to indicate MAHA. HIT-Ab negative. - Likely from septic shock. - Monitor for bleeding (4) Hypothyroidism: TSH was 66 this admission. May have had some level of myxedema crisis on presentation. - Presently on levothyroxine 88 mcg PO daily (5) Metabolic acidosis: Pt presented with profound acidosis and associated hypotension and respiratory failure. Likely is HHS or DKA. - Presently back to baseline. (6) Acute renal failure: Pt has acute kidney injury, is making urine at this point, continue to follow. - Baseline Cr ~1.0; up to 3.4 on presentation. - IV fluids as per pulmonary/CC team - Improving ->resolved. (7) COPD (chronic obstructive pulmonary disease): Has a history of COPD, will offer albuterol and Atrovent. -Now extubated. (8) Intellectual disability: Now extubated. However, she does not provide significant history. (9) DVT prophylaxis: SCDs Admission and Anticipated Discharge Date Admission Date: April 23, 2020 Subjective 74 yo female does not provide significant history Review of Systems Review of Systems: All systems reviewed & are unremarkable except as noted in HPI & below Physical Exam Physical Exam: Constitutional: WD/WN, vitals as above + acute distress and + disheveled Eyes: EOM intact bilaterally; no conjunctival abnormality ENMT: external ear and nose normal, oropharynx normal Neck: trachea midline, no thyromegaly normal visual inspection Respiratory: normal respiratory effort, lungs clear to auscultation no respiratory distress Cardiovascular: RRR, no murmur, no edema Gastrointestinal (Abdomen): Inspection/Auscultation: abdomen normal to inspection; abdomen not distended Musculoskeletal: no cyanosis or clubbing, extremities motor strength 5/5 Skin: no rashes, warm and dry Neurologic: moves all extremities and awake Psychiatric: Orientation: alert; + not oriented to person Results & Data Results & Data ([facility]) Vital Signs (Past 12 Hours) Vital Signs Temp Pulse Resp BP Pulse Ox 04/30/20 17:41 36.5 C 77 16 122/66 95 PG Care Time/CCT Total # of Minutes Spent Total Time Spent with Patient: Total time spent is greater than 50% in coordination of care (as documented) at patient's floor/unit and/or counseling patient: Coding Level of Care Code 42280 Subseq Hosp Care Lvl 2 Diagnoses Cellulitis of hand L03.119 DKA (diabetic ketoacidoses) E11.10 Thrombocytopenia D69.6 Hypothyroidism E03.9 Metabolic acidosis E87.2 Acute renal failure N17.9 Acute renal failure type: unspecified COPD (chronic obstructive pulmonary disease) J44.9 Intellectual disability F79 DVT prophylaxis Z29.9 (1) Acute renal failure Acute renal failure type: unspecified Qualified Code(s): N17.9 - Acute kidney failure, unspecified
[2020-05-01] MEDS ORDERED: INSULIN ASPART 100 UNITS/ML 3 ML PEN SC SCH ×2 (02:00)
[2020-05-01] MEDS: LEVOTHYROXINE SODIUM 200 MCG TABLET PO SCH (06:29)
--- NOTE | 2020-05-01 08:32 | Orthopedic Progress Note ---
Date of Service May 01, 2020 Assessment & Plan (1) Abscess of left hand: Is having drainage in thumb/ index finger webspace. Demarcation and necrosis of thumb into thenar eminence Will discuss with Dr. Singh about further surgical needs. Dressing changes daily. Admission and Anticipated Discharge Date Admission Date: April 23, 2020 Subjective Sleeping upon entering room. Easily arousable. She does not verbally answer questions but does shake her head yes or no at times. Does not answer all questions. Discussed changing her dressing on the left hand with her. Physical Exam Physical Exam: Left hand necrosis all of thumb into thenar eminence and posterior to that. + drainage in thumb/ index finger web space Packing in place. ROM unable to be performed. Patient is awake, alert but does not respond to verbal questions. Results & Data ([facility]) Vital Signs (Past 12 Hours) Vital Signs Temp Pulse Resp BP Pulse Ox 05/01/20 07:12 36.9 C 63 16 116/66 94 05/01/20 00:09 36.8 C 69 14 100/59 L 95
[2020-05-01 09:32] LABS: BUN Creatinine Ratio 14.4 (10-20); Calcium 8.2 mg/dl (8.5-10.1); Creatinine Clr Calc Pharmacy 49.4 ml/min; Est GFR (African American) 75.5; Est GFR (Non-African American) 65.2; Magnesium 2.2 mg/dl (1.8-2.4); Phosphorus 2.9 mg/dl (2.5-4.9); Potassium 3.7 mmol/L (3.5-5.1)
[2020-05-01 09:34] LABS: Hematocrit (blood only) 31.1 % (37-47); Hemoglobin 9.9 g/dL (12.0-16.0); Mean Corpuscular Hemoglobin 28.5 pg (25-34); Mean Corpuscular Hgb Conc 31.8 g/dL (32-36); Mean Corpuscular Volume 89.6 fL (80-100); Mean Platelet Volume 11.9 fL (7.4-10.4); Platelet Count 107 K/uL (130-400); RDW Coefficient of Variation 15.9 % (11.5-14.5); RDW Standard Deviation 50.8 fL (36.4-46.3); Red Blood Count 3.47 M/uL (4.2-5.4); White Blood Count 10.64 K/uL (4.8-10.8)
[2020-05-01 09:35] LABS: Basophils # (auto) 0.01 K/uL (0-0.2); Basophils % (auto) 0.1 %; Eosinophils # (auto) 0.16 K/uL (0-0.5); Eosinophils % (auto) 1.5 %; Immature Granulocytes # (auto) 0.17 K/uL (0.00-0.02); Immature Granulocytes % (auto) 1.6 %; Lymphocytes # (auto) 3.65 K/uL (1.2-3.4); Lymphocytes % (auto) 34.3 %; Monocytes # (auto) 1.05 K/uL (0.11-0.59); Monocytes % (auto) 9.9 %; Neutrophils % (auto) 52.6 %
[2020-05-01] MEDS: INSULIN ASPART 100 UNITS/ML 3 ML PEN SC SCH ×4 (10:28→21:11)
[2020-05-01] MEDS: INSULIN GLARGINE SOLOSTAR 100 UNITS/ML 3 ML PEN SC SCH (10:30)
[2020-05-01] MEDS: DOXYCYCLINE HYCLATE 100 MG CAP PO SCH ×2 (10:31→21:12)
[2020-05-01] MEDS: MIDODRINE HCL 2.5 MG TAB PO SCH ×3 (10:35→18:37)
--- NOTE | 2020-05-01 12:24 | Orthopedic Progress Note ---
Date of Service May 01, 2020 Assessment & Plan (1) Abscess of left hand: This is a very challenging case, with both surgical and ethical dilemmas to sort through. She is obviously an extremely poorly controlled diabetic. Previous hemoglobin A1c values 2 years ago were above 16, and no intervening values below 12, and value during this current admission of greater than 16.9, reportedly translating to an average blood glucose level of greater than 450. Initial blood glucose upon presentation was 991. She is now out of the ICU and extubated, and seems to be out of immediate threat to her life from sepsis. Her hand abscess is decompressed. She is unable to answer simple questions, has garbled incoherent speech, and cannot answer any orientation questions. She is therefore not consentable to any elective procedures. She has no identified family members or power of litigation attorney for any surgical consent. Currently, the necrosis of her left thumb is not an immediate threat to her life, and is essentially a semi-elective procedure at this point. I would not proceed with any thumb amputation without surgical consent. I would actually recommend delaying any surgical intervention at this point to let some of the soft tissues surrounding the thumb declare themselves with clear demarcation, especially regarding the skin over the dorsal first webspace. With amputation of the thumb, my biggest concern would be soft tissue coverage and skin closure. It currently does not appear that there would be enough skin to close the wound after a thumb amputation. However, with her extremely poorly controlled diabetes, she is an extremely poor candidate for flap coverage. She needs plastic surgery consultation prior to embarking on any thumb amputation for post-amputation wound coverage. With all these issues, I think she would be best served by transfer to a tertiary care facility to better coordinate all of her required services. Admission and Anticipated Discharge Date Admission Date: April 23, 2020 Subjective Patient was seen and examined. She is sleeping upon entering the room, but arousable., She maintains eye contact, but very little intelligible speech. She has garbled words and incoherent speech. She cannot answer simple questions such as if she has pain in her thumb. She cannot answer any orientation questions related to person, place, or time. No obvious distress. Physical Exam Physical Exam: Patient appears comfortable and in no obvious distress. She does not react to dressing changes to the thumb. Dressings were taken down and changed. She has some purulent drainage from the thumb abscess drainage wound, but no obvious retained fluid pockets. She has obvious necrosis of her thumb. A large portion of the thumb digit is clearly demarcated and obviously necrotic. A large portion of skin over the volar thenar muscles is also clearly necrotic, but the viability of the underlying thenar muscles is unclear. A lot of the dorsal skin in the first webspace is mottled, but not clearly demarcated yet. Results & Data ([facility]) Vital Signs (Past 12 Hours) Vital Signs Temp Pulse Resp BP Pulse Ox 05/01/20 07:12 36.9 C 63 16 116/66 94 Laboratory Results Wound cultures growing MRSA. Blood cultures negative.
--- NOTE | 2020-05-01 15:11 | Pharmacy Report ---
Glycemic Control Consultation - Date of Service May 01, 2020 - Scope Scope: Glycemic Pharmacist consulted for glycemic control and to write orders per [facility] inpatient glycemic control protocol. - Objective Weight: 65.8 kg Accuchecks BSG (last 24hrs): 04/30/20 04/30/20 04/30/20 17:39 17:41 21:25 Glucose POC Glucose 352 H* 356 H* 323 H* 04/30/20 04/30/20 05/01/20 21:25 21:26 01:56 Glucose POC Glucose 335 H* 299 H 198 H 05/01/20 05/01/20 05/01/20 08:16 08:31 12:28 Glucose 144 H POC Glucose 155 H 208 H Laboratory Data (last 24hrs): 05/01/20 08:31 Potassium 3.7 Carbon Dioxide 27 Anion Gap 3.0 Creatinine 0.88 Est Cr Clr Drug Dosing 49.4 HbA1c: Hemoglobin A1c > 16.9 % (4.5-5.6) H 04/24/20 02:56 - Recent Pertinent Medications Outpatient Anti-diabetic Regimen: * Metformin 850 mg BID * A1c = > 16.9 % on 04/24/20 The patient was receiving: * Basal insulin: Lantus 12 units every 24 hours * Correctional Insulin: Novolog Correction per scale ACHS Goal Range: Low 110 mg/dL - High 140 mg/dL Correction Factor: 35 mg/dL/unit * Prandial insulin: Per carb ratio of 1 unit per 12 grams CHO consumed * Oral Agents: none Risk Factors for Insulin Resistance: * Steroids: none * Infection: Doxy PO * IVF: none * Recent Surgery: none * Diet: T2DM * Mechanical Ventilation: extubated - Assessment & Plan Assessment & Plan: ASSESSMENT: * 74 y/o F admitted for DKA and Sepsis. She is a poorly controlled type 2 diabetic. * Pt had been receiving Lantus 10-12 units daily the past 2 days. Fasting BSG today was 155 mg/dl. Continued with basal of 12 units QAM. * She received total of 23 units of bolus insulin yesterday. However, BSGs t rended up to 356 and 335 mg/dl last night. Novolog parameters were tightened last night. Pre-lunch BSG today = 208, Novolog was further tightened again with lunch today. * IF BSGs continue to be elevated today, will plan to slightly increase basal insulin tomorrow AM. PLAN FOR INPATIENT GLYCEMIC CONTROL: * Holding outpatient oral diabetes medications * Basal insulin: continued * Lantus 12 units SQ QAM * Bolus insulin: tightened * NovoLog per scale ACHS or Q6hrs while NPO * Goal Range: Low 110 mg/dL - High 140 mg/dL * Correction Factor: 20 mg/dL/unit * Nutritional / Prandial insulin per carb ratio of 1 unit per 9 grams CHO consumed * Please note that the plan above was derived based on current level of insulin resistance and hospital stress. These recommendations are appropriate for inpatient admission only. Plan of care upon discharge will need to be reassessed to avoid potential outpatient hypo/hyperglycemia. Thank you.
[2020-05-01] MEDS ORDERED: INSULIN GLARGINE SOLOSTAR 100 UNITS/ML 3 ML PEN SC STA (20:59)
--- NOTE | 2020-05-01 22:23 | Hospitalist Progress Note ---
Date of Service May 01, 2020 Assessment & Plan (1) Cellulitis of hand: Pt was emperically given doptomycin and zosyn adding clindamycin for necrotizing fascitis coverage. - S/p I&D bedside with Dr. Singh. - Follow cultures -> Growing MRSA. - Presently just on daptomycin -However, thumb appears to be getting darker. Informed ortho. -Recommend amputation but will need transfer to tertiary center. -However, no family is available. -She does have a friend but have been unable to reach. -She does not have capacity though to make decisions (2) DKA (diabetic ketoacidoses): In DKA on presentation. A1c is unreadable, meaning average blood sugar is >450. - Continue basal-bolus insulin - Sugars 110-180 over the last 24 hours. -Anion gap is currently closed (3) Thrombocytopenia: Profound thrombocytopenia to 29. No schistocytes, making DIC/TTP unlikely. No anemia to indicate MAHA. HIT-Ab negative. - Likely from septic shock. - Monitor for bleeding (4) Hypothyroidism: TSH was 66 this admission. May have had some level of myxedema crisis on presentation. - Presently on levothyroxine 88 mcg PO daily (5) Metabolic acidosis: Pt presented with profound acidosis and associated hypotension and respiratory failure. Likely is HHS or DKA. - Presently back to baseline. (6) Acute renal failure: Pt has acute kidney injury, is making urine at this point, continue to follow. - Baseline Cr ~1.0; up to 3.4 on presentation. - IV fluids as per pulmonary/CC team - Improving ->resolved. (7) COPD (chronic obstructive pulmonary disease): Has a history of COPD, will offer albuterol and Atrovent. -Now extubated. (8) Intellectual disability: Now extubated. However, she does not provide significant history. (9) DVT prophylaxis: SCDs (10) Diarrhea: Acute diarrhea likely secondary to antibiotics. will check for c diff. Admission and Anticipated Discharge Date Admission Date: April 23, 2020 Subjective Patient does not provide significant history and only states that she wants to go home. Review of Systems Review of Systems: All systems reviewed & are unremarkable except as noted in HPI & below Physical Exam Physical Exam: Constitutional: WD/WN, vitals as above + acute distress and + disheveled Eyes: EOM intact bilaterally; no conjunctival abnormality ENMT: external ear and nose normal, oropharynx normal Neck: trachea midline, no thyromegaly normal visual inspection Respiratory: normal respiratory effort, lungs clear to auscultation no respiratory distress Cardiovascular: RRR, no murmur, no edema Gastrointestinal (Abdomen): Inspection/Auscultation: abdomen normal to inspection; abdomen not distended Musculoskeletal: no cyanosis or clubbing, extremities motor strength 5/5 Skin: no rashes, warm and dry Neurologic: moves all extremities and awake Psychiatric: Orientation: alert; + not oriented to person Results & Data Results & Data ([facility]) Vital Signs (Past 12 Hours) Vital Signs Temp Pulse Resp BP Pulse Ox 05/01/20 14:37 36.9 C 79 16 108/56 L 93 PG Care Time/CCT Total # of Minutes Spent Total Time Spent with Patient: Total time spent is greater than 50% in coordination of care (as documented) at patient's floor/unit and/or counseling patient: Coding Level of Care Code 36025 Subseq Hosp Care Lvl 3 Diagnoses Cellulitis of hand L03.119 DKA (diabetic ketoacidoses) E11.10 Thrombocytopenia D69.6 Hypothyroidism E03.9 Metabolic acidosis E87.2 Acute renal failure N17.9 Acute renal failure type: unspecified COPD (chronic obstructive pulmonary disease) J44.9 Intellectual disability F79 DVT prophylaxis Z29.9 Diarrhea R19.7 (1) Acute renal failure Acute renal failure type: unspecified Qualified Code(s): N17.9 - Acute kidney failure, unspecified
[2020-05-02] MEDS ORDERED: INSULIN ASPART 100 UNITS/ML 3 ML PEN SC ONE (02:00)
[2020-05-02] MEDS: LEVOTHYROXINE SODIUM 200 MCG TABLET PO SCH (06:21)
[2020-05-02] MEDS: DOXYCYCLINE HYCLATE 100 MG CAP PO SCH (07:44)
[2020-05-02] MEDS: MIDODRINE HCL 2.5 MG TAB PO SCH ×3 (07:44→18:05)
[2020-05-02] MEDS ORDERED: INSULIN GLARGINE SOLOSTAR 100 UNITS/ML 3 ML PEN SC SCH (09:00)
[2020-05-02] MEDS: INSULIN ASPART 100 UNITS/ML 3 ML PEN SC SCH ×3 (09:44→18:03)
--- NOTE | 2020-05-02 15:19 | Pharmacy Report ---
Pharmacy Glycemic Short Note 2 - Date of Service May 02, 2020 - Glycemic Short BSG Results (Last 24 hours): 05/01/20 05/01/20 05/02/20 17:08 20:29 03:35 POC Glucose 252 H 254 H 79 05/02/20 05/02/20 05/02/20 08:06 08:08 08:30 POC Glucose 67 L* 58 L* 68 L* 05/02/20 05/02/20 08:32 12:13 POC Glucose 90 99 OUTPATIENT ANTIDIABETIC REGIMEN: * Basaglar 15 units SQ QAM * Metformin 850 mg PO BID ASSESSMENT: * Patient received total of 42 units of insulin yesterday: 18 units of basal + 24 units bolus. * Pt was hypoglycemic this AM with BSG of 58 mg/dl. She received too much basal yesterday (12 units in the AM and additional 6 units at HS since she was hyperglycemic with BSGs above 200 mg/dl at dinner and HS). Reduced dose this AM. * Novolog parameters were also loosened this AM due to hypoglycemia. Pre-lunch BSG was improved at 99 mg/dl. Will continue with same parameters. * Nurse said that patient did not eat much for breakfast this AM. PLAN FOR INPATIENT GLYCEMIC CONTROL: * Hold outpatient oral diabetes medications * Basal insulin: decreased * Lantus 8 units SQ QAM * Bolus insulin: loosened * NovoLog per scale ACHS or Q6hrs while NPO * Goal Range: Low 110 mg/dL - High 140 mg/dL * Correction Factor: 25 mg/dL/unit * Nutritional / Prandial insulin per carb ratio of 1 unit per 12 grams CHO consumed PLAN FOR DISCHARGE: * TBD
[2020-05-02 15:26] LABS: Creatinine Clr Calc Pharmacy 47.3 ml/min; Est GFR (African American) 71.6; Est GFR (Non-African American) 61.8; Potassium 3.8 mmol/L (3.5-5.1)
[2020-05-02 15:27] LABS: Phosphorus 3.3 mg/dl (2.5-4.9)
--- NOTE | 2020-05-02 17:03 | Discharge Summary ---
Date of Service May 02, 2020 Admission HPI Per Admitting Provider 74 F who arrives after resuscitation in the field. reportedly was found with agonal respiration and low blood pressure, was bagged in field, cpr and given epi for pressor, was given ivf via interosseus fluid in the right tibia. Intubated in the ER, right IJ placed and og tube. Pt was found to be profoundly acidemic, metabolic, with marked elevated glucose (991). She did have an amp of bicarb, and was sedated with midazolam and given pressors with norepi. she remains on pressors, had 3 liters of Nss and is making urine at this time. She has heme positive black ngt drainage. She was found to have a markedly swollen right hand with bullae on it with some minor erythema to the wrist. She does not have pneumonia on CXR and was given daptomycin and zosyn, added clinda for nec fasc coverage and has a pending covid. Principal Diagnosis Left necrotic thumb Discharge Exam Constitutional: WD/WN, vitals as above + acute distress Eyes: EOM intact bilaterally; no conjunctival abnormality ENMT: external ear and nose normal, oropharynx normal Neck: trachea midline, no thyromegaly normal visual inspection Respiratory: normal respiratory effort, lungs clear to auscultation no respiratory distress Cardiovascular: RRR, no murmur, no edema Gastrointestinal (Abdomen): Inspection/Auscultation: abdomen normal to inspection; abdomen not distended Musculoskeletal: no cyanosis or clubbing, extremities motor strength 5/5 Skin: no rashes, warm and dry Neurologic: moves all extremities and awake Psychiatric: Orientation: alert; + not oriented to person Discharge Data Allergies Allergy/AdvReac Type Severity Reaction Status Date / Time No Known Allergies Allergy Verified 04/23/20 19:56 Consultations 04/23/20 19:52 Consult Orthopedic Surgery Stat 04/23/20 23:05 Consult Case Management - Discharge Planning Routine Consult Historical Records Administrator Routine 04/24/20 08:11 Consult Cardiology Routine 04/26/20 10:26 Consult Neurology Routine 04/26/20 10:27 Consult Palliative Care Routine 04/28/20 10:15 Consult Infectious Diseases Routine Ordered Studies 04/23/20 18:53 CT head/brain wo con Urgent 04/23/20 19:52 US extremity non-vascular ltd Stat Hospital Course (1) Cellulitis of hand: Pt was emperically given doptomycin and zosyn adding clindamycin for necrotizing fascitis coverage. - S/p I&D bedside with Dr. Singh. - Follow cultures -> Growing MRSA. -[facility] ID was consulted, note should be in the [facility] system. -presently on doxycycline. -However left thumb appears to be necrotic: Appreciate input from ortho: "This is a very challenging case, with both surgical and ethical dilemmas to sort through. She is obviously an extremely poorly controlled diabetic. Previous hemoglobin A1c values 2 years ago were above 16, and no intervening values below 12, and value during this current admission of greater than 16.9, reportedly translating to an average blood glucose level of greater than 450. Initial blood glucose upon presentation was 991. She is now out of the ICU and extubated, and seems to be out of immediate threat to her life from sepsis. Her hand abscess is decompressed. She is unable to answer simple questions, has garbled incoherent speech, and cannot answer any orientation questions. She is therefore not consentable to any elective procedures. She has no identified family members or power of criminal defense attorney for any surgical consent. Currently, the necrosis of her left thumb is not an immediate threat to her life, and is essentially a semi-elective procedure at this point. I would not proceed with any thumb amputation without surgical consent. I would actually recommend delaying any surgical intervention at this point to let some of the soft tissues surrounding the thumb declare themselves with clear demarcation, especially regarding the skin over the dorsal first webspace. With amputation of the thumb, my biggest concern would be soft tissue coverage and skin closure. It currently does not appear that there would be enough skin to close the wound after a thumb amputation. However, with her extremely poorly controlled diabetes, she is an extremely poor candidate for flap coverage. She needs plastic surgery consultation prior to embarking on any thumb amputation for post-amputation wound coverage. With all these issues, I think she would be best served by transfer to a tertiary care facility to better coordinate all of her required services." . -However, no family is available. -She does have a friend, Rama who is her tmd teacher, she visited her today prior to discharge. -Rama explained that her mother was the tmd teacher, but about a year ago. -she has tried to control her diabetes but this has been difficult as she has 3 children. -The patient has mild MR as is unable to take care of herself. -Rama is agreeable to transfer. -Patient does not have capacity though to make decisions -Ethically, cannot send patient home with a necrotic thumb. Due to septic shock, patient was on vasopressors initally, but this was tapered off. Midodrine was started to help tapering her OFF THE VASOPRESSORS. This has been continued, will recommend tapering prior to discharge (2) Diarrhea: Acute diarrhea likely secondary to antibiotics. C. diff negative. Patient has a digni-shield (3) DKA (diabetic ketoacidoses): Resolved (4) Thrombocytopenia: Now over 100. She had a profound thrombocytopenia to 29. No schistocytes, making DIC/TTP unlikely. No anemia to indicate MAHA. HIT-Ab negative. - Likely from septic shock. - Monitor for bleeding (5) Hypothyroidism: TSH was 66 this admission. May have had some level of myxedema crisis on presentation. - Presently on levothyroxine 88 mcg PO daily (6) Metabolic acidosis: Pt presented with profound acidosis and associated hypotension and r espiratory failure. Likely is HHS or DKA. - Presently back to baseline. (7) Acute renal failure: Pt has acute kidney injury, is making urine at this point, continue to follow. - Baseline Cr ~1.0; up to 3.4 on presentation. - IV fluids as per pulmonary/CC team - Improving ->resolved. (8) COPD (chronic obstructive pulmonary disease): Has a history of COPD, will offer albuterol and Atrovent. -Now extubated. (9) Intellectual disability: Now extubated. (10) DVT prophylaxis: SCDs Total Time Total Time Spent Total Time Spent (In Minutes): 32 Total Time Includes: Examination of the Patient, Discharge Planning and Medication Reconciliation Discharge Plan Discharge Items Reason For Visit: DKA, HYPOVOLEMIC SHOCK Follow-up/Referrals: Candy Hartmann CRNP [Primary Care Provider] - Medications and DC Order Prescriptions: No Action sertraline 25 mg tablet 25 mg PO DAILY Qty: 90 RF: 0 albuterol sulfate 90 mcg/actuation HFA aerosol inhaler 2 puffs INH Q6H PRN (Reason: wheezing) RF: 0 aspirin [Adult Low Dose Aspirin] 81 mg tablet,delayed release (DR/EC) 81 mg PO DAILY RF: 0 atorvastatin 40 mg tablet 40 mg PO DAILY RF: 0 midodrine 5 mg tablet 5 mg PO BID RF: 0 metformin 850 mg tablet 850 mg PO BIDM RF: 0 acetaminophen 500 mg tablet 500 - 1,000 mg PO TID PRN (Reason: Pain) RF: 0 levothyroxine 200 mcg tablet 200 mcg PO DAILY RF: 0 ergocalciferol (vitamin D2) 1,250 mcg (50,000 unit) capsule 50,000 unit PO .Q2WK.MO RF: 0 Lantus Solostar U-100 Insulin 100 unit/mL (3 mL) insulin pen 10 unit SUBCUT DAILY RF: 0 Combivent Respimat 20-100 mcg/actuation mist 1 puff INHALATION QID RF: 0 ondansetron 4 mg tablet,disintegrating 4 mg PO Q8H PRN (Reason: nausea and vomiting) Qty: 30 RF: 0 Basaglar KwikPen U-100 Insulin 100 unit/mL (3 mL) Insulin Pen 15 unit SUBCUT QAM RF: 0 Admission Data Admit Date/Time: 04/23/20 18:53 Attending Provider: Odilon Rincon Admit Provider: Carlos Orozco Primary Care Provider: aCndy Hartmann Other Providers: [facility] ; [facility], ; Demond Singh ; Rogelio Iniguez ; Dhiraj Mireles ; Todd Napier ; Pedro Luis Sauer ; Leonel Tolbert ; Mark Olivas ; Jose Daniel Soria Jr ; Alfa [place] ; Sarita Anne ; Candy Kay ; Reginald Hutchison ; Reginald June ; Andre Franklin ; Devan Stratton ; Brooke Chase ; Cathy Jimenez ; Silver Hernandez ; Orestes Garcia ; Geoffrey Valerio ; Dana Brice ; Tamera Moran ; Denys Mazariegos ; Jerson Hebert ; Raúl Carlisle I. ; Roderick Galeas II ; Aarti Noble ; Tesfaye Li Coding Level of Care Code D/C Day Management >30 mins Diagnoses Cellulitis of hand L03.119 Diarrhea R19.7 DKA (diabetic ketoacidoses) E11.10 Thrombocytopenia D69.6 Hypothyroidism E03.9 Metabolic acidosis E87.2 Acute renal failure N17.9 Acute renal failure type: unspecified COPD (chronic obstructive pulmonary disease) J44.9 Intellectual disability F79 DVT prophylaxis Z29.9
== END 2020-05-02 19:22 | disposition short-term general hospital (02) | DRG 871 ==
LOC: ED 16:54 → SUATTDRO 18:53 → 1E 18:53 → 3W 04-29 17:09